=== PATIENT | male | born 1935 | race Caucasian/White ===

== ENCOUNTER 2017-01-22 04:07 | Emergency (ER) | payer OTHER ==
[2017-01-22] MEDS ORDERED: cloNIDine HCL 0.1 MG TAB PO STA (04:54)
[2017-01-22 05:15] LABS: Basophils # (A) 0.1 k/uL (0-0.2); Basophils % (A) 1 %; CH 28.5; CHCM 34.8; Eosinophils # (A) 0.4 k/uL (0-0.7); Eosinophils % (A) 5 %; HCT 43.2 % (39.0-53.0); HDW 2.75; Luc # (Auto) 0.21; Luc % (Auto) 3; Lymphocytes # (A) 2.8 k/uL (1.0-4.8); Lymphocytes % (A) 33 %; MCH 28.7 pg (25.0-35.0); MCHC 34.8 g/dL (31.0-37.0); MCV 82.4 fL (80.0-100.0); Mean Platelet Volume 6.4; Monocytes # (A) 0.5 k/uL (0-1.0); Monocytes % (A) 6 %; Neutrophils # (A) 4.4 k/uL (1.3-7.7); Neutrophils % (A) 52 %; RBC 5.24 m/uL (4.30-5.90); RDW 13.7 % (11.5-15.5); WBC 8.5 k/uL (3.8-10.6); WBC (Perox) 8.76
[2017-01-22 05:26] LABS: INR 1.1 (<1.1); Partial Thromboplastin Time 27.3 sec (22.0-30.0); Prothrombin Time 11.3 sec (9.0-12.0)
[2017-01-22 06:14] VITALS: PULSE 78
--- NOTE | 2017-01-22 06:21 | ED ---
ENT HPI - General Chief complaint: ENT Stated complaint: Nosebleed Time Seen by Provider: 01/22/17 04:54 Source: patient, family Mode of arrival: ambulatory Limitations: no limitations - Related Data Home Medications Medication Instructions Recorded Confirmed Atenolol [Tenormin] 25 mg PO DAILY 01/22/17 01/22/17 Diltiazem HCl [Diltiazem 12Hr ER] 120 mg PO Q12HR 01/22/17 01/22/17 Hydrochlorothiazide [Hydrodiuril] 25 mg PO DAILY 01/22/17 01/22/17 Allergies Allergy/AdvReac Type Severity Reaction Status Date / Time No Known Allergies Allergy Verified 01/22/17 04:23 Review of Systems ROS Statement: Those systems with pertinent positive or pertinent negative responses have been documented in the HPI. ROS Other: All systems not noted in ROS Statement are negative. Past Medical History Past Medical History: Hypertension Additional Past Medical History / Comment(s): nosebleeds, History of Any Multi-Drug Resistant Organisms: None Reported Past Surgical History: No Surgical Hx Reported Past Psychological History: No Psychological Hx Reported Smoking Status: Never smoker Past Alcohol Use History: None Reported Past Drug Use History: None Reported General Exam Limitations: no limitations Course Vital Signs 01/22/17 01/22/17 04:19 06:13 Temperature 97 F L Pulse Rate 91 78 Respiratory 20 20 Rate Blood Pressure 174/83 122/59 O2 Sat by Pulse 96 97 Oximetry Medical Decision Making - Lab Data Result diagrams: 01/22/17 05:03 Lab Results 01/22/17 01/22/17 Range/Units 05:03 05:03 WBC 8.5 (3.8-10.6) k/uL RBC 5.24 (4.30-5.90) m/uL Hgb 15.0 (13.0-17.5) gm/dL Hct 43.2 (39.0-53.0) % MCV 82.4 (80.0-100.0) fL MCH 28.7 (25.0-35.0) pg MCHC 34.8 (31.0-37.0) g/dL RDW 13.7 (11.5-15.5) % Plt Count 317 (150-450) k/uL Neutrophils % 52 % Lymphocytes % 33 % Monocytes % 6 % Eosinophils % 5 % Basophils % 1 % Neutrophils # 4.4 (1.3-7.7) k/uL Lymphocytes # 2.8 (1.0-4.8) k/uL Monocytes # 0.5 (0-1.0) k/uL Eosinophils # 0.4 (0-0.7) k/uL Basophils # 0.1 (0-0.2) k/uL PT 11.3 (9.0-12.0) sec INR 1.1 (<1.1) APTT 27.3 (22.0-30.0) sec Disposition Clinical Impression: Epistaxis, Hypertension Disposition: HOME SELF-CARE Condition: Good Instructions: Nosebleed (ED) Referrals: Nonstaff,Physician [Primary Care Provider] - 1-2 days Joselito Love MD [STAFF PHYSICIAN] - 1-2 days
[2017-01-22 06:34] VITALS: BP 123/68; RESP 18; TEMP 98
== END 2017-01-22 06:35 | disposition home or self-care (01) ==
LOC: EC 04:07
DX: R04.0 Epistaxis (principal); I10 Essential (primary) hypertension; Z79.899 Other long term (current) drug therapy
CPT/HCPCS: 36415; 85025; 85610; 85730; 99283

== ENCOUNTER 2017-03-04 08:15 | Emergency (ER) | payer OTHER ==
--- NOTE | 2017-03-04 08:36 | ED ---
General Adult HPI - General Chief complaint: ENT Stated complaint: NOSEBLEED Time Seen by Provider: 03/04/17 08:23 Source: patient, family, RN notes reviewed Mode of arrival: ambulatory Limitations: no limitations - History of Present Illness Initial comments: Patient is a pleasant 81-year-old male presenting to the emergency department complaining of epistaxis. Onset was over now are ago. Patient does have frequent nosebleeds. Last nosebleed was 8 days ago which is actually pretty good for him. Patient generally has them more frequently. No shortness of breath. No fatigue or weakness. No trauma. Patient believes his nosebleed has improved at this point. Right side is the affected side. - Related Data Home Medications Medication Instructions Recorded Confirmed Atenolol [Tenormin] 25 mg PO DAILY 01/22/17 03/04/17 Diltiazem HCl [Diltiazem 12Hr ER] 120 mg PO Q12HR 01/22/17 03/04/17 Hydrochlorothiazide [Hydrodiuril] 25 mg PO DAILY 01/22/17 03/04/17 Oxymetazoline 0.05% Nasl [place] 2 spray EA NOSTRIL BID 03/04/17 03/04/17 [Afrin 0.05% Nasal [place]] Allergies Allergy/AdvReac Type Severity Reaction Status Date / Time No Known Allergies Allergy Verified 03/04/17 08:21 Review of Systems ROS Statement: Those systems with pertinent positive or pertinent negative responses have been documented in the HPI. ROS Other: All systems not noted in ROS Statement are negative. Constitutional: Denies: fever Eyes: Denies: eye pain ENT: Reports: epistaxis. Denies: ear pain Respiratory: Denies: cough Cardiovascular: Denies: chest pain Endocrine: Denies: fatigue Gastrointestinal: Denies: abdominal pain Genitourinary: Denies: dysuria Musculoskeletal: Denies: back pain Skin: Denies: rash Neurological: Denies: weakness Past Medical History Past Medical History: Hypertension Additional Past Medical History / Comment(s): nosebleeds, History of Any Multi-Drug Resistant Organisms: None Reported Past Surgical History: No Surgical Hx Reported Past Psychological History: No Psychological Hx Reported Smoking Status: Never smoker Past Alcohol Use History: None Reported Past Drug Use History: None Reported General Exam Limitations: no limitations General appearance: alert, in no apparent distress Head exam: Present: atraumatic Eye exam: Present: normal appearance, PERRL ENT exam: Present: normal oropharynx, other (Minimal dry blood in the nares. Area of bleeding is not identified) Neck exam: Present: normal inspection Respiratory exam: Present: normal lung sounds bilaterally Cardiovascular Exam: Present: regular rate, normal rhythm GI/Abdominal exam: Present: soft. Absent: tenderness Extremities exam: Present: normal inspection Neurological exam: Present: alert Psychiatric exam: Present: normal affect, normal mood Skin exam: Present: normal color Course Vital Signs 03/04/17 03/04/17 08:18 08:38 Temperature 96.7 F L Pulse Rate 67 Respiratory 18 Rate Blood Pressure 179/81 115/54 O2 Sat by Pulse 99 Oximetry - Reevaluation(s) Reevaluation #1: 03/04/17 08:34 No active bleeding at this time. Patient does not want to have his nose packed and is agreeable for observation. 03/04/17 09:17 Patient still with no bleeding and requests discharge. Disposition Clinical Impression: Epistaxis Disposition: HOME SELF-CARE Condition: Stable Instructions: Nosebleed (ED) Additional Instructions: Please follow-up with primary care physician and ENT in the beginning of the week. Return for increased bleeding, worsening symptoms or other concerns. Referrals: Nonstaff,Physician [Primary Care Provider] - 1-2 days Jsoelito Love MD [STAFF PHYSICIAN] - 1-2 days Jevon Byers III, MD [STAFF PHYSICIAN] - 1-2 days Time of Disposition: 09:18
[2017-03-04 09:26] VITALS: BP 129/64; PULSE 78; RESP 16; TEMP 98
== END 2017-03-04 09:24 | disposition home or self-care (01) ==
LOC: EC 08:15
DX: R04.0 Epistaxis (principal); I10 Essential (primary) hypertension; Z79.899 Other long term (current) drug therapy
CPT/HCPCS: 99283

== ENCOUNTER 2020-05-27 12:11 | Emergency (ER) | payer OTHER ==
--- NOTE | 2020-05-27 12:41 | ED ---
Fall HPI - General Chief Complaint: Fall Stated Complaint: fall, head injury Time Seen by Provider: 05/27/20 12:22 Source: patient, RN notes reviewed, old records reviewed Mode of arrival: wheelchair - History of Present Illness Initial Comments: This is an 84-year-old male DF status post fall supple fall misstep going forward fell forward landing on forehead. No loss of consciousness not on blood thinners. Issue stem from patient missing a step he has had his eyes dilated was not wearing glasses and it was supervisory outside. He does have significant hematoma above his left eye and abrasion to his nose from sunglasses. No bleeding from the nose. No vision changes or other complaints. 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 [employer] Fall Witnessed: yes, by family Place Fall Occurred: home Loss of Consciousness: none Prolonged Down Time?: no Symptoms Prior to Fall: none Location: head, face Location - Extremities: Left: Knee Severity: moderate Severity scale (1-10): 4 Quality: burning Context: tripped/slipped Associated Symptoms: denies - Related Data Home Medications Medication Instructions Recorded Confirmed Diltiazem HCl [Diltiazem 12Hr ER] 120 mg PO Q12HR 01/22/17 03/04/17 atenoloL [Tenormin] 25 mg PO DAILY 01/22/17 03/04/17 hydroCHLOROthiazide [Hydrodiuril] 25 mg PO DAILY 01/22/17 03/04/17 Oxymetazoline 0.05% Nasl [place] 2 spray EA NOSTRIL BID 03/04/17 03/04/17 [Afrin 0.05% Nasal [place]] Allergies Allergy/AdvReac Type Severity Reaction Status Date / Time No Known Allergies Allergy Verified 05/27/20 12:23 Review of Systems ROS Statement: Those systems with pertinent positive or pertinent negative responses have been documented in the HPI. ROS Other: All systems not noted in ROS Statement are negative. Past Medical History Past Medical History: Hypertension Additional Past Medical History / Comment(s): nosebleeds, History of Any Multi-Drug Resistant Organisms: None Reported Past Surgical History: Back Surgery, Joint Replacement Additional Past Surgical History / Comment(s): rt knee, neck fusion Past Psychological History: No Psychological Hx Reported Smoking Status: Never smoker Past Alcohol Use History: None Reported Past Drug Use History: None Reported General Exam Limitations: no limitations General appearance: alert, in no apparent distress Head exam: Present: normocephalic, normal inspection. Absent: atraumatic (Hem atoma 3 x 5 cm above left eye) Eye exam: Present: normal appearance, PERRL, EOMI. Absent: scleral icterus, conjunctival injection, periorbital swelling ENT exam: Present: normal exam, mucous membranes moist Neck exam: Present: normal inspection. Absent: tenderness, meningismus, lymphadenopathy Respiratory exam: Present: normal lung sounds bilaterally. Absent: respiratory distress, wheezes, rales, rhonchi, stridor Cardiovascular Exam: Present: regular rate, normal rhythm, normal heart sounds. Absent: systolic murmur, diastolic murmur, rubs, gallop, clicks GI/Abdominal exam: Present: soft, normal bowel sounds. Absent: distended, tenderness, guarding, rebound, rigid Extremities exam: Present: normal inspection, full ROM, normal capillary refill. Absent: tenderness, pedal edema, joint swelling, calf tenderness Back exam: Present: normal inspection Neurological exam: Present: alert, oriented X3, CN II-XII intact Psychiatric exam: Present: normal affect, normal mood Skin exam: Present: warm, dry, intact, normal color. Absent: rash Course Vital Signs 05/27/20 12:19 Temperature 97.6 F Pulse Rate 64 Respiratory 20 Rate Blood Pressure 160/73 O2 Sat by Pulse 99 Oximetry - Reevaluation(s) Reevaluation #1: 05/27/20 12:45 Medical records reviewed Reevaluation #2: 05/27/20 12:45 Patient requiring any pain or medication, Reevaluation #3: 05/27/20 12:45 Informed results, patient's okay for discharge Medical Decision Making - Medical Decision Making 81 female DF for evaluation status post trip and fall. Patient has significant hematoma above left eye no triadic injury or fractures, CT is otherwise negative patient can be discharged home - Radiology Data Radiology results: report reviewed (CT brain C-spine and facial bones positive for nasal fracture no onthe rinjury noted), image reviewed Disposition Clinical Impression: Fall, Traumatic hematoma of forehead, Head injury, Nasal fracture Disposition: HOME SELF-CARE Condition: Good Instructions (If sedation given, give patient instructions): Fall Prevention for Older Adults (ED), Hematoma (ED), Nasal Fracture (ED) Is patient prescribed a controlled substance at d/c from ED?: No Referrals: [facility]inic [Primary Care Provider] - 1-2 days
--- NOTE | 2020-05-27 13:13 | CT ---
EXAMINATION TYPE: CT brain cspine wo con, CT facial bones wo con DATE OF EXAM: 05/27/2020 COMPARISON: NONE HISTORY: Fall with left frontal injury. . (accession [id number]), Fall with left frontal injury. (acces corinna [id number]) headache and neck pain after injury. CT DLP: 1119.5 mGycm. Automated Exposure Control for Dose Reduction was Utilized. TECHNIQUE: CT scan of the head and cervical spine are performed without contrast. FINDINGS: There is no acute intracranial hemorrhage or midline shift identified. Diffuse ventricula r and sulcal prominence. Some low attenuation in the periventricular white matter bilaterally. The ca lvarium is intact. There is moderate sized acute left frontal supraorbital scalp hematoma. The mandible is intact. The temporomandibular joints are maintained bilaterally. There is acute minim ally displaced fracture through the right nasal bridge with associated soft tissue swelling. Orbital floors and garcia are intact bilaterally. There are scleral calcifications in both globes. Intraconal fat is preserved bilaterally. The zygomatic arches are intact. The pterygoid plates are intact. The p aranasal sinuses are grossly clear. Cervical spine is visualized in its entirety from C1 through upper thoracic levels and demonstrates t he levoconvex scoliosis centered upper thoracic spine without evidence of acute fracture or dislocati on. Prevertebral soft tissue appears within normal limits. The C1-C2 articulation is within normal limits on the coronal images. There is multilevel severe disc space narrowing with some ossific fusio n of the C3-C4, C5-C6, and C6-C7 vertebra. There is grade 1 anterolisthesis C7 on T1 with moderate-to -severe disc space narrowing and vacuum disc phenomenon at the cervical thoracic junction. Osseous st ructures are diffusely sclerotic with small subcentimeter lytic areas. Correlate clinically for prior surgery given above findings. Posterior spurs efface the anterior thecal sac at C3-C4 and C4-C5 leve ls. Axial images show multilevel uncovertebral facet degenerative changes bilaterally contributing to mul tilevel bilateral neural foraminal narrowing. Thyroid gland is normal in size. Lung apices show mild to moderate emphysematous change with respiratory motion artifact degradation. IMPRESSION: 1. There is no acute fracture or dislocation evident in the cervical spine. Scoliosis with multilevel spondylolisthesis and degenerative change along with some ossific fusion noted as detailed above. 2. No acute intracranial hemorrhage or midline shift is seen. [id number]-[id number] diffuse cerebral atrop hy and chronic small vessel ischemic changes are present. 3. Moderate-sized left frontal acute supraorbital scalp hematoma. Acute minimally displaced fracture through the nasal bridge.
[2020-05-27 13:59] VITALS: BP 132/75; PULSE 67; RESP 17; TEMP 97.5
== END 2020-05-27 14:00 | disposition home or self-care (01) ==
LOC: EC 12:11
DX: S02.2XXA Fracture of nasal bones, initial encounter for closed fracture (principal); S00.83XA Contusion of other part of head, initial encounter; I10 Essential (primary) hypertension; Z79.899 Other long term (current) drug therapy; Z98.1 Arthrodesis status; W01.0XXA Fall on same level from slipping, tripping and stumbling without subsequent striking against object, initial encounter
CPT/HCPCS: 70450; 70486; 72125; 99284

== ENCOUNTER 2021-02-10 10:40 | Day surgery (SDC) | payer OTHER ==
[2021-02-05 15:32] VITALS: BMI 23.6
[~2021-02-10 10:40] MED LIST: LACTATED RINGERS 1,000 ML IV SCH; LIDOCAINE 1% (10MG/ML) FOR IV START INTRADERMA PRN; MOXIFLOXACIN HCL 0.5% DROPS 3 ML BTL OP PRN; TETRACAINE 0.5% OPHTH (PF) DROPS 4 ML BTL OP PRN; TIMOLOL 0.5% OPHTH DROPS 5 ML BTL OP PRN
[2021-02-10 11:18] VITALS: TEMP 97.8
[2021-02-10] MEDS: CYCLOPENTOLATE 1% OPHTH SOLN 2 ML BTL OP PRN ×3 (11:22→11:34)
[2021-02-10] MEDS: PHENYLEPHRINE 2.5% OPHTH DRP 2ML OP PRN ×3 (11:25→11:37)
[2021-02-10] MEDS ORDERED: MIDAZOLAM 2 MG/2 ML VIAL ONE (11:58)
[2021-02-10] MEDS ORDERED: fentaNYL (PF) 50 MCG/ML 2 ML AMP ONE (11:58)
[2021-02-10] MEDS ORDERED: HYALURONATE SODIUM INTRAOCULAR 1 EACH SYRINGE (12MG/ML) INTRAOCULA ONE (12:14)
[2021-02-10] MEDS ORDERED: BALANCED SALT IRRIG SOLN COMB2 15 ML IRRIG.SOLN IRRIGATION ONE (12:14)
[2021-02-10] MEDS ORDERED: EPINEPHrine (PF) 0.3 ML in BALANCED SALT IRRIG SOLN COMB2 500 ML IRRIGATION ONE (12:15)
[2021-02-10] MEDS ORDERED: LIDOCAINE 1% (PF) 10MG/ML VIAL MISCELLANE ONE (12:15)
--- NOTE | 2021-02-10 12:27 | P.OP ---
Date of Procedure: 02/10/21 Preoperative Diagnosis: NS & CS Postoperative Diagnosis: same Procedure(s) Performed: PIOL, OD Implants: [id number] 22.0 Anesthesia: MAC Surgeon: Ronaldo Littlejohn Pathology: none sent Condition: stable Disposition: same day Indications for Procedure: blurry vision Operative Findings: no complications
[2021-02-10 12:48] VITALS: RESP 16
[2021-02-10 13:11] VITALS: BP 110/76; PULSE 55
--- NOTE | 2021-02-10 20:56 | OP ---
OPERATIVE REPORT DATE OF SURGERY: 02/10/2021 PROCEDURE: Phacoemulsification of cataract and intraocular lens implant of the right eye. PREOPERATIVE DIAGNOSIS: Nuclear sclerosis and cortical sclerosis. POSTOPERATIVE DIAGNOSIS: Nuclear sclerosis and cortical sclerosis. ESTIMATED BLOOD LOSS: Zero. SPECIMEN TAKEN: None. NARRATIVE: After obtaining the appropriate consent, the patient was brought to the operating room, where the patient was placed under cardiac monitoring and prepped and draped in the usual sterile manner. At the 11 o'clock position a 15-degree super sharp blade was used to create a paracentesis followed by instillation of 1% Xylocaine MPF 50:50 mix with BSS into the anterior chamber. This was followed by Amvisc to stabilize the anterior chamber. At the 9 o'clock position a self-sealing corneal flap incision was created using 2.8 mm katherine keratome. A cystotome was used to initiate a continuous tear capsulorrhexis which was completed with the Utrata forceps. A Binkhorst cannula was used to hydrodissect the lens nucleus followed by hydrodelineation. Phacoemulsification of the lens was performed utilizing phacochop in 17.3 seconds at 14% power. The remaining cortical material was removed using the irrigation aspiration mode followed by additional 1% Xylocaine MPF into the anterior chamber followed by viscoelastic to stabilize the capsular bag. A [employer]ausch [employer] Lomb MX60E 22.0 diopters posterior chamber lens was placed into the capsular bag without difficulty. The remaining viscoelastic material was removed from the anterior chamber with irrigation/aspiration. Balanced salt solution was used to normalize the intraocular pressure. The incision was checked for watertight integrity. The patient then received two drops of 0.5% timolol followed by two drops Vigamox, was lightly patched and shielded in the usual manner. There were no complications from the procedure. The patient tolerated the procedure well and was returned to Recovery in good condition. MMODL / IJN: [id number] /
== END 2021-02-10 13:25 | disposition home or self-care (01) ==
LOC: OR 10:40
PROVIDERS: ATTEND Ophthalmology
DX: H25.11 Age-related nuclear cataract, right eye (principal); H52.03 Hypermetropia, bilateral; H52.223 Regular astigmatism, bilateral; H52.4 Presbyopia; Z96.1 Presence of intraocular lens; I10 Essential (primary) hypertension; Z79.1 Long term (current) use of non-steroidal anti-inflammatories (NSAID); Z79.899 Other long term (current) drug therapy; Z98.42 Cataract extraction status, left eye; Z98.1 Arthrodesis status; Z96.651 Presence of right artificial knee joint; Z82.61 Family history of arthritis; Z80.3 Family history of malignant neoplasm of breast
CPT/HCPCS: 66984; C1780; J2250; J0171; J3010; J2001

== ENCOUNTER 2021-03-03 09:26 | Inpatient (IN) | payer OTHER, MEDICARE ==
[2021-03-03] MEDS ORDERED: ASPIRIN 81 MG PO STA (09:48)
--- NOTE | 2021-03-03 09:50 | ED ---
General Adult HPI - General Chief complaint: Chest Pain Stated complaint: Chest Pain,SOB Time Seen by Provider: 03/03/21 09:38 Source: patient Mode of arrival: wheelchair Limitations: no limitations - History of Present Illness Initial comments: Dictation was produced using [employer] dictation software. please excuse any grammatical, word or spelling errors. Chief Complaint: 85-year-old male with past medical history of hypertension and high cholesterol presents emergency department for exertional chest pain. History of Present Illness: 85-year-old male he has no known history of heart disease. He states he is here in emergency department for concerns of acute coronary syndrome. Over the last several weeks he's been complaining of increasing frequency and intensity of exertional chest pain. He states he notices it anytime he walks around. At rest reports that his symptoms go away. She describes it as a pressure-like sensation in his epigastric area with associated nausea. He denies any chest pain currently. The ROS documented in this emergency department record has been reviewed and confirmed by me. Those systems with pertinent positive or negative responses have been documented in the HPI. All other systems are other negative and/or noncontributory. PHYSICAL EXAM: General Impression: Alert and oriented x3, not in acute distress HEENT: Normocephalic atraumatic, extra-ocular movements intact, pupils equal and reactive to light bilaterally, mucous membranes moist. Cardiovascular: Heart regular rate and rhythm Chest: Able to complete full sentences, no retractions, no tachypnea Abdomen: abdomen soft, non-tender, non-distended, no organomegaly Musculoskeletal: Pulses present and equal in all extremities, no peripheral edema Motor: no focal deficits noted Neurological: CN II-XII grossly intact, no focal motor or sensory deficits noted Skin: Intact with no visualized rashes Psych: Normal affect and mood ED course: 85-year-old male presents with clinical presentation consistent with unstable angina. He is pain-free at this time. Signs upon arrival shows heart rate of 56, rest of vital signs within acceptable limits. EKG does not show any signs of ischemia or infarction. His EKG interpretation is nonspecific. No old EKG for comparison.Laboratory evaluation obtained. CBC, coag panel, blood panel is unremarkable. Troponin is negative. Patient is pain-free. Case discussed with Dr. Ellison was went except patient's care. Cardiology consult. Patient given aspirin. EKG interpretation: Ventricular rate 56, sinus bradycardia, UT interval 186, QRS 142, QTc 453, right bundle branch block. No UT prolongation, no QTC prolongation, no ST or T-wave changes noted. Overall this EKG is nonspecific. - Related Data Home Medications Medication Instructions Recorded Confirmed atenoloL [Tenormin] 25 mg PO QAM 01/22/17 03/03/21 hydroCHLOROthiazide [Hydrodiuril] 25 mg PO DAILY 05/27/20 03/03/21 Cephalexin [Keflex] 2,000 mg PO ONCE PRN 03/03/21 03/03/21 Clobetasol 0.05% Topical Soln 1 applic TOPICAL BID PRN 03/03/21 03/03/21 Diltiazem HCl [Diltiazem HCl 24Hr 120 mg PO HS 03/03/21 03/03/21 ER] Ketoconazole 2% Shampoo [Nizoral] 1 applic TOPICAL Q3D 03/03/21 03/03/21 prednisoLONE ACETATE [Pred Forte 1 drop RIGHT EYE BID 03/03/21 03/03/21 1%] Allergies Allergy/AdvReac Type Severity Reaction Status Date / Time No Known Allergies Allergy Verified 03/03/21 10:11 Review of Systems ROS Statement: Those systems with pertinent positive or pertinent negative responses have been documented in the HPI. ROS Other: All systems not noted in ROS Statement are negative. Past Medical History Past Medical History: Hypertension Additional Past Medical History / Comment(s): received both covid vaccines, cataract rt eye, hx nosebleeds,bronchitis History of Any Multi-Drug Resistant Organisms: None Reported Past Surgical History: Back Surgery, Joint Replacement Additional Past Surgical History / Comment(s): rt knee replacement, neck fusion,lt cataract Past Anesthesia/Blood Transfusion Reactions: No Reported Reaction Past Psychological History: No Psychological Hx Reported Smoking Status: Never smoker Past Alcohol Use History: None Reported Past Drug Use History: None Reported - Past Family History Mother Family Medical History: No Reported History Son(s) Family Medical History: No Reported History General Exam Limitations: no limitations Course Vital Signs 03/03/21 09:27 Temperature 98.0 F Pulse Rate 56 L Respiratory 16 Rate Blood Pressure 126/73 O2 Sat by Pulse 100 Oximetry Medical Decision Making - Lab Data Result diagrams: 03/03/21 09:51 03/03/21 09:51 Lab Results 03/03/21 03/03/21 03/03/21 Range/Units 09:51 09:51 09:51 WBC 8.9 (3.8-10.6) k/uL RBC 5.49 (4.30-5.90) m/uL Hgb 15.9 (13.0-17.5) gm/dL Hct 45.4 (39.0-53.0) % MCV 82.6 (80.0-100.0) fL MCH 28.9 (25.0-35.0) pg MCHC 35.0 (31.0-37.0) g/dL RDW 13.3 (11.5-15.5) % Plt Count 197 (150-450) k/uL MPV 9.4 Neutrophils % 61 % Lymphocytes % 25 % Monocytes % 8 % Eosinophils % 3 % Basophils % 1 % Neutrophils # 5.4 (1.3-7.7) k/uL Lymphocytes # 2.2 (1.0-4.8) k/uL Monocytes # 0.7 (0-1.0) k/uL Eosinophils # 0.2 (0-0.7) k/uL Basophils # 0.1 (0-0.2) k/uL PT 11.0 (9.0-12.0) sec INR 1.0 (<1.2) APTT 28.2 (22.0-30.0) sec Sodium 137 (137-145) mmol/L Potassium 4.3 (3.5-5.1) mmol/L Chloride 105 (98-107) mmol/L Carbon Dioxide 22 (22-30) mmol/L Anion Gap 10 mmol/L BUN 24 H (9-20) mg/dL Creatinine 0.98 (0.66-1.25) mg/dL Est GFR (CKD-EPI)AfAm 82 (>60 ml/min/1.73 sqM) Est GFR (CKD-EPI)NonAf 71 (>60 ml/min/1.73 sqM) Glucose 103 H (74-99) mg/dL Calcium 10.1 (8.4-10.2) mg/dL Troponin I (0.000-0.034) ng/mL 03/03/21 Range/Units 09:51 WBC (3.8-10.6) k/uL RBC (4.30-5.90) m/uL Hgb (13.0-17.5) gm/dL Hct (39.0-53.0) % MCV (80.0-100.0) fL MCH (25.0-35.0) pg MCHC (31.0-37.0) g/dL RDW (11.5-15.5) % Plt Count (150-450) k/uL MPV Neutrophils % % Lymphocytes % % Monocytes % % Eosinophils % % Basophils % % Neutrophils # (1.3-7.7) k/uL Lymphocytes # (1.0-4.8) k/uL Monocytes # (0-1.0) k/uL Eosinophils # (0-0.7) k/uL Basophils # (0-0.2) k/uL PT (9.0-12.0) sec INR (<1.2) APTT (22.0-30.0) sec Sodium (137-145) mmol/L Potassium (3.5-5.1) mmol/L Chloride (98-107) mmol/L Carbon Dioxide (22-30) mmol/L Anion Gap mmol/L BUN (9-20) mg/dL Creatinine (0.66-1.25) mg/dL Est GFR (CKD-EPI)AfAm (>60 ml/min/1.73 sqM) Est GFR (CKD-EPI)NonAf (>60 ml/min/1.73 sqM) Glucose (74-99) mg/dL Calcium (8.4-10.2) mg/dL Troponin I <0.012 (0.000-0.034) ng/mL Disposition Clinical Impression: Unstable angina Disposition: ADMITTED IP TO THIS HOSP Condition: Fair Referrals: [facility],Clinic [Primary Care Provider] - 1-2 days Decision Time: 11:05
[2021-03-03 10:00] LABS: Basophils # (A) 0.1 k/uL (0-0.2); Basophils % (A) 1 %; Eosinophils # (A) 0.2 k/uL (0-0.7); Eosinophils % (A) 3 %; HCT 45.4 % (39.0-53.0); HGB 15.9 gm/dL (13.0-17.5); Lymphocytes # (A) 2.2 k/uL (1.0-4.8); Lymphocytes % (A) 25 %; MCH 28.9 pg (25.0-35.0); MCV 82.6 fL (80.0-100.0); Mean Platelet Volume 9.4; Monocytes # (A) 0.7 k/uL (0-1.0); Monocytes % (A) 8 %; Neutrophils # (A) 5.4 k/uL (1.3-7.7); Neutrophils % (A) 61 %; Platelet Count 197 k/uL (150-450); RBC 5.49 m/uL (4.30-5.90); RDW 13.3 % (11.5-15.5); WBC 8.9 k/uL (3.8-10.6)
[2021-03-03 10:10] LABS: Partial Thromboplastin Time 28.2 sec (22.0-30.0)
--- NOTE | 2021-03-03 10:12 | XR ---
EXAMINATION TYPE: XR chest 1V portable DATE OF EXAM: 03/03/2021 COMPARISON: None HISTORY: Chest pain TECHNIQUE: Single frontal view of the chest is obtained. FINDINGS: Heart size is within normal limits. Atherosclerotic aorta. No focal consolidation, pneumot horax. Minimal blunting of the right costophrenic angle suggestive of a tiny pleural effusion. IMPRESSION: 1. minimal blunting of the right costophrenic angle suggestive of tiny right pleural effusion. No foc al consolidation or pneumothorax.
[2021-03-03 10:13] LABS: Calcium 10.1 mg/dL (8.4-10.2); Potassium 4.3 mmol/L (3.5-5.1)
[2021-03-03] MEDS ORDERED: NITROGLYCERIN SL TABS 0.4 MG TAB SUBLINGUAL PRN (11:01)
[2021-03-03] MEDS ORDERED: CLOBETASOL PROP 0.05% CR 15GM TOPICAL PRN (14:12)
--- NOTE | 2021-03-03 14:20 | P.HPIM ---
History of Present Illness Patient is pleasant 85-year-old male came in with compensative for epigastric burning sensation along with nausea which started after the slight exertion when he is trying to put the garbage cans out. symptoms completely resolved after taking this for few minutes. Patient denied any radiation of the pain denied any lightheadedness denied diaphoresis nonpleuritic chest pain not associated with food patient had an EKG which showed right bundle branch block and some ST depressions in the inferior wall him predominantly in lead 3. Patient's troponin is negative. Patient does have history of hypertension. Patient has mild sinus bradycardia although patient is on atenolol and diltiazem Review of Systems REVIEW OF SYSTEMS: CONSTITUTIONAL: No fever, no malaise, no fatigue. HEENT: No recent visual problems or hearing problems. Denied any sore throat. CARDIOVASCULAR: No orthopnea, PND, no palpitations, no syncope. PULMONARY: No shortness of breath, no cough, no hemoptysis. GASTROINTESTINAL: No diarrhea, no vomiting. NEUROLOGICAL: No headaches, no weakness, no numbness. HEMATOLOGICAL: Denies any bleeding or petechiae. GENITOURINARY: Denies any burning micturition, frequency, or urgency. MUSCULOSKELETAL/RHEUMATOLOGICAL: Denies any joint pain, swelling, or any muscle pain. ENDOCRINE: Denies any polyuria or polydipsia. The rest of the 14-point review of systems is negative. Past Medical History Past Medical History: Hypertension Additional Past Medical History / Comment(s): received both covid vaccines, cataract rt eye, hx nosebleeds,bronchitis History of Any Multi-Drug Resistant Organisms: None Reported Past Surgical History: Back Surgery, Joint Replacement Additional Past Surgical History / Comment(s): rt knee replacement, neck fusion,lt cataract Past Anesthesia/Blood Transfusion Reactions: No Reported Reaction Past Psychological History: No Psychological Hx Reported Smoking Status: Never smoker Past Alcohol Use History: None Reported Past Drug Use History: None Reported - Past Family History Mother Family Medical History: No Reported History Son(s) Family Medical History: No Reported History Medications and Allergies Home Medications Medication Instructions Recorded Confirmed Type atenoloL [Tenormin] 25 mg PO QAM 01/22/17 03/03/21 History hydroCHLOROthiazide [Hydrodiuril] 25 mg PO DAILY 05/27/20 03/03/21 History Cephalexin [Keflex] 2,000 mg PO ONCE PRN 03/03/21 03/03/21 History Clobetasol 0.05% Topical Soln 1 applic TOPICAL BID PRN 03/03/21 03/03/21 History Diltiazem HCl [Diltiazem HCl 24Hr 120 mg PO HS 03/03/21 03/03/21 History ER] Ketoconazole 2% Shampoo [Nizoral] 1 applic TOPICAL Q3D 03/03/21 03/03/21 History prednisoLONE ACETATE [Pred Forte 1 drop RIGHT EYE BID 03/03/21 03/03/21 History 1%] Allergies Allergy/AdvReac Type Severity Reaction Status Date / Time No Known Allergies Allergy Verified 03/03/21 10:11 Physical Exam Vitals: Vital Signs Temp Pulse Resp BP Pulse Ox 03/03/21 11:18 55 L 16 132/72 96 03/03/21 09:27 98.0 F 56 L 16 126/73 100 Intake and Output 03/02/21 03/03/21 03/03/21 22:59 06:59 14:59 Other: Weight 76.204 kg PHYSICAL EXAMINATION: GENERAL: The patient is alert and oriented x3, not in any acute distress. Well developed, well nourished. HEENT: Pupils are round and equally reacting to light. EOMI. No scleral icterus. No conjunctival pallor. Normocephalic, atraumatic. No pharyngeal erythema. No thyromegaly. CARDIOVASCULAR: S1 and S2 present. No murmurs, rubs, or gallops. PULMONARY: Chest is clear to auscultation, no wheezing or crackles. ABDOMEN: Soft, nontender, nondistended, normoactive bowel sounds. No palpable organomegaly. MUSCULOSKELETAL: No joint swelling or deformity. EXTREMITIES: No cyanosis, clubbing, or pedal edema. NEUROLOGICAL: Gross neurological examination did not reveal any focal deficits. SKIN: No rashes. Results CBC & Chem 7: 03/03/21 09:51 03/03/21 09:51 Labs: Abnormal Lab Results - Last 24 Hours (Table) 03/03/21 Range/Units 09:51 BUN 24 H (9-20) mg/dL Glucose 103 H (74-99) mg/dL Assessment and Plan Plan: -Chest pain: We will rule out a concurrent syndromes is a possibility of unstable angina. Patient probably will benefit from inpatient stress test c ardiology was consulted -Hypertension: Patient's atenolol and diltiazem will be held, hydrochlorothi azide will be continued
[2021-03-03] MEDS: prednisoLONE ACETATE 1% OPHTH DROPS 5 ML BTL RIGHT EYE SCH (20:06)
[2021-03-04] MEDS: prednisoLONE ACETATE 1% OPHTH DROPS 5 ML BTL RIGHT EYE SCH ×2 (07:40→21:01)
[2021-03-04] MEDS ORDERED: HEPARIN SODIUM 1,000 UN/ML (10ML VL) IV ONE (08:38)
[2021-03-04] MEDS ORDERED: HEPARIN SODIUM 1,000 UN/ML (10ML VL) IV PRN (08:38)
[2021-03-04] MEDS: METOPROLOL TARTRATE 25 MG TAB PO SCH ×2 (08:55→23:56)
[2021-03-04] MEDS ORDERED: ATORVASTATIN 40 MG TAB PO SCH (09:00)
[2021-03-04] MEDS ORDERED: ASPIRIN 325 MG TAB PO SCH (09:00)
[2021-03-04] MEDS ORDERED: hydroCHLOROthiazide 25 MG TAB PO SCH (09:00)
[2021-03-04] MEDS ORDERED: ASPIRIN 81 MG PO SCH (09:00)
[2021-03-04] MEDS ORDERED: ALPRAZolam 0.5 MG TAB PO PRN (09:01)
[2021-03-04] MEDS ORDERED: ALPRAZolam 0.25 MG TAB PO PRN (09:01)
[2021-03-04] MEDS ORDERED: SODIUM CHLORIDE 0.9% 1,000 ML in EMPTY BAG 1 BAG IV ONE (09:01)
[2021-03-04 09:04] LABS: Basophils # (A) 0.1 k/uL (0-0.2); Basophils % (A) 1 %; Eosinophils # (A) 0.3 k/uL (0-0.7); Eosinophils % (A) 4 %; HCT 47.1 % (39.0-53.0); HGB 16.3 gm/dL (13.0-17.5); Lymphocytes # (A) 1.7 k/uL (1.0-4.8); Lymphocytes % (A) 23 %; MCH 28.8 pg (25.0-35.0); MCHC 34.7 g/dL (31.0-37.0); MCV 82.9 fL (80.0-100.0); Mean Platelet Volume 9.3; Monocytes # (A) 0.4 k/uL (0-1.0); Monocytes % (A) 6 %; Neutrophils # (A) 4.6 k/uL (1.3-7.7); Neutrophils % (A) 64 %; Platelet Count 208 k/uL (150-450); RBC 5.68 m/uL (4.30-5.90); RDW 13.6 % (11.5-15.5); WBC 7.2 k/uL (3.8-10.6)
[2021-03-04] MEDS: HEPARIN SOD,PORK IN 0.45% NACL 25,000 UNIT in 0.45% NACL 1 250ML.BAG IV SCH (09:15)
[2021-03-04 09:27] LABS: INR 1.1 (<1.2); Partial Thromboplastin Time 27.7 sec (22.0-30.0); Prothrombin Time 11.1 sec (9.0-12.0)
[2021-03-04] MEDS ORDERED: IV FLUID CONTINUATION 500 ML IV ONE (09:35)
[2021-03-04] MEDS ORDERED: MIDAZOLAM 2 MG/2 ML VIAL IV ONE (09:40)
[2021-03-04] MEDS ORDERED: fentaNYL (PF) 50 MCG/ML 2 ML AMP IV ONE (09:40)
[2021-03-04] MEDS ORDERED: LIDOCAINE 1% INJ 10MG/ML (20 ML MDV) SQ ONE (09:43)
[2021-03-04] MEDS ORDERED: NITROGLYCERIN 1000MCG/10ML SYRINGE INTRACORON ONE (10:58)
[2021-03-04] MEDS ORDERED: IOPAMIDOL-370 125ML BTL INJ ONE (11:03)
[2021-03-04] MEDS ORDERED: TICAGRELOR 90 MG TAB PO ONE (11:04)
--- NOTE | 2021-03-04 11:34 | P.CRDCN ---
History of Present Illness History of present illness: HISTORY OF PRESENTING ILLNESS This is a pleasant 85-year-old male past medical history significant for Hypertension. He does not follow with a cytopathology technologist. We have been asked to see in consultation for chest pain. Patient states he has been having exertional chest pain, started a few days ago. 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 He also was walking to take out his garbage and continued to have chest pain. He describes it as burning pain. Radiating across his anterior chest. Chest pain is located in central and left sided. Alleviating factors include resting and sitting down. He felt as if he had to catch his breath. Aggravating factors include exertional activity. He has associated nausea and diaphoresis. He said "he felt sick". His chest pain became more intense and more frequent and decided to come to the emergency department. Patient denies any palpitations. He is a non-smoker. Denies alcohol use. He denies history of diabetes, hyperlipidemia, coronary artery disease, [place], or stroke. Denies family history of cardiac disease. Patient seen and examined at bedside. Patient was given aspirin 325mg. Continued to have chest pain. DIAGNOSTICS EKG reveals sinus bradycarida, HR 56, left axis deviation, right bundle branch block, T wave inversion lead III, ST depression V3-V6. No prior EKG to compare. Telemetry tracings indicate sinus bradycardia HR in the 50s Chest xray No acute cardiopulmonary process. possible tiny right pleural effusion Laboratory reviewed, troponin negative x 3, sodium 137, potassium 4.3, serum creatinine 0.98, BUN 24, COVID-19 negative, CBC unremarkable Current home cardiac medications include atenolol 25mg daily, Diltiazem 120mg nightly, hydrochlorothiazide 25mg daily REVIEW OF SYSTEMS At the time of my exam: CONSTITUTIONAL: +diaphoresis Denies fever or chills. CARDIOVASCULAR: +chest pain + shortness of breath, Denies orthopnea, PND or palpitations. RESPIRATORY: Denies cough. GASTROINTESTINAL: +nausea Denies abdominal pain, diarrhea, constipation,vomiting. MUSCULOSKELETAL: Denies myalgias. NEUROLOGIC: Denies numbness, tingling, headacbe or weakness. ENDOCRINE: Denies fatigue, weight change, polydipsia or polyurina. GENITOURINARY: Denies burning, hematuria or urgency with micturation. HEMATOLOGIC: Denies history of anemia or bleeding. PHYSICAL EXAMINATION Blood pressure 125/75 heart rate 63 afebrile and maintaining oxygen saturation 98% on room air CONSTITUTIONAL: No apparent distress. Having chest pain HEENT: Head is normocephalic. Pupils are equal, round. Sclerae anicteric. Mucous membranes of the mouth are moist. No JVD. No carotid bruit. CHEST EXAMINATION: Lungs are clear to auscultation. No chest wall tenderness is noted on palpation or with deep breathing. HEART EXAMINATION: Regular rate and rhythm. S1, S2 heard. No murmurs, gallops or rub. ABDOMEN: Soft, nontender. Positive bowel sounds. EXTREMITIES: 2+ peripheral pulses, no lower extremity edema and no calf tenderness. NEUROLOGIC EXAMINATION: Patient is awake, alert and oriented x3. ASSESSMENT Unstable Angina History of Hypertension PLAN We recommend cardiac catheterization. Patient is agreeable to the procedure. I have discussed the risks, benefits and alternative therapies for the above- mentioned procedure and for both sedation/analgesia as well as necessary blood product administration, if indicated, as they pertain to this patient. The patient has indicated understanding and acceptance of the risks and procedures discussed. Questions have been answered appropriately and he is agreeable to move forward with the above-stated procedure. Obtain 2D echocardiogram and doppler study to assess cardiac structure and function. Start aspirin 81mg daily, statin, metoprolol 25mg BID Continue hydrochlorothiazide daily Further recommendations to follow pending clinical course Nurse Practitioner note has been reviewed, I agree with a documented findings and plan of care. Patient was seen and examined. Past Medical History Past Medical History: Hypertension Additional Past Medical History / Comment(s): received both covid vaccines, cataract rt eye, hx nosebleeds,bronchitis History of Any Multi-Drug Resistant Organisms: None Reported Past Surgical History: Back Surgery, Joint Replacement Additional Past Surgical History / Comment(s): rt knee replacement, neck fusion,lt cataract Past Anesthesia/Blood Transfusion Reactions: No Reported Reaction Past Psychological History: No Psychological Hx Reported Smoking Status: Never smoker Past Alcohol Use History: None Reported Past Drug Use History: None Reported - Past Family History Mother Family Medical History: No Reported History Additional Family Medical History / Comment(s): heart conditions Son(s) Family Medical History: No Reported History Father Family Medical History: Myocardial Infarction ([place]) Medications and Allergies Home Medications Medication Instructions Recorded Confirmed Type atenoloL [Tenormin] 25 mg PO QAM 01/22/17 03/03/21 History hydroCHLOROthiazide [Hydrodiuril] 25 mg PO DAILY 05/27/20 03/03/21 History Cephalexin [Keflex] 2,000 mg PO ONCE PRN 03/03/21 03/03/21 History Clobetasol 0.05% Topical Soln 1 applic TOPICAL BID PRN 03/03/21 03/03/21 History Diltiazem HCl [Diltiazem HCl 24Hr 120 mg PO HS 03/03/21 03/03/21 History ER] Ketoconazole 2% Shampoo [Nizoral] 1 applic TOPICAL Q3D 03/03/21 03/03/21 History prednisoLONE ACETATE [Pred Forte 1 drop RIGHT EYE BID 03/03/21 03/03/21 History 1%] Allergies Allergy/AdvReac Type Severity Reaction Status Date / Time No Known Allergies Allergy Verified 03/03/21 10:11 Physical Exam Vitals: Vital Signs Temp Pulse Pulse Resp BP BP Pulse Ox 03/03/21 15:00 98.0 F 63 18 159/69 99 03/03/21 11:18 55 L 16 132/72 96 03/03/21 09:27 98.0 F 56 L 16 126/73 100 Intake and Output 03/03/21 03/03/21 03/03/21 06:59 14:59 22:59 Other: # Voids 2 Weight 76.204 kg Results 03/04/21 08:46 03/03/21 09:51 Cardiac Enzymes 03/03/21 03/03/21 Range/Units 09:51 12:33 Troponin I <0.012 <0.012 (0.000-0.034) ng/mL Coagulation 03/03/21 Range/Units 09:51 PT 11.0 (9.0-12.0) sec APTT 28.2 (22.0-30.0) sec CBC 03/03/21 Range/Units 09:51 WBC 8.9 (3.8-10.6) k/uL RBC 5.49 (4.30-5.90) m/uL Hgb 15.9 (13.0-17.5) gm/dL Hct 45.4 (39.0-53.0) % Plt Count 197 (150-450) k/uL Comprehensive Metabolic Panel 03/03/21 Range/Units 09:51 Sodium 137 (137-145) mmol/L Potassium 4.3 (3.5-5.1) mmol/L Chloride 105 (98-107) mmol/L Carbon Dioxide 22 (22-30) mmol/L BUN 24 H (9-20) mg/dL Creatinine 0.98 (0.66-1.25) mg/dL Glucose 103 H (74-99) mg/dL Calcium 10.1 (8.4-10.2) mg/dL Current Medications Generic Name Dose Route Start Last Admin Trade Name Freq PRN Reason Stop Dose Admin Aspirin 325 mg 03/04/21 09:00 Aspirin 325 Mg Tab PO DAILY ROBERTO Clobetasol Propionate 1 applic 03/03/21 14:12 Clobetasol Prop 0.05% Cr 15gm TOPICAL BID PRN scaling on scalp & ear Hydrochlorothiazide 25 mg 03/04/21 09:00 Hydrochlorothiazide 25 Mg Tab PO DAILY ROBERTO Nitroglycerin 0.4 mg 03/03/21 11:01 Nitroglycerin Sl Tabs 0.4 Mg Tab SUBLINGUAL Q5M PRN Chest Pain Prednisolone Acetate 1 drops 03/03/21 21:00 Prednisolone Acetate 1% Ophth Drops 5 Ml Btl RIGHT EYE BID ROBERTO Intake and Output 03/03/21 03/03/21 03/03/21 06:59 14:59 22:59 Other: # Voids 2 Weight 76.204 kg Patient Weight 03/04/21 06:59 Weight 76.204 kg 03/03/21 09:51 03/03/21 09:51
[2021-03-04] MEDS: SODIUM CHLORIDE 0.9% 1,000 ML IV SCH (11:40)
[2021-03-04 11:48] LABS: Chol/HDL Ratio 4.49
--- NOTE | 2021-03-04 12:24 | PTCA ---
PERCUTANEOUSTRANS CORORONARY ANGIOGRAPHY DATE OF SERVICE: 03/04/2021 PROCEDURE: PTCA and stenting of proximal and ostial RCA with 2 drug-eluting stents. PERFORMED BY: Dr. Berna Shukla. Moderate conscious sedation time was 31 minutes. Patient was administered Versed. Oxygen saturation, hemodynamics and EKG were monitored closely. CLINICAL INFORMATION: Mr. Paul Coronado is an 85-year-old gentleman with history of hypertension and hyperlipidemia who was admitted to the hospital with symptoms of unstable angina. He was evaluated by Dr. Cuevas and underwent cardiac cath by Dr. Griffith, which revealed a 90% proximal RCA disease with ostial disease of 70%. There was a mid circumflex stenosis of 70% to 80% and the mid LAD with a chronic total occlusion with bridging collaterals and this LAD was collateralized by RCA. He was advised intervention of the dominant RCA. Procedure was performed in the same setting. PROCEDURE NOTE: The existing 6-Pashto introducer in the right femoral artery was used to perform procedure. A standard right Beverly guide catheter was used to cannulate the right coronary artery. A run-through wire was used to cross the lesion. The patient received 5000 units of heparin. His ACT was 254. He also received 180 mg of Brilinta. A 2.5 caliber 12 mm long NC Trek balloon was used to pre-dilate the lesion. The main lesion in the proximal RCA was addressed with a 3.25 caliber 15 mm Xience stent. Proximal to it and extending into the ostium was a 3.5 caliber 15 mm long Xience stent. These stents were deployed in a sequential fashion overlapping nicely up to the ostium. The patient did not have chest pain but had significant ST elevation in the inferior leads. Excellent angiographic result was achieved. ACT was 254. The sheath was taken out and Angio-Seal device used to secure hemostasis. The results were discussed with the patient and his . I expect he will be discharged tomorrow. He has a significant lesion in the circumflex which will be addressed later. I did not do the circumflex mainly because I wanted to limit the amount of contrast usage because of potential renal failure for this elderly gentleman. He will have a mid circumflex stenting performed as an outpatient in the next 7-10 days. The mid LAD is a chronic total occlusion and we can perform a stress test and see the extent of ischemia in the anterior wall distribution a month after circumflex PCI. This plan was discussed with the patient and and I also talked to Dr. Cuevas. I expect the patient to be discharged tomorrow if he remains stable. He has his care at the [facility]. He will be on dual antiplatelet therapy, beta-froylan, statin, and losartan and I will see him in the office in a week and perform circumflex PCI. JULIA / DAREN: [id number] /
[2021-03-04 13:41] VITALS: BMI 24.7
--- NOTE | 2021-03-04 13:41 | P.PN ---
Subjective Progress Note Date: 03/04/21 Patient is pleasant 85-year-old male came in with compensative for epigastric burning sensation along with nausea which started after the slight exertion when he is trying to put the garbage cans out. symptoms completely resolved after taking this for few minutes. Patient denied any radiation of the pain denied any lightheadedness denied diaphoresis nonpleuritic chest pain not associated with food patient had an EKG which showed right bundle branch block and some ST depressions in the inferior wall him predominantly in lead 3. Patient's troponin is negative. Patient does have history of hypertension. Patient has mild sinus bradycardia although patient is on atenolol and diltiazem 03/04/2021 Patient was seen this morning in undergoing cardiac catheterization showing a 90% proximal RCA disease with ostial disease of 70% along with the mid circumflex stenosis of 70-80% in the mid LAD with a chronic total occlusion and ultimately received stenting of the proximal and ostial RCA and will require maximum medical management and close outpatient follow-up for stenting of the mid circumflex and stress testing outpatient and will be following closely with Dr. Shukla. Review of systems: Constitutional: Reports generalized fatigue status post procedure, no reports of fever, or chills Cardiovascular: Reported intermittent chest pain this morning Respiratory: No reports of shortness of breath or cough GI: No reports of nausea, vomiting, or diarrhea : No reports of dysuria or retention Neurovascular: No reports of weakness or numbness All medications have been reviewed Objective - Vital Signs Vital signs: Vital Signs Temp 97.7 F 03/04/21 07:00 Pulse 58 L 03/04/21 07:00 Resp 18 03/04/21 07:00 BP 125/75 03/04/21 07:00 Pulse Ox 98 03/04/21 07:00 Intake & Output 03/03/21 03/04/21 03/04/21 18:59 06:59 18:59 Intake Total 0 Balance 0 Weight 76.204 kg Intake: Oral 0 Other: Voiding Method Toilet # Voids 2 1 - Exam GENERAL: The patient is alert and oriented x3, not in any acute distress. Well developed, well nourished. HEENT: Pupils are round and equally reacting to light. EOMI. No scleral icterus. No conjunctival pallor. Normocephalic, atraumatic. No pharyngeal erythema. No thyromegaly. CARDIOVASCULAR: S1 and S2 present. No murmurs, rubs, or gallops. PULMONARY: Chest is clear to auscultation, no wheezing or crackles. ABDOMEN: Soft, nontender, nondistended, normoactive bowel sounds. No palpable organomegaly. MUSCULOSKELETAL: No joint swelling or deformity. EXTREMITIES: No cyanosis, clubbing, or pedal edema. NEUROLOGICAL: Gross neurological examination did not reveal any focal deficits. SKIN: No rashes. - Labs CBC & Chem 7: 03/04/21 08:46 03/03/21 09:51 Labs: Abnormal Lab Results - Last 24 Hours (Table) 03/03/21 Range/Units 09:51 BUN 24 H (9-20) mg/dL Glucose 103 H (74-99) mg/dL Assessment and Plan Assessment: -Chest pain: We will rule out an acute coronary syndromes is a possibility of unstable angina. -Status post cardiac catheterization with successful stenting to the proximal and ostial RCA -Hypertension: Patient's atenolol and diltiazem will be held, hydrochlorothiazide will be continued Plan: Continue with current medications and maximum medical therapy per cardiology recommendations status post successful stenting and will observe the patient closely overnight with possibility of discharge tomorrow if patient remains stable. Patient will continue on dual antiplatelet therapy along with beta froylan, statin, and losartan. Will repeat labs and monitor kidney functions closely. Possible discharge in 24 hours.
--- NOTE | 2021-03-04 13:48 | CC ---
CARDIAC CATHETERIZATION REPORT INDICATION: Unstable angina. PROCEDURE NOTE: After obtaining informed consent, left heart catheterization and coronary angiogram were performed via the right femoral artery using standard Beverly catheters. The patient tolerated the procedure well without any obvious immediate complications. Patient received moderate conscious sedation. Total sedation time was 15 minutes. FINDINGS: 1. HEMODYNAMICS: Left ventricular end-diastolic pressure is 10 mm. There is no significant gradient across the aortic valve. 2. LEFT VENTRICULOGRAM: Left ventriculogram is not performed. 3. ANGIOGRAPHIC DATA: Left Main Coronary Artery: Left main coronary artery appears calcified but is free of significant stenosis. Divides into left anterior descending coronary artery and circumflex coronary artery. Circumflex coronary artery shows a focal 90% stenosis. LAD appears chronically occluded in its midportion with delayed filling of the mid and distal LAD. There are [id number] collaterals to the distal LAD. The right coronary artery is a large dominant vessel with a focal area of 90% stenosis in the proximal part. CONCLUSION: Three-vessel coronary artery disease as described above with a critical stenosis involving right coronary artery, circumflex coronary artery and chronic subtotal occlusion of the LAD. PLAN: I talked to patient about his treatment options including multivessel angioplasty versus bypass surgery. He wishes to do multivessel angioplasty at this time. Dr. Berna Shukla the on-call code official will evaluate the angiographic data and will proceed with angioplasty of the right coronary artery now and we will consider revascularization of the circumflex coronary artery at a later time. MMODL / IJN: [id number] /
[2021-03-04] MEDS: LOSARTAN 25 MG TAB PO SCH (21:01)
[2021-03-05] MEDS: METOPROLOL TARTRATE 25 MG TAB PO SCH ×2 (00:13→08:22)
[2021-03-05] MEDS: SODIUM CHLORIDE 0.9% 1,000 ML IV SCH (03:25)
[2021-03-05 05:56] LABS: African American GFR (CKD) 86 (>60 ml/min/1.73 sqM); Anion Gap 9 mmol/L; Blood Urea Nitrogen 23 mg/dL (9-20); Calcium 9.5 mg/dL (8.4-10.2); Carbon Dioxide 23 mmol/L (22-30); Chloride 103 mmol/L (98-107); Glucose 83 mg/dL (74-99); Non-African American GFR(CKD) 75 (>60 ml/min/1.73 sqM); Potassium 4.4 mmol/L (3.5-5.1); Sodium 135 mmol/L (137-145)
[2021-03-05] MEDS ORDERED: HEPARIN SODIUM,PORCINE 2,500 UNIT in SODIUM CHLORIDE 0.9% 250 ML IRRIGATION PRN (07:00)
[2021-03-05] MEDS ORDERED: HEPARIN SODIUM,PORCINE 10,000 UNIT in SODIUM CHLORIDE 0.9% 1,000 ML IRRIGATION PRN (07:00)
[2021-03-05 07:51] VITALS: BP 120/77; PULSE 71; RESP 17; TEMP 97.6
[2021-03-05] MEDS: prednisoLONE ACETATE 1% OPHTH DROPS 5 ML BTL RIGHT EYE SCH (08:22)
[2021-03-05] MEDS: LOSARTAN 25 MG TAB PO SCH (08:22)
[2021-03-05] MEDS ORDERED: TICAGRELOR 90 MG TAB PO SCH (09:00)
[2021-03-05] MEDS ORDERED: ASPIRIN 81 MG PO SCH (09:00)
[2021-03-05 09:58] LABS: Basophils # (A) 0.06 X 10*3/uL (0.00-0.10); Basophils % (A) 0.7 %; Eosinophils # (A) 0.29 X 10*3/uL (0.04-0.35); Eosinophils % (A) 3.2 %; HCT 45.4 % (39.6-50.0); HGB 14.9 g/dL (13.0-17.0); Lymphocytes # (A) 1.85 X 10*3/uL (0.90-5.00); Lymphocytes % (A) 20.3 %; MCHC 32.8 g/dL (32.0-37.0); MCV 85.3 fL (80.0-97.0); Mean Platelet Volume 10.4 fL (9.5-12.2); Monocytes # (A) 0.98 X 10*3/uL (0.20-1.00); Monocytes % (A) 10.7 %; Neutrophils # (A) 5.93 X 10*3/uL (1.80-7.70); Neutrophils % (A) 64.9 %; Platelet Count 270 X 10*3/uL (140-440); RBC 5.32 X 10*6/uL (4.40-5.60); RDW 14.1 % (11.5-14.5); WBC 9.13 X 10*3/uL (4.50-10.00)
[2021-03-05 10:26] LABS: INR 1.05 (0.90-1.11); Prothrombin Time 11.4 sec (9.9-11.9)
[2021-03-05] MEDS: HEPARIN SOD,PORK IN 0.45% NACL 25,000 UNIT in 0.45% NACL 1 250ML.BAG IV SCH (10:27)
--- NOTE | 2021-03-05 11:01 | ECHOF ---
Referral Reason:CHEST PAIN MEASUREMENTS -------- HEIGHT: 175.3 cm WEIGHT: 76.2 kg BP: IVSd: 1.3 cm (0.6 - 1.1) LVIDd: 4.4 cm (3.9 - 5.3) LVPWd: 1.1 cm (0.6 - 1.1) EDV(Teich): 88 ml IVSs: 2.0 cm LVIDs: 3.2 cm LVPWs: 0.7 cm %IVS Thck: 47 % ESV(Teich): 41 ml EF(Teich): 54 % %FS: 27 % SV(Teich): 47 ml Ao Diam: 3.6 cm (2.0 - 3.7) LA Diam: 2.7 cm (2.7 - 3.8) AV Cusp: 2.4 cm (1.5 - 2.6) EPSS: 0.8 cm MV E Mj: 0.50 m/s MV DecT: 301 ms MV Dec [place]: 1.7 m/s MV A Mj: 1.04 m/s MV E/A Ratio: 0.48 MV PHT: 87 ms MR Vmax: 1.82 m/s MR maxP.26 mmHg AV Vmax: 1.14 m/s AV maxP.23 mmHg AR Vmax: 2.06 m/s AR maxP.92 mmHg AR PHT: 1971 ms AR Dec Time: 6798 ms AR Dec [place]: 0.3 m/s TR Vmax: 1.65 m/s TR maxP.84 mmHg RAP: 5.00 mmHg RVSP: 15.84 mmHg MV EF SLOPE: 23.51 mm/s (70 - 150) MV EXCURSION: 13.19 mm (> 18.000) FINDINGS -------- This was a technically difficult study with suboptimal views. The left ventricular size is normal. There is mild concentric left ventricular hypertrophy. Overa ll left ventricular systolic function is mildly impaired with, an EF between 45 - 50 %. Basal infer oseptal LV wall motion is hypokinetic. Mid inferoseptal LV wall motion is hypokinetic. The right ventricle is normal in size. The left atrial size is normal. The right atrial size is normal. Lumason used The aortic valve is trileaflet and appears structurally normal. Trace amount of aortic regurgitatio n. The mitral valve is normal. The mitral valve leaflets are mildly thickened. Mild mitral regurgita tion is present. The tricuspid valve appears structurally normal. Mild tricuspid regurgitation present. Right vent ricular systolic pressure is normal at < 35 mmHg. There is no pulmonic regurgitation present. The aortic root size is normal. IVC Not well visulized. There is no pericardial effusion. CONCLUSIONS -------- 1. The left ventricular size is normal. 2. There is mild concentric left ventricular hypertrophy. 3. Overall left ventricular systolic function is mildly impaired with, an EF between 45 - 50 %. 4. Basal inferoseptal LV wall motion is hypokinetic. 5. Mid inferoseptal LV wall motion is hypokinetic. 6. Trace amount of aortic regurgitation. 7. The mitral valve leaflets are mildly thickened. 8. Mild mitral regurgitation is present. 9. Mild tricuspid regurgitation present. 10. There is no pericardial effusion. 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
--- NOTE | 2021-03-05 12:11 | P.DS ---
Providers Date of admission: 03/05/21 08:54 Expected date of discharge: 03/05/21 Attending physician: Gray Elliosn Consults: 03/03/21 11:01 Consult Physician Urgent Consulting Provider: Sarthak Wynn Consult Reason/Comments: unstable angina Do you want consulting provider notified?: Yes Primary care physician: [facility] Hospital Course: Final diagnosis -Chest pain, possibility of unstable angina -Status post cardiac catheterization with successful stenting to the proximal and ostial RCA -Hypertension Discharge disposition Patient is being discharged in a stable condition with guarded prognosis to home. Patient will follow-up with Dr. Duenas at the [facility] upon discharge. Patient will also be following up with cardiology Dr. Cuevas in the next 2 weeks. Total time taken is greater than 35 minutes. Hospital course This is an 85-year-old male who recently came in with components of epigastric burning sensation along with nausea and feeling more exerted while taking the garbage cans out and was being closely monitored. 2-D echo shows overall LV systolic function is mildly impaired with an EF of 45-50 with mild mitral and tricuspid regurgitation present. Patient was seen and evaluated by cardiology recommending cardiac catheterization. Patient underwent cardiac catheterization yesterday and had successful stenting of the RCA proximal and ostial. Patient will continue on Brilinta twice daily along with atorvastatin, losartan, metoprolol, and baby aspirin. atenolol and diltiazem have been discontinued by cardiology. Patient will be following up outpatient for further stenting and reevaluation in the next 1-2 weeks. Patient denies any overnight issues and is asking when he can go home. Currently no reports of chest pain, shortness of breath, or palpitations. Patient is afebrile. No reports of nausea or vomiting and patient is tolerating diet. Patient will be discharged to home today. On exam vital signs are stable. Cardio S1, S2 are muffled. Respiratory shows diminished breath sounds at the bases with no wheezing or rhonchi noted. Abdomen is soft and nontender. Nervous system shows no focal deficits. Please refer to medication reconciliation sheet for a list of medications. Patient Condition at Discharge: Fair Plan - Discharge Summary Discharge Rx Participant: Yes New Discharge Prescriptions: New Aspirin 81 mg PO DAILY 14 Days #14 chew Losartan [Cozaar] 25 mg PO DAILY 14 Days #14 tab Atorvastatin [Lipitor] 80 mg PO HS 14 Days #14 tab Ticagrelor [Brilinta] 90 mg PO BID 14 Days #28 tab Metoprolol Tartrate [Lopressor] 25 mg PO BID 14 Days #28 tab Continue Clobetasol 0.05% Topical Soln 1 applic TOPICAL BID PRN PRN Reason: scaling on scalp & ear Ketoconazole 2% Shampoo [Nizoral] 1 applic TOPICAL Q3D prednisoLONE ACETATE [Pred Forte 1%] 1 drop RIGHT EYE BID Discontinued atenoloL [Tenormin] 25 mg PO QAM hydroCHLOROthiazide [Hydrodiuril] 25 mg PO DAILY Cephalexin [Keflex] 2,000 mg PO ONCE PRN PRN Reason: DENTAL APPOINTMENTS Diltiazem HCl [Diltiazem HCl 24Hr ER] 120 mg PO HS Discharge Medication List Clobetasol 0.05% Topical Soln 1 applic TOPICAL BID PRN 03/03/21 [History] Ketoconazole 2% Shampoo [Nizoral] 1 applic TOPICAL Q3D 03/03/21 [History] prednisoLONE ACETATE [Pred Forte 1%] 1 drop RIGHT EYE BID 03/03/21 [History] Aspirin 81 mg PO DAILY 14 Days #14 chew 03/05/21 [Rx] Atorvastatin [Lipitor] 80 mg PO HS 14 Days #14 tab 03/05/21 [Rx] Losartan [Cozaar] 25 mg PO DAILY 14 Days #14 tab 03/05/21 [Rx] Metoprolol Tartrate [Lopressor] 25 mg PO BID 14 Days #28 tab 03/05/21 [Rx] Ticagrelor [Brilinta] 90 mg PO BID 14 Days #28 tab 03/05/21 [Rx] Follow up Appointment(s)/Referral(s): Brant Cuevas MD [STAFF PHYSICIAN] - 2 Weeks (pt scheduled for stent on 03/15/21, schedule appt [address] Cuevas. 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
--- NOTE | 2021-03-05 12:13 | P.PN ---
Subjective Principal diagnosis: Patient is doing well. He feels a lot better He has no discomfort when he walks around in the room and goes to the bathroom His 2-D echo shows mildly reduced LV systolic function of 45-50% with inferior septal and basal inferior hypokinesis Mild LVH is noted Cardiac catheterization revealed LV EDP of 10 mmHg Calcified left main without significant stenosis Focal 90% stenosis in the left circumflex Chronically occluded LAD in the midportion with right to left collaterals to the distal LAD Dominant RCA with a focal 90% stenosis proximal PTCA stenting of the proximal and ostial RCA with 2 drug-eluting stents performed with Dr. Shukla Pulse rate in the 70s afebrile 97.6F Respirations normal Blood pressure 120/77 mmHg Normal heart sounds no murmurs or gallop or rub Heart sounds S1 and S2 are normal Lungs are clear Groin is healed well no hematoma Impression Triple-vessel coronary artery disease with a chronically occluded LAD with right to left collaterals Significant disease in the RCA and left circumflex Ischemic adenopathy with inferior and inferoseptal hypokinesis, mild LV dysfunction Improvement in symptoms following stenting Plan Continue dual antiplatelet therapy with aspirin and Brilinta Continue losartan Continue metoprolol Patient to go home later today We will perform a staged procedure on the left circumflex since he has a focal 90% stenosis in that vessel to This is planned for march I will see him subsequently in the week to follow Objective - Vital Signs Vital signs: Vital Signs Temp 97.6 F 03/05/21 07:00 Pulse 71 03/05/21 07:00 Resp 17 03/05/21 07:00 BP 120/77 03/05/21 07:00 Pulse Ox 99 03/05/21 07:00 Intake & Output 03/04/21 03/05/21 03/05/21 18:59 06:59 18:59 Intake Total 250 Balance 250 Weight 76.204 kg Intake: IV 250 Other: Voiding Method Toilet Toilet # Voids 1 2 - Labs CBC & Chem 7: 03/05/21 04:48 03/05/21 04:48 Labs: Abnormal Lab Results - Last 24 Hours (Table) 03/05/21 Range/Units 04:48 Sodium 135 L (137-145) mmol/L BUN 23 H (9-20) mg/dL
--- NOTE | 2021-03-05 17:17 | PN ---
PROGRESS NOTE I evaluated Mr. Paul Coronado today. He underwent stenting of a very complex proximal and ostial RCA yesterday with an excellent angiographic result. He has a subtotal/chronic occlusion of mid LAD which is filling by collaterals from the right profusely. He also has a nondominant circumflex which has a significant 80% lesion in the proximal portion just before it gives off an obtuse marginal branch. There is significant amount of myocardium supplied by it. I did not perform intervention of circumflex yesterday because of contrast issues in this elderly gentleman. I am recommending that he can be discharged today with the understanding we will perform a staged intervention of circumflex on March 15. I will check his renal function before. The rationale, risks, benefits and options were again explained to the patient. He understands all details and wishes to proceed. He had a comfortable night. Vitals were stable. Physical exam is unchanged. Right groin is clean and dry with a good pulse. I will perform the procedure on March 15 at 7:30 a.m. and based on his clinical course, we will consider a stress test down the road to assess the amount of myocardium supplied by the LAD, which has a chronic total occlusion in the mid portion. MMODL / IJN: [id number] /
[2021-03-05] MEDS ORDERED: ATORVASTATIN 80 MG TAB PO SCH (21:00)
== END 2021-03-05 12:25 | disposition home or self-care (01) | DRG 247 ==
LOC: EC 09:26 → 6NMEDSUR 11:01 → OBSVTOIN 03-05 08:54
PROVIDERS: ADMIT Internal Medicine; ATTEND Internal Medicine
PROC: 027035Z Dilation of Coronary Artery, One Artery with Two Drug-eluting Intraluminal Devices, Percutaneous Approach (ICD-10-PCS; principal; 2021-03-04 18:25)
PROC: 4A023N7 Measurement of Cardiac Sampling and Pressure, Left Heart, Percutaneous Approach (ICD-10-PCS; 2021-03-04 18:25)
PROC: B2111ZZ Fluoroscopy of Multiple Coronary Arteries using Low Osmolar Contrast (ICD-10-PCS; 2021-03-04 18:25)
DX: I25.110 Atherosclerotic heart disease of native coronary artery with unstable angina pectoris (principal); I10 Essential (primary) hypertension; I08.1 Rheumatic disorders of both mitral and tricuspid valves; R00.1 Bradycardia, unspecified; E78.00 Pure hypercholesterolemia, unspecified; H26.9 Unspecified cataract; E78.5 Hyperlipidemia, unspecified; I25.82 Chronic total occlusion of coronary artery; I45.10 Unspecified right bundle-branch block; Z20.822 Contact with and (suspected) exposure to COVID-19; Z79.02 Long term (current) use of antithrombotics/antiplatelets; Z79.899 Other long term (current) drug therapy; Z82.49 Family history of ischemic heart disease and other diseases of the circulatory system; Z96.651 Presence of right artificial knee joint; Z98.1 Arthrodesis status; Z98.42 Cataract extraction status, left eye
CPT/HCPCS: 36415; 71045; 80048; 80061; 84484; 85025; 85610; 85730; 87635; 93005; 93306; 93458; 99285

== ENCOUNTER 2021-03-15 06:25 | Day surgery (SDC) | payer OTHER ==
[2021-03-12 09:59] VITALS: BMI 24.7
[2021-03-15] MEDS ORDERED: ASPIRIN 325 MG TAB PO STA (06:35)
[2021-03-15] MEDS ORDERED: SODIUM CHLORIDE 0.9% 1,000 ML in EMPTY BAG 1 BAG IV ONE (06:35)
[2021-03-15] MEDS ORDERED: HEPARIN SODIUM,PORCINE 2,500 UNIT in SODIUM CHLORIDE 0.9% 250 ML IRRIGATION PRN (06:35)
[2021-03-15] MEDS ORDERED: ALPRAZolam 0.25 MG TAB PO PRN (06:35)
[2021-03-15] MEDS ORDERED: NITROGLYCERIN SL TABS 0.4 MG TAB SUBLINGUAL PRN (06:35)
[2021-03-15] MEDS ORDERED: ALPRAZolam 0.5 MG TAB PO PRN (06:35)
[2021-03-15] MEDS ORDERED: HEPARIN SODIUM,PORCINE 10,000 UNIT in SODIUM CHLORIDE 0.9% 1,000 ML IRRIGATION PRN (06:35)
[2021-03-15] MEDS ORDERED: TICAGRELOR 90 MG TAB PO STA (06:42)
[2021-03-15 06:58] LABS: Basophils # (A) 0.1 k/uL (0-0.2); Basophils % (A) 1 %; Eosinophils # (A) 0.5 k/uL (0-0.7); Eosinophils % (A) 5 %; HCT 44.7 % (39.0-53.0); HGB 15.2 gm/dL (13.0-17.5); Lymphocytes # (A) 2.3 k/uL (1.0-4.8); Lymphocytes % (A) 22 %; MCH 28.2 pg (25.0-35.0); MCHC 34.1 g/dL (31.0-37.0); MCV 82.9 fL (80.0-100.0); Mean Platelet Volume 6.7; Monocytes # (A) 0.8 k/uL (0-1.0); Monocytes % (A) 8 %; Neutrophils # (A) 6.3 k/uL (1.3-7.7); Neutrophils % (A) 61 %; Platelet Count 356 k/uL (150-450); RBC 5.39 m/uL (4.30-5.90); RDW 13.5 % (11.5-15.5); WBC 10.2 k/uL (3.8-10.6)
[2021-03-15 07:04] VITALS: RESP 18; TEMP 98
[2021-03-15] MEDS ORDERED: fentaNYL (PF) 50 MCG/ML 2 ML AMP ONE (07:17)
[2021-03-15] MEDS ORDERED: LIDOCAINE 1% INJ 10MG/ML (20 ML MDV) ONE (07:17)
[2021-03-15 07:26] LABS: Calcium 9.6 mg/dL (8.4-10.2); Potassium 3.7 mmol/L (3.5-5.1)
[2021-03-15] MEDS ORDERED: MIDAZOLAM 2 MG/2 ML VIAL IV ONE (07:45)
[2021-03-15] MEDS ORDERED: LIDOCAINE 1% INJ 10MG/ML (20 ML MDV) SQ ONE (07:46)
[2021-03-15] MEDS ORDERED: HEPARIN SODIUM 1,000 UN/ML (10ML VL) ONE (07:54)
[2021-03-15] MEDS ORDERED: HEPARIN SODIUM 1,000 UN/ML (10ML VL) IV ONE (07:57)
[2021-03-15] MEDS ORDERED: NITROGLYCERIN 1000MCG/10ML SYRINGE INTRACORON ONE (08:11)
[2021-03-15] MEDS ORDERED: TICAGRELOR 90 MG TAB ONE (08:14)
[2021-03-15] MEDS ORDERED: IOPAMIDOL-370 100ML BTL INJ ONE (08:21)
[2021-03-15] MEDS ORDERED: TICAGRELOR 90 MG TAB PO ONE (08:21)
[2021-03-15] MEDS ORDERED: SODIUM CHLORIDE 0.9% 1,000 ML IV SCH (08:45)
--- NOTE | 2021-03-15 10:14 | PTCA ---
PERCUTANEOUSTRANS CORORONARY ANGIOGRAPHY DATE OF SERVICE: 03/15/2021 PROCEDURE PERFORMED: PTCA and stenting of mid circumflex coronary artery with a drug-eluting stent. PERFORMED BY: Dr. Berna Shukla. ANESTHESIA: Moderate conscious sedation time was 30 minutes. Patient was administered Versed. Oxygen saturation, hemodynamics and EKG were monitored closely. CLINICAL INFORMATION: Mr. Paul Coronado is an 85-year-old gentleman with a known history of coronary artery disease, hypertension and hypercholesterolemia. He had significant unstable angina symptoms and he was seen and evaluated by Dr. Cuevsa on March 03. On March 04, I performed stenting of a very tight dominant RCA that was providing collaterals to a subtotally occluded LAD as well. He had excellent angiographic result. He also had a circumflex lesion that was tight up to 95%. The LAD was well collateralized after RCA intervention and he was advised that we may pursue medical therapy for LAD, but we will do a stress test to verify the extent of ischemia down the road. He was brought in electively for PCI of the circumflex after checking patency of RCA. Risks, benefits, options were discussed with the patient. The patient previously had a radial approach and was quite difficult and with extreme tortuosity and therefore I recommended a femoral approach. PROCEDURE NOTE: Under local anesthesia and strict aseptic precautions, a 6-Niuean introducer was placed in the right femoral artery. Using a standard right Beverly catheter, I performed selective coronary angiography of the [place] RCA and noted that was widely patent with excellent flow and was providing rich collaterals to the mid and distal al LAD, which was subtotally occluded. I then turned my attention to the circumflex vessel. A Lomographyda left 3.5 guide catheter was used to cannulate the left coronary artery. Patient received 5000 units of heparin and ACT was about 286. He was already on Brilinta and aspirin. I used a run-through wire to cross the lesion. Predilatation was performed with a 2.25 caliber 12 mm NC Trek balloon at 12 atmospheres. I then deployed a 2.75 caliber 12 mm long Xience stent at 12 atmospheres. Patient did not have significant symptoms. Excellent angiographic result was achieved. The sheath was taken out and Angio-Seal device used to secure hemostasis and he was sent to the room in stable condition. He received additional Brilinta 90 mg. He had taken 1 early this morning. He also received heparin and ACT was 286. Excellent angiographic result without complication was achieved. I expect patient to be discharged later this evening and he will be seen by Dr. Cuevas in 1 week. JULIA / DAREN: [id number] /
[2021-03-15] MEDS ORDERED: SODIUM CHLORIDE 0.9% 500 ML 500 ML IV ONE (12:30)
[2021-03-15 16:28] VITALS: BP 129/62; PULSE 64
== END 2021-03-15 16:29 | disposition home or self-care (01) ==
LOC: CATHCVL 06:25
PROVIDERS: ATTEND Internal Medicine Interventional Cardiology
DX: I25.110 Atherosclerotic heart disease of native coronary artery with unstable angina pectoris (principal); I10 Essential (primary) hypertension; I77.1 Stricture of artery; E78.00 Pure hypercholesterolemia, unspecified; H26.9 Unspecified cataract; Z86.69 Personal history of other diseases of the nervous system and sense organs; Z87.09 Personal history of other diseases of the respiratory system; Z20.822 Contact with and (suspected) exposure to COVID-19; Z98.1 Arthrodesis status; Z96.651 Presence of right artificial knee joint; Z98.42 Cataract extraction status, left eye; Z98.890 Other specified postprocedural states; Z82.49 Family history of ischemic heart disease and other diseases of the circulatory system; Z79.899 Other long term (current) drug therapy
CPT/HCPCS: 80048; 85025; 87635; C9600; C1760; C1887; C1725; C1769 ×3; C1894; C1874; J2250; J2001; J1644; Q9967

== ENCOUNTER 2021-05-23 08:17 | Emergency (ER) | payer OTHER, MEDICARE ==
[2021-05-23 08:26] VITALS: TEMP 97.6
[2021-05-23] MEDS ORDERED: OXYMETAZOLINE 0.05% NASL SPRAY 1 SPRAY BOTTLE NASAL STA (08:28)
[2021-05-23] MEDS ORDERED: TRANEXAMIC ACID 1,000 MG/10 ML VIAL IRRIGATION ONE (09:05)
[2021-05-23 09:16] VITALS: PULSE 86; RESP 16
--- NOTE | 2021-05-23 09:59 | ED ---
ENT HPI - General Chief complaint: ENT Stated complaint: epistaxis Time Seen by Provider: 05/23/21 08:28 Source: patient, EMS, RN notes reviewed Mode of arrival: EMS Limitations: no limitations - History of Present Illness Initial comments: 85-year-old male presents emergency Department chief complaint of epistaxis. Patient states that he started having 3 nosebleeds this morning. Patient states he always has bleeding the morning after pulses nose. He has seen multiple providers for this reason. Patient states that worsened since his been started on Brillinta. Patient denies any headache dizziness. Patient states bleeding is controlled pressure. - Related Data Home Medications Medication Instructions Recorded Confirmed Clobetasol 0.05% Topical Soln 1 applic TOPICAL BID PRN 03/03/21 03/15/21 Ketoconazole 2% Shampoo [Nizoral] 1 applic TOPICAL Q3D 03/03/21 03/15/21 hydroCHLOROthiazide 25 mg PO DAILY 03/15/21 03/15/21 Previous Rx's Medication Instructions Recorded Aspirin 81 mg PO DAILY 14 Days #14 chew 03/05/21 Metoprolol Tartrate [Lopressor] 25 mg PO BID 14 Days #28 tab 03/05/21 Ticagrelor [Brilinta] 90 mg PO BID 14 Days #28 tab 03/05/21 Pravastatin Sodium [Pravachol] 40 mg PO DAILY #90 mg 03/15/21 Allergies Allergy/AdvReac Type Severity Reaction Status Date / Time atorvastatin Allergy Rash/Hives Verified 05/23/21 08:26 losartan Allergy Rash/Hives Verified 05/23/21 08:26 Review of Systems ROS Statement: Those systems with pertinent positive or pertinent negative responses have been documented in the HPI. ROS Other: All systems not noted in ROS Statement are negative. Past Medical History Past Medical History: Chest Pain / Angina, Hyperlipidemia, Hypertension Additional Past Medical History / Comment(s): cataract rt eye, hx nosebleeds,bronchitis History of Any Multi-Drug Resistant Organisms: None Reported Past Surgical History: Back Surgery, Heart Catheterization With Stent, Joint Replacement Additional Past Surgical History / Comment(s): rt knee replacement, neck fusion,lt cataract Past Anesthesia/Blood Transfusion Reactions: No Reported Reaction Past Psychological History: No Psychological Hx Reported Smoking Status: Never smoker Past Alcohol Use History: None Reported Past Drug Use History: None Reported - Past Family History Mother Family Medical History: No Reported History Additional Family Medical History / Comment(s): heart conditions Son(s) Family Medical History: No Reported History Father Family Medical History: Myocardial Infarction (CT) General Exam Limitations: no limitations General appearance: alert, in no apparent distress Head exam: Present: atraumatic, normocephalic, normal inspection Eye exam: Present: normal appearance, PERRL, EOMI. Absent: scleral icterus, conjunctival injection, periorbital swelling ENT exam: Present: normal oropharynx, mucous membranes moist, TM's normal bilaterally. Absent: normal exam (Mild bleeding noted from the right nostril) Neck exam: Present: normal inspection, full ROM. Absent: tenderness, meningismus, lymphadenopathy Respiratory exam: Present: normal lung sounds bilaterally. Absent: respiratory distress, wheezes, rales, rhonchi, stridor Cardiovascular Exam: Present: regular rate, normal rhythm, normal heart sounds. Absent: systolic murmur, diastolic murmur, rubs, gallop, clicks Neurological exam: Present: alert, oriented X3, CN II-XII intact Course Vital Signs 05/23/21 05/23/21 05/23/21 08:23 09:16 10:10 Temperature 97.6 F Pulse Rate 82 86 86 Respiratory 18 16 16 Rate Blood Pressure 145/93 102/68 136/89 O2 Sat by Pulse 99 99 99 Oximetry Medical Decision Making - Medical Decision Making Patient had Afrin sprayed in both nostrils, clamped patient continued to have bleeding tic say was advised and bleeding stopped after clamp for 15 minutes patient observed for 30 minutes after no rebleeding we discuss of not blowing his nose, not rubbing or any irritation of the nose. Disposition Clinical Impression: Epistaxis Disposition: HOME SELF-CARE Condition: Stable Instructions (If sedation given, give patient instructions): Nosebleed (ED) Additional Instructions: Please return to the Emergency Department if symptoms worsen or any other concerns. Is patient prescribed a controlled substance at d/c from ED?: No Referrals: [facility],Clinic [Primary Care Provider] - 1-2 days Time of Disposition: 09:59
[2021-05-23 10:11] VITALS: BP 136/89
== END 2021-05-23 10:10 | disposition home or self-care (01) ==
LOC: EC 08:17
DX: R04.0 Epistaxis (principal); I10 Essential (primary) hypertension; E78.5 Hyperlipidemia, unspecified; Z79.82 Long term (current) use of aspirin; Z79.899 Other long term (current) drug therapy
CPT/HCPCS: 30901; 99284

== ENCOUNTER 2021-08-22 11:07 | Emergency (ER) | payer MEDICARE, OTHER ==
--- NOTE | 2021-08-22 12:24 | ED ---
General Adult HPI - General Chief complaint: ENT Stated complaint: Nose Bleed Time Seen by Provider: 08/22/21 11:58 Source: patient, RN notes reviewed Mode of arrival: wheelchair Limitations: no limitations - History of Present Illness Initial comments: 86-year-old male presents to the emergency Department with complaints of the right naris. Patient states the bleeding started this morning and was able to get it under control at home with nasal spray and a clamp, however reports prior to arrival the bleeding resumed and he was unable to get it stopped. Patient denies any trauma. States he does take a blood thinning medication, Brillinta, twice daily. Reports a history of nosebleeds, even prior to taking blood thinning medicines and was supposed to follow-up with ENT, but did not. Patient denies fever, chills, headache, dizziness, lightheadedness, or difficulty breathing. - Related Data Home Medications Medication Instructions Recorded Confirmed Clobetasol 0.05% Topical Soln 1 applic TOPICAL BID PRN 03/03/21 03/15/21 Ketoconazole 2% Shampoo [Nizoral] 1 applic TOPICAL Q3D 03/03/21 03/15/21 hydroCHLOROthiazide 25 mg PO DAILY 03/15/21 03/15/21 Previous Rx's Medication Instructions Recorded Aspirin 81 mg PO DAILY 14 Days #14 chew 03/05/21 Metoprolol Tartrate [Lopressor] 25 mg PO BID 14 Days #28 tab 03/05/21 Ticagrelor [Brilinta] 90 mg PO BID 14 Days #28 tab 03/05/21 Pravastatin Sodium [Pravachol] 40 mg PO DAILY #90 mg 03/15/21 Amoxicillin 500 mg PO BID 5 Days #10 capsule 08/22/21 Allergies Allergy/AdvReac Type Severity Reaction Status Date / Time atorvastatin Allergy Rash/Hives Verified 08/22/21 11:30 losartan Allergy Rash/Hives Verified 08/22/21 11:30 Review of Systems ROS Statement: Those systems with pertinent positive or pertinent negative responses have been documented in the HPI. ROS Other: All systems not noted in ROS Statement are negative. Past Medical History Past Medical History: Chest Pain / Angina, Hyperlipidemia, Hypertension Additional Past Medical History / Comment(s): cataract rt eye, hx nosebleeds,bronchitis History of Any Multi-Drug Resistant Organisms: None Reported Past Surgical History: Back Surgery, Heart Catheterization With Stent, Joint Replacement Additional Past Surgical History / Comment(s): rt knee replacement, neck fusion,lt cataract Past Anesthesia/Blood Transfusion Reactions: No Reported Reaction Past Psychological History: No Psychological Hx Reported Smoking Status: Never smoker Past Alcohol Use History: None Reported Past Drug Use History: None Reported - Past Family History Mother Family Medical History: No Reported History Additional Family Medical History / Comment(s): heart conditions Son(s) Family Medical History: No Reported History Father Family Medical History: Myocardial Infarction (DC) General Exam Limitations: no limitations (Well-developed, well-nourished male in no acute distress. Initial temperature 97.1, pulse 78, respirations 18, blood pressure 133/73, pulse ox 97% on room air.) General appearance: alert, in no apparent distress Head exam: Present: atraumatic, normocephalic, normal inspection ENT exam: Present: normal oropharynx, other (Bright red blood oozing from the right nare upon exam. Left nare patent with no bleeding or drainage.) Respiratory exam: Present: normal lung sounds bilaterally. Absent: respiratory distress, wheezes, rales, rhonchi, stridor Cardiovascular Exam: Present: regular rate, normal rhythm, normal heart sounds. Absent: systolic murmur, diastolic murmur, rubs, gallop, clicks Neurological exam: Present: alert, oriented X3, CN II-XII intact Psychiatric exam: Present: normal affect, normal mood Skin exam: Present: warm, dry, intact, normal color. Absent: rash Course Vital Signs 08/22/21 11:27 Temperature 97.1 F L Pulse Rate 78 Respiratory 18 Rate Blood Pressure 133/73 O2 Sat by Pulse 97 Oximetry - Reevaluation(s) Reevaluation #1: Rhino Rocket placed in right naris. Balloons inflated and secured to the right cheek. Patient tolerated well. Follow-up care thoroughly reviewed. 08/22/21 12:45 Procedures - Procedures Initial comment: Rapid Rhino placed in the right naris. Balloons inflated and secured to the right cheek with tape. Instructed on appropriate follow-up care. Encouraged to return to the emergency department with any new rebleeding. Patient and son verbalized understanding. Patient tolerated procedure well. Medical Decision Making - Medical Decision Making 86-year-old male presents to the emergency department for evaluation and treatment of recurrent epistaxis from the right naris. Upon exam, small trickle of bright red bleeding is noted that of the right naris. Left naris is patent, with no bleeding or discharge. Patient utilize Nikolai-Synephrine spray and nasal clamp prior to arrival to achieve near hemostasis. Did have an episode of rebleeding; options discussed and patient prefers a more stable nasal packing option. Rhino Rocket was placed in the right naris. Patient tolerated the procedure without difficulty. Left naris remains patent; oropharynx is clear. No further bleeding noted at this time. Started on oral antibiotic therapy. Patient will be discharged home to follow up with ENT for nasal packing removal. Patient was provided with a syringe to remove hair from balloons in case of e mergency. Patient and son verbalized understanding and agreed with this plan. This patient's case with my attending Dr. Zheng. Disposition Clinical Impression: Epistaxis not due to trauma Disposition: HOME SELF-CARE Condition: Stable Instructions (If sedation given, give patient instructions): Nosebleed (ED) Additional Instructions: Call the [facility] first thing tomorrow morning to set up an appointment with ENT to have nasal packing removed. Take antibiotic as prescribed. Return to the emergency department with any new, worsening, or concerning symptoms. Prescriptions: Amoxicillin 500 mg PO BID 5 Days #10 capsule Is patient prescribed a controlled substance at d/c from ED?: No Referrals: [facility],Clinic [Primary Care Provider] - 1-2 days Carlton Xie DO [Doctor of Osteopathic Medicine] - 1-2 days Time of Disposition: 14:35
[2021-08-22] MEDS ORDERED: AMOXICILLIN 500 MG CAP PO STA (13:40)
[2021-08-22 14:47] VITALS: BP 117/63; PULSE 82; RESP 19; TEMP 98.4
== END 2021-08-22 14:46 | disposition home or self-care (01) ==
LOC: EC 11:07
DX: R04.0 Epistaxis (principal); Z79.82 Long term (current) use of aspirin; I10 Essential (primary) hypertension; E78.5 Hyperlipidemia, unspecified; Z96.651 Presence of right artificial knee joint
CPT/HCPCS: 30903; 99283

== ENCOUNTER 2021-08-23 10:17 | Emergency (ER) | payer OTHER ==
[2021-08-23 13:25] VITALS: RESP 18
--- NOTE | 2021-08-23 15:22 | ED ---
General Adult HPI - General Chief complaint: ENT Stated complaint: Nasal Pack removal Time Seen by Provider: 08/23/21 15:18 Source: patient Mode of arrival: ambulatory Limitations: no limitations - History of Present Illness Initial comments: Patient presents to the emergency department requesting to have nasal packing removed from the right side of his nose. Patient was evaluated yesterday, Rhino Rocket was placed then. Patient denies any episodes or evidence of rebleeding. Unable to get in to see an ENT doctor for further evaluation. States he is taking his antibiotic as directed. Patient denies any difficulty breathing, nasal discharge, or bleeding. - Related Data Home Medications Medication Instructions Recorded Confirmed Clobetasol 0.05% Topical Soln 1 applic TOPICAL BID PRN 03/03/21 03/15/21 Ketoconazole 2% Shampoo [Nizoral] 1 applic TOPICAL Q3D 03/03/21 03/15/21 hydroCHLOROthiazide 25 mg PO DAILY 03/15/21 03/15/21 Previous Rx's Medication Instructions Recorded Aspirin 81 mg PO DAILY 14 Days #14 chew 03/05/21 Metoprolol Tartrate [Lopressor] 25 mg PO BID 14 Days #28 tab 03/05/21 Ticagrelor [Brilinta] 90 mg PO BID 14 Days #28 tab 03/05/21 Pravastatin Sodium [Pravachol] 40 mg PO DAILY #90 mg 03/15/21 Amoxicillin 500 mg PO BID 5 Days #10 capsule 08/22/21 Allergies Allergy/AdvReac Type Severity Reaction Status Date / Time atorvastatin Allergy Rash/Hives Verified 08/23/21 13:25 losartan Allergy Rash/Hives Verified 08/23/21 13:25 Review of Systems ROS Statement: Those systems with pertinent positive or pertinent negative responses have been documented in the HPI. ROS Other: All systems not noted in ROS Statement are negative. Past Medical History Past Medical History: Chest Pain / Angina, Hyperlipidemia, Hypertension Additional Past Medical History / Comment(s): cataract rt eye, hx nosebleeds,bronchitis History of Any Multi-Drug Resistant Organisms: None Reported Past Surgical History: Back Surgery, Heart Catheterization With Stent, Joint Replacement Additional Past Surgical History / Comment(s): rt knee replacement, neck fusion,lt cataract Past Anesthesia/Blood Transfusion Reactions: No Reported Reaction Past Psychological History: No Psychological Hx Reported Smoking Status: Never smoker Past Alcohol Use History: None Reported Past Drug Use History: None Reported - Past Family History Mother Family Medical History: No Reported History Additional Family Medical History / Comment(s): heart conditions Son(s) Family Medical History: No Reported History Father Family Medical History: Myocardial Infarction ([place]) General Exam Limitations: no limitations (Developed, well-nourished male in no acute distress. Initial temperature 96.9, rechecked 97.7, pulse 68, respirations 18, blood pressure 152/71, pulse ox 100% on room air.) General appearance: alert, in no apparent distress Head exam: Present: atraumatic, normocephalic Eye exam: Present: normal appearance, EOMI ENT exam: Present: normal oropharynx, mucous membranes moist, other (Rhino Rocket present in the right naris, balloons remain inflated; no active bleeding, discharge, or drainage. Left naris patent.) Respiratory exam: Present: normal lung sounds bilaterally. Absent: respiratory distress, wheezes, rales, rhonchi, stridor Cardiovascular Exam: Present: regular rate, normal rhythm, normal heart sounds. Absent: systolic murmur, diastolic murmur, rubs, gallop, clicks Neurological exam: Present: alert, oriented X3, CN II-XII intact Psychiatric exam: Present: normal affect, normal mood Skin exam: Present: warm, dry, intact, normal color. Absent: rash Course Vital Signs 08/23/21 08/23/21 13:20 15:35 Temperature 96.9 F L 97.5 F L Pulse Rate 68 93 Respiratory 18 18 Rate Blood Pressure 152/71 147/86 O2 Sat by Pulse 100 100 Oximetry - Reevaluation(s) Reevaluation #1: 08/23/21 15:00 Both balloons completely deflated. Rhino Rocket removed without incident. Patient tolerated without difficulty. No additional rebleeding. Bilateral nares patent. Procedures - Procedures Initial comment: Rhino Rocket removed from right naris after both balloons deflated. Patient tolerated procedure well. Patient observed; no rebleeding. Bilateral nares patent. Medical Decision Making - Medical Decision Making 86-year-old male presents to the emergency department requesting to have the Rhino Rocket removed from his right naris. Patient had a Rhino Rocket placed yesterday for recurrent epistaxis secondary to oral anticoagulation. This [facility] and is required to use specific providers for follow- up. States he was unable to get in to see an ENT. Patient is taking antibiotics as prescribed. Rhino Rocket was removed without incident. No rebleeding. Bilateral patent nares. Patient encouraged to follow-up with ENT for further evaluation and treatment. Return parameters were discussed in detail. Patient verbalizes understanding and agrees with this plan. This patient's care was discussed with my attending Dr. Colón. Disposition Clinical Impression: Encounter for removal of nasal packing Disposition: HOME SELF-CARE Condition: Stable Instructions (If sedation given, give patient instructions): Nosebleed (ED) Additional Instructions: Do not blow your nose for the next 2-3 days. Gently wipe secretions away. Do follow-up with ENT for a recheck as previously directed. Return to the emergency department with any new, worsening, or concerning symptoms. Is patient prescribed a controlled substance at d/c from ED?: No Referrals: [facility],Clinic [Primary Care Provider] - 1-2 days Time of Disposition: 15:29
[2021-08-23 16:13] VITALS: BP 147/86; PULSE 93; TEMP 97.5
== END 2021-08-23 15:35 | disposition home or self-care (01) ==
LOC: EC 10:17
DX: Z48.00 Encounter for change or removal of nonsurgical wound dressing (principal); I10 Essential (primary) hypertension; E78.5 Hyperlipidemia, unspecified; Z79.82 Long term (current) use of aspirin; Z88.1 Allergy status to other antibiotic agents; Z96.651 Presence of right artificial knee joint
CPT/HCPCS: 99282

== ENCOUNTER 2021-08-30 05:00 | Emergency (ER) | payer OTHER ==
[2021-08-30 05:14] VITALS: TEMP 97.8
[2021-08-30] MEDS ORDERED: OXYMETAZOLINE 0.05% NASL SPRAY 1 SPRAY BOTTLE NASAL STA (05:27)
[2021-08-30 05:32] VITALS: BP 161/77; PULSE 66; RESP 20
--- NOTE | 2021-08-30 06:23 | ED ---
General Adult HPI - General Chief complaint: ENT Stated complaint: Nose Bleed Time Seen by Provider: 08/30/21 06:02 Source: patient, family Mode of arrival: ambulatory Limitations: no limitations - History of Present Illness Initial comments: 86 y/o male presents for nosebleed. pt has had a nosebleed starting this morning around 3 am. He recently had packing removed 1 week ago for similar occurence, but has not been able to get in to ENT as he is [facility]. pt denies lightheadedness. Denies CP, SOB, abdominal pain, NVD - Related Data Home Medications Medication Instructions Recorded Confirmed Clobetasol 0.05% Topical Soln 1 applic TOPICAL BID PRN 03/03/21 03/15/21 Ketoconazole 2% Shampoo [Nizoral] 1 applic TOPICAL Q3D 03/03/21 03/15/21 hydroCHLOROthiazide 25 mg PO DAILY 03/15/21 03/15/21 Previous Rx's Medication Instructions Recorded Aspirin 81 mg PO DAILY 14 Days #14 chew 03/05/21 Metoprolol Tartrate [Lopressor] 25 mg PO BID 14 Days #28 tab 03/05/21 Ticagrelor [Brilinta] 90 mg PO BID 14 Days #28 tab 03/05/21 Pravastatin Sodium [Pravachol] 40 mg PO DAILY #90 mg 03/15/21 Amoxicillin 500 mg PO BID 5 Days #10 capsule 08/22/21 Allergies Allergy/AdvReac Type Severity Reaction Status Date / Time atorvastatin Allergy Rash/Hives Verified 08/30/21 05:14 losartan Allergy Rash/Hives Verified 08/30/21 05:14 Review of Systems ROS Statement: Those systems with pertinent positive or pertinent negative responses have been documented in the HPI. ROS Other: All systems not noted in ROS Statement are negative. Past Medical History Past Medical History: Chest Pain / Angina, Hyperlipidemia, Hypertension Additional Past Medical History / Comment(s): cataract rt eye, hx nosebleeds,bronchitis History of Any Multi-Drug Resistant Organisms: None Reported Past Surgical History: Back Surgery, Heart Catheterization With Stent, Joint Replacement Additional Past Surgical History / Comment(s): rt knee replacement, neck fusion,lt cataract Past Anesthesia/Blood Transfusion Reactions: No Reported Reaction Past Psychological History: No Psychological Hx Reported Smoking Status: Never smoker Past Alcohol Use History: None Reported Past Drug Use History: None Reported - Past Family History Mother Family Medical History: No Reported History Additional Family Medical History / Comment(s): heart conditions Son(s) Family Medical History: No Reported History Father Family Medical History: Myocardial Infarction ([place]) General Exam Limitations: no limitations General appearance: alert, in no apparent distress Head exam: Present: atraumatic Eye exam: Present: normal appearance, PERRL, EOMI. Absent: scleral icterus, conjunctival injection ENT exam: Present: normal exam, mucous membranes moist Neck exam: Present: normal inspection, full ROM. Absent: tenderness Respiratory exam: Present: normal lung sounds bilaterally. Absent: respiratory distress, wheezes Cardiovascular Exam: Present: regular rate, normal rhythm, normal heart sounds GI/Abdominal exam: Present: soft, normal bowel sounds. Absent: distended, tenderness Neurological exam: Present: alert Course Vital Signs 08/30/21 08/30/21 05:10 05:32 Temperature 97.8 F Pulse Rate 71 66 Respiratory 22 20 Rate Blood Pressure 158/80 161/77 O2 Sat by Pulse 99 97 Oximetry Medical Decision Making - Medical Decision Making pt was given afrin and nasal clamp. bleeding had resolved. pt to be discharged home. he will be calling ENT today to see when he can be seen. He will return for any worsening symptoms. Disposition Clinical Impression: Epistaxis Disposition: HOME SELF-CARE Condition: Good Instructions (If sedation given, give patient instructions): Nosebleed (ED) Additional Instructions: Please follow up with your doctor in 1-2 days. Return to the emergency room for any worsening symptoms. Is patient prescribed a controlled substance at d/c from ED?: No Referrals: [facility],Clinic [Primary Care Provider] - 1-2 days Time of Disposition: 06:22
== END 2021-08-30 06:31 | disposition home or self-care (01) ==
LOC: EC 05:00
DX: R04.0 Epistaxis (principal); I10 Essential (primary) hypertension; Z88.8 Allergy status to other drugs, medicaments and biological substances; Z79.899 Other long term (current) drug therapy
CPT/HCPCS: 99283

== ENCOUNTER 2021-09-14 06:36 | Emergency (ER) | payer OTHER ==
[2021-09-14] MEDS ORDERED: LIDOCAINE/EPINEPHR/TETRACAINE 5 ML BOTTLE TOPICAL STA (06:40)
[2021-09-14] MEDS ORDERED: OXYMETAZOLINE 0.05% NASL SPRAY 1 SPRAY BOTTLE NASAL STA (06:40)
[2021-09-14 06:45] VITALS: TEMP 97.5
--- NOTE | 2021-09-14 07:31 | ED ---
General Adult HPI - General Chief complaint: ENT Stated complaint: Nose Bleed Time Seen by Provider: 09/14/21 06:50 Source: patient, RN notes reviewed Mode of arrival: ambulatory - History of Present Illness Initial comments: 86-year-old male with a past medical history of hyperlipidemia, hypertension, epistaxis, on Brilinta Zentz to the emergency room for nosebleed. Patient has been having nosebleeds on and off for the past few weeks. States has been ongoing for about an hour and a half prior to arrival. Patient states he did follow up with an ENT physician who could not find any areas of bleeding. Patient did try Afrin and clamping.Patient has no other complaints at this time including shortness of breath, chest pain, abdominal pain, nausea or vomiting, headache, or visual changes. - Related Data Home Medications Medication Instructions Recorded Confirmed Clobetasol 0.05% Topical Soln 1 applic TOPICAL BID PRN 03/03/21 03/15/21 Ketoconazole 2% Shampoo [Nizoral] 1 applic TOPICAL Q3D 03/03/21 03/15/21 hydroCHLOROthiazide 25 mg PO DAILY 03/15/21 03/15/21 Previous Rx's Medication Instructions Recorded Aspirin 81 mg PO DAILY 14 Days #14 chew 03/05/21 Metoprolol Tartrate [Lopressor] 25 mg PO BID 14 Days #28 tab 03/05/21 Ticagrelor [Brilinta] 90 mg PO BID 14 Days #28 tab 03/05/21 Pravastatin Sodium [Pravachol] 40 mg PO DAILY #90 mg 03/15/21 Amoxicillin 500 mg PO BID 5 Days #10 capsule 08/22/21 Allergies Allergy/AdvReac Type Severity Reaction Status Date / Time atorvastatin Allergy Rash/Hives Verified 09/14/21 06:44 losartan Allergy Rash/Hives Verified 09/14/21 06:44 Review of Systems ROS Statement: Those systems with pertinent positive or pertinent negative responses have been documented in the HPI. ROS Other: All systems not noted in ROS Statement are negative. Past Medical History Past Medical History: Chest Pain / Angina, Hyperlipidemia, Hypertension Additional Past Medical History / Comment(s): cataract rt eye, hx nosebleeds,bronchitis History of Any Multi-Drug Resistant Organisms: None Reported Past Surgical History: Back Surgery, Heart Catheterization With Stent, Joint Replacement Additional Past Surgical History / Comment(s): rt knee replacement, neck fusion,lt cataract Past Anesthesia/Blood Transfusion Reactions: No Reported Reaction Past Psychological History: No Psychological Hx Reported Smoking Status: Never smoker Past Alcohol Use History: None Reported Past Drug Use History: None Reported - Past Family History Mother Family Medical History: No Reported History Additional Family Medical History / Comment(s): heart conditions Son(s) Family Medical History: No Reported History Father Family Medical History: Myocardial Infarction ([place]) General Exam General appearance: alert, in no apparent distress Head exam: Present: atraumatic Eye exam: Present: normal appearance, PERRL, EOMI. Absent: scleral icterus, conjunctival injection ENT exam: Present: normal exam, mucous membranes moist, other (Minimal bleeding noted) Neck exam: Present: normal inspection, full ROM. Absent: tenderness Respiratory exam: Present: normal lung sounds bilaterally. Absent: respiratory distress, wheezes Cardiovascular Exam: Present: regular rate, normal rhythm, normal heart sounds Course Vital Signs 09/14/21 06:38 Temperature 97.5 F L Pulse Rate 72 Respiratory 16 Rate Blood Pressure 172/64 O2 Sat by Pulse 100 Oximetry Medical Decision Making - Medical Decision Making Vitals are stable. Afrin and nasal clamp applied for 20 minutes. This did not seem to help with the bleeding much. Therefore [place] A was applied topically and clamped. This did stop the bleeding. Patient was able to ambulate around the ER. I do not see an area for cautery on inspection. Patient did follow up with ENT through the [place] and they apparently were not able to see anything with the scope. They will follow up with him again. He will return here for any worsening symptoms. Disposition Clinical Impression: Epistaxis Disposition: HOME SELF-CARE Condition: Good Instructions (If sedation given, give patient instructions): Nosebleed (ED) Additional Instructions: If bleeding reoccurs use afrin and apply clamp for 20 minutes. Otherwise return to the emergency room for any worsening symptoms. Follow-up with your doctor. Is patient prescribed a controlled substance at d/c from ED?: No Referrals: [facility],Clinic [Primary Care Provider] - 1-2 days Time of Disposition: 08:57
[2021-09-14] MEDS ORDERED: TRANEXAMIC ACID 1,000 MG/10 ML VIAL IRRIGATION ONE (07:38)
[2021-09-14] MEDS ORDERED: TRANEXAMIC ACID 1,000 MG in SODIUM CHLORIDE 0.9% 100 ML IVPB ONE (08:00)
[2021-09-14 09:18] VITALS: BP 110/69; PULSE 69; RESP 18
== END 2021-09-14 09:18 | disposition home or self-care (01) ==
LOC: EC 06:36
DX: R04.0 Epistaxis (principal); I10 Essential (primary) hypertension; Z79.899 Other long term (current) drug therapy; Z88.8 Allergy status to other drugs, medicaments and biological substances
CPT/HCPCS: 30901; 99283

== ENCOUNTER 2021-09-22 03:11 | Inpatient (IN) | payer OTHER, MEDICARE ==
[2021-09-22] MEDS ORDERED: ASPIRIN 81 MG PO STA (03:31)
--- NOTE | 2021-09-22 03:34 | ED ---
General Adult HPI - General Stated complaint: Chest Pain Time Seen by Provider: 09/22/21 03:18 Source: patient, EMS, RN notes reviewed Mode of arrival: EMS Limitations: no limitations - History of Present Illness Initial comments: Patient is a pleasant 86-year-old male presenting to the emergency department chest discomfort. Symptoms have been waxing and waning over the past several days. Symptoms were worse prior to arrival and resolved with aspirin and nitroglycerin by EMS. Patient has indigestion in his chest. There is some associated dyspnea and mild nausea. Patient may have sweated at one point. No history of similar symptoms previously however patient did have stents back in January. No leg pain or leg swelling. - Related Data Home Medications Medication Instructions Recorded Confirmed Clobetasol 0.05% Topical Soln 1 applic TOPICAL BID PRN 03/03/21 03/15/21 Ketoconazole 2% Shampoo [Nizoral] 1 applic TOPICAL Q3D 03/03/21 03/15/21 hydroCHLOROthiazide 25 mg PO DAILY 03/15/21 03/15/21 Previous Rx's Medication Instructions Recorded Aspirin 81 mg PO DAILY 14 Days #14 chew 03/05/21 Metoprolol Tartrate [Lopressor] 25 mg PO BID 14 Days #28 tab 03/05/21 Ticagrelor [Brilinta] 90 mg PO BID 14 Days #28 tab 03/05/21 Pravastatin Sodium [Pravachol] 40 mg PO DAILY #90 mg 03/15/21 Amoxicillin 500 mg PO BID 5 Days #10 capsule 08/22/21 Allergies Allergy/AdvReac Type Severity Reaction Status Date / Time atorvastatin Allergy Rash/Hives Verified 09/14/21 06:44 losartan Allergy Rash/Hives Verified 09/14/21 06:44 Review of Systems ROS Statement: Those systems with pertinent positive or pertinent negative responses have been documented in the HPI. ROS Other: All systems not noted in ROS Statement are negative. Constitutional: Denies: fever Eyes: Denies: eye pain ENT: Denies: ear pain Respiratory: Denies: cough Cardiovascular: Reports: as per HPI, chest pain Endocrine: Reports: fatigue Gastrointestinal: Reports: nausea. Denies: abdominal pain Genitourinary: Denies: dysuria Musculoskeletal: Denies: back pain Skin: Denies: lesions Neurological: Denies: weakness Past Medical History Past Medical History: Chest Pain / Angina, Hyperlipidemia, Hypertension Additional Past Medical History / Comment(s): cataract rt eye, hx noseblee ds,bronchitis History of Any Multi-Drug Resistant Organisms: None Reported Past Surgical History: Back Surgery, Heart Catheterization With Stent, Joint Replacement Additional Past Surgical History / Comment(s): rt knee replacement, neck fusion,lt cataract Past Anesthesia/Blood Transfusion Reactions: No Reported Reaction Past Psychological History: No Psychological Hx Reported Smoking Status: Never smoker Past Alcohol Use History: None Reported Past Drug Use History: None Reported - Past Family History Mother Family Medical History: No Reported History Additional Family Medical History / Comment(s): heart conditions Son(s) Family Medical History: No Reported History Father Family Medical History: Myocardial Infarction ([place]) General Exam Limitations: no limitations General appearance: alert, in no apparent distress Head exam: Present: normocephalic Eye exam: Present: normal appearance Neck exam: Present: normal inspection Respiratory exam: Present: normal lung sounds bilaterally. Absent: chest wall tenderness Cardiovascular Exam: Present: regular rate, normal rhythm Expanded Peripheral pulses: 2+: Radial (R), Radial (L), Dorsalis Pedis (R), Dorsalis Pedis (L) GI/Abdominal exam: Present: soft. Absent: tenderness Extremities exam: Present: normal inspection. Absent: pedal edema, calf tenderness Neurological exam: Present: alert Psychiatric exam: Present: normal affect, normal mood Skin exam: Present: normal color Course Vital Signs 09/22/21 09/22/21 09/22/21 03:36 04:46 04:57 Temperature 97.3 F L Pulse Rate 102 H 101 H 99 Respiratory 20 18 22 Rate Blood Pressure 87/60 75/62 87/55 O2 Sat by Pulse 97 97 97 Oximetry EKG Findings - EKG Comments: EKG Findings:: Sinus tachycardia with a rate of 108. Frequent PVCs. NC 198. QRS 138. QT 370. QTc 495. Left axis. Right bundle branch block. No acute ST change. Medical Decision Making - Medical Decision Making Patient reevaluated and updated. Systolic blood pressure 103. Patient is having some chest discomfort, approximately 4/10. Case was discussed with practitioner Clara, covering with Dr. Pope, who will [facility]. [facility]ology has been paged. Heparin will be started. Case was also discussed with cardiology Dr. Cuevas who agrees with heparin. - Lab Data Result diagrams: 09/22/21 03:55 09/22/21 03:41 Lab Results 09/22/21 09/22/21 09/22/21 Range/Units 03:41 03:41 03:41 WBC (3.8-10.6) k/uL RBC (4.30-5.90) m/uL Hgb (13.0-17.5) gm/dL Hct (39.0-53.0) % MCV (80.0-100.0) fL MCH (25.0-35.0) pg MCHC (31.0-37.0) g/dL RDW (11.5-15.5) % Plt Count (150-450) k/uL MPV Neutrophils % % Lymphocytes % % Monocytes % % Eosinophils % % Basophils % % Neutrophils # (1.3-7.7) k/uL Lymphocytes # (1.0-4.8) k/uL Monocytes # (0-1.0) k/uL Eosinophils # (0-0.7) k/uL Basophils # (0-0.2) k/uL PT 10.6 (9.0-12.0) sec INR 1.0 (<1.2) APTT 25.8 (22.0-30.0) sec D-Dimer 0.60 H (<0.60) mg/L FEU Sodium 135 L (137-145) mmol/L Potassium 5.1 (3.5-5.1) mmol/L Chloride 103 (98-107) mmol/L Carbon Dioxide 22 (22-30) mmol/L Anion Gap 10 mmol/L BUN 34 H (9-20) mg/dL Creatinine 1.17 (0.66-1.25) mg/dL Est GFR (CKD-EPI)AfAm 65 (>60 ml/min/1.73 sqM) Est GFR (CKD-EPI)NonAf 57 (>60 ml/min/1.73 sqM) Glucose 141 H (74-99) mg/dL Calcium 9.3 (8.4-10.2) mg/dL Magnesium 2.1 (1.6-2.3) mg/dL Total Bilirubin 0.3 (0.2-1.3) mg/dL AST 80 H (17-59) U/L ALT 25 (4-49) U/L Alkaline Phosphatase 72 (38-126) U/L Troponin I 3.360 H* (0.000-0.034) ng/mL NT-Pro-B Natriuret Pep pg/mL Total Protein 7.1 (6.3-8.2) g/dL Albumin 3.9 (3.5-5.0) g/dL 09/22/21 09/22/21 Range/Units 03:41 03:55 WBC 13.6 H (3.8-10.6) k/uL RBC 4.35 (4.30-5.90) m/uL Hgb 12.6 L (13.0-17.5) gm/dL Hct 38.1 L (39.0-53.0) % MCV 87.6 (80.0-100.0) fL MCH 29.0 (25.0-35.0) pg MCHC 33.2 (31.0-37.0) g/dL RDW 13.7 (11.5-15.5) % Plt Count 318 (150-450) k/uL MPV 7.6 Neutrophils % 76 % Lymphocytes % 15 % Monocytes % 6 % Eosinophils % 1 % Basophils % 1 % Neutrophils # 10.2 H (1.3-7.7) k/uL Lymphocytes # 2.1 (1.0-4.8) k/uL Monocytes # 0.8 (0-1.0) k/uL Eosinophils # 0.2 (0-0.7) k/uL Basophils # 0.1 (0-0.2) k/uL PT (9.0-12.0) sec INR (<1.2) APTT (22.0-30.0) sec D-Dimer (<0.60) mg/L FEU Sodium (137-145) mmol/L Potassium (3.5-5.1) mmol/L Chloride (98-107) mmol/L Carbon Dioxide (22-30) mmol/L Anion Gap mmol/L BUN (9-20) mg/dL Creatinine (0.66-1.25) mg/dL Est GFR (CKD-EPI)AfAm (>60 ml/min/1.73 sqM) Est GFR (CKD-EPI)NonAf (>60 ml/min/1.73 sqM) Glucose (74-99) mg/dL Calcium (8.4-10.2) mg/dL Magnesium (1.6-2.3) mg/dL Total Bilirubin (0.2-1.3) mg/dL AST (17-59) U/L ALT (4-49) U/L Alkaline Phosphatase (38-126) U/L Troponin I (0.000-0.034) ng/mL NT-Pro-B Natriuret Pep 8300 pg/mL Total Protein (6.3-8.2) g/dL Albumin (3.5-5.0) g/dL Critical Care Time Critical Care Time: Yes Total Critical Care Time: 35 Disposition Clinical Impression: NSTEMI (non-ST elevated myocardial infarction), CHF (congestive heart failure) Disposition: ADMITTED IP TO THIS HOSP Condition: Serious Is patient prescribed a controlled substance at d/c from ED?: No Referrals: [facility],Clinic [Primary Care Provider] - 1-2 days Decision Time: 05:15
--- NOTE | 2021-09-22 04:07 | XR ---
EXAMINATION TYPE: XR chest 2V DATE OF EXAM: 09/22/2021 COMPARISON: 03/03/2021 HISTORY: Chest pain TECHNIQUE: 2 views FINDINGS: There is some mild pulmonary interstitial edema. Heart size is normal. There is very slight blunting right costophrenic angle. Thoracic aorta is atheromatous. IMPRESSION: There is evidence for some new mild congestive heart failure compared to old exam.
[2021-09-22 04:16] LABS: Basophils # (A) 0.1 k/uL (0-0.2); Basophils % (A) 1 %; Eosinophils # (A) 0.2 k/uL (0-0.7); Eosinophils % (A) 1 %; HCT 38.1 % (39.0-53.0); HGB 12.6 gm/dL (13.0-17.5); Lymphocytes # (A) 2.1 k/uL (1.0-4.8); Lymphocytes % (A) 15 %; MCHC 33.2 g/dL (31.0-37.0); MCV 87.6 fL (80.0-100.0); Mean Platelet Volume 7.6; Monocytes # (A) 0.8 k/uL (0-1.0); Monocytes % (A) 6 %; Neutrophils # (A) 10.2 k/uL (1.3-7.7); Neutrophils % (A) 76 %; Platelet Count 318 k/uL (150-450); RBC 4.35 m/uL (4.30-5.90); RDW 13.7 % (11.5-15.5); WBC 13.6 k/uL (3.8-10.6)
[2021-09-22 04:31] LABS: Albumin 3.9 g/dL (3.5-5.0); Calcium 9.3 mg/dL (8.4-10.2); Magnesium 2.1 mg/dL (1.6-2.3); Potassium 5.1 mmol/L (3.5-5.1); Total Bilirubin 0.3 mg/dL (0.2-1.3); Total Protein 7.1 g/dL (6.3-8.2)
[2021-09-22 04:38] LABS: Partial Thromboplastin Time 25.8 sec (22.0-30.0); Prothrombin Time 10.6 sec (9.0-12.0)
[2021-09-22] MEDS ORDERED: NITROGLYCERIN SL TABS 0.4 MG TAB SUBLINGUAL PRN ×2 (05:18→07:44)
[2021-09-22] MEDS ORDERED: HEPARIN SODIUM 1,000 UN/ML (10ML VL) IV ONE (05:18)
[2021-09-22] MEDS ORDERED: HEPARIN SOD,PORK IN 0.45% NACL 25,000 UNIT in 0.45% NACL 1 250ML.BAG IV SCH (05:30)
[2021-09-22] MEDS ORDERED: ALPRAZolam 0.5 MG TAB PO PRN (07:44)
[2021-09-22] MEDS ORDERED: ATORVASTATIN 80 MG TAB PO STA (07:44)
[2021-09-22] MEDS ORDERED: ASPIRIN 325 MG TAB PO STA (07:44)
[2021-09-22] MEDS ORDERED: METOPROLOL TARTRATE 25 MG TAB PO SCH (09:00)
[2021-09-22] MEDS ORDERED: TICAGRELOR 90 MG TAB PO SCH (09:00)
[2021-09-22] MEDS: ALPRAZolam 0.25 MG TAB PO PRN (09:20)
[2021-09-22] MEDS ORDERED: FUROSEMIDE 10 MG/ML 4 ML VIAL ONE ×3 (09:46→10:41)
[2021-09-22] MEDS ORDERED: HEPARIN SODIUM 1,000 UN/ML (10ML VL) ONE (09:46)
[2021-09-22] MEDS ORDERED: IV FLUID CONTINUATION 1,000 ML IV ONE (09:48)
[2021-09-22] MEDS ORDERED: MORPHINE SULFATE 4 MG/ML SYRINGE ONE (09:48)
[2021-09-22] MEDS ORDERED: LIDOCAINE 1% INJ 10MG/ML (20 ML MDV) ONE (09:50)
[2021-09-22] MEDS ORDERED: FUROSEMIDE 10 MG/ML 4 ML VIAL IV ONE ×3 (09:50→10:44)
[2021-09-22] MEDS ORDERED: MORPHINE SULF 5MG/10ML VL IV ONE (09:50)
[2021-09-22] MEDS ORDERED: LIDOCAINE 1% INJ 10MG/ML (20 ML MDV) SQ ONE (09:57)
[2021-09-22] MEDS ORDERED: DIGOXIN 250 MCG/ML 2 ML AMP IVP ONE ×2 (09:58→10:22)
--- NOTE | 2021-09-22 10:02 | P.EN ---
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
[2021-09-22] MEDS: HEPARIN SODIUM 1,000 UN/ML (10ML VL) IV ONE ×3 (10:06→10:24)
[2021-09-22] MEDS ORDERED: METOPROLOL TARTRATE 5 MG/5 ML VIAL IVP ONE (10:11)
[2021-09-22] MEDS: METOPROLOL TARTRATE 5 MG/5 ML VIAL IVP ONE ×2 (10:13→10:20)
[2021-09-22] MEDS ORDERED: IOPAMIDOL-370 100ML BTL INJ ONE (10:40)
[2021-09-22] MEDS ORDERED: CLOPIDOGREL 75 MG TAB ONE (10:48)
[2021-09-22] MEDS ORDERED: ATROPINE SULFATE 0.1 MG/ML 10ML SYRINGE IV PRN (10:53)
[2021-09-22] MEDS ORDERED: ZOLPIDEM 5 MG TAB PO PRN (10:53)
[2021-09-22] MEDS ORDERED: RX INFO: IV CONTRAST WAS GIVEN 1 EACH MISC MISCELLANE PRN (10:53)
[2021-09-22] MEDS ORDERED: MAG HYDROX/AL HYDROX/SIMETH 30 ML CUP PO PRN (10:53)
--- NOTE | 2021-09-22 10:55 | ECHOF ---
Referral Reason:Rule out heart disease MEASUREMENTS -------- HEIGHT: 175.3 cm WEIGHT: 77.1 kg BP: 109/69 RVIDd: 4.6 cm (< 3.3) IVSd: 1.9 cm (0.6 - 1.1) LVIDd: 3.9 cm (3.9 - 5.3) LVPWd: 1.3 cm (0.6 - 1.1) IVSs: 2.0 cm LVIDs: 2.8 cm LVPWs: 1.7 cm LAESV Index (A-L): 64.42 ml/m Ao Diam: 3.0 cm (2.0 - 3.7) AV Cusp: 1.5 cm (1.5 - 2.6) LA Diam: 3.2 cm (2.7 - 3.8) MV EXCURSION: 15.568 mm (> 18.000) MV EF SLOPE: 49 mm/s (70 - 150) EPSS: 0.9 cm AV maxP.70 mmHg AV meanP.32 mmHg AR PHT: 353 ms RAP: 15.00 mmHg RVSP: 53.65 mmHg FINDINGS -------- This was a technically difficult study with suboptimal parasternal views. The left ventricular size is normal. There is severe concentric left ventricular hypertrophy. Ove rall left ventricular systolic function is severely impaired with, an EF between 20 - 25 %. Mitral Doppler inflow pattern suggests diastolic filling abnormality {E/E'}. Basal anterior LV wall motion is hypokinetic. Basal inferior LV wall motion is hypokinetic. Mid anterior LV wall motion is h ypokinetic. Mid lateral LV wall motion is hypokinetic. Mid inferior LV wall motion is hypokinet ic. Mid inferoseptal LV wall motion is hypokinetic. Mid anteroseptal LV wall motion is hypokine tic. Apical anterior LV wall motion is hypokinetic. Apical lateral LV wall motion is hypokineti c. Apical inferior LV wall motion is hypokinetic. Apical septum LV wall motion is hypokinetic. The right ventricle is moderate to severely enlarged. LA is severely dilated >40 ml/m2 The right atrial size is normal. 3.0mg of Lumason was utilized for enhancement of images Interatrial and interventricular septum intact. The aortic valve is trileaflet and appears structurally normal. There is mild aortic valve sclerosi s. There is mild aortic regurgitation. There is no evidence of aortic stenosis. Mild mitral annular calcification present. Moderate mitral regurgitation is present. Moderate tricuspid regurgitation present. There is moderate to severe pulmonary hypertension. The right ventricular systolic pressure, as measured by Doppler, is 53.65mmHg. The pulmonic valve was not well visualized. The aortic root size is normal. The inferior vena cava is dilated with poor inspiratory collapse which is consistent with estimated r ight atrial pressure of 20 mmHg. There is no pericardial effusion. CONCLUSIONS -------- 1. The left ventricular size is normal. 2. There is severe concentric left ventricular hypertrophy. 3. Overall left ventricular systolic function is severely impaired with, an EF between 20 - 25 %. 4. Mitral Doppler inflow pattern suggest diastolic filling abnormality {E/E'}. 5. Basal anterior LV wall motion is hypokinetic. 6. Basal inferior LV wall motion is hypokinetic. 7. Mid anterior LV wall motion is hypokinetic. 8. Mid lateral LV wall motion is hypokinetic. 9. Mid inferior LV wall motion is hypokinetic. 10. Mid inferoseptal LV wall motion is hypokinetic. 11. Mid anteroseptal LV wall motion is hypokinetic. 12. Apical anterior LV wall motion is hypokinetic. 13. Apical lateral LV wall motion is hypokinetic. 14. Apical inferior LV wall motion is hypokinetic. 15. Apical septum LV wall motion is hypokinetic. 16. The right ventricle is moderate to severely enlarged. 17. LA is severely dilated >40 ml/m2 18. There is mild aortic valve sclerosis. 19. There is mild aortic regurgitation. 20. Mild mitral annular calcification present. 21. Moderate mitral regurgitation is present. 22. Moderate tricuspid regurgitation present. 23. There is moderate to severe pulmonary hypertension. 24. The right ventricular systolic pressure, as measured by Doppler, is 53.65mmHg. 25. The inferior vena cava is dilated with poor inspiratory collapse which is consistent with estimat ed right atrial pressure of 20 mmHg. COMPARISON SHOPPER: Sharmaine Bartlett RDCS
[2021-09-22] MEDS ORDERED: CLOPIDOGREL 75 MG TAB PO ONE (10:57)
[2021-09-22] MEDS ORDERED: IOPAMIDOL-300 50ML BTL INJ ONE (10:58)
[2021-09-22] MEDS ORDERED: NITROGLYCERIN-D5W PMX 50 MG in DEXTROSE/WATER 1 250ML.BAG IV ONE (10:58)
[2021-09-22] MEDS ORDERED: SODIUM CHLORIDE 0.9% 1,000 ML IV SCH (11:00)
[2021-09-22] MEDS ORDERED: ONDANSETRON 4 MG/2 ML VIAL ONE (11:08)
--- NOTE | 2021-09-22 11:20 | CONS ---
CONSULTATION Mr. Coronado is an 86-year-old male with a history of hyperlipidemia, history of hypertension and history of coronary artery disease who presented to the hospital with symptoms of dyspnea and chest discomfort going on for the last 2 days. The patient had a history of coronary artery disease. He underwent cardiac catheterization by Dr. Berna Shukla in February and was found to have severe stenosis in the proximal RCA as well as significant disease in the mid left circumflex and chronically occluded mid LAD with collaterals from the right coronary artery. He underwent stenting of the RCA in February of this year where he received a 3.25 x 15 mm and a 3.5 x 15 mm stent. He was treated medically and brought back to the hospital in March, underwent repeat cardiac catheterization and at that time underwent stenting of the left circumflex. Apparently about a week or so ago he was having epistaxis and his Brilinta was changed to another antiplatelet drug; he cannot recall; and for the last 2 days he has been complaining of chest discomfort with minimal activity and dyspnea. He came into the emergency room because of his symptoms. In the emergency room he was noted to have evidence of CHF as well as elevation of the troponin. At the time of my evaluation he continues to have mild discomfort. He denies any dizziness or palpitations. He denies any syncope. He has no peripheral edema, no clear PND or orthopnea. His coronary risk factors are remarkable for hypertension and hyperlipidemia. He is nondiabetic. His medications include Lopressor 25 mg twice a day, pravastatin 40 mg daily, aspirin once a day, hydrochlorothiazide 25 mg daily. In addition to that he is on an antiplatelet drug; he cannot recall the name. REVIEW OF SYSTEMS: RESPIRATORY SYSTEM: He had dyspnea on exertion. No recent wheezing or cough. GI SYSTEM: No recent GI bleeding. No peptic ulcer disease. SYSTEM: No dysuria or hematuria. NERVOUS SYSTEM: No stroke or seizure. Patient had an echocardiogram performed in May, and at that time he had an ejection fraction of 50% with mild aortic and mild to moderate mitral regurgitation. PHYSICAL EXAMINATION: He is an 86-year-old male, alert, oriented, in mild discomfort. Blood pressure 106/60 with a heart rate in the 90s and low 100s. Head normocephalic. Eyes: Sclerae anicteric. Neck: No bruit. Lungs with crackles and rales at the bases. HEART: Regular rate and rhythm. S1, S2. No S3, with a systolic murmur heard at the base, ejection type. No diastolic murmur. No rub. Abdomen soft, nontender. Positive bowel sounds. No organomegaly. EXTREMITIES: No edema. Intact distal pulses. LAB DATA: Lab data revealed BUN and creatinine of 34 and 1.17, potassium 5.1, hemoglobin of 12.6. Troponin 3.3 and 5.7. NT proBNP of 8300. His PCR is negative. EKG revealed a sinus mechanism with sinus tachycardia, frequent PVCs, right bundle branch block, left axis deviation with nonspecific ST-T wave changes. IMPRESSION: 1. Cup-HL-rekxpja-elevation myocardial infarction. Rule out stent occlusion in a patient with history of stenting of the RCA and the left circumflex and chronic occluded LAD. 2. Evidence of congestive heart failure. In the past he had mildly impaired systolic function. 3. Hypertension. 4. Hyperlipidemia. RECOMMENDATIONS: I discussed his case with Dr. Berna Shukla, who performed his procedure. Will proceed with coronary angiography to assess his status and guide his treatment. I discussed those findings with the patient, and he is in full understanding and agreement. Depending on his progress, further recommendations will be made. Thank you for this consult. Will follow with you. MMODL / IJN: [id number] /
[2021-09-22] MEDS ORDERED: NITROGLYCERIN-D5W PMX 50 MG in DEXTROSE/WATER 1 250ML.BAG IV SCH (12:45)
--- NOTE | 2021-09-22 12:59 | CC ---
CARDIAC CATHETERIZATION REPORT DATE OF SERVICE: 09/22/2021. PROCEDURES: 1. Left heart catheterization and coronary angiography. 2. Percutaneous transluminal coronary angioplasty and stenting of a restenotic lesion in the proximal RCA with a drug-eluting stent. PERFORMED BY: Dr. Berna Shukla. Moderate conscious sedation time was 55 minutes. Patient was administered Versed. He also received a morphine sulfate. His oxygen saturation, hemodynamics and EKG were monitored closely. CLINICAL INFORMATION: Mr. Paul Coronado is an 86-year-old elderly gentleman with a history of hypertension, hyperlipidemia and CAD. He underwent cardiac cath in February of 2021, was found to have a total occlusion of mid LAD, which was a chronic occlusion receiving collaterals from the RCA, which had a significant lesion in the proximal RCA as well in the ostium of the RCA. RCA was stented in February and he was brought back in March for stenting of proximal nondominant circumflex. LAD was richly collateralized with preserved wall motion of the anterior wall and the collaterals were all coming from the RCA. Patient was advised medical therapy and was doing well until about 3 to 4 days ago when he began having increasing shortness of breath and came into the hospital, had a non-ST- elevation IA with a troponin up to 5.0. He was seen by Dr. Alberto and advised cardiac cath after due discussion. I discussed with the patient the rationale, risks, benefits, options, and proceeded to perform the procedure. PROCEDURE NOTE: Under local anesthesia and strict aseptic precautions, a 6-[place] introducer was placed in the right femoral artery. Previously patient had a right radial attempt apparently and it was unsuccessful and there was tortuosity. I therefore chose to go to the femoral approach. A 6-[place] introducer was placed. There was some disease in the iliac system. Using a standard right Beverly catheter, I performed coronary angiography of the right coronary artery and noted that there was a 99% stenosis within the distal stent of the RCA. The proximal RCA was stented and also ostium of the RCA was stented. Both of these areas had a 3.25 stent distally and a 3.5 stent proximally, but the distal stent had a 99% stenosis with somewhat of a sluggish flow. The RCA was collateralizing the LAD as well. I proceeded to perform intervention of the RCA and then performed the cardiac catheterization and also checked LV pressures and performed coronary angiography of the left system. The sheath was taken out and manual compression used to secure hemostasis and he was sent to the room in a stable condition with a Femstop. Details and results were discussed with the patient and also I spoke to his son by phone. CARDIAC CATHETERIZATION FINDINGS: The left ventricular end-diastolic pressure was 28 mmHg without any gradient across the aortic valve. RIGHT CORONARY ARTERY: Technically a dominant vessel that was stented in February of 2021, now has what seems to be a 99% lesion within the distal stent, and beyond that the caliber is better. It bifurcates into large PDA and PLV, both of which supply a sizable amount of myocardium. The RCA therefore is the culprit lesion with a 99% stenosis within the second distal stent, which was a 3.25 caliber stent. LEFT MAIN CORONARY ARTERY: This is a short patent vessel that has about a 20% narrowing distally and it trifurcates into LAD, circumflex and ramus intermedius. The distal left main therefore has about a 20% to 25% lesion. There is some calcium noted. LEFT ANTERIOR DESCENDING CORONARY ARTERY: This vessel is totally occluded without much antegrade flow. There is a rich network of collaterals coming from the distal RCA supplying the LAD. But LAD is occluded in the mid portion after small septal and diagonal branch, and proximal LAD prior to the occlusion has about a 50% lesion. RAMUS INTERMEDIUS: Good-caliber vessel has a 30% to 40% proximal lesion. No other significant lesions. Supplies a sizable amount of myocardium. LEFT POSTERIOR CIRCUMFLEX CORONARY ARTERY: Nondominant vessel. Stented segment is widely patent. It supplies a limited amount of myocardium in the AV groove and distal PLV branch. Circumflex stent is widely patent. FINAL IMPRESSION: This patient has a 99% restenosis within the proximal RCA stent, which actually provides collaterals to the LAD as well. LAD is chronically occluded in the mid portion. Circumflex is widely patent. LV end-diastolic pressures are significantly elevated and there is no gradient across aortic valve. RECOMMENDATIONS: I recommended and performed PCI of the RCA expeditiously. PERCUTANEOUS CORONARY INTERVENTION PROCEDURE DETAILS: I used a standard right Beverly catheter and a Whisper wire to cross the lesion. A 3.0 caliber NC Trek balloon was used to pre-dilate the lesion. I then used a 3.5 caliber NC Trek balloon of 20 mm length and pre-dilated the entire length of the vessel. I noted an area of restenosis which had some recoil. I then used a 4.0 caliber 20 mm long NC Trek, and with this I dilated the entire length of the previously stented segment. I then deployed a 4.0 caliber 12 mm drug-eluting Xience stent at the site of restenosis and post-dilated this with a 4.5 caliber NC Trek balloon. Excellent angiographic result was achieved. Patient had almost complete resolution of his symptoms of shortness of breath. The injection of RCA revealed rich collaterals to the mid and distal LAD as well. Excellent result was achieved. The sheath was taken out and manual compression used to secure hemostasis and Femstop was applied and he was sent to the room in stable condition. Results were discussed with the patient and with his son by phone. Patient received a total of 6000 units of heparin and ACT was kept between 250 and 300. He was sent to the room in stable condition. MMODL / IJN: [id number] /
[2021-09-22] MEDS: FUROSEMIDE 10 MG/ML 4 ML VIAL IV SCH ×2 (18:19→21:45)
[2021-09-22] MEDS: FAMOTIDINE 20 MG/2 ML VIAL IV SCH ×2 (18:20→21:45)
[2021-09-22] MEDS: SODIUM CHLORIDE 0.9% 1,000 ML in EMPTY BAG 1 BAG IV SCH ×2 (18:20→21:54)
[2021-09-22 18:22] LABS: Calcium 8.8 mg/dL (8.4-10.2); Potassium 4.8 mmol/L (3.5-5.1)
--- NOTE | 2021-09-22 20:14 | P.HPIM ---
History of Present Illness This is a pleasant 86 years old male with past medical history of Hyperlipidemia, Hypertension, coronary artery disease status post Heart Catheterization With Stent. He is a patient of the [facility]. Presents because of dyspnea for the last 2 days. Secondary to cardiac disease with elevated troponin Patient was seen after the procedure and the extended stay unit, lying comfortable in bed but sleeping from recent procedure. Patient could not provide information On admission patient was tachycardic and 106 and tachypneic 20-22, blood pressure 109/69 and he is on 92% on room air. Patient is afebrile. Lab showed mild leukocytosis of 13.6 D-dimer 0.6 which is corrected 4H atrial be within the reference range. INR is 1.0. Sodium 135, creatinine 1.1 which is within the reference range, glucose 141. Sodium 135, liver enzymes not significantly elevated, O BNP is 8300. Troponin elevated at 3.3 Coronavirus not detected EKG showing sinus tachycardia with PVCs and draped bundle branch and left anterior fascicular block, bifascicular block and a QTC 482 Chest x-ray: New CHF On admission patient was started on heparin drip and aspirin 325 mg daily. With cardiology team been consulted Echocardiogram showing severely impaired LV function with EF 2025% and wall hypokinesia Patient was taken immediately to cardiac cath Which showed severe stenosis of the proximal RCA with 99% and a chronically occluded LAD in the middle portion status post PCI to the RCA Review of Systems Review of systems CONSTITUTIONAL: No fever, no malaise, no fatigue. HEENT: No recent visual problems or hearing problems. Denied any sore throat. CARDIOVASCULAR: no palpitations, no syncope. PULMONARY: No chest wall tenderness, no hemoptysis. GASTROINTESTINAL: No diarrhea, no nausea, no vomiting, no abdominal pain. Normoactive bowel sounds. NEUROLOGICAL: No headaches, no weakness, no numbness. HEMATOLOGICAL: Denies any bleeding or petechiae. GENITOURINARY: Denies any burning micturition, frequency, or urgency. MUSCULOSKELETAL/RHEUMATOLOGICAL: Denies any joint pain, swelling, or any muscle pain. ENDOCRINE: Denies any polyuria or polydipsia. Past Medical History Past Medical History: Chest Pain / Angina, Hyperlipidemia, Hypertension Additional Past Medical History / Comment(s): cataract rt eye, hx nosebleeds,bronchitis History of Any Multi-Drug Resistant Organisms: None Reported Past Surgical History: Back Surgery, Heart Catheterization With Stent, Joint Replacement Additional Past Surgical History / Comment(s): rt knee replacement, neck fusion,lt cataract Past Anesthesia/Blood Transfusion Reactions: No Reported Reaction Past Psychological History: No Psychological Hx Reported Smoking Status: Never smoker Past Alcohol Use History: None Reported Past Drug Use History: None Reported - Past Family History Mother Family Medical History: No Reported History Additional Family Medical History / Comment(s): heart conditions Son(s) Family Medical History: No Reported History Father Family Medical History: Myocardial Infarction (MS) Medications and Allergies Home Medications Medication Instructions Recorded Confirmed Type Aspirin EC [Ecotrin Low Dose] 81 mg PO DAILY 09/22/21 09/22/21 History Cholecalciferol [Vitamin D3 (25 50 mcg PO DAILY 09/22/21 09/22/21 History Mcg = 1000 Iu)] Clopidogrel [Plavix] 75 mg PO DAILY 09/22/21 09/22/21 History Losartan [Cozaar] 25 mg PO HS 09/22/21 09/22/21 History Metoprolol Succinate [Toprol XL] 25 mg PO DAILY 09/22/21 09/22/21 History Allergies Allergy/AdvReac Type Severity Reaction Status Date / Time atorvastatin Allergy Rash/Hives Verified 09/22/21 07:51 losartan AdvReac Takes at Verified 09/22/21 07:51 home, unsure Physical Exam Vitals: Vital Signs Temp Pulse Pulse Resp BP BP Pulse Ox 09/22/21 13:01 95 16 95/60 95 09/22/21 12:35 97 16 108/61 95 09/22/21 12:15 74 16 101/59 96 09/22/21 12:00 96 16 95/54 94 L 09/22/21 11:45 96 16 103/58 94 L 09/22/21 11:30 98 16 118/63 90 L 09/22/21 11:15 89 16 120/70 84 L 09/22/21 07:28 103 H 16 106/67 91 L 09/22/21 06:11 106 H 26 H 109/69 92 L 09/22/21 05:41 107 H 20 82/71 95 09/22/21 04:57 99 22 87/55 97 09/22/21 04:46 101 H 18 75/62 97 09/22/21 03:36 97.3 F L 102 H 20 87/60 97 Intake and Output 09/21/21 09/22/21 09/22/21 22:59 06:59 14:59 Intake Total 200 Output Total 700 Balance -500 Intake: IV 200 Output: Urine 700 Uretheral (Ewing) 700 Other: Weight 77.111 kg GENERAL: The patient is alert and oriented x3, not in any acute distress. Well developed, well nourished. HEENT: Pupils are round and equally reacting to light. EOMI. No scleral icterus. No conjunctival pallor. Normocephalic, atraumatic. No pharyngeal erythema. No thyromegaly. CARDIOVASCULAR: S1 and S2 present. No murmurs, rubs, or gallops. PULMONARY: Chest is clear to auscultation, no wheezing or crackles. ABDOMEN: Soft, nontender, nondistended, normoactive bowel sounds. No palpable organomegaly. MUSCULOSKELETAL: No joint swelling or deformity. EXTREMITIES: No cyanosis, clubbing, or pedal edema. NEUROLOGICAL: Gross neurological examination did not reveal any focal deficits. SKIN: No rashes. no petechiae. Results CBC & Chem 7: 09/22/21 03:55 09/22/21 18:00 Labs: Abnormal Lab Results - Last 24 Hours (Table) 09/22/21 09/22/21 09/22/21 Range/Units 03:41 03:41 03:41 WBC (3.8-10.6) k/uL Hgb (13.0-17.5) gm/dL Hct (39.0-53.0) % Neutrophils # (1.3-7.7) k/uL D-Dimer 0.60 H (<0.60) mg/L FEU Sodium 135 L (137-145) mmol/L BUN 34 H (9-20) mg/dL Glucose 141 H (74-99) mg/dL AST 80 H (17-59) U/L Troponin I 3.360 H* (0.000-0.034) ng/mL 09/22/21 09/22/21 Range/Units 03:55 06:23 WBC 13.6 H (3.8-10.6) k/uL Hgb 12.6 L (13.0-17.5) gm/dL Hct 38.1 L (39.0-53.0) % Neutrophils # 10.2 H (1.3-7.7) k/uL D-Dimer (<0.60) mg/L FEU Sodium (137-145) mmol/L BUN (9-20) mg/dL Glucose (74-99) mg/dL AST (17-59) U/L Troponin I 5.780 H* (0.000-0.034) ng/mL Assessment and Plan Assessment: Non-ST elevation myocardial infarction, status post PCI to the proximal RCA Acute congestive heart failure, and very impressed EF 20-25% Possible history of hypertension Hyperlipidemia History of cardiac cath status post stenting non-STEMI Plan: This is a pleasant 86 years old male who presents with CHF and non-STEMI, status post PCI to RCA Continue with aspirin and Plavix. Continue with metoprolol and losartan Cardiology consult Start IV Lasix, while monitoring creatinine and electrolytes Labs and medication were reviewed.. Continue same treatment. Continue with symptomatic treatment. Resume home medication. Monitor lytes and vitals. DVT and GI prophylaxis. Further recommendations depends on the clinical course of the patient DVT prophylax: sc heparin GI Prophylaxis: Pepcid PT/OT: Pending Prognosis is guarded
[2021-09-22] MEDS ORDERED: ATORVASTATIN 80 MG TAB PO SCH (21:00)
[2021-09-22] MEDS: PRAVASTATIN SODIUM 80 MG TAB PO SCH (21:45)
[2021-09-22] MEDS: LOSARTAN 25 MG TAB PO SCH (21:45)
[2021-09-23] MEDS ORDERED: HEPARIN SODIUM,PORCINE 2,500 UNIT in SODIUM CHLORIDE 0.9% 250 ML IRRIGATION PRN (07:00)
[2021-09-23] MEDS ORDERED: HEPARIN SODIUM,PORCINE 10,000 UNIT in SODIUM CHLORIDE 0.9% 1,000 ML IRRIGATION PRN (07:00)
[2021-09-23] MEDS ORDERED: METOPROLOL SUCCINATE (ER) 25 MG TAB.ER.24H PO SCH (09:00)
[2021-09-23] MEDS ORDERED: FUROSEMIDE 20 MG TAB PO SCH (09:00)
[2021-09-23] MEDS ORDERED: ASPIRIN 325 MG TAB PO SCH (09:00)
[2021-09-23] MEDS ORDERED: ASPIRIN 81 MG PO SCH (09:00)
[2021-09-23] MEDS ORDERED: FUROSEMIDE 40 MG TAB PO SCH (09:00)
[2021-09-23 09:02] LABS: Basophils # (A) 0.1 k/uL (0-0.2); Basophils % (A) 0 %; Eosinophils % (A) 0 %; HCT 39.9 % (39.0-53.0); HGB 12.6 gm/dL (13.0-17.5); Lymphocytes # (A) 1.8 k/uL (1.0-4.8); Lymphocytes % (A) 11 %; MCH 28.4 pg (25.0-35.0); MCHC 31.6 g/dL (31.0-37.0); MCV 89.7 fL (80.0-100.0); Mean Platelet Volume 7.5; Monocytes # (A) 0.7 k/uL (0-1.0); Monocytes % (A) 4 %; Neutrophils # (A) 13.1 k/uL (1.3-7.7); Neutrophils % (A) 83 %; Platelet Count 336 k/uL (150-450); RBC 4.45 m/uL (4.30-5.90); RDW 14.4 % (11.5-15.5); WBC 15.8 k/uL (3.8-10.6)
[2021-09-23 09:18] LABS: African American GFR (CKD) 58 (>60 ml/min/1.73 sqM); Anion Gap 10 mmol/L; Blood Urea Nitrogen 35 mg/dL (9-20); Calcium 8.9 mg/dL (8.4-10.2); Carbon Dioxide 23 mmol/L (22-30); Chloride 105 mmol/L (98-107); Glucose 162 mg/dL (74-99); Magnesium 1.9 mg/dL (1.6-2.3); Non-African American GFR(CKD) 50 (>60 ml/min/1.73 sqM); Potassium 4.3 mmol/L (3.5-5.1); Sodium 138 mmol/L (137-145)
[2021-09-23] MEDS: HEPARIN SODIUM,PORCINE/PF 5,000 UNIT/0.5 ML SYRINGE SQ SCH ×2 (10:25→20:57)
[2021-09-23] MEDS: ASPIRIN 81 MG PO SCH (10:26)
[2021-09-23] MEDS: CLOPIDOGREL 75 MG TAB PO SCH (10:26)
[2021-09-23] MEDS: CHOLECALCIFEROL 25 MCG (1000 IU) TABLET PO SCH (10:26)
[2021-09-23] MEDS: FAMOTIDINE 20 MG/2 ML VIAL IV SCH (10:28)
--- NOTE | 2021-09-23 11:00 | ECHOF ---
Referral Reason:LVEF MEASUREMENTS -------- HEIGHT: 175.3 cm WEIGHT: 78.5 kg BP: 109/67 IVSd: 1.6 cm (0.6 - 1.1) LVIDd: 3.2 cm (3.9 - 5.3) LVPWd: 1.7 cm (0.6 - 1.1) IVSs: 2.1 cm LVIDs: 2.8 cm LVPWs: 2.0 cm FINDINGS -------- Sinus rhythm. This was a technically difficult study with suboptimal views. Patient is post cardiac catheterization and cannot be in left lateral position. The left ventricular size is normal. There is moderate concentric left ventricular hypertrophy. O verall left ventricular systolic function is moderate-severely impaired with, an EF between 30 - 35 % . Mid anterior LV wall motion is hypokinetic. Mid anteroseptal LV wall motion is hypokinetic. Apical anterior LV wall motion is hypokinetic. Apical lateral LV wall motion is hypokinetic. A pical inferior LV wall motion is hypokinetic. Apical septum LV wall motion is hypokinetic. 3.0mg of Lumason was utilized for enhancement of images There is no pericardial effusion. CONCLUSIONS -------- 1. The left ventricular size is normal. 2. There is moderate concentric left ventricular hypertrophy. 3. Overall left ventricular systolic function is moderate-severely impaired with, an EF between 30 - 35 %. 4. Mid anterior LV wall motion is hypokinetic. 5. Mid anteroseptal LV wall motion is hypokinetic. 6. Apical anterior LV wall motion is hypokinetic. 7. Apical lateral LV wall motion is hypokinetic. 8. Apical inferior LV wall motion is hypokinetic. 9. Apical septum LV wall motion is hypokinetic. 10. There is no pericardial effusion. [employer]: Sharmaine Bartlett, CHANG
--- NOTE | 2021-09-23 11:30 | P.PN ---
Subjective This is a pleasant 86 years old male with past medical history of Hyperlipidemia, Hypertension, coronary artery disease status post Heart Catheterization With Stent. He is a patient of the [facility]. Presents because of dyspnea for the last 2 days. Secondary to cardiac disease with elevated troponin Patient was seen after the procedure and the extended stay unit, lying comfortable in bed but sleeping from recent procedure. Patient could not provide information On admission patient was tachycardic and 106 and tachypneic 20-22, blood pressur e 109/69 and he is on 92% on room air. Patient is afebrile. Lab showed mild leukocytosis of 13.6 D-dimer 0.6 which is corrected 4H atrial be within the reference range. INR is 1.0. Sodium 135, creatinine 1.1 which is within the reference range, glucose 141. Sodium 135, liver enzymes not significantly elevated, O BNP is 8300. Troponin elevated at 3.3 Coronavirus not detected EKG showing sinus tachycardia with PVCs and draped bundle branch and left anterior fascicular block, bifascicular block and a QTC 482 Chest x-ray: New CHF On admission patient was started on heparin drip and aspirin 325 mg daily. With cardiology team been consulted Echocardiogram showing severely impaired LV function with EF 202% and wall hypokinesia Patient was taken immediately to cardiac cath Which showed severe stenosis of the proximal RCA with 99% and a chronically occluded LAD in the middle portion status post PCI to the RCA 09/23/2021 Patient alert and awake and oriented, he has some mild chest discomfort this morning and his troponin is around the same level at 54 which is slightly less than yesterday. He is status post stent placement to RCA and he is currently on aspirin and Plavix as well as metoprolol and other cardiac medication. He has evidence of CHF on the chest x-ray on admission with ejection fraction 30-35%. Echo done this morning. Euvolemic. Therefore switch IV Lasix to oral dose 40 mg daily. He has some mild leukocytosis of 15 K most likely reactive secondary to non STEMI. Objective - Vital Signs Vital signs: Vital Signs Temp 98.6 F 09/23/21 08:07 Pulse 114 H 09/23/21 08:07 Resp 18 09/23/21 08:07 BP 106/60 09/23/21 08:07 Pulse Ox 98 09/23/21 08:07 Intake & Output 09/22/21 09/23/21 09/23/21 18:59 06:59 18:59 Intake Total 600 20 118 Output Total 1450 400 425 Balance -850 -380 -307 Weight 77.111 kg 78.5 kg Intake: IV 600 20 Invasive Line 1 20 Oral 118 Output: Urine 1450 400 425 Uretheral (Ewing) 950 Other: Voiding Method Indwelling Catheter Indwelling Catheter # Bowel Movements 1 - Exam GENERAL: The patient is alert and oriented x3, not in any acute distress. Well developed, well nourished. HEENT: Pupils are round and equally reacting to light. EOMI. No scleral icterus. No conjunctival pallor. Normocephalic, atraumatic. No pharyngeal erythema. No thyromegaly. CARDIOVASCULAR: S1 and S2 present. No murmurs, rubs, or gallops. PULMONARY: Chest is clear to auscultation, no wheezing or crackles. ABDOMEN: Soft, nontender, nondistended, normoactive bowel sounds. No palpable organomegaly. MUSCULOSKELETAL: No joint swelling or deformity. EXTREMITIES: No cyanosis, clubbing, or pedal edema. NEUROLOGICAL: Gross neurological examination did not reveal any focal deficits. SKIN: No rashes. no petechiae. - Labs CBC & Chem 7: 09/23/21 08:19 09/23/21 08:19 Labs: Abnormal Lab Results - Last 24 Hours (Table) 09/22/21 09/22/21 09/22/21 Range/Units 18:00 18:00 20:38 WBC (3.8-10.6) k/uL Hgb (13.0-17.5) gm/dL Neutrophils # (1.3-7.7) k/uL Carbon Dioxide 19 L (22-30) mmol/L BUN 33 H (9-20) mg/dL Creatinine (0.66-1.25) mg/dL Glucose 139 H (74-99) mg/dL Troponin I 54.300 H* 67.400 H* (0.000-0.034) ng/mL 09/23/21 09/23/21 09/23/21 Range/Units 08:19 08:19 08:19 WBC 15.8 H (3.8-10.6) k/uL Hgb 12.6 L (13.0-17.5) gm/dL Neutrophils # 13.1 H (1.3-7.7) k/uL Carbon Dioxide (22-30) mmol/L BUN 35 H (9-20) mg/dL Creatinine 1.29 H (0.66-1.25) mg/dL Glucose 162 H (74-99) mg/dL Troponin I 54.800 H* (0.000-0.034) ng/mL Assessment and Plan Assessment: Non-ST elevation myocardial infarction, status post PCI to the proximal RCA Acute congestive heart failure, and very impressed EF 20-25% number improved today 30-35% Possible history of hypertension Hyperlipidemia History of cardiac cath status post stenting non-STEMI Plan: This is a pleasant 86 years old male who presents with CHF and non-STEMI, status post PCI to RCA Continue with aspirin and Plavix. Continue with metoprolol and losartan Cardiology consult Continue with oral Lasix. Labs and medication were reviewed.. Continue same treatment. Continue with symptomatic treatment. Resume home medication. Monitor lytes and vitals. DVT and GI prophylaxis. Further recommendations depends on the clinical course of the patient DVT prophylax: sc heparin GI Prophylaxis: Pepcid PT/OT: Pending Prognosis is guarded
[2021-09-23 13:51] VITALS: BMI 25.5
--- NOTE | 2021-09-23 13:51 | P.PN ---
Subjective This is a 86 year old male with a past medical history of hyperlipidemia, hypertension, coronary artery disease s/p PCI proximal and ostial RCA 02/2021 and PCI to mid circumflex in 03/2021. He follows with Dr. Cuevas. Patient presented to the hospital with NSTEMI. He underwent cardiac catheterization with Dr. Shukla, which revealed 99% restenosis within the proximal RCA stent, which actually provides collaterals to the LAD. LAD is chronically occluded in the mid portion. Circumflex is widely patent. Patient underwent PCI to RCA. Initial echocardiogram revealed EF 20-25% with LV hypokinesis, moderate mitral regurgitation, moderate tricuspid rotation, moderate severe pulmonary hypertension with RVSP of 54 mmHg. Patient's troponin peaked at 67.4. Patient seen and examined at bedside. He had some lightheadedness and shortness of breath with activity this morning. His chest pain has improved and denies chest pain this morning. Repeat echocardiogram revealed an improvement in EF 30- 35%, LV hypokinesis. He is sinus tachycardic on telemetry with PVCs. He is maintained on aspirin 81mg daily, Plavix 75 mg daily, PO Lasix 40mg daily, losartan 25 mg nightly, metoprolol succinate 25 mg twice a day, pravastatin 80mg nightly Labs revealed WBC 15.8, hemoglobin 12.6, platelets 36, sodium 138, potassium 4.3, BUN 35, serum creatinine 1.2, troponin 54 GENERAL: In no acute distress. NECK: Supple without JVD or thyromegaly. LUNGS: Breath sounds clear to auscultation bilaterally. Respiration equal and unlabored. No wheezes, rales or rhonchi. HEART: Regular rate and rhythm, systolic ejection murmur noted. No rubs or gallops. S1 and S2 heard. EXTREMITIES: Normal range of motion, no edema. No clubbing or cyanosis. Peripheral pulses intact. 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 Patient was seen and examined. Objective - Vital Signs Vital signs: Vital Signs Temp 97.5 F L 12/16/21 12:00 Pulse 118 H 09/23/21 12:00 Resp 18 09/23/21 12:00 BP 111/64 09/23/21 12:00 Pulse Ox 98 09/23/21 12:00 Intake & Output 09/22/21 09/23/21 09/23/21 18:59 06:59 18:59 Intake Total 600 20 118 Output Total 1450 400 425 Balance -850 -380 -307 Weight 77.111 kg 78.5 kg Intake: IV 600 20 Invasive Line 1 20 Oral 118 Output: Urine 1450 400 425 Uretheral (Ewing) 950 Other: Voiding Method Indwelling Catheter Indwelling Catheter # Bowel Movements 1 - Labs CBC & Chem 7: 09/23/21 08:19 09/23/21 08:19 Labs: Abnormal Lab Results - Last 24 Hours (Table) 09/22/21 09/22/21 09/22/21 Range/Units 18:00 18:00 20:38 WBC (3.8-10.6) k/uL Hgb (13.0-17.5) gm/dL Neutrophils # (1.3-7.7) k/uL Carbon Dioxide 19 L (22-30) mmol/L BUN 33 H (9-20) mg/dL Creatinine (0.66-1.25) mg/dL Glucose 139 H (74-99) mg/dL Troponin I 54.300 H* 67.400 H* (0.000-0.034) ng/mL 09/23/21 09/23/21 09/23/21 Range/Units 08:19 08:19 08:19 WBC 15.8 H (3.8-10.6) k/uL Hgb 12.6 L (13.0-17.5) gm/dL Neutrophils # 13.1 H (1.3-7.7) k/uL Carbon Dioxide (22-30) mmol/L BUN 35 H (9-20) mg/dL Creatinine 1.29 H (0.66-1.25) mg/dL Glucose 162 H (74-99) mg/dL Troponin I 54.800 H* (0.000-0.034) ng/mL
[2021-09-23 15:56] LABS: Chol/HDL Ratio 3.44 Ratio; LDL Cholesterol,Calculated 89.8 mg/dL (0.0-131.0); VLDL Calculation 18.02 mg/dL (5.00-40.00)
[2021-09-23 16:07] LABS: Appearance,Urine Clear (Clear); Bilirubin,Urine Negative (Negative); Blood,Urine Moderate (Negative); Color,Urine Yellow; Glucose,Urine (UA) Negative (Negative); Hyaline Casts,Urine 1 /lpf (0-2); Ketones,Urine Negative (Negative); Leukocyte Esterase,Urine Moderate (Negative); Mucus,Urine Rare /hpf; Nitrite,Urine Negative (Negative); Protein,Urine 1+ (Negative); RBC,Urine 84 /hpf (0-5); Specific Gravity,Urine 1.034 (1.001-1.035); Urobilinogen,Urine <2.0 mg/dL (<2.0); WBC,Urine 31 /hpf (0-5)
[2021-09-23] MEDS: SODIUM CHLORIDE 0.9% 1,000 ML in EMPTY BAG 1 BAG IV SCH ×2 (17:21→21:00)
[2021-09-23] MEDS: METOPROLOL SUCCINATE (ER) 25 MG TAB.ER.24H PO SCH (20:57)
[2021-09-23] MEDS: LOSARTAN 25 MG TAB PO SCH (20:57)
[2021-09-23] MEDS: FAMOTIDINE 20 MG TAB PO SCH (20:57)
[2021-09-23] MEDS: PRAVASTATIN SODIUM 80 MG TAB PO SCH (20:57)
[2021-09-24 06:46] LABS: Basophils # (A) 0.1 k/uL (0-0.2); Basophils % (A) 1 %; Eosinophils # (A) 0.2 k/uL (0-0.7); Eosinophils % (A) 2 %; HCT 37.1 % (39.0-53.0); HGB 11.9 gm/dL (13.0-17.5); Lymphocytes # (A) 1.5 k/uL (1.0-4.8); Lymphocytes % (A) 12 %; MCH 28.5 pg (25.0-35.0); MCV 88.9 fL (80.0-100.0); Mean Platelet Volume 7.5; Monocytes # (A) 1.1 k/uL (0-1.0); Monocytes % (A) 9 %; Neutrophils # (A) 9.4 k/uL (1.3-7.7); Neutrophils % (A) 75 %; Platelet Count 285 k/uL (150-450); RBC 4.18 m/uL (4.30-5.90); RDW 13.8 % (11.5-15.5); WBC 12.4 k/uL (3.8-10.6)
[2021-09-24 06:51] LABS: Calcium 8.5 mg/dL (8.4-10.2); Magnesium 2.1 mg/dL (1.6-2.3); Potassium 4.3 mmol/L (3.5-5.1)
[2021-09-24] MEDS ORDERED: FUROSEMIDE 40 MG TAB PO SCH (09:00)
--- NOTE | 2021-09-24 09:52 | PN ---
PROGRESS NOTE Mr. Coronado is an 86-year-old male who presented with cnx-OV-agzlezg-elevation myocardial infarction complicated by CHF, underwent cardiac catheterization, angioplasty and stenting of his in-stent restenosis to the RCA. He continues to be quite dyspneic with minimal exertion. He has some fullness in the chest. He has no rest dyspnea or chest discomfort. He denies any dizziness or palpitations. He is in sinus mechanism. He has no evidence of PND or orthopnea. His repeat echocardiogram revealed an ejection fraction of 30% to 35%. He continues to be on aspirin once a day, Plavix 75 mg daily, Lasix 40 mg daily, losartan 25 mg daily, metoprolol succinate 25 mg twice a day. PHYSICAL EXAMINATION: Blood pressure running in the low 100s with a heart rate in the 90s to low 100, lungs with crackles at the bases bilaterally. Heart: Regular rate and rhythm S1, S2. No S3, with systolic murmur. Abdomen: Soft nontender. Extremities: No edema. LAB DATA: Lab data revealed BUN and creatinine 41, and 1.12, potassium 4.3, sodium 134, hemoglobin of 11.9. His peak troponin is 67. IMPRESSION: 1. Status post non-STEMI and angioplasty and stenting of the in-stent restenosis of the RCA. 2. Chronically occluded LAD with collaterals from the right system. 3. Severe ischemic cardiomyopathy. 4. Symptoms of congestive heart failure. 5. Hyperlipidemia. RECOMMENDATIONS: I will increase the dose of his diuretics as well as add Aldactone to his regimen. I am hopeful that we will see some improvement in the LAD territory with recovery of his systolic function. In the meantime, we will continue close observation. Depending on his progress, further recommendations will be made. MMODL / IJN: [id number] /
[2021-09-24] MEDS: ASPIRIN 81 MG PO SCH (10:03)
[2021-09-24] MEDS: FAMOTIDINE 20 MG TAB PO SCH ×2 (10:03→21:21)
[2021-09-24] MEDS: METOPROLOL SUCCINATE (ER) 25 MG TAB.ER.24H PO SCH ×2 (10:04→21:22)
[2021-09-24] MEDS: CHOLECALCIFEROL 25 MCG (1000 IU) TABLET PO SCH (10:04)
[2021-09-24] MEDS: HEPARIN SODIUM,PORCINE/PF 5,000 UNIT/0.5 ML SYRINGE SQ SCH ×2 (10:04→21:22)
[2021-09-24] MEDS: CLOPIDOGREL 75 MG TAB PO SCH (10:04)
[2021-09-24] MEDS: SODIUM CHLORIDE 0.9% 1,000 ML in EMPTY BAG 1 BAG IV SCH (11:37)
[2021-09-24] MEDS: FUROSEMIDE 40 MG TAB PO SCH (17:10)
[2021-09-24] MEDS: PRAVASTATIN SODIUM 80 MG TAB PO SCH (21:21)
[2021-09-24] MEDS: LOSARTAN 25 MG TAB PO SCH (21:21)
--- NOTE | 2021-09-25 05:25 | P.PN ---
Subjective This is a pleasant 86 years old male with past medical history of Hyperlipidemia, Hypertension, coronary artery disease status post Heart Catheterization With Stent. He is a patient of the [facility]. Presents because of dyspnea for the last 2 days. Secondary to cardiac disease with elevated troponin Patient was seen after the procedure and the extended stay unit, lying comfortable in bed but sleeping from recent procedure. Patient could not provide information On admission patient was tachycardic and 106 and tachypneic 20-22, blood pressur e 109/69 and he is on 92% on room air. Patient is afebrile. Lab showed mild leukocytosis of 13.6 D-dimer 0.6 which is corrected 4H atrial be within the reference range. INR is 1.0. Sodium 135, creatinine 1.1 which is within the reference range, glucose 141. Sodium 135, liver enzymes not significantly elevated, O BNP is 8300. Troponin elevated at 3.3 Coronavirus not detected EKG showing sinus tachycardia with PVCs and draped bundle branch and left anterior fascicular block, bifascicular block and a QTC 482 Chest x-ray: New CHF On admission patient was started on heparin drip and aspirin 325 mg daily. With cardiology team been consulted Echocardiogram showing severely impaired LV function with EF 2024% and wall hypokinesia Patient was taken immediately to cardiac cath Which showed severe stenosis of the proximal RCA with 99% and a chronically occluded LAD in the middle portion status post PCI to the RCA 09/23/2021 Patient alert and awake and oriented, he has some mild chest discomfort this morning and his troponin is around the same level at 54 which is slightly less than yesterday. He is status post stent placement to RCA and he is currently on aspirin and Plavix as well as metoprolol and other cardiac medication. He has evidence of CHF on the chest x-ray on admission with ejection fraction 30-35%. Echo done this morning. Euvolemic. Therefore switch IV Lasix to oral dose 40 mg daily. He has some mild leukocytosis of 15 K most likely reactive secondary to non STEMI. 09/24/2021 Patient today feels severe weakness, he has difficulty getting out of bed. His weakness is generalized and no difficulty in moving his arms or legs while in bed. No weakness or numbness or headache or dizziness. Also his been coming from central chest pain. Vitals are stable, he is afebrile, blood pressure is low normal after starting on several blood pressure medication, he is on Lasix 40 daily increased to twice daily today also on metoprolol 25 mg and Aldactone 25 mg added today. He has mild leukocytosis at 12,000. His urine analysis is suspicious for urinary tract infection, patient was started on ceftriaxone and urine culture is pending. Objective - Vital Signs Vital signs: Vital Signs Temp 97.8 F 09/24/21 08:43 Pulse 95 09/24/21 11:37 Resp 16 09/24/21 11:37 BP 101/60 09/24/21 11:37 Pulse Ox 98 09/24/21 11:37 Intake & Output 09/23/21 09/24/21 09/24/21 18:59 06:59 18:59 Intake Total 716 10 780 Output Total 825 200 Balance -109 10 580 Weight 78.5 kg 75 kg Intake: IV 10 0.9 10 Oral 716 780 Output: Urine 825 200 Uretheral (Ewing) 200 Other: Voiding Method Urinal Toilet Toilet Urinal Urinal # Voids 1 1 # Bowel Movements 1 - Exam GENERAL: The patient is alert and oriented x3, not in any acute distress. Well developed, well nourished. HEENT: Pupils are round and equally reacting to light. EOMI. No scleral icterus. No conjunctival pallor. Normocephalic, atraumatic. No pharyngeal erythema. No thyromegaly. CARDIOVASCULAR: S1 and S2 present. No murmurs, rubs, or gallops. PULMONARY: Chest is clear to auscultation, no wheezing or crackles. ABDOMEN: Soft, nontender, nondistended, normoactive bowel sounds. No palpable organomegaly. MUSCULOSKELETAL: No joint swelling or deformity. EXTREMITIES: No cyanosis, clubbing, or pedal edema. NEUROLOGICAL: Gross neurological examination did not reveal any focal deficits. SKIN: No rashes. no petechiae. - Labs CBC & Chem 7: 09/24/21 06:14 09/24/21 06:14 Labs: Abnormal Lab Results - Last 24 Hours (Table) 09/23/21 09/24/21 09/24/21 Range/Units 15:44 06:14 06:14 WBC 12.4 H (3.8-10.6) k/uL RBC 4.18 L (4.30-5.90) m/uL Hgb 11.9 L (13.0-17.5) gm/dL Hct 37.1 L (39.0-53.0) % Neutrophils # 9.4 H (1.3-7.7) k/uL Monocytes # 1.1 H (0-1.0) k/uL Sodium 134 L (137-145) mmol/L BUN 41 H (9-20) mg/dL Glucose 111 H (74-99) mg/dL Urine Protein 1+ H (Negative) Urine Blood Moderate H (Negative) Ur Leukocyte Esterase Moderate H (Negative) Urine RBC 84 H (0-5) /hpf Urine WBC 31 H (0-5) /hpf Urine Mucus Rare H (None) /hpf Assessment and Plan Assessment: Acute urinary tract infection Non-ST elevation myocardial infarction, status post PCI to the proximal RCA Acute congestive heart failure, and very impressed EF 20-25% number improved today 30-35% Possible history of hypertension Hyperlipidemia History of cardiac cath status post stenting non-STEMI Plan: This is a pleasant 86 years old male who presents with CHF and non-STEMI, status post PCI to RCA Continue with aspirin and Plavix. Continue with metoprolol and losartan Cardiology consult Continue with oral Lasix. At ceftriaxone follow-up urine culture results Labs and medication were reviewed.. Continue same treatment. Continue with symptomatic treatment. Resume home medication. Monitor lytes and vitals. DVT and GI prophylaxis. Further recommendations depends on the clinical course of the patient DVT prophylax: sc heparin GI Prophylaxis: Pepcid PT/OT: Pending Prognosis is guarded
[2021-09-25 07:37] LABS: Calcium 8.4 mg/dL (8.4-10.2); Potassium 4.2 mmol/L (3.5-5.1)
[2021-09-25] MEDS: SODIUM CHLORIDE 0.9% 1,000 ML in EMPTY BAG 1 BAG IV SCH ×2 (09:31→16:31)
[2021-09-25] MEDS: FUROSEMIDE 40 MG TAB PO SCH (09:35)
[2021-09-25] MEDS: METOPROLOL SUCCINATE (ER) 25 MG TAB.ER.24H PO SCH ×2 (09:35→20:54)
[2021-09-25] MEDS: CHOLECALCIFEROL 25 MCG (1000 IU) TABLET PO SCH (09:35)
[2021-09-25] MEDS: CLOPIDOGREL 75 MG TAB PO SCH (09:36)
[2021-09-25] MEDS: FAMOTIDINE 20 MG TAB PO SCH ×2 (09:36→20:54)
[2021-09-25] MEDS: ASPIRIN 81 MG PO SCH (09:37)
[2021-09-25] MEDS: HEPARIN SODIUM,PORCINE/PF 5,000 UNIT/0.5 ML SYRINGE SQ SCH ×2 (09:37→20:54)
[2021-09-25] MEDS: SPIRONOLACTONE 25 MG TAB PO SCH (09:37)
--- NOTE | 2021-09-25 10:29 | P.CONS ---
History of Present Illness - Reason for Consult Consult date: 09/24/21 UTI Requesting physician: Cristhian E Sheet - Chief Complaint chest pain x few days - History of Present Illness History of present illness : Patient is 86-year-old male presenting to the ER 3 days ago on September 22, 2021 for evaluation of chest discomfort that has been going on for several days before presentation to the hospital and was worse just before presentation the hospital patient was complaining of aches most indigestion of the chest did have associated dyspnea at the nausea but no vomiting on presentation to the hospital patient was afebrile and no fever has been recorded subsequently patient did have white count of 13 by symptoms of to 15.8 yesterday patient did have an elevated troponin for the patient has been evaluated by cardiology and this patient did have a cardiac cath completed the day of admission to the hospital with stenting of the restenotic lesion in the proximal RCA patient was also noticed to have a positive UA with moderate ascites and 21 WBC cultures are currently pending patient was started on Rocephin infectious he was consulted for further management patient is very vague about his symptomatology without specifically for his urinary symptoms he did have some decreased urine output some mild burning but no suprapubic or flank pain did have some nausea but no vomiting and no diarrhea Review of system: CONSTITUTIONAL: Positive for weakness denies fever. EYES: No complaint. ENT: No complaint. RESPIRATORY: No complaint. CARDIOVASCULAR: As per history of present illness. GENITOURINARY: As per history of present illness. GASTROINTESTINAL: As per history of present illness. MUSCULOSKELETAL: No complaint. INTEGUMENTARY: No complaint. PSYCHOLOGIC: No complaint. ENDOCRINE: No complaint. NEUROLOGIC: No complaint. Past medical history : Reviewed, documented below Past surgical history : Reviewed, documented below Social history: Reviewed, documented below Medications: Reviewed, as documented below EXAMINATION: Vital sigans= Reviewed and documented below GENERAL DESCRIPTION: Elderly male lying in bed, no distress. No tachypnea or accessory muscle of respiration use. HEENT: Shows Pallor , no scleral icterus. Oral mucous membrane is dry. NECK: Trachea central, no thyromegaly. LUNGS: Unlabored breathing. Decreased breath over the base. No wheeze or crackle. HEART: S1, S2, regular rate and rhythm. ABDOMEN: Soft, no tenderness , guarding or rigidity EXTREMITIES: No edema of feet. SKIN: No rash, no masses palpable. NEUROLOGICAL: The patient is awake, alert, oriented x2, mood and affect normal. LABS AND RADIOLOGY: Reviewed results see below Assessment : Patient presented to hospital with weakness chest discomfort from nausea in this patient who did have a acute SC status post PTCA stenting to the RCA the patient also have elevated white count and a positive UA with very weak urinary symptom underlying urine tract infection from enteric gram-negative started on excluded Plan: 1-Rocephin 2 g daily to continue 2-gentle IV fluid We will follow on clinical condition and cultures to further adjust medication if needed Thank you for this consultation we will follow the patient along with you Past Medical History Past Medical History: Chest Pain / Angina, Hyperlipidemia, Hypertension Additional Past Medical History / Comment(s): cataract rt eye, hx nosebleeds,bronchitis History of Any Multi-Drug Resistant Organisms: None Reported Past Surgical History: Back Surgery, Heart Catheterization With Stent, Joint Replacement Additional Past Surgical History / Comment(s): rt knee replacement, neck fusion,lt cataract Past Anesthesia/Blood Transfusion Reactions: No Reported Reaction Date of Last Stent Placement:: 09/22/21 Past Psychological History: No Psychological Hx Reported Smoking Status: Never smoker Past Alcohol Use History: None Reported Past Drug Use History: None Reported - Past Family History Mother Family Medical History: No Reported History Additional Family Medical History / Comment(s): heart conditions Son(s) Family Medical History: No Reported History Father Family Medical History: Myocardial Infarction ([facility]) Medications and Allergies Home Medications Medication Instructions Recorded Confirmed Type Aspirin EC [Ecotrin Low Dose] 81 mg PO DAILY 09/22/21 09/22/21 History Cholecalciferol [Vitamin D3 (25 50 mcg PO DAILY 09/22/21 09/22/21 History Mcg = 1000 Iu)] Clopidogrel [Plavix] 75 mg PO DAILY 09/22/21 09/22/21 History Losartan [Cozaar] 25 mg PO HS 09/22/21 09/22/21 History Metoprolol Succinate [Toprol XL] 25 mg PO DAILY 09/22/21 09/22/21 History Allergies Allergy/AdvReac Type Severity Reaction Status Date / Time atorvastatin Allergy Rash/Hives Verified 09/22/21 07:51 losartan AdvReac Takes at Verified 09/22/21 07:51 home, unsure Physical Exam Vitals: Vital Signs Temp Pulse Resp BP Pulse Ox 09/24/21 14:00 95 16 09/24/21 11:37 95 16 101/60 98 09/24/21 08:43 97.8 F 105 H 18 107/65 09/24/21 08:00 105 H 18 09/24/21 04:00 98.1 F 102 H 18 105/62 09/24/21 01:31 91 18 09/23/21 23:02 98.1 F 91 18 106/63 97 09/23/21 20:00 98.3 F 112 H 18 132/75 96 Intake and Output 09/24/21 09/24/21 09/24/21 06:59 14:59 22:59 Intake Total 10 990 Output Total 200 125 Balance 10 790 -125 Intake: IV 10 0.9 10 Oral 990 Output: Urine 200 125 Other: Voiding Method Toilet Toilet Urinal Urinal Weight 75 kg Results CBC & Chem 7: 09/24/21 06:14 09/25/21 06:23 Labs: Abnormal Lab Results - Last 24 Hours (Table) 09/24/21 09/24/21 Range/Units 06:14 06:14 WBC 12.4 H (3.8-10.6) k/uL RBC 4.18 L (4.30-5.90) m/uL Hgb 11.9 L (13.0-17.5) gm/dL Hct 37.1 L (39.0-53.0) % Neutrophils # 9.4 H (1.3-7.7) k/uL Monocytes # 1.1 H (0-1.0) k/uL Sodium 134 L (137-145) mmol/L BUN 41 H (9-20) mg/dL Glucose 111 H (74-99) mg/dL
--- NOTE | 2021-09-25 12:02 | PN ---
PROGRESS NOTE Mr. Coronado is an 86-year-old male who presented with gwd-PE-alpawlm-elevation myocardial infarction and congestive heart failure. He underwent angioplasty and stenting of the subtotally occluded RCA that is giving collaterals to the LAD. He had evidence of cardiomyopathy. He is feeling much better today. His breathing is better. He denies any chest pain. No dizziness. No palpitations. He denies any nausea. He is ambulating more in the room and feeling better. He continues to be on aspirin once a day, Plavix 75 mg daily, Lasix 40 mg twice a day, losartan 25 mg daily, metoprolol succinate 25 mg twice a day, spironolactone 25 mg daily. PHYSICAL EXAMINATION: Blood pressure 114/56 with a heart rate in the 80s. LUNGS: Clear. HEART: Regular rate and rhythm. S1, S2. No S3. No rub. With a systolic murmur. ABDOMEN: Soft, nontender. EXTREMITIES: No edema. LAB DATA: Lab data revealed BUN and creatinine of 35 and 1.1, potassium 4.2. His sodium is 133, hemoglobin of 11.9. IMPRESSION: 1. Status post [id number] myocardial infarction with stenting of the LAD. 2. Severe ischemic cardiomyopathy. 3. Symptoms of congestive heart failure, improving. 4. History of hypertension. 5. Hyperlipidemia. RECOMMENDATIONS: I will continue increasing his level of activity. I will decrease his Lasix to 40 mg once a day because of his sodium dropping. Will follow his sodium closely. If he remains stable, I would expect he may be able to be discharged home in the next 24 to 48 hours with close followup of his left ventricular systolic function to see if there is improvement in the LAD territory that appears to have suffered the most because it is chronically occluded with collaterals. MMODL / IJN: [id number] /
--- NOTE | 2021-09-25 16:39 | P.PN ---
Subjective This is a pleasant 86 years old male with past medical history of Hyperlipidemia, Hypertension, coronary artery disease status post Heart Catheterization With Stent. He is a patient of the [place] [facility]. Presents because of dyspnea for the last 2 days. Secondary to cardiac disease with elevated troponin Patient was seen after the procedure and the extended stay unit, lying comfortable in bed but sleeping from recent procedure. Patient could not provide information On admission patient was tachycardic and 106 and tachypneic 20-22, blood pressur e 109/69 and he is on 92% on room air. Patient is afebrile. Lab showed mild leukocytosis of 13.6 D-dimer 0.6 which is corrected 4H atrial be within the reference range. INR is 1.0. Sodium 135, creatinine 1.1 which is within the reference range, glucose 141. Sodium 135, liver enzymes not significantly elevated, O BNP is 8300. Troponin elevated at 3.3 Coronavirus not detected EKG showing sinus tachycardia with PVCs and draped bundle branch and left anterior fascicular block, bifascicular block and a QTC 482 Chest x-ray: New CHF On admission patient was started on heparin drip and aspirin 325 mg daily. With cardiology team been consulted Echocardiogram showing severely impaired LV function with EF 2024% and wall hypokinesia Patient was taken immediately to cardiac cath Which showed severe stenosis of the proximal RCA with 99% and a chronically occluded LAD in the middle portion status post PCI to the RCA 09/23/2021 Patient alert and awake and oriented, he has some mild chest discomfort this morning and his troponin is around the same level at 54 which is slightly less than yesterday. He is status post stent placement to RCA and he is currently on aspirin and Plavix as well as metoprolol and other cardiac medication. He has evidence of CHF on the chest x-ray on admission with ejection fraction 30-35%. Echo done this morning. Euvolemic. Therefore switch IV Lasix to oral dose 40 mg daily. He has some mild leukocytosis of 15 K most likely reactive secondary to non STEMI. 09/24/2021 Patient today feels severe weakness, he has difficulty getting out of bed. His weakness is generalized and no difficulty in moving his arms or legs while in bed. No weakness or numbness or headache or dizziness. Also his been coming from central chest pain. Vitals are stable, he is afebrile, blood pressure is low normal after starting on several blood pressure medication, he is on Lasix 40 daily increased to twice daily today also on metoprolol 25 mg and Aldactone 25 mg added today. He has mild leukocytosis at 12,000. His urine analysis is suspicious for urinary tract infection, patient was started on ceftriaxone and urine culture is pending. 09/25/2021 Weakness is improving his to have some little chest pain this morning but this resolved again. Most likely secondary to his UTI, urine culture is pending while he is on Rocephin. Bladder scan showing 31-50 mL. He had some mild chest pain this morning but is resolved. Sodium is slightly low 133 today. His Lasix is switched to 40 mg by mouth daily. Patient continue with same treatment of her ceftriaxone, aspirin and Plavix. Also he is on metoprolol and Aldactone Objective - Vital Signs Vital signs: Vital Signs Temp 96 F L 09/25/21 08:00 Pulse 68 09/25/21 12:00 Resp 16 09/25/21 12:00 BP 115/61 09/25/21 12:00 Pulse Ox 75 L 09/25/21 12:00 Intake & Output 09/24/21 09/25/21 09/25/21 18:59 06:59 18:59 Intake Total 1110 360 Output Total 325 125 Balance 785 -125 360 Weight 76.5 kg Intake: Oral 1110 360 Output: Urine 325 125 Other: Voiding Method Toilet Toilet Toilet Urinal Urinal Urinal # Voids 1 # Bowel Movements 1 - Exam GENERAL: The patient is alert and oriented x3, not in any acute distress. Well developed, well nourished. HEENT: Pupils are round and equally reacting to light. EOMI. No scleral icterus. No conjunctival pallor. Normocephalic, atraumatic. No pharyngeal erythema. No thyromegaly. CARDIOVASCULAR: S1 and S2 present. No murmurs, rubs, or gallops. PULMONARY: Chest is clear to auscultation, no wheezing or crackles. ABDOMEN: Soft, nontender, nondistended, normoactive bowel sounds. No palpable organomegaly. MUSCULOSKELETAL: No joint swelling or deformity. EXTREMITIES: No cyanosis, clubbing, or pedal edema. NEUROLOGICAL: Gross neurological examination did not reveal any focal deficits. SKIN: No rashes. no petechiae. - Labs CBC & Chem 7: 09/24/21 06:14 09/25/21 06:23 Labs: Abnormal Lab Results - Last 24 Hours (Table) 09/25/21 Range/Units 06:23 Sodium 133 L (137-145) mmol/L BUN 35 H (9-20) mg/dL Glucose 114 H (74-99) mg/dL Microbiology - Last 24 Hours (Table) 09/23/21 15:44 Urine Culture - Preliminary Urine,Voided Assessment and Plan Assessment: Acute urinary tract infection Non-ST elevation myocardial infarction, status post PCI to the proximal RCA Acute congestive heart failure, and very impressed EF 20-25% number improved today 30-35% Possible history of hypertension Hyperlipidemia History of cardiac cath status post stenting non-STEMI Plan: This is a pleasant 86 years old male who presents with CHF and non-STEMI, status post PCI to RCA Continue with aspirin and Plavix. Continue with metoprolol and losartan Cardiology consult Continue with oral Lasix. At ceftriaxone follow-up urine culture results Labs and medication were reviewed.. Continue same treatment. Continue with symptomatic treatment. Resume home medication. Monitor lytes and vitals. DVT and GI prophylaxis. Further recommendations depends on the clinical course of the patient DVT prophylax: sc heparin GI Prophylaxis: Pepcid PT/OT: Pending Prognosis is guarded
[2021-09-25] MEDS: LOSARTAN 25 MG TAB PO SCH (20:54)
[2021-09-25] MEDS: PRAVASTATIN SODIUM 80 MG TAB PO SCH (20:54)
[2021-09-25] MEDS: ALPRAZolam 0.25 MG TAB PO PRN (20:54)
--- NOTE | 2021-09-25 23:23 | PN ---
PROGRESS NOTE DATE OF SERVICE: 09/25/2021 REASON FOR FOLLOWUP: UTI infection. INTERVAL HISTORY: The patient is afebrile. The patient is currently breathing comfortably. The patient denies having any chest pain, shortness of breath. Occasional cough. No abdominal pain. No diarrhea. PHYSICAL EXAMINATION: Blood pressure 121/72 with a pulse of 87, temperature is 97.5. He is 97% on room air. General description is an elderly male lying in bed in no distress. Respiratory system: Unlabored breathing, clear to auscultation anteriorly. Heart S1, S2. Regular rate and rhythm. Abdomen soft, no tenderness. LAB: Creatinine is 1.11. Urine culture so far negative. DIAGNOSTIC IMPRESSION AND PLAN: Patient admitted to the hospital with chest pain has been diagnosed with myocardial infarction status post PTCA and stenting to the RCA in this patient who also has a positive UA with concern for a urinary tract infection. The patient is very vague about his urinary symptoms. We will wait for the culture to finalize. Continue with Sandor. MMODL / IJN: [id number] /
[2021-09-26 08:16] LABS: Basophils # (A) 0.1 k/uL (0-0.2); Basophils % (A) 1 %; Eosinophils # (A) 0.8 k/uL (0-0.7); Eosinophils % (A) 8 %; HCT 38.3 % (39.0-53.0); HGB 12.2 gm/dL (13.0-17.5); Lymphocytes # (A) 2.2 k/uL (1.0-4.8); Lymphocytes % (A) 20 %; MCH 28.4 pg (25.0-35.0); MCHC 31.9 g/dL (31.0-37.0); Mean Platelet Volume 8.2; Monocytes # (A) 0.7 k/uL (0-1.0); Monocytes % (A) 7 %; Neutrophils % (A) 64 %; Platelet Count 325 k/uL (150-450); RBC 4.31 m/uL (4.30-5.90); WBC 11.1 k/uL (3.8-10.6)
[2021-09-26 08:31] LABS: Calcium 8.9 mg/dL (8.4-10.2); Potassium 4.4 mmol/L (3.5-5.1)
[2021-09-26] MEDS ORDERED: FUROSEMIDE 40 MG TAB PO SCH (09:00)
[2021-09-26 09:15] VITALS: BP 103/65; PULSE 91; RESP 18; TEMP 98
[2021-09-26] MEDS: HEPARIN SODIUM,PORCINE/PF 5,000 UNIT/0.5 ML SYRINGE SQ SCH (09:15)
[2021-09-26] MEDS: METOPROLOL SUCCINATE (ER) 25 MG TAB.ER.24H PO SCH (09:16)
[2021-09-26] MEDS: SPIRONOLACTONE 25 MG TAB PO SCH (09:16)
[2021-09-26] MEDS: FAMOTIDINE 20 MG TAB PO SCH (09:16)
[2021-09-26] MEDS: CLOPIDOGREL 75 MG TAB PO SCH (09:16)
[2021-09-26] MEDS: CHOLECALCIFEROL 25 MCG (1000 IU) TABLET PO SCH (09:16)
[2021-09-26] MEDS: ASPIRIN 81 MG PO SCH (09:22)
--- NOTE | 2021-09-26 12:09 | PN ---
PROGRESS NOTE Mr. Coronado is an 86-year-old male who presented with an acute non ST-segment elevation myocardial infarction, underwent cardiac catheterization and was found to have a critical stenosis in the right coronary artery in the stented segment. She has chronically occluded LAD with collaterals from the left system, underwent stenting of the RCA. Initially, he had evidence of congestive heart failure, with dyspnea on exertion. His echocardiogram revealed severe ischemic cardiomyopathy. He is feeling much better. He is ambulating. He is denying any chest pain. No dizziness. No palpitations. He denies any nausea. He continues to be on aspirin once a day, Plavix 75 mg daily, furosemide 40 mg daily, losartan 25 mg daily, metoprolol succinate 25 mg twice a day, pravastatin 80 mg daily, spironolactone 25 mg daily. PHYSICAL EXAMINATION: Blood pressure 132/60 with a heart rate in the 90s. Lungs: Clear. Heart: Regular rate and rhythm S1, S2. No S3. No rub with a systolic murmur. Abdomen: Soft, nontender. Extremities: No edema. LAB DATA: BUN and creatinine of 34, 1.03, potassium 4.4, hemoglobin of 12.2. IMPRESSION: 1. Status post pso-HK-[id number]-elevation myocardial infarction with stenting of the RCA. 2. Chronically occluded LAD. 3. Ischemic cardiomyopathy. 4. History of hypertension. 5. History of hyperlipidemia. RECOMMENDATIONS: From the cardiac standpoint, he should be able to be discharged home soon. Follow up as an outpatient with Dr. Cuevas. Down the road, repeat echocardiogram will be helpful to further assess the status of his anterior wall. Depending on his progress, further recommendations will be made. MMODL / IJN: [id number] /
--- NOTE | 2021-09-26 17:24 | PN ---
PROGRESS NOTE DATE OF SERVICE: 09/26/2021 REASON FOR FOLLOWUP: 1. Positive urine culture. 2. UTI. INTERVAL HISTORY: The patient was seen on rounds early this afternoon. The patient has been afebrile. The patient was breathing comfortably on room air. Denies any chest pain, shortness of breath or cough. No abdominal pain and no urinary symptoms. PHYSICAL EXAMINATION: Blood pressure /65, pulse of 91, temperature 98. He is 96% on room air. General description is an elderly male lying in bed in no distress. Respiratory system: Unlabored breathing. Clear to auscultation anteriorly. Heart S1, S2. Regular rate and rhythm. Abdomen soft, no tenderness. LABS: Hemoglobin is 12.8, white count 11.1, creatinine 1.03. Urine came back negative. DIAGNOSTIC IMPRESSION AND PLAN: Patient with a positive UA in this patient admitted to hospital with chest pain. Did have an PA status post PTCA and stenting of the RCA. Plan is for no antibiotic on discharge, as the cultures are negative and the patient was not symptomatic. Continue supportive care. MMODL / IJN: [id number] /
--- NOTE | 2021-09-26 23:19 | P.DS ---
Providers Date of admission: 09/22/21 05:18 Attending physician: Naeem Pope Consults: 09/22/21 05:18 Consult Physician Urgent Consulting Provider: Brant Cuevas Consult Reason/Comments: nstemi, chf Do you want consulting provider notified?: Already Contacted 09/22/21 10:53 Consult Physician Routine Consulting Provider: [facility] Consult Reason/Comments: Post Interventional patient Do you want consulting provider notified?: Already Contacted 09/24/21 14:49 Consult Physician Urgent Consulting Provider: Dalia Booker Consult Reason/Comments: uti Do you want consulting provider notified?: Yes Primary care physician: [facility] Hospital Course: Diagnoses: Non-ST elevation myocardial infarction, status post PCI to the proximal RCA Acute congestive heart failure, and very impressed EF 20-25% number improved today 30-35% Asymptomatic bacteriuria rather than Acute urinary tract infection Possible history of hypertension Hyperlipidemia History of cardiac cath status post stenting non-STEMI Hospital course: This is a pleasant 86 years old male with past medical history of Hyperlipidemia, Hypertension, coronary artery disease status post Heart Catheterization With Stent. He is a patient of the [place] clinic. Presents because of dyspnea for 2 days. Secondary to cardiac disease with elevated troponin. Patient found to have many STEMI and underwent cardiac cath urgently by family caseworker with stent placed into the right coronary artery. After the procedure patient chest pain significantly improved but he was feeling generally weak. Echocardiogram showed ejection fraction decreased to 30-35% and he was treated with diuresis, patient became euvolemic upon discharge. Also he was started on aspirin and Plavix, metoprolol and statin. Urinary tract infection is suspected however direct culture came back negative, antibiotics were discontinued and patient was medically stable for discharge today. Physical therapy recommended home and patient does not want to go to rehab anyway. Patient today was feeling ready to go home. He denies any chest pain or dyspnea. No change in urine or bowel habits. No fever. Patient was cleared for discharge by family caseworker. Importance of dual antiplatelet therapy are explained for him and he verbalized understanding and acceptance. Problems and management plan were discussed with the patient and he verbalized understanding and acceptance Patient was found stable and can be discharged home however he needs follow-up as an outpatient. Patient was instructed to follow up with PCP in the [place] clinic within one week and patient agrees Also patient was instructed to follow up with his family caseworker Dr. Clement in one week and he agrees to call and make appointments as today is weakened Physical exam Gen: patient is a AAOx3, no distress CVS: S1-S2, RRR, no murmur Lungs: B/L CTA, no wheezing Abdomen: soft, no distention, no tenderness, positive bowel sounds Extremity: no leg edema or induration Time spent more than 35 minutes Patient Condition at Discharge: Serious Plan - Discharge Summary Discharge Rx Participant: Yes New Discharge Prescriptions: New Spironolactone [Aldactone] 25 mg PO DAILY #30 tab Nitroglycerin Sl Tabs [Nitrostat] 0.4 mg SUBLINGUAL Q5M PRN #15 tab PRN Reason: Chest Pain Furosemide [Lasix] 40 mg PO DAILY #30 tab Pravastatin Sodium [Pravachol] 80 mg PO HS #30 tab Metoprolol Succinate (ER) [Toprol XL] 25 mg PO BID #60 Continue Losartan [Cozaar] 25 mg PO HS Clopidogrel [Plavix] 75 mg PO DAILY #30 tab Aspirin EC [Ecotrin Low Dose] 81 mg PO DAILY #30 tab Cholecalciferol [Vitamin D3 (25 Mcg = 1000 Iu)] 50 mcg PO DAILY Discontinued Metoprolol Succinate [Toprol XL] 25 mg PO DAILY Discharge Medication List Cholecalciferol [Vitamin D3 (25 Mcg = 1000 Iu)] 50 mcg PO DAILY 09/22/21 [History] Losartan [Cozaar] 25 mg PO HS 09/22/21 [History] Aspirin EC [Ecotrin Low Dose] 81 mg PO DAILY #30 tab 09/26/21 [Rx] Clopidogrel [Plavix] 75 mg PO DAILY #30 tab 09/26/21 [Rx] Furosemide [Lasix] 40 mg PO DAILY #30 tab 09/26/21 [Rx] Metoprolol Succinate (ER) [Toprol XL] 25 mg PO BID #60 09/26/21 [Rx] Nitroglycerin Sl Tabs [Nitrostat] 0.4 mg SUBLINGUAL Q5M PRN #15 tab 09/26/21 [Rx] Pravastatin Sodium [Pravachol] 80 mg PO HS #30 tab 09/26/21 [Rx] Spironolactone [Aldactone] 25 mg PO DAILY #30 tab 09/26/21 [Rx] Follow up Appointment(s)/Referral(s): Brant Cuevas MD [STAFF PHYSICIAN] - 1 Week (Call Monday to schedule follow up. ) [facility] [Primary Care Provider] - 1-2 days (Call Monday to schedule follow up) Patient Instructions/Handouts: Heart Attack (IP), Heart Healthy Diet (GEN) Activity/Diet/Wound Care/Special Instructions: heart healthy diet activity is restricted till you see your doctor Discharge Disposition: HOME SELF-CARE
== END 2021-09-26 14:26 | disposition home or self-care (01) | DRG 246 ==
LOC: EC 03:11 → 3SCARD 05:18
PROVIDERS: ADMIT Hospitalist; ATTEND Hospitalist
PROC: B2111ZZ Fluoroscopy of Multiple Coronary Arteries using Low Osmolar Contrast (ICD-10-PCS; 2021-09-22)
PROC: 027034Z Dilation of Coronary Artery, One Artery with Drug-eluting Intraluminal Device, Percutaneous Approach (ICD-10-PCS; principal; 2021-09-22 08:00)
PROC: 4A023N7 Measurement of Cardiac Sampling and Pressure, Left Heart, Percutaneous Approach (ICD-10-PCS; 2021-09-22 08:00)
DX: I21.4 Non-ST elevation (NSTEMI) myocardial infarction (principal); I50.21 Acute systolic (congestive) heart failure; I45.2 Bifascicular block; T82.855A Stenosis of coronary artery stent, initial encounter; E78.5 Hyperlipidemia, unspecified; I25.10 Atherosclerotic heart disease of native coronary artery without angina pectoris; I25.5 Ischemic cardiomyopathy; I27.20 Pulmonary hypertension, unspecified; I11.0 Hypertensive heart disease with heart failure; I34.0 Nonrheumatic mitral (valve) insufficiency; I25.2 Old myocardial infarction; Y83.1 Surgical operation with implant of artificial internal device as the cause of abnormal reaction of the patient, or of later complication, without mention of misadventure at the time of the procedure; Z20.822 Contact with and (suspected) exposure to COVID-19; Z79.02 Long term (current) use of antithrombotics/antiplatelets; Z79.82 Long term (current) use of aspirin; Z79.899 Other long term (current) drug therapy; Z82.49 Family history of ischemic heart disease and other diseases of the circulatory system; Z96.651 Presence of right artificial knee joint; Z98.1 Arthrodesis status; Z88.8 Allergy status to other drugs, medicaments and biological substances
CPT/HCPCS: 36415; 71046; 80048; 80053; 80061; 81001; 83735; 83880; 84484; 85025; 85379; 85610; 85730; 87086; 87635; 93005; 93306; 93308; 93458; 99291

== ENCOUNTER → 2021-11-24 | Outpatient (CLI) | payer OTHER, MEDICARE ==
--- NOTE | 2021-11-24 14:15 | US ---
EXAMINATION TYPE: US carotid duplex BILAT DATE OF EXAM: 11/24/2021 COMPARISON: NONE CLINICAL HISTORY: I65.29 OCCLUSION AND STENOSIS OF UNSPECIFIED CAROT. recent PR's, h/o endarterectomy unilateral, does not know which side EXAM MEASUREMENTS: RIGHT: Peak Systolic Velocity (PSV) cm/sec ----- Right CCA: 95.2 ----- Right ICA: 106.2 ----- Right ECA: 147.5 ICA/CCA ratio: 1.1 RIGHT: End Diastole cm/sec ----- Right CCA: 11.7 ----- Right ICA: 22.6 ----- Right ECA: 10.2 LEFT: Peak Systolic Velocity (PSV) cm/sec ----- Left CCA: 75.3 ----- Left ICA: 139.9 ----- Left ECA: 105.6 ICA/CCA ratio: 1.9 LEFT: End Diastole cm/sec ----- Left CCA: 12.5 ----- Left ICA: 30.0 ----- Left ECA: 13.7 VERTEBRALS (direction of flow): Right Vertebral: Antegrade Left Vertebral: Retrograde Rhythm: Normal Heterogeneous plaque seen with no significant stenosis. Retrograde left vertebral IMPRESSION: There is no evidence for hemodynamically significant stenosis. Criteria for Assigning % of Stenosis / Diameter reduction (Estimation based on the indirect measurements of the internal carotid artery velocities (ICA PSV). 1. Normal (no stenosis)=ICA PSV < 125 cm/s: ratio < 2.0: ICA EDV<40 cm/s. 2. Less than 50% stenosis=ICA PSV < 125 cm/s: ratio < 2.0: ICA EDV<40 cm/s. 3. 50 to 69% stenosis=ICA PSV of 125 to 230 cm/s: ration 2.0 ? 4.0: ICA EDV 40-100 cm/s. 4. Greater than 70% stenosis to near occlusion= ICA PSV > 230 cm/s: ratio > 4.0: ICA EDV > 100 cm/s. 5. Near occlusion= ICA PSV velocities may be low or undetectable: variable ratio and ICA EDV. 6. Total occlusion=unable to detect flow.
== END | disposition home or self-care (01) ==
LOC: RADUSWWP 12:02
DX: I65.23 Occlusion and stenosis of bilateral carotid arteries (principal)
CPT/HCPCS: 93880

== ENCOUNTER → 2022-01-26 | Outpatient (CLI) | payer OTHER, MEDICARE ==
[2022-01-26 19:09] LABS: Chol/HDL Ratio 2.65 Ratio; LDL Cholesterol,Calculated 41.7 mg/dL (0.0-131.0)
== END | disposition home or self-care (01) ==
LOC: LABWHC1 11:47
PROVIDERS: ATTEND Nurse Practitioner Adult Health
DX: E78.5 Hyperlipidemia, unspecified (principal)
CPT/HCPCS: 36415; 80061; 83721

== ENCOUNTER 2023-05-21 10:04 | Emergency (ER) | payer MEDICARE, OTHER ==
[2023-05-21 10:12] VITALS: TEMP 98.3
--- NOTE | 2023-05-21 10:28 | ED ---
Headache HPI - General Chief Complaint: Headache Stated Complaint: headache Time Seen by Provider: 05/21/23 10:13 Source: patient, RN notes reviewed Mode of arrival: ambulatory Limitations: no limitations - History of Present Illness Initial Comments: This an 87-year-old male presents emergency Department chief complaint headache. Patient states started yesterday states his right occipital region. Patient states does get better when he lays down and lays on his left side. Patient states is worse with movement denies any trauma denies fevers chills denies any upper or lower extremity weakness paresthesias. Denies any facial numbness. Patient denies any for fever cough cold like symptoms he states he has minimal discomfort at rest it is worse with movement. MD Complaint: headache - Related Data Home Medications Medication Instructions Recorded Confirmed Cholecalciferol [Vitamin D3 (25 50 mcg PO DAILY 09/22/21 09/22/21 Mcg = 1000 Iu)] Losartan [Cozaar] 25 mg PO HS 09/22/21 09/22/21 Previous Rx's Medication Instructions Recorded Aspirin EC [Ecotrin Low Dose] 81 mg PO DAILY #30 tab 09/26/21 Clopidogrel [Plavix] 75 mg PO DAILY #30 tab 09/26/21 Furosemide [Lasix] 40 mg PO DAILY #30 tab 09/26/21 Metoprolol Succinate (ER) [Toprol 25 mg PO BID #60 09/26/21 XL] Nitroglycerin Sl Tabs [Nitrostat] 0.4 mg SUBLINGUAL Q5M PRN #15 tab 09/26/21 Pravastatin Sodium [Pravachol] 80 mg PO HS #30 tab 09/26/21 Spironolactone [Aldactone] 25 mg PO DAILY #30 tab 09/26/21 Allergies Allergy/AdvReac Type Severity Reaction Status Date / Time atorvastatin Allergy Rash/Hives Verified 05/21/23 10:12 losartan AdvReac Takes at Verified 05/21/23 10:12 home, unsure Review of Systems ROS Statement: Those systems with pertinent positive or pertinent negative responses have been documented in the HPI. ROS Other: All systems not noted in ROS Statement are negative. Past Medical History Past Medical History: Chest Pain / Angina, Hyperlipidemia, Hypertension Additional Past Medical History / Comment(s): cataract rt eye, hx nosebleeds,bronchitis History of Any Multi-Drug Resistant Organisms: None Reported Past Surgical History: Back Surgery, Heart Catheterization With Stent, Joint Replacement Additional Past Surgical History / Comment(s): rt knee replacement, neck fusion,lt cataract Past Anesthesia/Blood Transfusion Reactions: No Reported Reaction Date of Last Stent Placement:: 09/22/21 Past Psychological History: No Psychological Hx Reported Smoking Status: Never smoker Past Alcohol Use History: None Reported Past Drug Use History: None Reported - Past Family History Mother Family Medical History: No Reported History Additional Family Medical History / Comment(s): heart conditions Son(s) Family Medical History: No Reported History Father Family Medical History: Myocardial Infarction ([place]) General Exam Limitations: no limitations General appearance: alert, in no apparent distress Head exam: Present: atraumatic, normocephalic, normal inspection Eye exam: Present: normal appearance, PERRL, EOMI. Absent: scleral icterus, conjunctival injection, periorbital swelling ENT exam: Present: normal exam, normal oropharynx, mucous membranes moist Neck exam: Present: normal inspection, full ROM. Absent: tenderness, meningismus, lymphadenopathy Respiratory exam: Present: normal lung sounds bilaterally. Absent: respiratory distress, wheezes, rales, rhonchi, stridor Cardiovascular Exam: Present: regular rate, normal rhythm, normal heart sounds. Absent: systolic murmur, diastolic murmur, rubs, gallop, clicks Extremities exam: Present: normal inspection, full ROM, normal capillary refill. Absent: tenderness, pedal edema, joint swelling, calf tenderness Neurological exam: Present: alert, oriented X3, reflexes normal. Absent: motor sensory deficit Skin exam: Present: warm, dry, intact, normal color. Absent: rash Course Vital Signs 05/21/23 05/21/23 05/21/23 10:10 10:22 10:51 Temperature 98.3 F Pulse Rate 58 L 65 81 Respiratory 20 16 16 Rate Blood Pressure 123/52 98/53 98/60 O2 Sat by Pulse 100 98 98 Oximetry 05/21/23 05/21/23 11:34 12:48 Temperature Pulse Rate 69 57 L Respiratory 20 16 Rate Blood Pressure 96/61 109/67 O2 Sat by Pulse 100 96 Oximetry Medical Decision Making - Medical Decision Making Was pt. sent in by a medical professional or institution (, PA, EPIC RADIANT ANALYST, urgent care, hospital, or half-way...) When possible be specific @ -No Did you speak to anyone other than the patient for history (EMS, parent, family, police, friend...)? What history was obtained from this source @ -No Did you review nursing and triage notes (agree or disagree)? Why? @ -I reviewed and agree with nursing and triage notes Were old charts reviewed (outside hosp., previous admission, EMS record, old EKG, old radiological studies, urgent care reports/EKG's, half-way records)? Report findings @ -No old charts were reviewed Differential Diagnosis (chest pain, altered mental status, abdominal pain women, abdominal pain men, vaginal bleeding, weakness, fever, dyspnea, syncope, headache, dizziness, GI bleed, back pain, seizure, CVA, palpatations, mental health, musculoskeletal)? @ -Headache, neck pain, intracranial hemorrhage, brain mass, EKG interpreted by me (3pts min.). @ -None X-rays interpreted by me (1pt min.). @ -None done CT interpreted by me (1pt min.). @ -CT brain is unremarkable for acute intracranial process. U/S interpreted by me (1pt. min.). @ -None done What testing was considered but not performed or refused? (CT, X-rays, U/S, labs)? Why? @ -None What meds were considered but not given or refused? Why? @ -None Did you discuss the management of the patient with other professionals (professionals i.e. , PA, EPIC RADIANT ANALYST, lab, RT, psych nurse, social sciences research scientist, demo coordinator, teacher, grants officer, outpatient case manager)? Give summary @ -No Was smoking cessation discussed for >3mins.? @ -No Was critical care preformed (if so, how long)? @ -No Were there social determinants of health that impacted care today? How? (Homelessness, low income, unemployed, alcoholism, drug addiction, transportation, low edu. Level, literacy, decrease access to med. care, snf, rehab)? @ -No Was there de-escalation of care discussed even if they declined (Discuss DNR or withdrawal of care, Hospice)? DNR status @ -No What co-morbidities impacted this encounter? (DM, HTN, Smoking, COPD, CAD, Cancer, CVA, ARF, Chemo, Hep., AIDS, mental health diagnosis, sleep apnea, morbid obesity)? @ -None Was patient admitted / discharged? Hospital course, mention meds given and route, prescriptions, significant lab abnormalities, going to OR and other pertinent info. @ -Labs, CT unremarkable patient feels all symptoms have resolved after Toradol. I do believe this is related to trapezius muscle. He is neurologically intact and has no other complaints. Patient is discharged in stable condition after patient requests to be discharged. Undiagnosed new problem with uncertain prognosis? @ -No Drug Therapy requiring intensive monitoring for toxicity (Heparin, Nitro, Insulin, Cardizem)? @ -No Were any procedures done? @ -No Diagnosis/symptom? @ -Cephalgia Acute, or Chronic, or Acute on Chronic? @ -Acute Uncomplicated (without systemic symptoms) or Complicated (systemic symptoms)? @ -Uncomplicated Side effects of treatment? @ -No Exacerbation, Progression, or Severe Exacerbation? @ -No Poses a threat to life or bodily function? How? (Chest pain, [place], [place], pneumonia, PE, COPD, DKA, ARF, appy, cholecystitis, CVA, Diverticulitis, Homicidal, Suicidal, threat to staff... and all critical care pts) @ -No - Lab Data Result diagrams: 05/21/23 10:22 05/21/23 10:22 Lab Results 05/21/23 05/21/23 Range/Units 10:22 10:22 WBC 8.8 (3.8-10.6) k/uL RBC 4.89 (4.30-5.90) m/uL Hgb 14.4 (13.0-17.5) gm/dL Hct 42.0 (39.0-53.0) % MCV 85.8 (80.0-100.0) fL MCH 29.4 (25.0-35.0) pg MCHC 34.3 (31.0-37.0) g/dL RDW 13.4 (11.5-15.5) % Plt Count 249 (150-450) k/uL MPV 7.7 Neutrophils % 70 % Lymphocytes % 19 % Monocytes % 7 % Eosinophils % 2 % Basophils % 1 % Neutrophils # 6.1 (1.3-7.7) k/uL Lymphocytes # 1.7 (1.0-4.8) k/uL Monocytes # 0.6 (0-1.0) k/uL Eosinophils # 0.2 (0-0.7) k/uL Basophils # 0.1 (0-0.2) k/uL Sodium 135 L (137-145) mmol/L Potassium 4.5 (3.5-5.1) mmol/L Chloride 101 (98-107) mmol/L Carbon Dioxide 24 (22-30) mmol/L Anion Gap 10 mmol/L BUN 33 H (9-20) mg/dL Creatinine 1.22 (0.66-1.25) mg/dL Est GFR (CKD-EPI)AfAm 62 (>60 ml/min/1.73 sqM) Est GFR (CKD-EPI)NonAf 54 (>60 ml/min/1.73 sqM) Glucose 122 H (74-99) mg/dL Calcium 9.4 (8.4-10.2) mg/dL Total Bilirubin 1.2 (0.2-1.3) mg/dL AST 26 (17-59) U/L ALT 16 (4-49) U/L Alkaline Phosphatase 46 (38-126) U/L Total Protein 7.8 (6.3-8.2) g/dL Albumin 4.3 (3.5-5.0) g/dL Disposition Clinical Impression: Trapezius muscle spasm, Cephalgia Disposition: HOME SELF-CARE Condition: Stable Instructions (If sedation given, give patient instructions): Acute Headache (ED) Additional Instructions: Please return to the Emergency Department if symptoms worsen or any other concerns. Is patient prescribed a controlled substance at d/c from ED?: No Referrals: [facility],Clinic [Primary Care Provider] - 1-2 days Time of Disposition: 12:22
[2023-05-21 10:43] LABS: Basophils # (A) 0.1 k/uL (0-0.2); Basophils % (A) 1 %; Eosinophils # (A) 0.2 k/uL (0-0.7); Eosinophils % (A) 2 %; HGB 14.4 gm/dL (13.0-17.5); Lymphocytes # (A) 1.7 k/uL (1.0-4.8); Lymphocytes % (A) 19 %; MCH 29.4 pg (25.0-35.0); MCHC 34.3 g/dL (31.0-37.0); MCV 85.8 fL (80.0-100.0); Mean Platelet Volume 7.7; Monocytes # (A) 0.6 k/uL (0-1.0); Monocytes % (A) 7 %; Neutrophils # (A) 6.1 k/uL (1.3-7.7); Neutrophils % (A) 70 %; Platelet Count 249 k/uL (150-450); RBC 4.89 m/uL (4.30-5.90); RDW 13.4 % (11.5-15.5); WBC 8.8 k/uL (3.8-10.6)
[2023-05-21 10:51] LABS: ALT 16 U/L (4-49); AST 26 U/L (17-59); African American GFR (CKD) 62 (>60 ml/min/1.73 sqM); Albumin 4.3 g/dL (3.5-5.0); Alkaline Phosphatase 46 U/L (38-126); Anion Gap 10 mmol/L; Blood Urea Nitrogen 33 mg/dL (9-20); Calcium 9.4 mg/dL (8.4-10.2); Carbon Dioxide 24 mmol/L (22-30); Chloride 101 mmol/L (98-107); Glucose 122 mg/dL (74-99); Non-African American GFR(CKD) 54 (>60 ml/min/1.73 sqM); Potassium 4.5 mmol/L (3.5-5.1); Sodium 135 mmol/L (137-145); Total Bilirubin 1.2 mg/dL (0.2-1.3); Total Protein 7.8 g/dL (6.3-8.2)
--- NOTE | 2023-05-21 10:54 | CT ---
EXAMINATION TYPE: CT brain wo con DATE OF EXAM: 05/21/2023 COMPARISON: 05/27/2020 HISTORY: Headache CT DLP: 1173.[address] of the brain was performed. The ventricles, basal cisterns and sulci overlying the cerebral convexities demonstrate mild enlargem ent. There is no evidence for intracranial hemorrhage or sulcal effacement. There is decreased attenuation about the periventricular white matter and deep white matter of both c erebral hemispheres, compatible with chronic small vessel ischemia. Differential diagnosis does inclu de demyelination. No mass effects are seen.No midline shift. Osseous calvarium is intact. If symptoms persist consider MRI. IMPRESSION: 1. Age related atrophic and chronic small vessel ischemic change without acute intracranial process s een at this time.
[2023-05-21] MEDS ORDERED: KETOROLAC 15 MG/ML 1 ML VIAL IVP STA (10:55)
[2023-05-21 12:50] VITALS: BP 109/67; PULSE 57; RESP 16
== END 2023-05-21 12:40 | disposition home or self-care (01) ==
LOC: EC 10:04 → SUPCPDRO 10:04 → EC 12:40
DX: M62.838 Other muscle spasm (principal); R51.9 Headache, unspecified; I10 Essential (primary) hypertension; Z79.899 Other long term (current) drug therapy; Z88.8 Allergy status to other drugs, medicaments and biological substances
CPT/HCPCS: 36415; 80053; 85025; 70450; 99284; 96374; J1885

== ENCOUNTER 2023-07-14 13:59 | Emergency (ER) | payer OTHER ==
[2023-07-14 14:19] VITALS: RESP 20; TEMP 97.5
--- NOTE | 2023-07-14 14:35 | XR ---
EXAMINATION TYPE: XR chest 2V DATE OF EXAM: 07/14/2023 COMPARISON: 07/03/2023 HISTORY: Shortness of breath TECHNIQUE: Frontal and lateral views of the chest are obtained. FINDINGS: Scattered senescent parenchymal changes noted. Hyperinflation compatible with COPD. No evidence for infiltrate. No evidence for atelectasis. Heart size is stable. Mediastinal structures are stable and grossly unremarkable. No evidence for hilar prominence. Degenerative changes dorsal spine. IMPRESSION: 1. No evidence for acute pulmonary disease.
[2023-07-14 15:08] LABS: INR 1.1 (<1.2); Partial Thromboplastin Time 28.1 sec (22.0-30.0); Prothrombin Time 11.3 sec (9.0-12.0)
[2023-07-14 15:13] LABS: ALT 18 U/L (4-49); AST 23 U/L (17-59); African American GFR (CKD) 52 (>60 ml/min/1.73 sqM); Alkaline Phosphatase 53 U/L (38-126); Anion Gap 15 mmol/L; Blood Urea Nitrogen 59 mg/dL (9-20); Calcium 9.4 mg/dL (8.4-10.2); Carbon Dioxide 23 mmol/L (22-30); Chloride 99 mmol/L (98-107); Glucose 127 mg/dL (74-99); Non-African American GFR(CKD) 45 (>60 ml/min/1.73 sqM); Potassium 4.2 mmol/L (3.5-5.1); Sodium 137 mmol/L (137-145); Total Bilirubin 1.1 mg/dL (0.2-1.3); Total Protein 7.7 g/dL (6.3-8.2)
[2023-07-14 15:28] LABS: Basophils # (A) 0.1 k/uL (0-0.2); Basophils % (A) 1 %; Eosinophils # (A) 0.1 k/uL (0-0.7); Eosinophils % (A) 1 %; HGB 14.6 gm/dL (13.0-17.5); Lymphocytes # (A) 1.6 k/uL (1.0-4.8); Lymphocytes % (A) 13 %; MCH 28.8 pg (25.0-35.0); MCHC 33.3 g/dL (31.0-37.0); MCV 86.5 fL (80.0-100.0); Mean Platelet Volume 8.1; Monocytes # (A) 0.7 k/uL (0-1.0); Monocytes % (A) 5 %; Neutrophils # (A) 10.2 k/uL (1.3-7.7); Neutrophils % (A) 79 %; Platelet Count 285 k/uL (150-450); RBC 5.09 m/uL (4.30-5.90); RDW 13.1 % (11.5-15.5); WBC 12.9 k/uL (3.8-10.6)
[2023-07-14] MEDS ORDERED: IPRATROPIUM-ALBUTEROL 3 ML NEB INHALATION STA (16:55)
[2023-07-14] MEDS ORDERED: BENZONATATE 100 MG CAP PO STA (16:55)
[2023-07-14] MEDS ORDERED: FUROSEMIDE 10 MG/ML 4 ML VIAL IV STA (16:55)
--- NOTE | 2023-07-14 17:12 | ED ---
SOB HPI - General Chief Complaint: Shortness of Breath Stated Complaint: Chest Pain, history of Congestive heart failure Time Seen by Provider: 07/14/23 16:48 Source: patient, RN notes reviewed Mode of arrival: wheelchair Limitations: no limitations - History of Present Illness Initial Comments: This is an 87-year-old male who presents to the emergency department for coughing and shortness of breath. Patient was discharged about a week ago for CHF exacerbation. He was discharged with Lasix, which he has been taking as prescribed. His largest concern at this point is coughing. He is able to lay flat and has not been struggling to breathe. States that he is just continuing to have a large amount of nonproductive coughing that has been difficult to control. He is not taking any [id number] cough medication. Denies any chest pain, swelling in his extremities, or weight gain. Denies any fevers, chills, sore throat, palpitations, abdominal pain, nausea, vomiting, diarrhea, back pain, or headaches. MD Complaint: shortness of breath, cough - Related Data Home Medications Medication Instructions Recorded Confirmed Cholecalciferol [Vitamin D3 (25 50 mcg PO DAILY 09/22/21 07/03/23 Mcg = 1000 Iu)] Ezetimibe [Zetia] 10 mg PO DAILY 07/03/23 07/03/23 Nitroglycerin Sl Tabs [Nitrostat] 0.4 mg SL Q5M PRN 07/03/23 07/03/23 Previous Rx's Medication Instructions Recorded Clopidogrel [Plavix] 75 mg PO DAILY #30 tab 09/26/21 Metoprolol Succinate (ER) [Toprol 25 mg PO BID #60 09/26/21 XL] Spironolactone [Aldactone] 25 mg PO DAILY #30 tab 09/26/21 Furosemide [Lasix] 40 mg PO DAILY #60 tab 07/06/23 Losartan [Cozaar] 25 mg PO DAILY #60 tab 07/06/23 Promethazine/Dextromethorphan 5 ml PO Q4-6H PRN #473 ml 07/14/23 [Promethazine-Dm Syrup] Allergies Allergy/AdvReac Type Severity Reaction Status Date / Time atorvastatin Allergy Rash/Hives Verified 07/14/23 14:19 losartan AdvReac Unknown Verified 07/14/23 14:19 Review of Systems ROS Statement: Those systems with pertinent positive or pertinent negative responses have been documented in the HPI. ROS Other: All systems not noted in ROS Statement are negative. Past Medical History Past Medical History: Chest Pain / Angina, Heart Failure, Hyperlipidemia, Hypertension Additional Past Medical History / Comment(s): cataract rt eye, hx nosebleeds,bronchitis History of Any Multi-Drug Resistant Organisms: None Reported Past Surgical History: Back Surgery, Heart Catheterization With Stent, Joint Replacement Additional Past Surgical History / Comment(s): rt knee replacement, neck fusion,lt cataract Past Anesthesia/Blood Transfusion Reactions: No Reported Reaction Date of Last Stent Placement:: 09/22/21 Past Psychological History: No Psychological Hx Reported Smoking Status: Never smoker Past Alcohol Use History: None Reported Past Drug Use History: None Reported - Past Family History Mother Family Medical History: No Reported History Additional Family Medical History / Comment(s): heart conditions Son(s) Family Medical History: No Reported History Father Family Medical History: Myocardial Infarction ([place]) General Exam Limitations: no limitations General appearance: alert, in no apparent distress Head exam: Present: atraumatic, normocephalic, normal inspection Respiratory exam: Present: decreased breath sounds, prolonged expiratory. Absent: wheezes, rales, rhonchi Cardiovascular Exam: Present: regular rate, normal rhythm, normal heart sounds. Absent: systolic murmur, diastolic murmur, rubs, gallop, clicks Extremities exam: Absent: pedal edema Neurological exam: Present: alert, oriented X3, CN II-XII intact Psychiatric exam: Present: normal affect, normal mood Skin exam: Present: warm, dry, intact, normal color. Absent: rash Course Vital Signs 07/14/23 07/14/23 07/14/23 14:14 17:19 17:29 Temperature 97.5 F L Pulse Rate 51 L 75 80 Respiratory 20 20 Rate Blood Pressure 85/49 130/72 O2 Sat by Pulse 92 L 100 Oximetry 07/14/23 17:42 Temperature Pulse Rate 78 Respiratory Rate Blood Pressure O2 Sat by Pulse Oximetry Medical Decision Making - Medical Decision Making This is an 87-year-old male who presents to the emergency department for coughing secondary to CHF. Was pt. sent in by a medical professional or institution? @ -No Did you speak to anyone other than the patient for history? @ -No Did you review nursing and triage notes? @ -Yes, and I agree, it is accurate with regards to the patient's symptoms. Were old charts reviewed? @ -Yes, echocardiogram from 07/03/23 demonstrating systolic heart failure with an EF of 25-30%. Differential Diagnosis? @ -Differential Cough: Influenza, Covid, RSV, croup, allergic rhinitis, GERD, pneumonia, bronchitis, COPD, viral pharyngitis, streptococcal pharyngitis, this is not meant to be an all-inclusive list. EKG interpreted by me (3pts min.)? @ -EKG interpreted by me demonstrating the following: Sinus rhythm. Ventricular rate 76 beats per minute, HI interval 180 ms, QRS duration 152 ms, QTC 448 ms. X-rays interpreted by me (1pt min.)? @ -Chest x-ray obtained, my interpretation identifies no localized consolidations or infiltrates. CT interpreted by me (1pt min.)? @ -Not obtained U/S interpreted by me (1pt. min.)? @ -Not obtained What testing was considered but not performed? (CT, X-rays, U/S, labs)? Why? @ -None What meds were considered but not given? Why? @ -None Did you discuss the management of the patient with other professionals? @ -No Did you reconcile home meds? @ -No Was smoking cessation discussed for >3mins.? @ -No Was critical care preformed (if so, how long)? @ -No Were there social determinants of health that impacted care today? How? (Homelessness, low income, unemployed, alcoholism, drug addiction, transportati on, low edu. Level, literacy, decrease access to med. care, half-way, rehab)? @ -No Was there de-escalation of care discussed even if they declined? (Discuss DNR or withdrawal of care, Hospice)? @ -No What co-morbidities impacted this encounter? (DM, HTN, Smoking, COPD, CAD, Cancer, CVA, Hep., AIDS, mental health diagnosis, sleep apnea, morbid obesity)? @ -CHF, HLD, HTN Was patient admitted / discharged? @ -Discharged. Lab work obtained revealing mild leukocytosis. BNP is also elevated at 18,300. He does have a very mild elevation in troponin at 0.036, likely secondary to the elevated BNP. He is not experiencing any chest pain or shortness of breath. Chest x-ray revealed no evidence of pulmonary vascular congestion or other acute process. While the patient did have somewhat unstable vitals on arrival, he maintained adequate oxygen saturation and blood pressure while in the examination room. He was not complaining of any shortness of breath and was essentially only bothered by all of the coughing. Given that the BNP is elevated more than it had been a week ago with troponin elevation, I did offer and recommend admission for further management and evaluation. However, patient declined and requested discharge home, as long as he can control his cough. He was given a dose of Lasix and cough medication in the emergency department and discharged home in stable condition. He does have a follow-up appointment with his travel cota on Monday, in 3 days, and will follow up as scheduled. Strict return parameters reviewed as well. Undiagnosed new problem with uncertain prognosis? @ -None Drug Therapy requiring intensive monitoring for toxicity (Heparin, Nitro, Insulin, Cardizem)? @ -None Were any procedures done? @ -None Diagnosis/symptom? @ -CHF exacerbation Acute, or Chronic, or Acute on Chronic? @ -Acute on chronic Uncomplicated (without systemic symptoms) or Complicated (systemic symptoms)? @ -Uncomplicated Side effects of treatment? @ -None Exacerbation, Progression, or Severe Exacerbation] @ -Exacerbation Poses a threat to life or bodily function? @ -Unclear Return precautions reviewed in depth, the patient is instructed to return to the emergency department with any new, worsening, or concerning symptoms. Patient verbalized understanding. This case was discussed in detail with the attending ED physician, Dr. Franz. Pr esentation, findings, and treatment plan discussed in detail as well. - Lab Data Result diagrams: 07/14/23 14:40 07/14/23 14:40 Lab Results 07/14/23 07/14/23 07/14/23 Range/Units 14:40 14:40 14:40 WBC 12.9 H (3.8-10.6) k/uL RBC 5.09 (4.30-5.90) m/uL Hgb 14.6 (13.0-17.5) gm/dL Hct 44.0 (39.0-53.0) % MCV 86.5 (80.0-100.0) fL MCH 28.8 (25.0-35.0) pg MCHC 33.3 (31.0-37.0) g/dL RDW 13.1 (11.5-15.5) % Plt Count 285 (150-450) k/uL MPV 8.1 Neutrophils % 79 % Lymphocytes % 13 % Monocytes % 5 % Eosinophils % 1 % Basophils % 1 % Neutrophils # 10.2 H (1.3-7.7) k/uL Lymphocytes # 1.6 (1.0-4.8) k/uL Monocytes # 0.7 (0-1.0) k/uL Eosinophils # 0.1 (0-0.7) k/uL Basophils # 0.1 (0-0.2) k/uL PT 11.3 (9.0-12.0) sec INR 1.1 (<1.2) APTT 28.1 (22.0-30.0) sec Sodium 137 (137-145) mmol/L Potassium 4.2 (3.5-5.1) mmol/L Chloride 99 (98-107) mmol/L Carbon Dioxide 23 (22-30) mmol/L Anion Gap 15 mmol/L BUN 59 H (9-20) mg/dL Creatinine 1.42 H (0.66-1.25) mg/dL Est GFR (CKD-EPI)AfAm 52 (>60 ml/min/1.73 sqM) Est GFR (CKD-EPI)NonAf 45 (>60 ml/min/1.73 sqM) Glucose 127 H (74-99) mg/dL Calcium 9.4 (8.4-10.2) mg/dL Total Bilirubin 1.1 (0.2-1.3) mg/dL AST 23 (17-59) U/L ALT 18 (4-49) U/L Alkaline Phosphatase 53 (38-126) U/L Troponin I (0.000-0.034) ng/mL NT-Pro-B Natriuret Pep pg/mL Total Protein 7.7 (6.3-8.2) g/dL Albumin 4.0 (3.5-5.0) g/dL 07/14/23 07/14/23 Range/Units 14:40 16:53 WBC (3.8-10.6) k/uL RBC (4.30-5.90) m/uL Hgb (13.0-17.5) gm/dL Hct (39.0-53.0) % MCV (80.0-100.0) fL MCH (25.0-35.0) pg MCHC (31.0-37.0) g/dL RDW (11.5-15.5) % Plt Count (150-450) k/uL MPV Neutrophils % % Lymphocytes % % Monocytes % % Eosinophils % % Basophils % % Neutrophils # (1.3-7.7) k/uL Lymphocytes # (1.0-4.8) k/uL Monocytes # (0-1.0) k/uL Eosinophils # (0-0.7) k/uL Basophils # (0-0.2) k/uL PT (9.0-12.0) sec INR (<1.2) APTT (22.0-30.0) sec Sodium (137-145) mmol/L Potassium (3.5-5.1) mmol/L Chloride (98-107) mmol/L Carbon Dioxide (22-30) mmol/L Anion Gap mmol/L BUN (9-20) mg/dL Creatinine (0.66-1.25) mg/dL Est GFR (CKD-EPI)AfAm (>60 ml/min/1.73 sqM) Est GFR (CKD-EPI)NonAf (>60 ml/min/1.73 sqM) Glucose (74-99) mg/dL Calcium (8.4-10.2) mg/dL Total Bilirubin (0.2-1.3) mg/dL AST (17-59) U/L ALT (4-49) U/L Alkaline Phosphatase (38-126) U/L Troponin I 0.036 H* (0.000-0.034) ng/mL NT-Pro-B Natriuret Pep 44208 pg/mL Total Protein (6.3-8.2) g/dL Albumin (3.5-5.0) g/dL - Radiology Data Radiology results: report reviewed, image reviewed Disposition Clinical Impression: CHF (congestive heart failure), Cough Disposition: HOME SELF-CARE Instructions (If sedation given, give patient instructions): Heart Failure (ER), Acute Cough (ED) Additional Instructions: Return to the emergency department with any new, worsening, or concerning symptoms. You can take the cough medication every 4-6 hours as needed. Follow-up with your travel cota as scheduled. Follow up with your primary care provider in 1-2 days. Prescriptions: Promethazine/Dextromethorphan [Promethazine-Dm Syrup] 5 ml PO Q4-6H PRN #473 ml PRN Reason: Cough Is patient prescribed a controlled substance at d/c from ED?: No Referrals: [facility],Clinic [Primary Care Provider] - 1-2 days
[2023-07-14 17:28] VITALS: BP 130/72
[2023-07-14 17:50] VITALS: PULSE 78
[2023-07-14] MEDS ORDERED: guaiFENesin-Coden 100-10MG/5ML 10 ML CUP PO ONE (18:00)
== END 2023-07-14 18:28 | disposition home or self-care (01) ==
LOC: EC 13:59
DX: I11.0 Hypertensive heart disease with heart failure (principal); I50.9 Heart failure, unspecified; E78.5 Hyperlipidemia, unspecified; Z79.899 Other long term (current) drug therapy; Z88.8 Allergy status to other drugs, medicaments and biological substances; Z95.5 Presence of coronary angioplasty implant and graft
CPT/HCPCS: 36415; 94640; 93005; 83880; 80053; 84484; 85025; 85610; 85730; 71046; 99285; 96374; J1940

== ENCOUNTER 2023-08-04 06:59 | Day surgery (SDC) | payer OTHER ==
[2023-08-03 11:31] VITALS: BMI 21.9
[~2023-08-04 06:59] MED LIST changes: +ALPRAZolam 0.25 MG TAB PO PRN; +ALPRAZolam 0.5 MG TAB PO PRN; +ASPIRIN 325 MG TAB PO STA; +HEPARIN SODIUM,PORCINE (1 ML) 2,500 UNIT in SODIUM CHLORIDE 0.9% 250 ML IRRIGATION PRN; +HEPARIN SODIUM,PORCINE 10,000 UNIT in SODIUM CHLORIDE 0.9% 1,000 ML IRRIGATION PRN; -LACTATED RINGERS 1,000 ML IV SCH; -LIDOCAINE 1% (10MG/ML) FOR IV START INTRADERMA PRN; -MOXIFLOXACIN HCL 0.5% DROPS 3 ML BTL OP PRN; +NITROGLYCERIN SL TABS 0.4 MG TAB SUBLINGUAL PRN; -TETRACAINE 0.5% OPHTH (PF) DROPS 4 ML BTL OP PRN; -TIMOLOL 0.5% OPHTH DROPS 5 ML BTL OP PRN
[2023-08-04] MEDS: SODIUM CHLORIDE 0.9% 1,000 ML in EMPTY BAG 1 BAG IV SCH ×2 (07:19→22:32)
[2023-08-04] MEDS ORDERED: LIDOCAINE 1% INJ 10MG/ML (20 ML MDV) ONE (08:38)
[2023-08-04] MEDS: MIDAZOLAM 2 MG/2 ML VIAL IVP ONE ×2 (08:52→08:56)
[2023-08-04] MEDS ORDERED: LIDOCAINE 1% INJ 10MG/ML (20 ML MDV) SQ ONE (08:55)
[2023-08-04] MEDS ORDERED: HEPARIN SODIUM 1,000 UN/ML (10ML VL) ONE (09:08)
[2023-08-04] MEDS: HEPARIN SODIUM 1,000 UN/ML (10ML VL) IVP ONE ×2 (09:13→10:04)
[2023-08-04] MEDS ORDERED: IOPAMIDOL-370 100ML BTL INJ ONE (10:16)
[2023-08-04] MEDS ORDERED: CLOPIDOGREL 75 MG TAB ONE (10:19)
[2023-08-04] MEDS ORDERED: RX INFO: IV CONTRAST WAS GIVEN 1 EACH MISC MISCELLANE PRN (10:33)
[2023-08-04] MEDS ORDERED: CLOPIDOGREL 75 MG TAB PO ONE (10:40)
[2023-08-04] MEDS ORDERED: SODIUM CHLORIDE 0.9% 1,000 ML IV SCH (10:45)
--- NOTE | 2023-08-04 11:23 | PCN ---
PROCEDURE NOTE Date : 08/04/23 PROCEDURES PERFORMED: 1. Left heart catheterization and coronary angiography. 2. Temporary transvenous pacemaker placement from right femoral venous approach. 3. Shockwave lithotripsy of ostium of the right coronary artery. 4. Percutaneous transluminal coronary angioplasty and stenting of proximal RCA with a drug-eluting stent. 5. Percutaneous transluminal coronary angioplasty of proximal RCA and ostium RCA with a large 4.5 caliber NC Trek balloon. 6. Intravascular ultrasound of RCA. PERFORMED BY: Dr. Loyda Shukla. ANESTHESIA: Moderate conscious sedation time was 86 minutes. The patient was administered Versed. Oxygen saturation, hemodynamics and EKG were monitored closely. CLINICAL INFORMATION: Mr. Paul Coronado is an 88-year-old gentleman with history of ischemic cardiomyopathy with a history of previous multivessel stenting, known LAD occlusion who was recently in the hospital with a [id number] MO and CHF. After stabilizing him, he was advised cardiac cath. He had a previous stenting of circumflex performed in March 2021. Prior to that in February 2021, he had stenting of RCA in the proximal portion. In September of 2021, I performed proximal RCA repeat stenting. At that time, the ostium was patent. The LAD is known to be totally occluded collateralized from RCA. He was advised cardiac cath after due discussion regarding risks, benefits, and options. He sees Dr. Cuevas in the office. PROCEDURE NOTE: Under local anesthesia and strict aseptic precautions, a 6-Armenian introducer was placed in the right femoral artery. Using standard Beverly catheters, I performed coronary angiography and the same right catheter was used to check LV pressures. Following this, I proceeded to perform intervention of the ostial RCA lesion. Following the procedure, an Angio-Seal device was used to secure hemostasis and the venous sheath was left and will be pulled later on. The patient developed a complete heart block when I wired the RCA and therefore, I placed a temporary transvenous pacemaker as a backup. CARDIAC CATHETERIZATION FINDINGS: The left ventricular end-diastolic pressure was 15 mmHg without any gradient across aortic valve. CORONARY ANGIOGRAPHY FINDINGS: The right coronary artery: This vessel has an ostial lesion of about 95% proximal lesion after the stented segment of about 60%. Distally, the vessel bifurcates into large PDA and PLV and the superdominant RCA supplies a lot of myocardium but not much antegrade flow noted because of ostial lesion. Left main coronary artery: This is a fair caliber vessel, has about a 15% to 20% distal lesion, bifurcates into circumflex and LAD. Left main has about a 15% to 20% distal lesion. Left anterior descending coronary artery: This is totally occluded without much antegrade flow after septal and diagonal branch. Left posterior circumflex coronary artery gives off a high obtuse marginal, almost like a ramus, has a 30% to 35% narrowing. The circumflex then continues in the AV groove. There is a previous stented segment which is widely patent. The rest of circumflex has minor irregularities. Left ventriculogram was not performed. FINAL IMPRESSION: This patient has a restenotic lesion in the ostium of the RCA of about 95%. The RCA is a super-dominant vessel. Mid LAD is totally occluded and is a chronic occlusion collateralized by the right coronary artery. Circumflex has noncritical disease and previous stented segment in the mid circumflex is patent. RCA ostium is severely stenosed and this seems to be the culprit lesion. RECOMMENDATIONS: I advised PCI of RCA and proceeded to perform this in the same setting. PCI PROCEDURE DETAILS: Initially, I tried a AR2 catheter. With this, I was able to cross with the wire into the proximal portion of the RCA. Then, the patient developed a complete heart block requiring to be shocked and the catheter was taken out. I then decided to place a transvenous temporary pacemaker. Under strict aseptic precautions and local anesthesia, a 6-Armenian introducer was placed in the right femoral vein and 5- Armenian balloon tipped pacemaker was positioned in the right ventricular apex. The threshold was 0.5 mV. The pacemaker was set at a backup rate of 40 and mA of 5. I then continued my intervention procedure. I used a 0.75 left Amplatz 6-Armenian guide catheter to cannulate the right coronary artery and a Run-through wire was used to cross the lesion. Wire was kept distally. I used a 2.0 caliber NC Trek balloon to dilate the ostium and then used a 3.0 caliber balloon to dilate the proximal lesion just after the stented segment and also the ostium. I then deployed an 8 mm long 3.5 caliber Xience stent at 14 atmospheres in the proximal RCA just after the previous stented segment. I then performed shock wave lithotripsy of the ostium, 3 passes were done. Following this, I used a 4.0 caliber NC Trek balloon and stented the ostium and the entire stented segment with a 4.0 caliber NC Trek balloon. I then performed intravascular ultrasound and noted the ostium was still not fully open. I then decided to go in with a 4.5 caliber NC Trek balloon of 12 mm length and dilated the ostium with an excellent angiographic result. The patient tolerated the procedure well. I gave him a total of 5000 of heparin and ACT was about 269. The patient was given 300 mg of Plavix. He will be on aspirin and Plavix without interruption for 1 year. Excellent angiographic result was achieved. The temporary pacemaker was taken out and venous sheath will be pulled later. Details were discussed with the patient and family members. I expect he will be discharged tomorrow if he remains stable. He will take losartan 12.5 mg at bedtime. There is no allergy to this medication and he will continue with all his other medications as before including the Praluent injections by weekly. The patient will see Dr. Cuevas in 1 week. MMODL / IJN: [id number] / GAGAN
[2023-08-04] MEDS ORDERED: SODIUM CHLORIDE 0.9% 1,000 ML IV ONE (12:30)
[2023-08-04] MEDS: METOPROLOL SUCCINATE (ER) 25 MG TAB.ER.24H PO SCH (20:04)
[2023-08-04] MEDS ORDERED: LOSARTAN 25 MG TAB PO SCH (21:00)
[2023-08-04 22:04] VITALS: RESP 16
[2023-08-05 06:31] LABS: Basophils % (A) 1 %; Eosinophils # (A) 0.3 k/uL (0-0.7); Eosinophils % (A) 4 %; HCT 40.4 % (39.0-53.0); HGB 13.4 gm/dL (13.0-17.5); Lymphocytes # (A) 1.6 k/uL (1.0-4.8); Lymphocytes % (A) 21 %; MCH 28.2 pg (25.0-35.0); MCHC 33.2 g/dL (31.0-37.0); MCV 84.8 fL (80.0-100.0); Mean Platelet Volume 8.3; Monocytes # (A) 0.5 k/uL (0-1.0); Monocytes % (A) 7 %; Neutrophils # (A) 4.7 k/uL (1.3-7.7); Neutrophils % (A) 65 %; Platelet Count 212 k/uL (150-450); RBC 4.76 m/uL (4.30-5.90); RDW 13.6 % (11.5-15.5); WBC 7.3 k/uL (3.8-10.6)
[2023-08-05 06:42] LABS: African American GFR (CKD) 64 (>60 ml/min/1.73 sqM); Anion Gap 11 mmol/L; Blood Urea Nitrogen 32 mg/dL (9-20); Calcium 8.8 mg/dL (8.4-10.2); Carbon Dioxide 20 mmol/L (22-30); Chloride 104 mmol/L (98-107); Glucose 73 mg/dL (74-99); Non-African American GFR(CKD) 56 (>60 ml/min/1.73 sqM); Potassium 4.3 mmol/L (3.5-5.1); Sodium 135 mmol/L (137-145)
[2023-08-05 07:41] VITALS: TEMP 97.6
[2023-08-05 08:43] VITALS: BP 120/59; PULSE 66
[2023-08-05] MEDS ORDERED: CLOPIDOGREL 75 MG TAB PO SCH (09:00)
[2023-08-05] MEDS ORDERED: EZETIMIBE 10 MG TAB PO SCH (09:00)
[2023-08-05] MEDS ORDERED: ASPIRIN 81 MG PO SCH (09:00)
[2023-08-05] MEDS ORDERED: SPIRONOLACTONE 25 MG TAB PO SCH (09:00)
[2023-08-05] MEDS ORDERED: CHOLECALCIFEROL 25 MCG (1000 IU) TABLET PO SCH (09:00)
[2023-08-05] MEDS ORDERED: FUROSEMIDE 40 MG TAB PO SCH (09:00)
--- NOTE | 2023-08-05 09:05 | DS ---
DISCHARGE SUMMARY DIAGNOSES: 1. Ischemic cardiomyopathy. 2. Hypertension. 3. Hyperlipidemia. 4. History of mitral regurgitation and previous multivessel percutaneous coronary intervention. HOSPITAL COURSE: Mr. Paul Coronado was recently in the hospital with a [id number] ME and CHF. He was brought in for elective cardiac cath in view of the fact he has multivessel PCI with previous stenting of ostium of the RCA, proximal RCA as well as circumflex. He is known to have a total occlusion of the mid/proximal LAD. Cardiac cath was performed yesterday, which revealed that the ostial RCA which was a superdominant vessel had a 99% stenosis. This was treated with PTCA, shockwave lithotripsy, and also a deployed stent in the proximal portion of a 3.5 caliber and dilated the entire extent with a 4.0 caliber NC Trek balloon and the ostium with 4.5 NC Trek balloon. The patient also had an intravascular ultrasound. Excellent angiographic result was achieved. This morning, he is asymptomatic. He had a comfortable, uneventful night. His vital signs are stable. Blood pressure 120/70, pulse rate 66 per minute. No JVD today. S1 and S2 heard normally. Short systolic murmur at the apex. Lungs are clear. Abdomen is soft. Lower extremities reveal normal pulses. Right groin is clean and dry with a good pulse. EKG revealed sinus mechanism with IVCD, isolated PVCs. Labs are good. The patient will be discharged today and he will see Dr. Cuevas in 1 week. Discharge instructions regarding activity, diet, and medications were given. He will be on dual-antiplatelet therapy without interruption for 1 year. He will have an appointment in 1 week. Discharge instructions were given. MMODL / IJN: [id number] /
[2023-08-05] MEDS: METOPROLOL SUCCINATE (ER) 25 MG TAB.ER.24H PO SCH (09:50)
[2023-08-05] MEDS ORDERED: LOSARTAN 25 MG TAB PO SCH (21:00)
== END 2023-08-05 11:11 | disposition home or self-care (01) ==
LOC: CATHCVL 06:59 → 6NMEDSUR 10:25 → CATHCVL 08-05 11:11
PROVIDERS: ATTEND Internal Medicine Interventional Cardiology
DX: I34.0 Nonrheumatic mitral (valve) insufficiency (principal); I25.10 Atherosclerotic heart disease of native coronary artery without angina pectoris; E78.5 Hyperlipidemia, unspecified; I25.2 Old myocardial infarction; I25.5 Ischemic cardiomyopathy; I25.82 Chronic total occlusion of coronary artery; I11.0 Hypertensive heart disease with heart failure; I50.9 Heart failure, unspecified; Z95.0 Presence of cardiac pacemaker; Z95.5 Presence of coronary angioplasty implant and graft; Z79.02 Long term (current) use of antithrombotics/antiplatelets; Z79.899 Other long term (current) drug therapy; Z79.82 Long term (current) use of aspirin
CPT/HCPCS: 92978; 93458; 0715T; 80048; 85025; C9600; C1760; C1769 ×5; C1894; C1753; C1874; C1761; C1887; C1725 ×4; J2250; J2001; J1644; Q9967

== ENCOUNTER → 2023-09-11 | Outpatient (CLI) | payer OTHER ==
--- NOTE | 2023-09-11 14:30 | US ---
EXAMINATION TYPE: US kidneys/renal and bladder DATE OF EXAM: 09/11/2023 COMPARISON: NONE CLINICAL INDICATION: Male, 88 years old with history of R94.4 ABNORMAL RESULTS OF KIDNEY FUNCTION ORALIA DIES; EXAM MEASUREMENTS: Right Kidney: 9.2 x 4.8 x 4.2 cm Left Kidney: 9.9 x 5.2 x 4.6 cm Right Kidney: Inferior pole obscured by bowel gas Left Kidney: no evidence of hydronephrosis Bladder: appears wnl, not fully distended Bilateral Jets seen: no There is no evidence for hydronephrosis at this point in time. No nephrolithiasis is seen. No gianfranco s are identified. The urinary bladder is anechoic. Bilateral ureteral jets are seen. IMPRESSION: No evidence for obstructive uropathy.
== END | disposition home or self-care (01) ==
LOC: RADUSWWP 13:46
DX: R94.4 Abnormal results of kidney function studies (principal)
CPT/HCPCS: 76770

== ENCOUNTER 2023-10-12 18:13 | Emergency (ER) | payer OTHER ==
--- NOTE | 2023-10-12 18:22 | ED ---
General Adult HPI <Paulina Montiel - Last Filed: 10/12/23 18:21> - General Source: patient, RN notes reviewed, old records reviewed <Pedro Pagan - Last Filed: 10/12/23 23:38> - General Stated complaint: NVD Time Seen by Provider: 10/12/23 18:21 - History of Present Illness Initial comments: Patient is 88-year-old gentleman presents emergency room with complaints of abd ominal cramping and severe diarrhea for the last few days. Denies any recent travel or antibiotic use. (Paulina Montiel) Patient Is an 88-year-old male who presents to the emergency Department complaining of diarrhea. Presents complaining of abdominal cramping, concern for dehydration. States bowel movements are nonbloody. Patient does have a cardiac history. Symptoms have been ongoing for 3 days. Originally worked up in triage. No recent antibiotics. Presents for further evaluation at this time over concern for the diarrhea. Originally evaluated as a quick note. (Pedro Pagan) - Related Data Home Medications Medication Instructions Recorded Confirmed Cholecalciferol [Vitamin D3 (25 50 mcg PO DAILY 09/22/21 08/04/23 Mcg = 1000 Iu)] Ezetimibe [Zetia] 10 mg PO DAILY 07/03/23 08/04/23 Nitroglycerin Sl Tabs [Nitrostat] 0.4 mg SL Q5M PRN 07/03/23 08/04/23 Alirocumab [Praluent Pen] 150 mg SQ Q14D 08/03/23 08/04/23 Aspirin [Adult Low Dose Aspirin EC] 81 mg PO DAILY 08/03/23 08/04/23 Previous Rx's Medication Instructions Recorded Clopidogrel [Plavix] 75 mg PO DAILY #30 tab 09/26/21 Metoprolol Succinate (ER) [Toprol 25 mg PO BID #60 09/26/21 XL] Spironolactone [Aldactone] 25 mg PO DAILY #30 tab 09/26/21 Furosemide [Lasix] 40 mg PO DAILY #60 tab 07/06/23 Losartan [Cozaar] 12.5 mg PO HS #0 tab 08/05/23 Dicyclomine [Bentyl] 10 mg PO BID PRN 7 Days #14 capsule 10/12/23 Allergies Allergy/AdvReac Type Severity Reaction Status Date / Time atorvastatin Allergy Rash/Hives Verified 10/12/23 19:06 Review of Systems ROS Other: All systems not noted in ROS Statement are negative. <Paulina Montiel - Last Filed: 10/12/23 18:21> ROS Other: All systems not noted in ROS Statement are negative. <Pedro Pagan - Last Filed: 10/12/23 23:38> ROS Statement: Those systems with pertinent positive or pertinent negative responses have been documented in the HPI. Review of Systems: CONST: Denies fever EYES: Denies blurry vision ENT: Denies nasal congestion C/V: Denies Chest pain RESP: Denies shortness of breath GI: Endorses mild generalized abdominal pain : Denies dysuria SKIN: Denies rash. MSK: Denies joint pain. NEURO: Denies headache (Pedro Pagan) Past Medical History Past Medical History: Coronary Artery Disease (CAD), Cancer, Chest Pain / Angina, Heart Failure, Hyperlipidemia, Hypertension, Osteoarthritis (OA) Additional Past Medical History / Comment(s): cataract rt eye, past hx nosebleeds., states sob with activity, skin cancer., See Cardiology H & P. History of Any Multi-Drug Resistant Organisms: None Reported Past Surgical History: Back Surgery, Heart Catheterization With Stent, Joint Replacement Additional Past Surgical History / Comment(s): rt knee replacement, neck fusion,lt cataract, back surgery x3 Past Anesthesia/Blood Transfusion Reactions: No Reported Reaction Date of Last Stent Placement:: 09/22/21 Past Psychological History: No Psychological Hx Reported Smoking Status: Former smoker Past Alcohol Use History: None Reported Additional Past Alcohol Use History / Comment(s): quit smoking 40 yrs ago, hx of 1 - 1 1/2 ppd. Past Drug Use History: None Reported - Past Family History Mother Family Medical History: No Reported History Additional Family Medical History / Comment(s): heart conditions Son(s) Family Medical History: No Reported History Father Family Medical History: Myocardial Infarction ([place]) <Paulina Montiel - Last Filed: 10/12/23 18:21> General Exam <Paulina Montiel - Last Filed: 10/12/23 18:21> <Pedro Pagan - Last Filed: 10/12/23 23:38> - General Exam Comments Initial Comments: Visual Physical Exam Vital signs reviewed General: Well-appearing, nontoxic, no acute distress. Head: Normocephalic, atraumatic Eyes: PERRLA, EOMI ENT: Airway patent Chest: Nonlabored breathing Skin: No visual rash, normal skin tone Neuro: Alert and oriented 3 Musculoskeletal: No gross abnormalities (Paulina Montiel) General: Appears in no acute distress. HEAD: Normal with no signs of head trauma. EYES: PERRLA, EOMI, conjunctiva normal, no discharge. ENT: Hearing grossly intact, normal oropharynx. Mildly dry mucous membranes. RESPIRATORY: Clear breath sounds bilaterally. No wheezes, rales, or rhonchi. C/V: Regular rate and rhythm. S1 and S2 auscultated, peripheral pulses 2+ and intact throughout ABD: Abd is soft, nondistended. No focal tenderness to palpation. No guarding. No rebound tenderness. No peritoneal signs. EXT: Normal range of motion, no obvious deformity SKIN: No rashes or lesions observed on exposed skin. NEURO: Alert and oriented 4. (Pedro Pagan) Course Vital Signs 10/12/23 19:01 Temperature 97.5 F L Pulse Rate 58 L Respiratory 18 Rate Blood Pressure 120/62 O2 Sat by Pulse 100 Oximetry Medical Decision Making <Paulina Montiel - Last Filed: 10/12/23 18:21> - Lab Data Result diagrams: 10/12/23 19:07 10/12/23 19:07 <Pedro Pagan - Last Filed: 10/12/23 23:38> - Medical Decision Making Quick note portion completed by myself, Paulina Montiel PA-C (Pauilna Montiel) Was pt. sent in by a medical professional or institution (ELIANE Martins, ENVIRONMENTAL ISSUES INSTRUCTOR, urgent care, hospital, or long term...) When possible be specific @ -No Did you speak to anyone other than the patient for history (EMS, parent, family, police, friend...)? What history was obtained from this source @ -No Did you review nursing and triage notes (agree or disagree)? Why? @ -I reviewed and agree with nursing and triage notes Were old charts reviewed (outside hosp., previous admission, EMS record, old EKG, old radiological studies, urgent care reports/EKG's, long term records)? Report findings @ -No old charts were reviewed Differential Diagnosis (chest pain, altered mental status, abdominal pain women, abdominal pain men, vaginal bleeding, weakness, fever, dyspnea, syncope, headache, dizziness, GI bleed, back pain, seizure, CVA, palpatations, mental health, musculoskeletal)? @ -Differential Abdominal Pain Men: Appendicitis, cholecystitis, diverticulosis, ischemic bowel, pancreatitis, hepatitis, UTI, gastroenteritis, AAA, incarcerated hernia, bowel obstruction, constipation, inflammatory bowel, hepatitis, peptic ulcer disease, splenic infarction, perforated viscus, testicular torsion, this is not meant to be an all-inclusive list EKG interpreted by me (3pts min.). @ -None done X-rays interpreted by me (1pt min.). @ -None done CT interpreted by me (1pt min.). @ -CT reveals a left lung pulmonary nodule but no obvious acute intra-abdominal process. U/S interpreted by me (1pt. min.). @ -None done What testing was considered but not performed or refused? (CT, X-rays, U/S, labs)? Why? @ -None What meds were considered but not given or refused? Why? @ -Considered analgesic medications which were declined. Did you discuss the management of the patient with other professionals (professionals i.e. , PA, ENVIRONMENTAL ISSUES INSTRUCTOR, lab, RT, psych nurse, social work supervisor, blasting helper, teacher, labor relations officer, pillowcase sewer)? Give summary @ -No Was smoking cessation discussed for >3mins.? @ -No Was critical care preformed (if so, how long)? @ -No Were there social determinants of health that impacted care today? How? (Homelessness, low income, unemployed, alcoholism, drug addiction, transportation, low edu. Level, literacy, decrease access to med. care, long-term, rehab)? @ -No Was there de-escalation of care discussed even if they declined (Discuss DNR or withdrawal of care, Hospice)? DNR status @ -No What co-morbidities impacted this encounter? (DM, HTN, Smoking, COPD, CAD, Cancer, CVA, ARF, Chemo, Hep., AIDS, mental health diagnosis, sleep apnea, morbid obesity)? @ -None Was patient admitted / discharged? Hospital course, mention meds given and route, prescriptions, significant lab abnormalities, going to OR and other pertinent info. @ -Patient presents with 3 days of diarrhea. Originally evaluated as a quick no. Vital signs within acceptable limits. Laboratory studies remarkable for a mild ADELINE. Remainder the labs unremarkable. Patient will be given 2 L fluid bolus, as well as IV Protonix, Zofran, Toradol. Patient was in agreement with this plan. CT imaging is still pending. CT revealed no obvious acute intra- abdominal process but does show a left pulmonary nodule. I did the patient regarding the pulmonary nodule and recommended repeat imaging in 3 months. Patient was in agreement this plan. Vital signs are within acceptable limits. I did offer observation admission however patient would like to attempt to go ho me. I believe this is reasonable. Strict return precautions discussed. I will provide the patient with a prescription for Bentyl. I instructed the patient to follow up with their PCP in the next 1-3 days. I explained that the patient should return to the emergency department if they experience any worsening symptoms. Strict return precautions were discussed with the patient. The patient expressed understanding of these instructions. I answered all questions that the patient had. The patient was discharged home in good condition with their prescriptions and follow up information. Undiagnosed new problem with uncertain prognosis? @ -No Drug Therapy requiring intensive monitoring for toxicity (Heparin, Nitro, Insulin, Cardizem)? @ -No Were any procedures done? @ -No Diagnosis/symptom? @ -Diarrhea, ADELINE, pulmonary nodule Acute, or Chronic, or Acute on Chronic? @ -Acute Uncomplicated (without systemic symptoms) or Complicated (systemic symptoms)? @ -Complicated Side effects of treatment? @ -No Exacerbation, Progression, or Severe Exacerbation? @ -No Poses a threat to life or bodily function? How? (Chest pain, [place], [place], pneumonia, PE, COPD, DKA, ARF, appy, cholecystitis, CVA, Diverticulitis, Homicidal, Suicidal, threat to staff... and all critical care pts) @ -Unlikely (Pedro Pagan) - Lab Data Lab Results 10/12/23 10/12/23 10/12/23 Range/Units 19:07 19:07 19:07 WBC 7.2 (3.8-10.6) k/uL RBC 4.67 (4.30-5.90) m/uL Hgb 13.2 (13.0-17.5) gm/dL Hct 39.9 (39.0-53.0) % MCV 85.4 (80.0-100.0) fL MCH 28.3 (25.0-35.0) pg MCHC 33.1 (31.0-37.0) g/dL RDW 13.8 (11.5-15.5) % Plt Count 249 (150-450) k/uL MPV 7.6 Neutrophils % (Manual) 58 % Band Neuts % (Manual) 3 % Lymphocytes % (Manual) 24 % Monocytes % (Manual) 14 % Eosinophils % (Manual) 1 % Neutrophils # (Manual) 4.30 (1.3-7.7) k/uL Lymphocytes # (Manual) 1.73 (1.0-4.8) k/uL Monocytes # (Manual) 1.01 H (0-1.0) k/uL Eosinophils # (Manual) 0.07 (0-0.7) k/uL Nucleated RBCs 0 (0-0) /100 WBC Manual Slide Review Performed Sodium 136 L (137-145) mmol/L Potassium 4.4 (3.5-5.1) mmol/L Chloride 98 (98-107) mmol/L Carbon Dioxide 23 (22-30) mmol/L Anion Gap 15 mmol/L BUN 55 H (9-20) mg/dL Creatinine 1.71 H (0.66-1.25) mg/dL Est GFR (CKD-EPI)AfAm 41 (>60 ml/min/1.73 sqM) Est GFR (CKD-EPI)NonAf 35 (>60 ml/min/1.73 sqM) Glucose 91 (74-99) mg/dL Calcium 9.4 (8.4-10.2) mg/dL Total Bilirubin 0.6 (0.2-1.3) mg/dL AST 27 (17-59) U/L ALT 16 (4-49) U/L Alkaline Phosphatase 62 (38-126) U/L Total Protein 7.6 (6.3-8.2) g/dL Albumin 4.1 (3.5-5.0) g/dL Lipase 97 (23-300) U/L Urine Color Yellow Urine Appearance Clear (Clear) Urine pH 5.0 (5.0-8.0) Ur Specific [place] 1.020 (1.001-1.035) Urine Protein Negative (Negative) Urine Glucose (UA) Negative (Negative) Urine Ketones Negative (Negative) Urine Blood Negative (Negative) Urine Nitrite Negative (Negative) Urine Bilirubin Negative (Negative) Urine Urobilinogen <2.0 (<2.0) mg/dL Ur Leukocyte Esterase Negative (Negative) Influenza Type A (PCR) (Not Detectd) Influenza Type B (PCR) (Not Detectd) RSV (PCR) (Not Detectd) SARS-CoV-2 (PCR) (Not Detectd) 10/12/23 Range/Units 19:07 WBC (3.8-10.6) k/uL RBC (4.30-5.90) m/uL Hgb (13.0-17.5) gm/dL Hct (39.0-53.0) % MCV (80.0-100.0) fL MCH (25.0-35.0) pg MCHC (31.0-37.0) g/dL RDW (11.5-15.5) % Plt Count (150-450) k/uL MPV Neutrophils % (Manual) % Band Neuts % (Manual) % Lymphocytes % (Manual) % Monocytes % (Manual) % Eosinophils % (Manual) % Neutrophils # (Manual) (1.3-7.7) k/uL Lymphocytes # (Manual) (1.0-4.8) k/uL Monocytes # (Manual) (0-1.0) k/uL Eosinophils # (Manual) (0-0.7) k/uL Nucleated RBCs (0-0) /100 WBC Manual Slide Review Sodium (137-145) mmol/L Potassium (3.5-5.1) mmol/L Chloride (98-107) mmol/L Carbon Dioxide (22-30) mmol/L Anion Gap mmol/L BUN (9-20) mg/dL Creatinine (0.66-1.25) mg/dL Est GFR (CKD-EPI)AfAm (>60 ml/min/1.73 sqM) Est GFR (CKD-EPI)NonAf (>60 ml/min/1.73 sqM) Glucose (74-99) mg/dL Calcium (8.4-10.2) mg/dL Total Bilirubin (0.2-1.3) mg/dL AST (17-59) U/L ALT (4-49) U/L Alkaline Phosphatase (38-126) U/L Total Protein (6.3-8.2) g/dL Albumin (3.5-5.0) g/dL Lipase (23-300) U/L Urine Color Urine Appearance (Clear) Urine pH (5.0-8.0) Ur Specific [place] (1.001-1.035) Urine Protein (Negative) Urine Glucose (UA) (Negative) Urine Ketones (Negative) Urine Blood (Negative) Urine Nitrite (Negative) Urine Bilirubin (Negative) Urine Urobilinogen (<2.0) mg/dL Ur Leukocyte Esterase (Negative) Influenza Type A (PCR) Not Detected (Not Detectd) Influenza Type B (PCR) Not Detected (Not Detectd) RSV (PCR) Not Detected (Not Detectd) SARS-CoV-2 (PCR) Not Detected (Not Detectd) Disposition <Paulina Montiel - Last Filed: 10/12/23 18:21> Is patient prescribed a controlled substance at d/c from ED?: No Time of Disposition: 23:20 <Pedro Pagan - Last Filed: 10/12/23 23:38> Clinical Impression: Diarrhea, ADELINE (acute kidney injury), Pulmonary nodule Disposition: HOME SELF-CARE Condition: Good Instructions (If sedation given, give patient instructions): Acute Diarrhea (ED) Prescriptions: Dicyclomine [Bentyl] 10 mg PO BID PRN 7 Days #14 capsule PRN Reason: Pain Referrals: [facility],Clinic [Primary Care Provider] - 1-2 days
[2023-10-12 19:19] VITALS: TEMP 97.5
[2023-10-12 19:57] LABS: Appearance,Urine Clear (Clear); Bilirubin,Urine Negative (Negative); Blood,Urine Negative (Negative); Color,Urine Yellow; Glucose,Urine (UA) Negative (Negative); Ketones,Urine Negative (Negative); Leukocyte Esterase,Urine Negative (Negative); Nitrite,Urine Negative (Negative); Protein,Urine Negative (Negative); Urobilinogen,Urine <2.0 mg/dL (<2.0)
[2023-10-12 20:03] LABS: HCT 39.9 % (39.0-53.0); HGB 13.2 gm/dL (13.0-17.5); MCH 28.3 pg (25.0-35.0); MCHC 33.1 g/dL (31.0-37.0); MCV 85.4 fL (80.0-100.0); Mean Platelet Volume 7.6; Platelet Count 249 k/uL (150-450); RBC 4.67 m/uL (4.30-5.90); RDW 13.8 % (11.5-15.5); WBC 7.2 k/uL (3.8-10.6)
[2023-10-12 20:11] LABS: ALT 16 U/L (4-49); AST 27 U/L (17-59); African American GFR (CKD) 41 (>60 ml/min/1.73 sqM); Albumin 4.1 g/dL (3.5-5.0); Alkaline Phosphatase 62 U/L (38-126); Anion Gap 15 mmol/L; Blood Urea Nitrogen 55 mg/dL (9-20); Calcium 9.4 mg/dL (8.4-10.2); Carbon Dioxide 23 mmol/L (22-30); Chloride 98 mmol/L (98-107); Glucose 91 mg/dL (74-99); Lipase 97 U/L (23-300); Non-African American GFR(CKD) 35 (>60 ml/min/1.73 sqM); Potassium 4.4 mmol/L (3.5-5.1); Sodium 136 mmol/L (137-145); Total Bilirubin 0.6 mg/dL (0.2-1.3); Total Protein 7.6 g/dL (6.3-8.2)
[2023-10-12 20:50] LABS: Band Neutrophils % 3 %; Eosinophils # (M) 0.07 k/uL (0-0.7); Lymphocytes # (M) 1.73 k/uL (1.0-4.8); Monocytes # (M) 1.01 k/uL (0-1.0); Neutrophils % (M) 58 %; Nucleated Red Blood Cells 0 /100 WBC (0-0); Total Cells Counted 100
[2023-10-12] MEDS ORDERED: SODIUM CHLORIDE 0.9% 1,000 ML IV STA ×2 (21:00→21:27)
[2023-10-12] MEDS ORDERED: PANTOPRAZOLE 40 MG/10 ML VIAL IVP STA (21:27)
[2023-10-12] MEDS ORDERED: ONDANSETRON 4 MG/2 ML VIAL IVP STA (21:27)
[2023-10-12] MEDS ORDERED: KETOROLAC 15 MG/ML 1 ML VIAL IVP STA (21:27)
--- NOTE | 2023-10-12 23:00 | CT ---
EXAMINATION TYPE: CT abdomen pelvis wo con DATE OF EXAM: 10/12/2023 COMPARISON: None INDICATION: gen. abdominal pain- GFR 35 DLP: 397.1 mGycm, Automated exposure control for dose reduction was used. CONTRAST: 0 mL of Isovue 300. Low GFR Study performed without Oral Contrast TECHNIQUE: Axial images were obtained from above the diaphragm to the pubic rami in the axial plane a t 5 mm thick sections. Reconstructed images are reviewed on the computer in the coronal plane. FINDINGS: Limited CT sections are obtained the lung bases. There is a 0.4 cm peripheral nodule posterior later al right lung base. Series 204 image 3. Lung bases otherwise appear clear. Coronary artery calcificat ion is present.. CT ABDOMEN: Liver: Normal Spleen: Normal Pancreas: Normal Adrenal glands: The adrenal glands are normal. Gallbladder: Normal Kidneys: No masses are evident. No hydronephrosis is present. No cysts are present. No renal stone s are evident. Aorta: Vascular calcification is within the aorta. Inferior vena cava: Normal. CT PELVIS: Loops of bowel within the abdomen and pelvis are normal. Study is without oral contrast limiting bowel evaluation. Some fecal debris is within the distal colon and rectum. Appendix: Not identified. No dilated tubular structure or inflammatory change is evident. Urinary bladder: Normal. Genitourinary structures: Prostate is prominent. Osseous structures: Sclerotic lesions not excluded from the medial left iliac wing. Osseous structure s otherwise appear unremarkable. There are some degenerative changes within the lumbar spine. IMPRESSION: 1. Nonspecific abdomen pelvis. No acute process radiographically apparent. Follow-up can be performe d as clinically indicated. 2. 0.4 cm posterior lateral right lung nodule. Follow-up chest CT can be performed when the patient i s stable.
[2023-10-12 23:52] VITALS: BP 99/59; PULSE 72; RESP 16
== END 2023-10-12 23:47 | disposition home or self-care (01) ==
LOC: EC 18:13
DX: N17.9 Acute kidney failure, unspecified (principal); R19.7 Diarrhea, unspecified; R91.1 Solitary pulmonary nodule; I11.0 Hypertensive heart disease with heart failure; I25.10 Atherosclerotic heart disease of native coronary artery without angina pectoris; I50.9 Heart failure, unspecified; M19.90 Unspecified osteoarthritis, unspecified site; Z79.899 Other long term (current) drug therapy; Z79.82 Long term (current) use of aspirin; Z87.891 Personal history of nicotine dependence; Z20.822 Contact with and (suspected) exposure to COVID-19; Z88.8 Allergy status to other drugs, medicaments and biological substances
CPT/HCPCS: 36415; 80053; 83690; 85025; 81003; 87045; 87046; 87636; 74176; 99284; 96374; 96375 ×2; 96361 ×2; J2405; J1885; C9113

== ENCOUNTER 2023-11-04 14:41 | Emergency (ER) | payer OTHER ==
[2023-11-04 15:11] VITALS: TEMP 98
[2023-11-04 15:43] LABS: Basophils # (A) 0.1 k/uL (0-0.2); Basophils % (A) 1 %; Eosinophils # (A) 0.5 k/uL (0-0.7); Eosinophils % (A) 5 %; HGB 12.3 gm/dL (13.0-17.5); Lymphocytes # (A) 2.8 k/uL (1.0-4.8); Lymphocytes % (A) 32 %; MCH 29.6 pg (25.0-35.0); MCHC 34.1 g/dL (31.0-37.0); MCV 86.9 fL (80.0-100.0); Mean Platelet Volume 7.4; Monocytes # (A) 0.6 k/uL (0-1.0); Monocytes % (A) 7 %; Neutrophils # (A) 4.7 k/uL (1.3-7.7); Neutrophils % (A) 53 %; Platelet Count 314 k/uL (150-450); RBC 4.15 m/uL (4.30-5.90); RDW 14.3 % (11.5-15.5); WBC 8.9 k/uL (3.8-10.6)
--- NOTE | 2023-11-04 15:51 | ED ---
GI Bleed HPI - General Source: patient, RN notes reviewed Mode of arrival: ambulatory Limitations: no limitations <Hortensia Nolen - Last Filed: 11/04/23 15:49> <Des Gunn - Last Filed: 11/04/23 17:57> - General Chief complaint: GI Bleed Stated complaint: bloody stools Time Seen by Provider: 11/04/23 15:50 - History of Present Illness Initial comments: This is an 88-year-old male who presents to the emergency department for black stools. Reports multiple episodes of black stools throughout the day. Denies any associated abdominal pain. He is on blood thinners. (Hortensia Nolen) Patient presents to the ED complaining of having 4 black/dark bloody bowel movements since this afternoon. Patient states that he is on Plavix. Patient denies trauma or injury, fever or chills, headache, focal neuro deficit, chest pain or pressure, dyspnea, palpations, dizziness, abdominal pain, rectal pain, nausea/vomiting/diarrhea, dysuria/hematuria/urinary frequency/urinary symptoms, or any other symptoms or complaints. Patient states that he has not had a colonoscopy "for a while". (Des Gunn) - Related Data Home Medications Medication Instructions Recorded Confirmed Cholecalciferol [Vitamin D3 (25 50 mcg PO DAILY 09/22/21 08/04/23 Mcg = 1000 Iu)] Ezetimibe [Zetia] 10 mg PO DAILY 07/03/23 08/04/23 Nitroglycerin Sl Tabs [Nitrostat] 0.4 mg SL Q5M PRN 07/03/23 08/04/23 Alirocumab [Praluent Pen] 150 mg SQ Q14D 08/03/23 08/04/23 Aspirin [Adult Low Dose Aspirin EC] 81 mg PO DAILY 08/03/23 08/04/23 Previous Rx's Medication Instructions Recorded Clopidogrel [Plavix] 75 mg PO DAILY #30 tab 09/26/21 Metoprolol Succinate (ER) [Toprol 25 mg PO BID #60 09/26/21 XL] Spironolactone [Aldactone] 25 mg PO DAILY #30 tab 09/26/21 Furosemide [Lasix] 40 mg PO DAILY #60 tab 07/06/23 Losartan [Cozaar] 12.5 mg PO HS #0 tab 08/05/23 Dicyclomine [Bentyl] 10 mg PO BID PRN 7 Days #14 capsule 10/12/23 Allergies Allergy/AdvReac Type Severity Reaction Status Date / Time atorvastatin Allergy Rash/Hives Verified 10/12/23 19:06 Review of Systems ROS Other: All systems not noted in ROS Statement are negative. <Hortensia Nolen - Last Filed: 11/04/23 15:49> ROS Other: All systems not noted in ROS Statement are negative. <Des Gunn - Last Filed: 11/04/23 17:57> ROS Statement: Those systems with pertinent positive or pertinent negative responses have been documented in the HPI. Past Medical History Past Medical History: Coronary Artery Disease (CAD), Cancer, Chest Pain / A ngina, Heart Failure, Hyperlipidemia, Hypertension, Osteoarthritis (OA) Additional Past Medical History / Comment(s): cataract rt eye, past hx nosebleeds., states sob with activity, skin cancer., See Cardiology H & P. History of Any Multi-Drug Resistant Organisms: None Reported Past Surgical History: Back Surgery, Heart Catheterization With Stent, Joint Replacement Additional Past Surgical History / Comment(s): rt knee replacement, neck fusion,lt cataract, back surgery x3 Past Anesthesia/Blood Transfusion Reactions: No Reported Reaction Date of Last Stent Placement:: 09/22/21 Past Psychological History: No Psychological Hx Reported Smoking Status: Former smoker Past Alcohol Use History: None Reported Past Drug Use History: None Reported - Past Family History Mother Family Medical History: No Reported History Additional Family Medical History / Comment(s): heart conditions Son(s) Family Medical History: No Reported History Father Family Medical History: Myocardial Infarction (AR) <Hortensia Nolen - Last Filed: 11/04/23 15:49> General Exam Limitations: no limitations <Hortensia Nolen - Last Filed: 11/04/23 15:49> Limitations: no limitations General appearance: alert, in no apparent distress Eye exam: Present: normal appearance ENT exam: Present: mucous membranes moist Respiratory exam: Present: normal lung sounds bilaterally. Absent: respiratory distress, wheezes, rales, rhonchi, stridor Cardiovascular Exam: Present: regular rate, normal rhythm, normal heart sounds, other (Normal radial pulses bilaterally) GI/Abdominal exam: Present: soft. Absent: distended, tenderness, guarding Rectal exam: Present: normal rectal tone, other (Red-colored stool was retrieved on digital rectal exam; stool was sent for Hemoccult testing). Absent: tenderness Extremities exam: Absent: pedal edema Neurological exam: Present: alert, oriented X3 Psychiatric exam: Present: normal affect Skin exam: Present: warm, dry, normal color <Des Gunn - Last Filed: 11/04/23 17:57> - General Exam Comments Initial Comments: Visual Physical Exam Vital signs reviewed General: Well-appearing, nontoxic, no acute distress. Head: Normocephalic, atraumatic Eyes: PERRLA, EOMI ENT: Airway patent Chest: Nonlabored breathing Skin: No visual rash, normal skin tone Neuro: Alert and oriented 3 Musculoskeletal: No gross abnormalities (Hortensia Nolen) Course <Des Gunn - Last Filed: 11/04/23 17:57> Vital Signs 11/04/23 15:06 Temperature 98 F Pulse Rate 73 Respiratory 20 Rate Blood Pressure 98/58 O2 Sat by Pulse 98 Oximetry - Reevaluation(s) Reevaluation #1: 11/04/23 17:49 Case, H&P, test results and ED management thus far were discussed with Dr. Metz (GI) and Dr. Suero (ED physician) at [facility]. They both accept transfer to the [facility] emergency departmen t at this time. (Des Gunn) Medical Decision Making - Lab Data Result diagrams: 11/04/23 15:00 <Hortensia Nolen - Last Filed: 11/04/23 15:49> - Lab Data Result diagrams: 11/04/23 15:00 11/04/23 15:00 <Des Gunn - Last Filed: 11/04/23 17:57> - Medical Decision Making I performed the QuickNote portion of this chart. Signed Hortensia Nolen PA-C. (Hortensia Nolen) Was pt. sent in by a medical professional or institution (ELIANE Martins, LIVE TRUCK OPERATOR, urgent care, hospital, or senior care...) When possible be specific @ -No Did you speak to anyone other than the patient for history (EMS, parent, family, police, friend...)? What history was obtained from this source @ -No Did you review nursing and triage notes (agree or disagree)? Why? @ -I reviewed and agree with nursing and triage notes Were old charts reviewed (outside hosp., previous admission, EMS record, old EKG, old radiological studies, urgent care reports/EKG's, senior care records)? Report findings @ -No old charts were reviewed Differential Diagnosis (chest pain, altered mental status, abdominal pain women, abdominal pain men, vaginal bleeding, weakness, fever, dyspnea, syncope, headache, dizziness, GI bleed, back pain, seizure, CVA, palpatations, mental health, musculoskeletal)? @ -Differential GI Bleed: Esophageal varices, aortoenteric fistula, Madisyn-Pineda, gastritis, peptic ulcer disease, diverticulosis, inflammatory bowel disease, hemorrhoids, fissure, colitis, malignancy, Meckels diverticulum, anemia, coagulopathy, malignancy,this is not meant to be an all-inclusive list. EKG interpreted by me (3pts min.). @ None done X-rays interpreted by me (1pt min.). @ -None done CT interpreted by me (1pt min.). @ -None done U/S interpreted by me (1pt. min.). @ -None done What testing was considered but not performed or refused? (CT, X-rays, U/S, labs)? Why? @ -None What meds were considered but not given or refused? Why? @ -None Did you discuss the management of the patient with other professionals (professionals i.e. , PA, LIVE TRUCK OPERATOR, lab, RT, psych nurse, psychologist social, plater production, teacher, property disposal officer, dependency case manager)? Give summary @ -[As above. Was smoking cessation discussed for >3mins.? @ -No Was critical care preformed (if so, how long)? @ -[Yes, 30 minutes. Were there social determinants of health that impacted care today? How? (Homelessness, low income, unemployed, alcoholism, drug addiction, transportation, low edu. Level, literacy, decrease access to med. care, usp, rehab)? @ -No Was there de-escalation of care discussed even if they declined (Discuss DNR or withdrawal of care, Hospice)? DNR status @ -No What co-morbidities impacted this encounter? (DM, HTN, Smoking, COPD, CAD, Cancer, CVA, ARF, Chemo, Hep., AIDS, mental health diagnosis, sleep apnea, morbid obesity)? @ -[CAD Was patient admitted / discharged? Hospital course, mention meds given and route, prescriptions, significant lab abnormalities, going to OR and other pertinent info. @ -[Patient reports having 4 bloody bowel movements today. Patient's hemoglobin is fairly stable when compared to his most recent prior level. Patient denies feeling dyspneic or lightheaded/dizzy. Patient has been treated with IV fluids and IV Protonix in the ED. Given there is no GI coverage in our hospital weekend, arrangements have been made to transfer the patient to [facility]. Patient has been accepted for ambulance transfer by Dr. Metz (GI) and Dr. Suero (ED physician). Patient agrees with hospital transfer at this time. Undiagnosed new problem with uncertain prognosis? @ -[No] Drug Therapyreuiring intensive monitoring for toxicity (Heparin, Nitro, Insulin, Cardizem)? @ -[No] Were any proedres done? @ -[No] Diagnosis/syptm GI bleed Acue, or Cronic, or Acute on Chronic? @ -[Acute ] Uncoplicate (without systemic symptoms) or Complicated (systemic symptoms)? @ -[default] Sideeffectsof treatment? @ -[No] Exacerbaton Progression, or Severe Exacerbation? @ -[No] Poses a tret to life or bodily function? How? (Chest pain, USA, AR, pneumonia, PE, COPD, DKA, ARF, appy, cholecystitis, CVA, Diverticulitis, Homicidal, Suicidal, threat to staff... and all critical care pts) @ Yes, possibly. (Des Gunn) - Lab Data Lab Results 11/04/23 11/04/23 11/04/23 Range/Units 15:00 15:00 15:00 WBC 8.9 (3.8-10.6) k/uL RBC 4.15 L (4.30-5.90) m/uL Hgb 12.3 L (13.0-17.5) gm/dL Hct 36.0 L (39.0-53.0) % MCV 86.9 (80.0-100.0) fL MCH 29.6 (25.0-35.0) pg MCHC 34.1 (31.0-37.0) g/dL RDW 14.3 (11.5-15.5) % Plt Count 314 (150-450) k/uL MPV 7.4 Neutrophils % 53 % Lymphocytes % 32 % Monocytes % 7 % Eosinophils % 5 % Basophils % 1 % Neutrophils # 4.7 (1.3-7.7) k/uL Lymphocytes # 2.8 (1.0-4.8) k/uL Monocytes # 0.6 (0-1.0) k/uL Eosinophils # 0.5 (0-0.7) k/uL Basophils # 0.1 (0-0.2) k/uL PT 11.1 (10.0-12.5) sec INR 1.0 (<1.2) APTT 25.7 (22.0-30.0) sec Sodium 139 (137-145) mmol/L Potassium 5.2 H (3.5-5.1) mmol/L Chloride 105 (98-107) mmol/L Carbon Dioxide 25 (22-30) mmol/L Anion Gap 9 mmol/L BUN 40 H (9-20) mg/dL Creatinine 1.32 H (0.66-1.25) mg/dL Est GFR (CKD-EPI)AfAm 56 (>60 ml/min/1.73 sqM) Est GFR (CKD-EPI)NonAf 48 (>60 ml/min/1.73 sqM) Glucose 109 H (74-99) mg/dL Calcium 9.4 (8.4-10.2) mg/dL Magnesium 2.0 (1.6-2.3) mg/dL Total Bilirubin 0.4 (0.2-1.3) mg/dL AST 24 (17-59) U/L ALT 15 (4-49) U/L Alkaline Phosphatase 56 (38-126) U/L Troponin I (0.000-0.034) ng/mL Total Protein 7.4 (6.3-8.2) g/dL Albumin 4.1 (3.5-5.0) g/dL Lipase 143 (23-300) U/L Stool Occult Blood (Negative) Blood Type Blood Type Confirm Blood Type Recheck Bld Type Recheck Status Antibody Screen Spec Expiration Date 11/04/23 11/04/23 11/04/23 Range/Units 15:00 15:00 15:15 WBC (3.8-10.6) k/uL RBC (4.30-5.90) m/uL Hgb (13.0-17.5) gm/dL Hct (39.0-53.0) % MCV (80.0-100.0) fL MCH (25.0-35.0) pg MCHC (31.0-37.0) g/dL RDW (11.5-15.5) % Plt Count (150-450) k/uL MPV Neutrophils % % Lymphocytes % % Monocytes % % Eosinophils % % Basophils % % Neutrophils # (1.3-7.7) k/uL Lymphocytes # (1.0-4.8) k/uL Monocytes # (0-1.0) k/uL Eosinophils # (0-0.7) k/uL Basophils # (0-0.2) k/uL PT (10.0-12.5) sec INR (<1.2) APTT (22.0-30.0) sec Sodium (137-145) mmol/L Potassium (3.5-5.1) mmol/L Chloride (98-107) mmol/L Carbon Dioxide (22-30) mmol/L Anion Gap mmol/L BUN (9-20) mg/dL Creatinine (0.66-1.25) mg/dL Est GFR (CKD-EPI)AfAm (>60 ml/min/1.73 sqM) Est GFR (CKD-EPI)NonAf (>60 ml/min/1.73 sqM) Glucose (74-99) mg/dL Calcium (8.4-10.2) mg/dL Magnesium (1.6-2.3) mg/dL Total Bilirubin (0.2-1.3) mg/dL AST (17-59) U/L ALT (4-49) U/L Alkaline Phosphatase (38-126) U/L Troponin I <0.012 (0.000-0.034) ng/mL Total Protein (6.3-8.2) g/dL Albumin (3.5-5.0) g/dL Lipase (23-300) U/L Stool Occult Blood (Negative) Blood Type A Positive Blood Type Confirm A Positive Blood Type Recheck No Previous Record Bld Type Recheck Status CABO Indicated Antibody Screen NEGATIVE Spec Expiration Date 11/07/2023 - 229911/04/23 Range/Units 17:33 WBC (3.8-10.6) k/uL RBC (4.30-5.90) m/uL Hgb (13.0-17.5) gm/dL Hct (39.0-53.0) % MCV (80.0-100.0) fL MCH (25.0-35.0) pg MCHC (31.0-37.0) g/dL RDW (11.5-15.5) % Plt Count (150-450) k/uL MPV Neutrophils % % Lymphocytes % % Monocytes % % Eosinophils % % Basophils % % Neutrophils # (1.3-7.7) k/uL Lymphocytes # (1.0-4.8) k/uL Monocytes # (0-1.0) k/uL Eosinophils # (0-0.7) k/uL Basophils # (0-0.2) k/uL PT (10.0-12.5) sec INR (<1.2) APTT (22.0-30.0) sec Sodium (137-145) mmol/L Potassium (3.5-5.1) mmol/L Chloride (98-107) mmol/L Carbon Dioxide (22-30) mmol/L Anion Gap mmol/L BUN (9-20) mg/dL Creatinine (0.66-1.25) mg/dL Est GFR (CKD-EPI)AfAm (>60 ml/min/1.73 sqM) Est GFR (CKD-EPI)NonAf (>60 ml/min/1.73 sqM) Glucose (74-99) mg/dL Calcium (8.4-10.2) mg/dL Magnesium (1.6-2.3) mg/dL Total Bilirubin (0.2-1.3) mg/dL AST (17-59) U/L ALT (4-49) U/L Alkaline Phosphatase (38-126) U/L Troponin I (0.000-0.034) ng/mL Total Protein (6.3-8.2) g/dL Albumin (3.5-5.0) g/dL Lipase (23-300) U/L Stool Occult Blood Positive (Negative) Blood Type Blood Type Confirm Blood Type Recheck Bld Type Recheck Status Antibody Screen Spec Expiration Date Critical Care Time Critical Care Time: Yes Total Critical Care Time: 30 <Des Gunn - Last Filed: 11/04/23 17:57> Disposition <Hortensia Nolen - Last Filed: 11/04/23 15:49> Is patient prescribed a controlled substance at d/c from ED?: No Time of Disposition: 17:50 - Out of Hospital Transfer - Req. Specs Out of Hospital Transfer - Requested Specifics: Other Emergency Center ([facility]) <Des Gunn - Last Filed: 11/04/23 17:57> Clinical Impression: GI bleed Disposition: OTHER INSTITUTION NOT DEFINED Condition: Stable Referrals: [facility],Clinic [Primary Care Provider] - 1-2 days
[2023-11-04 15:54] LABS: ALT 15 U/L (4-49); AST 24 U/L (17-59); African American GFR (CKD) 56 (>60 ml/min/1.73 sqM); Albumin 4.1 g/dL (3.5-5.0); Alkaline Phosphatase 56 U/L (38-126); Anion Gap 9 mmol/L; Blood Urea Nitrogen 40 mg/dL (9-20); Calcium 9.4 mg/dL (8.4-10.2); Carbon Dioxide 25 mmol/L (22-30); Chloride 105 mmol/L (98-107); Glucose 109 mg/dL (74-99); Lipase 143 U/L (23-300); Non-African American GFR(CKD) 48 (>60 ml/min/1.73 sqM); Potassium 5.2 mmol/L (3.5-5.1); Sodium 139 mmol/L (137-145); Total Bilirubin 0.4 mg/dL (0.2-1.3); Total Protein 7.4 g/dL (6.3-8.2)
[2023-11-04 16:07] LABS: Partial Thromboplastin Time 25.7 sec (22.0-30.0); Prothrombin Time 11.1 sec (10.0-12.5)
[2023-11-04] MEDS ORDERED: SODIUM CHLORIDE 0.9% 500 ML 500 ML IV ONE (17:16)
[2023-11-04] MEDS ORDERED: PANTOPRAZOLE 40 MG/10 ML VIAL IVP STA (17:24)
[2023-11-04 18:21] VITALS: BP 111/52; PULSE 63; RESP 18
== END 2023-11-04 18:40 | disposition other institution (70) ==
LOC: EC 14:41
DX: K92.2 Gastrointestinal hemorrhage, unspecified (principal); I11.0 Hypertensive heart disease with heart failure; I50.9 Heart failure, unspecified; I25.10 Atherosclerotic heart disease of native coronary artery without angina pectoris; Z87.891 Personal history of nicotine dependence; Z79.82 Long term (current) use of aspirin; Z88.8 Allergy status to other drugs, medicaments and biological substances
CPT/HCPCS: 36415; 86900; 86901; 80053; 83690; 83735; 84484; 85025; 85610; 85730; 86850; 82272; 99285; 96374; 96361; C9113

== ENCOUNTER 2024-01-30 09:43 | Emergency (ER) | payer OTHER ==
--- NOTE | 2024-01-30 10:50 | ED ---
General Adult HPI - General Source: patient, RN notes reviewed Mode of arrival: ambulatory Limitations: no limitations <Gualberto Jensen - Last Filed: 01/30/24 10:48> <Renny Valenzuela - Last Filed: 01/30/24 14:11> - General Chief complaint: Recheck/Abnormal Lab/Rx Stated complaint: Low Blood pressure Time Seen by Provider: 01/30/24 10:02 - History of Present Illness Initial comments: Quick [id number] male presents emergency department with chief complaint of low heart rate. Patient states that throughout the night his heart rate was in the 40s. Patient states he does feel weak, lightheaded. He denies any chest pain or shortness of breath no fevers. (Gualberto Jensen) This is an 88-year-old male who presents to the emergency department with a past medical history significant for hypertension and high cholesterol. Patient states he was started on losartan 4 days ago. Patient states it makes him feel terrible so he does not take it and he has not taken it last night. Patient comes in today because his blood pressure cuff was standing his pulse was in the 40s and he called his doctor and they told him to come to the emergency department. Patient denies any chest pain palpitation difficulty breathing shortness of breath. Patient denies any lightheadedness or dizziness. Patient has no complaints prior to or after he was registering a low pulse. [facility] rate was actually in the 70s patient states he still has no complaints whatsoever and has no symptoms. (Renny Valenzuela) - Related Data Home Medications Medication Instructions Recorded Confirmed Cholecalciferol [Vitamin D3 (25 50 mcg PO DAILY 09/22/21 08/04/23 Mcg = 1000 Iu)] Ezetimibe [Zetia] 10 mg PO DAILY 07/03/23 08/04/23 Nitroglycerin Sl Tabs [Nitrostat] 0.4 mg SL Q5M PRN 07/03/23 08/04/23 Alirocumab [Praluent Pen] 150 mg SQ Q14D 08/03/23 08/04/23 Aspirin [Adult Low Dose Aspirin EC] 81 mg PO DAILY 08/03/23 08/04/23 Previous Rx's Medication Instructions Recorded Clopidogrel [Plavix] 75 mg PO DAILY #30 tab 09/26/21 Metoprolol Succinate (ER) [Toprol 25 mg PO BID #60 09/26/21 XL] Spironolactone [Aldactone] 25 mg PO DAILY #30 tab 09/26/21 Furosemide [Lasix] 40 mg PO DAILY #60 tab 07/06/23 Losartan [Cozaar] 12.5 mg PO HS #0 tab 08/05/23 Dicyclomine [Bentyl] 10 mg PO BID PRN 7 Days #14 capsule 10/12/23 Allergies Allergy/AdvReac Type Severity Reaction Status Date / Time atorvastatin Allergy Rash/Hives Verified 10/12/23 19:06 Review of Systems ROS Other: All systems not noted in ROS Statement are negative. <Gualberto Jensen - Last Filed: 01/30/24 10:48> ROS Other: All systems not noted in ROS Statement are negative. <Renny Valenzuela - Last Filed: 01/30/24 14:11> ROS Statement: Those systems with pertinent positive or pertinent negative responses have been documented in the HPI. Past Medical History Past Medical History: Coronary Artery Disease (CAD), Cancer, Chest Pain / Angina, Heart Failure, Hyperlipidemia, Hypertension, Osteoarthritis (OA) Additional Past Medical History / Comment(s): cataract rt eye, past hx nosebleeds., states sob with activity, skin cancer., See Cardiology H & P. History of Any Multi-Drug Resistant Organisms: None Reported Past Surgical History: Back Surgery, Heart Catheterization With Stent, Joint Replacement Additional Past Surgical History / Comment(s): rt knee replacement, neck fusion,lt cataract, back surgery x3 Past Anesthesia/Blood Transfusion Reactions: No Reported Reaction Date of Last Stent Placement:: 09/22/21 Past Psychological History: No Psychological Hx Reported Smoking Status: Former smoker Past Alcohol Use History: None Reported Past Drug Use History: None Reported - Past Family History Mother Family Medical History: No Reported History Additional Family Medical History / Comment(s): heart conditions Son(s) Family Medical History: No Reported History Father Family Medical History: Myocardial Infarction (PR) <Gualberto Jensen - Last Filed: 01/30/24 10:48> General Exam Limitations: no limitations <Gualberto Jensen - Last Filed: 01/30/24 10:48> <Renny Valenzuela - Last Filed: 01/30/24 14:11> - General Exam Comments Initial Comments: Visual Physical Exam Vital signs reviewed General: Well-appearing, nontoxic, no acute distress. Head: Normocephalic, atraumatic Eyes: PERRLA, EOMI ENT: Airway patent Chest: Nonlabored breathing Skin: No visual rash, normal skin tone Neuro: Alert and oriented 3 Musculoskeletal: No gross abnormalities (Gualberto Jensen) GENERAL: Patient is well-developed and well-nourished. Patient is nontoxic and well- hydrated and is in no acute distress. ENT: Neck is soft and supple. No significant lymphadenopathy is noted. Oropharynx is clear. Moist mucous membranes. Neck has full range of motion without eliciting any pain. EYES: The sclera were anicteric and conjunctiva were pink and moist. Extraocular movements were intact and pupils were equal round and reactive to light. Eyelids were unremarkable. PULMONARY: Unlabored respirations. Good breath sounds bilaterally. No audible rales rhonchi or wheezing was noted. CARDIOVASCULAR: Patient's heart rate is 75 bpm ABDOMEN: Soft and nontender with normal bowel sounds. SKIN: Skin is clear with no lesions or rashes and otherwise unremarkable. NEUROLOGIC: Patient is alert and oriented x3. Cranial nerves II through XII are grossly intact. Motor and sensory are also intact. Normal speech, volume and content. Symmetrical smile. MUSCULOSKELETAL: Normal extremities with adequate strength and full range of motion. LYMPHATICS: No significant lymphadenopathy is noted PSYCHIATRIC: Normal psychiatric evaluation. (Renny Valenzuela) Course Vital Signs 01/30/24 10:30 Temperature 98 F Pulse Rate 48 L Respiratory 16 Rate Blood Pressure 138/54 O2 Sat by Pulse 98 Oximetry Medical Decision Making <Gualberto Jensen - Last Filed: 01/30/24 10:48> - Lab Data Result diagrams: 01/30/24 11:06 01/30/24 11:06 <Renny Valenzuela - Last Filed: 01/30/24 14:11> - Medical Decision Making I completed the quick note portion of this chart signed Gualberto Jensen PA-C (Gualberto Jensen) EKG is interpreted by myself. EKG shows a sinus rhythm with frequent PVCs. Patient is in a bigeminy pattern heart rate of 71 bpm SC interval is 209 QRS is 150 QT interval is 445 QTc is 468. Patient's EKG shows no ST segment ovation or depression. Was pt. sent in by a medical professional or institution (ELIANE Martins, BUDGET ASSISTANT, urgent care, hospital, or jail...) When possible be specific @ -Patient's primary medical care doctor told her to come to the emergency department Did you speak to anyone other than the patient for history (EMS, parent, family, police, friend...)? What history was obtained from this source @ -No Did you review nursing and triage notes (agree or disagree)? Why? @ -I reviewed and agree with nursing and triage notes Were old charts reviewed (outside hosp., previous admission, EMS record, old EKG, old radiological studies, urgent care reports/EKG's, jail records)? Report findings @ -No old charts were reviewed Differential Diagnosis (chest pain, altered mental status, abdominal pain women, abdominal pain men, vaginal bleeding, weakness, fever, dyspnea, syncope, headache, dizziness, GI bleed, back pain, seizure, CVA, palpatations, mental health, musculoskeletal)? @ -Bradycardia, hypotension, EKG interpreted by me (3pts min.). @ -As above X-rays interpreted by me (1pt min.). @ -None done CT interpreted by me (1pt min.). @ -None done U/S interpreted by me (1pt. min.). @ -None done What testing was considered but not performed or refused? (CT, X-rays, U/S, labs)? Why? @ -None What meds were considered but not given or refused? Why? @ -None Did you discuss the management of the patient with other professionals (professionals i.e. ELIANE Martins, BUDGET ASSISTANT, lab, RT, psych nurse, social research assistant, advertising copywriter, teacher, regulatory compliance officer, briefcase sewer)? Give summary @ -No Was smoking cessation discussed for >3mins.? @ -No Was critical care preformed (if so, how long)? @ -No Were there social determinants of health that impacted care today? How? (Homelessness, low income, unemployed, alcoholism, drug addiction, transportation, low edu. Level, literacy, decrease access to med. care, skilled nursing, rehab)? @ -No Was there de-escalation of care discussed even if they declined (Discuss DNR or withdrawal of care, Hospice)? DNR status @ -No What co-morbidities impacted this encounter? (DM, HTN, Smoking, COPD, CAD, Cancer, CVA, ARF, Chemo, Hep., AIDS, mental health diagnosis, sleep apnea, morbid obesity)? @ -None Was patient admitted / discharged? Hospital course, mention meds given and route, prescriptions, significant lab abnormalities, going to OR and other pertinent info. @ -Patient was asymptomatic prior to arrival and asymptomatic throughout his ED course. Patient was recording heart rate in the 40s and that is why he came in however I believe since he was asymptomatic and his current EKG is in bigeminy that the blood pressure cuff was only picking up the PVCs. Patient again is asymptomatic and states he will follow-up with his primary medical care doctor. Patient is informed he has no longer taking his losartan Undiagnosed new problem with uncertain prognosis? @ -No Drug Therapy requiring intensive monitoring for toxicity (Heparin, Nitro, Insulin, Cardizem)? @ -No Were any procedures done? @ -No Diagnosis/symptom? @ -Multiple PVCs, bigeminy Acute, or Chronic, or Acute on Chronic? @ -Acute Uncomplicated (without systemic symptoms) or Complicated (systemic symptoms)? @ -Complicated Side effects of treatment? @ -No Exacerbation, Progression, or Severe Exacerbation? @ -No Poses a threat to life or bodily function? How? (Chest pain, USA, PR, pneumonia, PE, COPD, DKA, ARF, appy, cholecystitis, CVA, Diverticulitis, Homicidal, Suicidal, threat to staff... and all critical care pts) @ -No (Renny Valenzuela) - Lab Data Lab Results 01/30/24 01/30/24 01/30/24 Range/Units 11:06 11:06 11:06 WBC 8.1 (3.8-10.6) k/uL RBC 4.70 (4.30-5.90) m/uL Hgb 13.6 (13.0-17.5) gm/dL Hct 40.6 (39.0-53.0) % MCV 86.6 (80.0-100.0) fL MCH 29.1 (25.0-35.0) pg MCHC 33.6 (31.0-37.0) g/dL RDW 13.6 (11.5-15.5) % Plt Count 213 (150-450) k/uL MPV 8.3 Neutrophils % 68 % Lymphocytes % 22 % Monocytes % 6 % Eosinophils % 2 % Basophils % 1 % Neutrophils # 5.5 (1.3-7.7) k/uL Lymphocytes # 1.8 (1.0-4.8) k/uL Monocytes # 0.5 (0-1.0) k/uL Eosinophils # 0.2 (0-0.7) k/uL Basophils # 0.1 (0-0.2) k/uL Sodium 138 (137-145) mmol/L Potassium 4.8 (3.5-5.1) mmol/L Chloride 103 (98-107) mmol/L Carbon Dioxide 24 (22-30) mmol/L Anion Gap 11 mmol/L BUN 32 H (9-20) mg/dL Creatinine 1.38 H (0.66-1.25) mg/dL Est GFR (CKD-EPI)AfAm 53 (>60 ml/min/1.73 sqM) Est GFR (CKD-EPI)NonAf 46 (>60 ml/min/1.73 sqM) Glucose 104 H (74-99) mg/dL Calcium 9.6 (8.4-10.2) mg/dL Magnesium 2.1 (1.6-2.3) mg/dL Total Bilirubin 0.7 (0.2-1.3) mg/dL AST 22 (17-59) U/L ALT 13 (4-49) U/L Alkaline Phosphatase 58 (38-126) U/L Troponin I <0.012 (0.000-0.034) ng/mL Total Protein 7.5 (6.3-8.2) g/dL Albumin 4.3 (3.5-5.0) g/dL Disposition <Gualberto Jensen - Last Filed: 01/30/24 10:48> Is patient prescribed a controlled substance at d/c from ED?: No Time of Disposition: 14:11 <Renny Valenzuela - Last Filed: 01/30/24 14:11> Clinical Impression: Bigeminy, PVCs (premature ventricular contractions) Disposition: HOME SELF-CARE Condition: Good Additional Instructions: Patient is to return to the emergency department for any chest pain difficulty breathing palpitations or lightheadedness. Referrals: [facility],Clinic [Primary Care Provider] - 1-2 days
[2024-01-30 11:13] VITALS: BP 138/54; PULSE 48; RESP 16; TEMP 98
[2024-01-30 11:26] LABS: Basophils # (A) 0.1 k/uL (0-0.2); Basophils % (A) 1 %; Eosinophils # (A) 0.2 k/uL (0-0.7); Eosinophils % (A) 2 %; HCT 40.6 % (39.0-53.0); HGB 13.6 gm/dL (13.0-17.5); Lymphocytes # (A) 1.8 k/uL (1.0-4.8); Lymphocytes % (A) 22 %; MCH 29.1 pg (25.0-35.0); MCHC 33.6 g/dL (31.0-37.0); MCV 86.6 fL (80.0-100.0); Mean Platelet Volume 8.3; Monocytes # (A) 0.5 k/uL (0-1.0); Monocytes % (A) 6 %; Neutrophils # (A) 5.5 k/uL (1.3-7.7); Neutrophils % (A) 68 %; Platelet Count 213 k/uL (150-450); RDW 13.6 % (11.5-15.5); WBC 8.1 k/uL (3.8-10.6)
[2024-01-30 11:42] LABS: ALT 13 U/L (4-49); AST 22 U/L (17-59); African American GFR (CKD) 53 (>60 ml/min/1.73 sqM); Albumin 4.3 g/dL (3.5-5.0); Alkaline Phosphatase 58 U/L (38-126); Anion Gap 11 mmol/L; Blood Urea Nitrogen 32 mg/dL (9-20); Calcium 9.6 mg/dL (8.4-10.2); Carbon Dioxide 24 mmol/L (22-30); Chloride 103 mmol/L (98-107); Glucose 104 mg/dL (74-99); Magnesium 2.1 mg/dL (1.6-2.3); Non-African American GFR(CKD) 46 (>60 ml/min/1.73 sqM); Potassium 4.8 mmol/L (3.5-5.1); Sodium 138 mmol/L (137-145); Total Bilirubin 0.7 mg/dL (0.2-1.3); Total Protein 7.5 g/dL (6.3-8.2)
== END 2024-01-30 14:52 | disposition home or self-care (01) ==
LOC: EC 09:43
DX: I49.3 Ventricular premature depolarization (principal); I45.10 Unspecified right bundle-branch block; I44.4 Left anterior fascicular block; Z87.891 Personal history of nicotine dependence; Z88.8 Allergy status to other drugs, medicaments and biological substances
CPT/HCPCS: 36415; 80053; 83735; 84484; 85025; 93005; 99283

== ENCOUNTER 2024-02-13 07:58 | Observation (INO) | payer OTHER ==
[2024-02-13] MEDS: ASPIRIN 81 MG PO STA (08:37)
--- NOTE | 2024-02-13 08:39 | ED ---
General Adult HPI - General Chief complaint: Shortness of Breath Stated complaint: SOB Time Seen by Provider: 02/13/24 08:05 Source: patient, EMS, RN notes reviewed, old records reviewed Mode of arrival: EMS Limitations: no limitations - History of Present Illness Initial comments: Patient is an 88-year-old male with past medical history remarkable for CAD, atrial fibrillation, heart failure, hypertension, hyperlipidemia presents emergency department complaining of worsening shortness of breath. States he has had progressively worsening shortness of breath for multiple days however noticed that today he had shortness of breath while at rest and it did not improve. Normally has it with exertion. Worse shortness of breath when laying down flat. Denies any worsening lower extremity edema. Endorses chronic nonproductive cough. Denies any chest pain, abdominal pain, nausea, vomiting. Denies any fevers or chills or sick contacts. States he is compliant with his medications. Presents for further evaluation at this time. - Related Data Home Medications Medication Instructions Recorded Confirmed Ezetimibe [Zetia] 10 mg PO DAILY 07/03/23 02/13/24 Nitroglycerin Sl Tabs [Nitrostat] 0.4 mg SL Q5M PRN 07/03/23 02/13/24 Alirocumab [Praluent Pen] 150 mg SQ Q14D 08/03/23 02/13/24 Aspirin [Adult Low Dose Aspirin EC] 81 mg PO DAILY 08/03/23 02/13/24 Metoprolol Succinate (ER) [Toprol 50 mg PO DAILY 02/13/24 02/13/24 Xl] Previous Rx's Medication Instructions Recorded Clopidogrel [Plavix] 75 mg PO DAILY #30 tab 09/26/21 Furosemide [Lasix] 40 mg PO DAILY #60 tab 07/06/23 Allergies Allergy/AdvReac Type Severity Reaction Status Date / Time atorvastatin Allergy Rash/Hives Verified 02/13/24 10:26 Review of Systems ROS Statement: Those systems with pertinent positive or pertinent negative responses have been documented in the HPI. Review of Systems: CONST: Denies fever EYES: Denies blurry vision ENT: Denies nasal congestion C/V: Denies Chest pain RESP: Endorses shortness of breath GI: Denies abdominal pain : Denies dysuria SKIN: Denies rash. MSK: Denies joint pain. NEURO: Denies headache ROS Other: All systems not noted in ROS Statement are negative. Past Medical History Past Medical History: Coronary Artery Disease (CAD), Cancer, Chest Pain / Angina, Heart Failure, Hyperlipidemia, Hypertension, Osteoarthritis (OA) Additional Past Medical History / Comment(s): cataract rt eye, past hx nosebleeds., states sob with activity, skin cancer., See Cardiology H & P. History of Any Multi-Drug Resistant Organisms: None Reported Past Surgical History: Back Surgery, Heart Catheterization With Stent, Joint Replacement Additional Past Surgical History / Comment(s): rt knee replacement, neck fusion,lt cataract, back surgery x3 Past Anesthesia/Blood Transfusion Reactions: No Reported Reaction Date of Last Stent Placement:: 09/22/21 Past Psychological History: No Psychological Hx Reported Smoking Status: Former smoker Past Alcohol Use History: None Reported Past Drug Use History: None Reported - Past Family History Mother Family Medical History: No Reported History Additional Family Medical History / Comment(s): heart conditions Son(s) Family Medical History: No Reported History Father Family Medical History: Myocardial Infarction (MD) General Exam - General Exam Comments Initial Comments: General: Appears in no acute distress. HEAD: Normal with no signs of head trauma. EYES: PERRLA, EOMI, conjunctiva normal, no discharge. ENT: Hearing grossly intact, normal oropharynx. RESPIRATORY: Clear breath sounds bilaterally. No wheezes, rales, or rhonchi. No hypoxia. No increased work of breathing. C/V: Regular rate and rhythm. S1 and S2 auscultated, no edema, peripheral pulses 2+ and intact throughout ABD: Abd is soft, nontender, nondistended EXT: Normal range of motion, no obvious deformity SKIN: No rashes or lesions observed on exposed skin. NEURO: Alert and oriented x 4. No focal sensory or strength deficits. Limitations: no limitations Course Vital Signs 02/13/24 02/13/24 02/13/24 08:02 09:00 10:00 Temperature 97.6 F Pulse Rate 77 75 78 Respiratory 18 25 H 19 Rate Blood Pressure 108/64 108/64 96/70 O2 Sat by Pulse 96 98 Oximetry 02/13/24 11:00 Temperature Pulse Rate 85 Respiratory 18 Rate Blood Pressure 110/70 O2 Sat by Pulse 96 Oximetry Medical Decision Making - Medical Decision Making Was pt. sent in by a medical professional or institution (, PA, CAREER PLACEMENT SERVICES COUNSELOR, urgent care, hospital, or halfway...) When possible be specific @ -No Did you speak to anyone other than the patient for history (EMS, parent, family, police, friend...)? What history was obtained from this source @ -No Did you review nursing and triage notes (agree or disagree)? Why? @ -I reviewed and agree with nursing and triage notes Were old charts reviewed (outside hosp., previous admission, EMS record, old EKG, old radiological studies, urgent care reports/EKG's, halfway records)? Report findings @ -Old charts reviewed Differential Diagnosis (chest pain, altered mental status, abdominal pain women, abdominal pain men, vaginal bleeding, weakness, fever, dyspnea, syncope, he adache, dizziness, GI bleed, back pain, seizure, CVA, palpatations, mental health, musculoskeletal)? @ -Differential Dyspnea: Coronary syndrome, arrhythmia, tamponade, asthma, COPD, pulmonary embolism, pneumonia, pneumothorax, pulmonary effusion, anaphylaxis, diabetic ketoacidosis, flailed chest, pulmonary contusion, diaphragmatic rupture, anemia, neuromuscular, this is not meant to be an all-inclusive list. EKG interpreted by me (3pts min.). @ -As above X-rays interpreted by me (1pt min.). @ -X-ray shows evidence of mild pulm vascular congestion. CT interpreted by me (1pt min.). @ -None done U/S interpreted by me (1pt. min.). @ -None done What testing was considered but not performed or refused? (CT, X-rays, U/S, labs)? Why? @ -None What meds were considered but not given or refused? Why? @ -None Did you discuss the management of the patient with other professionals (professionals i.e. , PA, CAREER PLACEMENT SERVICES COUNSELOR, lab, RT, psych nurse, clinical social work therapist, order checker, teacher, energy control officer, pillowcase turner)? Give summary @ -Discussed with admitting team, Dr. Ross who accepted the admission. Was smoking cessation discussed for >3mins.? @ -No Was critical care preformed (if so, how long)? @ -No Were there social determinants of health that impacted care today? How? (Homelessness, low income, unemployed, alcoholism, drug addiction, transportation, low edu. Level, literacy, decrease access to med. care, group home, rehab)? @ -No Was there de-escalation of care discussed even if they declined (Discuss DNR or withdrawal of care, Hospice)? DNR status @ -No What co-morbidities impacted this encounter? (DM, HTN, Smoking, COPD, CAD, Cancer, CVA, ARF, Chemo, Hep., AIDS, mental health diagnosis, sleep apnea, morbid obesity)? @ -None Was patient admitted / discharged? Hospital course, mention meds given and route, prescriptions, significant lab abnormalities, going to OR and other pertinent info. @ -Patient presents complaining of shortness of breath. Has significant cardiac history. Seems to be a progressive issue for the patient. Clinical symptoms of CHF include worsening orthopnea, exertional dyspnea, nonproductive cough. We will obtain cardiopulmonary workup. Patient was in agreement this plan. Vital signs currently within acceptable limits. EKG shows no signs of acute ischemia. Chronic frequent PVCs seen on prior EKGs.Chest x-ray shows pulmonary vascular congestion. Labs are remarkable for elevated BNP of 16,000. Remainder of labs within acceptable limits. At this time I updated the patient. I would like to admit the patient for diuresis and evaluation by cardiology. He was in agreement this plan. Patient started on IV Lasix. Cardiology consulted. I spoke with the admitting team, Dr. Ross who accepted the admission. Undiagnosed new problem with uncertain prognosis? @ -No Drug Therapy requiring intensive monitoring for toxicity (Heparin, Nitro, Insu missy, Cardizem)? @ -No Were any procedures done? @ -No Diagnosis/symptom? @ -Dyspnea, CHF Acute, or Chronic, or Acute on Chronic? @ -Acute on chronic Uncomplicated (without systemic symptoms) or Complicated (systemic symptoms)? @ -Complicated Side effects of treatment? @ -None Exacerbation, Progression, or Severe Exacerbation] @ -No Poses a threat to life or bodily function? @ -Yes - Lab Data Result diagrams: 02/13/24 08:38 02/13/24 08:38 Lab Results 02/13/24 02/13/24 02/13/24 Range/Units 08:38 08:38 08:38 WBC 10.0 (3.8-10.6) k/uL RBC 4.68 (4.30-5.90) m/uL Hgb 13.1 (13.0-17.5) gm/dL Hct 41.0 (39.0-53.0) % MCV 87.7 (80.0-100.0) fL MCH 27.9 (25.0-35.0) pg MCHC 31.8 (31.0-37.0) g/dL RDW 13.8 (11.5-15.5) % Plt Count 210 (150-450) k/uL MPV 8.5 Neutrophils % 73 % Lymphocytes % 15 % Monocytes % 7 % Eosinophils % 3 % Basophils % 1 % Neutrophils # 7.3 (1.3-7.7) k/uL Lymphocytes # 1.5 (1.0-4.8) k/uL Monocytes # 0.7 (0-1.0) k/uL Eosinophils # 0.3 (0-0.7) k/uL Basophils # 0.1 (0-0.2) k/uL PT 11.9 (10.0-12.5) sec INR 1.1 (<1.2) APTT 27.0 (22.0-30.0) sec Sodium 138 (137-145) mmol/L Potassium 4.4 (3.5-5.1) mmol/L Chloride 106 (98-107) mmol/L Carbon Dioxide 25 (22-30) mmol/L Anion Gap 7 mmol/L BUN 32 H (9-20) mg/dL Creatinine 1.22 (0.66-1.25) mg/dL Est GFR (CKD-EPI)AfAm 62 (>60 ml/min/1.73 sqM) Est GFR (CKD-EPI)NonAf 53 (>60 ml/min/1.73 sqM) Glucose 90 (74-99) mg/dL Calcium 9.0 (8.4-10.2) mg/dL Magnesium 2.0 (1.6-2.3) mg/dL Total Bilirubin 1.0 (0.2-1.3) mg/dL AST 25 (17-59) U/L ALT 16 (4-49) U/L Alkaline Phosphatase 53 (38-126) U/L Troponin I (0.000-0.034) ng/mL NT-Pro-B Natriuret Pep 40198 pg/mL Total Protein 6.9 (6.3-8.2) g/dL Albumin 3.8 (3.5-5.0) g/dL Influenza Type A (PCR) (Not Detectd) Influenza Type B (PCR) (Not Detectd) RSV (PCR) (Not Detectd) SARS-CoV-2 (PCR) (Not Detectd) 02/13/24 02/13/24 Range/Units 08:38 08:38 WBC (3.8-10.6) k/uL RBC (4.30-5.90) m/uL Hgb (13.0-17.5) gm/dL Hct (39.0-53.0) % MCV (80.0-100.0) fL MCH (25.0-35.0) pg MCHC (31.0-37.0) g/dL RDW (11.5-15.5) % Plt Count (150-450) k/uL MPV Neutrophils % % Lymphocytes % % Monocytes % % Eosinophils % % Basophils % % Neutrophils # (1.3-7.7) k/uL Lymphocytes # (1.0-4.8) k/uL Monocytes # (0-1.0) k/uL Eosinophils # (0-0.7) k/uL Basophils # (0-0.2) k/uL PT (10.0-12.5) sec INR (<1.2) APTT (22.0-30.0) sec Sodium (137-145) mmol/L Potassium (3.5-5.1) mmol/L Chloride (98-107) mmol/L Carbon Dioxide (22-30) mmol/L Anion Gap mmol/L BUN (9-20) mg/dL Creatinine (0.66-1.25) mg/dL Est GFR (CKD-EPI)AfAm (>60 ml/min/1.73 sqM) Est GFR (CKD-EPI)NonAf (>60 ml/min/1.73 sqM) Glucose (74-99) mg/dL Calcium (8.4-10.2) mg/dL Magnesium (1.6-2.3) mg/dL Total Bilirubin (0.2-1.3) mg/dL AST (17-59) U/L ALT (4-49) U/L Alkaline Phosphatase (38-126) U/L Troponin I 0.016 (0.000-0.034) ng/mL NT-Pro-B Natriuret Pep pg/mL Total Protein (6.3-8.2) g/dL Albumin (3.5-5.0) g/dL Influenza Type A (PCR) Not Detected (Not Detectd) Influenza Type B (PCR) Not Detected (Not Detectd) RSV (PCR) Not Detected (Not Detectd) SARS-CoV-2 (PCR) Not Detected (Not Detectd) - EKG Data -: EKG Interpreted by Me EKG Comments: 12-lead Electrocardiogram Interpretation Note EKG was reviewed and interpreted by myself. 12-lead ECG performed at 0810 is interpreted by me as revealing normal sinus rhythm at a rate of 71 beats per minute. Frequent PVCs present. Right bundle branch block morphology. Indeterminate axis. [place] interval is 207 ms, QRS durations 143 ms, QTc is 469 ms... There were no ST or T wave abnormalities to suggest myocardial ischemia or injury. R wave progression across the precordium was satisfactory. By my interpretation this EKG is non-diagnostic for acute ischemia. Disposition Clinical Impression: Dyspnea, CHF (congestive heart failure) Disposition: ADMITTED IP TO THIS HOSP Condition: Stable Time of Disposition: 10:35
[2024-02-13 08:48] LABS: Basophils # (A) 0.1 k/uL (0-0.2); Basophils % (A) 1 %; Eosinophils # (A) 0.3 k/uL (0-0.7); Eosinophils % (A) 3 %; HGB 13.1 gm/dL (13.0-17.5); Lymphocytes # (A) 1.5 k/uL (1.0-4.8); Lymphocytes % (A) 15 %; MCH 27.9 pg (25.0-35.0); MCHC 31.8 g/dL (31.0-37.0); MCV 87.7 fL (80.0-100.0); Mean Platelet Volume 8.5; Monocytes # (A) 0.7 k/uL (0-1.0); Monocytes % (A) 7 %; Neutrophils # (A) 7.3 k/uL (1.3-7.7); Neutrophils % (A) 73 %; Platelet Count 210 k/uL (150-450); RBC 4.68 m/uL (4.30-5.90); RDW 13.8 % (11.5-15.5)
--- NOTE | 2024-02-13 08:56 | XR ---
EXAMINATION TYPE: XR chest 2V DATE OF EXAM: 02/13/2024 COMPARISON: 07/14/2023 TECHNIQUE: PA and lateral views submitted. HISTORY: Chest pain FINDINGS: The heart is enlarged and there is a metallic device overlying the left hemithorax. Small right pleur al effusion with coarsened interstitium. Underlying COPD. Diffuse osteopenia and arthropathy of the o f the shoulders. No sizable pneumothorax.. Osseous structures demonstrate hypertrophic and degenerati ve changes of the spine. IMPRESSION: 1. COPD with small right pleural effusion. Mild central venous congestion in the differential diagnos is.
[2024-02-13 08:59] LABS: INR 1.1 (<1.2); Prothrombin Time 11.9 sec (10.0-12.5)
[2024-02-13 09:02] LABS: ALT 16 U/L (4-49); AST 25 U/L (17-59); African American GFR (CKD) 62 (>60 ml/min/1.73 sqM); Albumin 3.8 g/dL (3.5-5.0); Alkaline Phosphatase 53 U/L (38-126); Anion Gap 7 mmol/L; Blood Urea Nitrogen 32 mg/dL (9-20); Carbon Dioxide 25 mmol/L (22-30); Chloride 106 mmol/L (98-107); Glucose 90 mg/dL (74-99); Non-African American GFR(CKD) 53 (>60 ml/min/1.73 sqM); Potassium 4.4 mmol/L (3.5-5.1); Sodium 138 mmol/L (137-145); Total Protein 6.9 g/dL (6.3-8.2)
[2024-02-13 09:11] LABS: NT-Pro-B-Type Natriuretic Pept 16300 pg/mL
[2024-02-13] MEDS ORDERED: NALOXONE 0.4 MG/ML 1 ML VIAL IV PRN (10:46)
[2024-02-13] MEDS: FUROSEMIDE 10 MG/ML 4 ML VIAL IV STA (11:01)
[2024-02-13 11:49] LABS: Appearance,Urine Clear (Clear); Bilirubin,Urine Negative (Negative); Blood,Urine Negative (Negative); Color,Urine Colorless; Glucose,Urine (UA) Negative (Negative); Ketones,Urine Negative (Negative); Leukocyte Esterase,Urine Negative (Negative); Nitrite,Urine Negative (Negative); PH, Urine 6.5 (5.0-8.0); Protein,Urine Negative (Negative); Specific Gravity,Urine 1.011 (1.001-1.035); Urobilinogen,Urine <2.0 mg/dL (<2.0)
[2024-02-13] MEDS ORDERED: MELATONIN 3 MG TABLET PO PRN (15:59)
[2024-02-13] MEDS ORDERED: ONDANSETRON 4 MG/2 ML VIAL IVP PRN (15:59)
[2024-02-13] MEDS ORDERED: ACETAMINOPHEN TAB 325 MG TAB PO PRN (15:59)
--- NOTE | 2024-02-13 16:02 | P.HPIM ---
History of Present Illness H&P Date: 02/13/24 Patient is an 88-year-old male with known history of COPD, coronary artery disease status post stenting, hypertension, dyslipidemia, HFrEF with ejection fraction 25 to 30%, multiple other comorbid conditions who presented to the emergency department with complaints of shortness of breath. In the ER he underwent an extensive evaluation. On arrival his vital signs are within normal limits. Initial laboratory analysis consisted of CBC, coags, CMP, troponin all of which were unremarkable. BNP was elevated at 6300. Influenza A/B/RSV/COVID- 19 PCR testing was negative. Chest x-ray demonstrated COPD with small right pleural effusion and central venous congestion. In the emergency department he was given a dose of IV Lasix and aspirin. Arrangements were made for admission. Patient seen and examined at bedside. Patient reports that he started having some shortness of breath last evening associated with lightheadedness and dizziness. When he gets up both of the symptoms are worse. He also reports a sensation of "floating" in his shoulders but that the pain is so severe he did not know what to do with it. He denies any overt chest discomfort. He denies any nausea or vomiting. He states he was just at his exhibit designer Dr. Shukla yesterday. He reports that he was at [facility] 2 weeks ago and underwent some type of procedure for gastrointestinal bleeding and had stents placed he then states he was seen at Dr. Shukla's office 2 days ago and his medications were again adjusted. Patient does seem somewhat overwhelmed and confused. He also complains of a poking in his right groin after his procedures at [facility] which happens every time he moves. Vital signs reviewed General: ill-appearing, no acute distress, appears at stated age Derm: warm, dry Eyes: EOMI, no lid lag, anicteric sclera, pupils equal round reactive to light ENT: Nose and ears atraumatic Cardiovascular: S1S2 reg, no murmur, no edema Lungs: Coarse breath sounds bilateral, no rhonchi, no rales, no wheeze, no accessory muscle use Abdominal: soft, nontender to palpation, no guarding Ext: no gross muscle atrophy, no contractures Neuro: CN II-XII grossly intact, No focal neuro deficits Psych: Alert, oriented, pressured speech, appears anxious Assessment/Plan: Acute exacerbation of HFrEF with known ejection fraction of 25 to 30% Hypertension Dyslipidemia Coronary artery disease - Lasix 40 mg IV twice daily -Metoprolol 50 mg daily, Zetia 10 mg daily, aspirin 81 mg daily, Plavix 75 mg daily -Patient is not chronically on MALIA inhibitor, ARB, or menorrhalgia corticoid. Will await [facility] from [facility] before initiating these medications -Telemetry -Check echocardiogram -Consult cardiology -Strict I's and O's, daily weights Groin pain -Check stat x-ray pelvis to rule out retained foreign body -Tylenol 650 mg as needed Chronic: Recent GI bleed per patient History of nosebleeds COPD without exacerbation Imaging: Chest x-ray is reviewed by myself shows increased pulmonary vascular congestion Data Review: As per HPI The patient is admitted with an anticipated greater than 2 midnight stay for evaluation of acute exacerbation of systolic congestive heart failure. Surrogate decision-maker: Son's CODE STATUS: DO NOT RESUSCITATE DVT prophylaxis: Heparin Anticipated discharge date: Pending Clinical Course Anticipated discharge place: Pending Clinical Course This dictation was prepared using [employer] voice recognition software. Though every attempt is made to correct errors during dictation some may still exist. Past Medical History Past Medical History: Coronary Artery Disease (CAD), Cancer, Chest Pain / Angina, Heart Failure, COPD, Hyperlipidemia, Hypertension, Osteoarthritis (OA) Additional Past Medical History / Comment(s): cataract rt eye, past hx nosebleeds., states sob with activity, skin cancer., See Cardiology H & P. History of Any Multi-Drug Resistant Organisms: None Reported Past Surgical History: Back Surgery, Heart Catheterization With Stent, Joint Replacement Additional Past Surgical History / Comment(s): rt knee replacement, neck fusion,lt cataract, back surgery x3 Past Anesthesia/Blood Transfusion Reactions: No Reported Reaction Date of Last Stent Placement:: 09/22/21 Past Psychological History: No Psychological Hx Reported Smoking Status: Former smoker Past Alcohol Use History: None Reported Past Drug Use History: None Reported - Past Family History Mother Family Medical History: No Reported History Additional Family Medical History / Comment(s): heart conditions Son(s) Family Medical History: No Reported History Father Family Medical History: Myocardial Infarction ([place]) Medications and Allergies Home Medications Medication Instructions Recorded Confirmed Type Clopidogrel [Plavix] 75 mg PO DAILY #30 tab 09/26/21 02/13/24 Rx Ezetimibe [Zetia] 10 mg PO DAILY 07/03/23 02/13/24 History Nitroglycerin Sl Tabs [Nitrostat] 0.4 mg SL Q5M PRN 07/03/23 02/13/24 History Furosemide [Lasix] 40 mg PO DAILY #60 tab 07/06/23 02/13/24 Rx Alirocumab [Praluent Pen] 150 mg SQ Q14D 08/03/23 02/13/24 History Aspirin [Adult Low Dose Aspirin EC] 81 mg PO DAILY 08/03/23 02/13/24 History Metoprolol Succinate (ER) [Toprol 50 mg PO DAILY 02/13/24 02/13/24 History Xl] Allergies Allergy/AdvReac Type Severity Reaction Status Date / Time atorvastatin Allergy Rash/Hives Verified 02/13/24 10:26 Physical Exam Osteopathic Statement: *. No significant issues noted on an osteopathic st ructural exam other than those noted in the History and Physical/Consult. Vitals: Vital Signs Temp Pulse Resp BP Pulse Ox 02/13/24 14:00 81 26 H 104/77 95 02/13/24 11:00 85 18 110/70 96 02/13/24 10:00 78 19 96/70 02/13/24 09:00 75 25 H 108/64 98 02/13/24 08:02 97.6 F 77 18 108/64 96 Intake and Output 02/13/24 02/13/24 02/13/24 06:59 14:59 22:59 Other: Weight 68.946 kg Results CBC & Chem 7: 02/13/24 08:38 02/13/24 08:38 Labs: Abnormal Lab Results - Last 24 Hours (Table) 02/13/24 Range/Units 08:38 BUN 32 H (9-20) mg/dL
--- NOTE | 2024-02-13 16:32 | XR ---
EXAMINATION TYPE: XR pelvis AP view DATE OF EXAM: 02/13/2024 4:11 PM CLINICAL INDICATION:Male, 88 years old with history of pain right groin with movement; [facility] COMPARISON: 11/01/2023 TECHNIQUE: The pelvis was examined in a single projection. FINDINGS: There is no evidence of fracture or dislocation. There is no soft tissue abnormality. Pelv ic phleboliths are present. The spine appears intact. At this course of the arterial vasculature. Finch rgical anchors are seen along the anterior abdominal wall. Embolization coils in the right lower quad rant. Multilevel degeneration changes of the spine. Mild to moderate hip osteoarthrosis with joint sp yaakov narrowing and osteophyte formation. IMPRESSION: 1. No acute osseous pathology. 2. Moderate bilateral hip osteoarthrosis.
[2024-02-13] MEDS: FUROSEMIDE 10 MG/ML 4 ML VIAL IV SCH (21:22)
[2024-02-13] MEDS: HEPARIN SODIUM,PORCINE 5,000 UNIT/ML 1 ML VIAL SQ SCH (21:23)
[2024-02-14] MEDS: EZETIMIBE 10 MG TAB PO SCH (08:33)
[2024-02-14] MEDS: METOPROLOL SUCCINATE (ER) 50 MG TAB.ER.24H PO SCH (08:33)
[2024-02-14] MEDS: ASPIRIN 81 MG PO SCH (08:33)
[2024-02-14] MEDS: CLOPIDOGREL 75 MG TAB PO SCH (08:33)
--- NOTE | 2024-02-14 08:34 | P.CRDCN ---
History of Present Illness History of present illness: HISTORY OF PRESENT ILLNESS: This is a 88-year-old male with a past medical history significant for coronary artery disease with previous stenting, ischemic cardiomyopathy, congestive heart failure, hypertension, hyperlipidemia, right bundle branch block, and frequent PVCs. Patient follows in the office with Dr. Cuevas. We have been asked to see the patient in consultation for congestive heart failure. Patient examined at the bedside. Patient states he presented to the hospital with a chief complaint of shortness of breath. He states he has been feeling short of breath for the p ast week but it started getting worse yesterday morning. He denies having any chest pain or pressure. He also reports having muscle cramps in his legs but denied having any swelling. The patient was found to be in acute CHF upon admission to the hospital was started on IV Lasix. He does report improvement in his shortness of breath this morning but does not feel like he is back to his baseline. Blood pressures are soft with a systolic in the 90s. DIAGNOSTICS: - EKG reveals sinus mechanism with bigeminy. Right bundle branch block. - Chest xray COPD with small right pleural effusion. Mild central venous congestion and differential diagnosis.. - Laboratory data: WBC 10.0. Hemoglobin 13.1. Platelet count 210. Sodium 138. Potassium 4.4. BUN 32. Creatinine 1.22. Magnesium 2.0. proBNP 16,300. Troponin negative x 1. - Current home cardiac medications include Lasix 40 mg daily, aspirin 81 mg daily, Plavix 75 mg daily, Zetia 10 mg daily, metoprolol succinate 50 mg daily. - Most recent echocardiogram obtained in October 2023 in the office revealed ejection fraction 35%, medium sized hypokinetic area of the inferior septal wall. Small hypokinetic area of the inferior wall from base to mid wall. There is mild left ventricular hypertrophy. - Cardiac catheterization history: July 2023 with stenting to the RCA. Patient had restenotic lesion of the ostium of the RCA of about 95%. The RCA is a super dominant vessel. Mid LAD is totally occluded and is a chronic occlusion collateralized by the right coronary artery. Circumflex has noncritical disease and previously stented segment in the mid circumflex is patent. RCA ostium is severely stenosed and seems to be the culprit lesion. REVIEW OF SYSTEMS: At the time of my exam: CONSTITUTIONAL: Denies fever or chills. HEENT: Denies blurred vision, vision changes, or eye pain. Denies hemoptysis CARDIOVASCULAR: Denies chest pain. Denies orthopnea. Denies PND. Denies palpitations RESPIRATORY: Denies shortness of breath. GASTROINTESTINAL: Denies abdominal pain. Denies nausea or vomiting. HEMATOLOGIC: Denies bleeding disorders. GENITOURINARY: Denies any blood in urine. SKIN: Denies pruitis. Denies rash. PHYSICAL EXAM: VITAL SIGNS: Reviewed. GENERAL: Well-developed in no acute distress. HEENT: Head is normocephalic. Pupils are equal, round. Sclerae anicteric. Mucous membranes of the mouth are moist. Neck supple. No JVD or thyromegaly LUNGS: Respirations even and unlabored. Lungs essentially clear to auscultation bilaterally. HEART: Regular rate and rhythm. S1 and S2 heard. ABDOMEN: Soft. Nondistended. Nontender. EXTREMITIES: Normal range of motion. No clubbing or cyanosis. Peripheral pulses intact. No lower extremity edema NEUROLOGIC: Awake and alert. Oriented x 3. ASSESSMENT: Shortness of breath Acute on chronic heart failure with reduced EF, 35% Coronary artery disease with previous stenting, most recently in July 2023 to stenting of the RCA Ischemic cardiomyopathy Hypertension Hyperlipidemia Right bundle branch block Frequent PVCs and bigeminy, known History of statin myopathy PLAN: 2D echo has been ordered. Await results. Continue current cardiac medications Continue IV diuretics Daily weights, accurate intake and output, and monitoring of kidney function Possible discharge home this evening versus tomorrow Further recommendations pending patient course Nurse practitioner note has been reviewed by physician. Signing provider agrees with the documented findings, assessment, and plan of care documented by SCREEN TACKER as a scribe. Past Medical History Past Medical History: Coronary Artery Disease (CAD), Cancer, Chest Pain / Angina, Heart Failure, COPD, Hyperlipidemia, Hypertension, Osteoarthritis (OA) Additional Past Medical History / Comment(s): cataract rt eye, past hx nosebleeds., states sob with activity, skin cancer., See Cardiology H & P. History of Any Multi-Drug Resistant Organisms: None Reported Past Surgical History: Back Surgery, Heart Catheterization With Stent, Joint Replacement Additional Past Surgical History / Comment(s): rt knee replacement, neck fusion,lt cataract, back surgery x3 Past Anesthesia/Blood Transfusion Reactions: No Reported Reaction Date of Last Stent Placement:: 09/22/21 Past Psychological History: No Psychological Hx Reported Smoking Status: Former smoker Past Alcohol Use History: None Reported Additional Past Alcohol Use History / Comment(s): quit smoking 40 yrs ago, hx of 1 - 1 1/2 ppd. Past Drug Use History: None Reported - Past Family History Mother Family Medical History: No Reported History Additional Family Medical History / Comment(s): heart conditions Son(s) Family Medical History: No Reported History Father Family Medical History: Myocardial Infarction ([place]) Medications and Allergies Home Medications Medication Instructions Recorded Confirmed Type Clopidogrel [Plavix] 75 mg PO DAILY #30 tab 09/26/21 02/13/24 Rx Ezetimibe [Zetia] 10 mg PO DAILY 07/03/23 02/13/24 History Nitroglycerin Sl Tabs [Nitrostat] 0.4 mg SL Q5M PRN 07/03/23 02/13/24 History Furosemide [Lasix] 40 mg PO DAILY #60 tab 07/06/23 02/13/24 Rx Alirocumab [Praluent Pen] 150 mg SQ Q14D 08/03/23 02/13/24 History Aspirin [Adult Low Dose Aspirin EC] 81 mg PO DAILY 08/03/23 02/13/24 History Metoprolol Succinate (ER) [Toprol 50 mg PO DAILY 02/13/24 02/13/24 History Xl] Allergies Allergy/AdvReac Type Severity Reaction Status Date / Time atorvastatin Allergy Rash/Hives Verified 02/13/24 10:26 Physical Exam Vitals: Vital Signs Temp Pulse Pulse Pulse Pulse Pulse Resp 02/14/24 07:00 98 F 49 L 97 44 L 16 02/14/24 01:41 98.1 F 82 16 02/13/24 19:22 97.5 F L 81 16 02/13/24 17:05 97.5 F L 77 20 02/13/24 16:29 71 18 02/13/24 14:00 81 26 H 02/13/24 11:00 85 18 02/13/24 10:00 78 19 02/13/24 09:00 75 25 H 02/13/24 08:02 97.6 F 77 18 BP BP BP BP BP Pulse Ox 02/14/24 07:00 91/58 101/70 99/62 97 02/14/24 01:41 96/56 97 02/13/24 19:22 95/59 97 02/13/24 17:05 113/76 94 L 02/13/24 16:29 111/72 97 02/13/24 14:00 104/77 95 02/13/24 11:00 110/70 96 02/13/24 10:00 96/70 02/13/24 09:00 108/64 98 02/13/24 08:02 108/64 96 Intake and Output 02/13/24 02/14/24 02/14/24 22:59 06:59 14:59 Output Total 300 Balance -300 Output: Urine 300 Other: # Voids 2 1 Weight 68.946 kg 63.9 kg Results 02/13/24 08:38 02/13/24 08:38 Cardiac Enzymes 02/13/24 02/13/24 Range/Units 08:38 08:38 AST 25 (17-59) U/L Troponin I 0.016 (0.000-0.034) ng/mL Coagulation 02/13/24 Range/Units 08:38 PT 11.9 (10.0-12.5) sec APTT 27.0 (22.0-30.0) sec CBC 02/13/24 Range/Units 08:38 WBC 10.0 (3.8-10.6) k/uL RBC 4.68 (4.30-5.90) m/uL Hgb 13.1 (13.0-17.5) gm/dL Hct 41.0 (39.0-53.0) % Plt Count 210 (150-450) k/uL Comprehensive Metabolic Panel 02/13/24 Range/Units 08:38 Sodium 138 (137-145) mmol/L Potassium 4.4 (3.5-5.1) mmol/L Chloride 106 (98-107) mmol/L Carbon Dioxide 25 (22-30) mmol/L BUN 32 H (9-20) mg/dL Creatinine 1.22 (0.66-1.25) mg/dL Glucose 90 (74-99) mg/dL Calcium 9.0 (8.4-10.2) mg/dL AST 25 (17-59) U/L ALT 16 (4-49) U/L Alkaline Phosphatase 53 (38-126) U/L Total Protein 6.9 (6.3-8.2) g/dL Albumin 3.8 (3.5-5.0) g/dL Current Medications Generic Name Dose Route Start Last Admin Trade Name Xochilt PRN Reason Stop Dose Admin Acetaminophen 650 mg 02/13/24 15:59 Acetaminophen Tab 325 Mg Tab PO Q6HR PRN Mild Pain or Fever > 100.5 Aspirin 81 mg 02/14/24 09:00 Aspirin 81 Mg PO DAILY [facility] Clopidogrel Bisulfate 75 mg 02/14/24 09:00 Clopidogrel 75 Mg Tab PO DAILY ROBERTO Ezetimibe 10 mg 02/14/24 09:00 Ezetimibe 10 Mg Tab PO DAILY ROBERTO Furosemide 40 mg 02/13/24 21:00 02/13/24 21:22 Furosemide 10 Mg/Ml 4 Ml Vial IV 40 mg Q12HR ROBERTO Administration Heparin Sodium (Porcine) 5,000 unit 02/13/24 21:00 02/13/24 21:23 Heparin Sodium,Porcine 5,000 Unit/Ml 1 Ml Vial SQ 5,000 unit Q12HR ROBERTO Administration Melatonin 3 mg 02/13/24 15:59 Melatonin 3 Mg Tablet PO HS PRN Insomnia Metoprolol Succinate 50 mg 02/14/24 09:00 Metoprolol Succinate (Er) 50 Mg Tab.Er.24h PO DAILY ROBERTO Naloxone HCl 0.2 mg 02/13/24 10:46 Naloxone 0.4 Mg/Ml 1 Ml Vial IV Q2M PRN Opioid Reversal Ondansetron HCl 4 mg 02/13/24 15:59 Ondansetron 4 Mg/2 Ml Vial IVP Q8HR PRN Nausea And Vomiting Intake and Output 02/13/24 02/14/24 02/14/24 22:59 06:59 14:59 Output Total 300 Balance -300 Output: Urine 300 Other: # Voids 2 1 Weight 68.946 kg 63.9 kg 02/13/24 08:38 02/13/24 08:38
[2024-02-14 08:44] LABS: HCT 45.8 % (39.0-53.0); HGB 14.6 gm/dL (13.0-17.5); MCH 27.9 pg (25.0-35.0); MCHC 31.8 g/dL (31.0-37.0); MCV 87.6 fL (80.0-100.0); Mean Platelet Volume 8.1; Platelet Count 246 k/uL (150-450); RBC 5.23 m/uL (4.30-5.90); RDW 13.7 % (11.5-15.5)
[2024-02-14 09:06] LABS: African American GFR (CKD) 49 (>60 ml/min/1.73 sqM); Anion Gap 8 mmol/L; Blood Urea Nitrogen 37 mg/dL (9-20); Calcium 9.4 mg/dL (8.4-10.2); Carbon Dioxide 27 mmol/L (22-30); Chloride 103 mmol/L (98-107); Glucose 83 mg/dL (74-99); Non-African American GFR(CKD) 42 (>60 ml/min/1.73 sqM); Potassium 4.4 mmol/L (3.5-5.1); Sodium 138 mmol/L (137-145)
[2024-02-14 12:56] VITALS: BMI 20.2
--- NOTE | 2024-02-14 15:30 | P.PN ---
Subjective Progress Note Date: 02/14/24 (delayed charting seen at 0930) Patient is an 88-year-old male with known history of COPD, coronary artery disease status post stenting, hypertension, dyslipidemia, HFrEF with ejection fraction 25 to 30%, multiple other comorbid conditions who presented to the emergency department with complaints of shortness of breath. In the ER he underwent an extensive evaluation. On arrival his vital signs are within normal limits. Initial laboratory analysis consisted of CBC, coags, CMP, troponin all of which were unremarkable. BNP was elevated at 6300. Influenza A/B/RSV/COVID- 19 PCR testing was negative. Chest x-ray demonstrated COPD with small right pleural effusion and central venous congestion. In the emergency department he was given a dose of IV Lasix and aspirin. Arrangements were made for admission. Patient was kept on IV Lasix twice daily. Cardiology was consulted. Record review was done from records from [place] in October 2023 where the patient underwent multiple coiling's due to GI bleed. At that point in time he was also found to have an exophytic lesion on his kidney which was recommended to have follow-up. It appears that echocardiogram completed at [place] showed an ejection fraction of 55 to 60%. Patient seen and examined at bedside. He continues to complain of significant shortness of breath when laying flat. He has not been up and out of the bed. He denies any overt chest discomfort but continues to have that "floating feeling" in his arms. Vital signs reviewed General: Nontoxic, no distress, appears at stated age Cardiovascular: S1S2 reg, no murmur Lungs: Coarse breath sounds bilateral, no rhonchi, no rales, no accessory muscle use Abdominal: Soft, nontender to palpation, no guarding Ext: No gross muscle atrophy, no edema b/l lower extremities, no contractures Neuro: CN II-XI grossly intact, no focal neuro deficits Psych: Alert, oriented, appropriate affect Assessment/Plan: Acute exacerbation of CHF, recovered HFrEF with EF 35% in the past Hypertension Dyslipidemia Coronary artery disease - Lasix 40 mg IV twice daily -Metoprolol 50 mg daily, Zetia 10 mg daily, aspirin 81 mg daily, Plavix 75 mg daily -Patient is not chronically on MALIA inhibitor, ARB, or mineralocorticoid. -Telemetry -Await echocardiogram -Cardio recs reviewed: Continue with IV diuretics. Likely home this evening first tomorrow -Strict I's and O's, daily weights Groin pain - X-ray without reteined foreign body, likely scaring -Tylenol 650 mg as needed Chronic: Recent GI bleed per patient History of nosebleeds COPD without exacerbation Imaging: None new Data Review: Labs reviewed from today include CBC and basic metabolic profile which are remarkable for creatinine of 1.48 and BUN of 37. Baseline creatinine 1.4-1.7 DVT prophylaxis: SCDs Anticipated discharge date: in 24-[address]: home This dictation was prepared using [employer] voice recognition software. Though every attempt is made to correct errors during dictation some may still exist. Objective - Vital Signs Vital signs: Vital Signs Temp 97.8 F 02/14/24 14:40 Pulse 72 02/14/24 14:40 Resp 16 02/14/24 14:40 BP 113/56 02/14/24 14:40 Pulse Ox 98 02/14/24 14:40 FiO2 Intake & Output 02/13/24 02/14/24 02/14/24 18:59 06:59 18:59 Intake Total 460 Output Total 300 500 Balance -300 -40 Weight 68.946 kg 63.9 kg 63.9 kg Intake: Oral 460 Output: Urine 300 500 Other: # Voids 1 1 1 - Labs CBC & Chem 7: 02/14/24 07:50 02/14/24 07:50 Labs: Abnormal Lab Results - Last 24 Hours (Table) 02/14/24 Range/Units 07:50 BUN 37 H (9-20) mg/dL Creatinine 1.48 H (0.66-1.25) mg/dL
[2024-02-15 07:01] LABS: HCT 48.1 % (39.0-53.0); HGB 15.1 gm/dL (13.0-17.5); MCH 27.5 pg (25.0-35.0); MCHC 31.4 g/dL (31.0-37.0); MCV 87.7 fL (80.0-100.0); Mean Platelet Volume 8.1; Platelet Count 294 k/uL (150-450); RBC 5.49 m/uL (4.30-5.90); RDW 13.7 % (11.5-15.5); WBC 9.5 k/uL (3.8-10.6)
[2024-02-15 07:31] LABS: African American GFR (CKD) 49 (>60 ml/min/1.73 sqM); Anion Gap 9 mmol/L; Blood Urea Nitrogen 41 mg/dL (9-20); Calcium 9.3 mg/dL (8.4-10.2); Carbon Dioxide 27 mmol/L (22-30); Chloride 100 mmol/L (98-107); Glucose 93 mg/dL (74-99); Magnesium 2.1 mg/dL (1.6-2.3); Non-African American GFR(CKD) 43 (>60 ml/min/1.73 sqM); Potassium 4.3 mmol/L (3.5-5.1); Sodium 136 mmol/L (137-145)
[2024-02-15] MEDS: FUROSEMIDE 40 MG TAB PO SCH (08:02)
--- NOTE | 2024-02-15 09:51 | P.PN ---
Subjective HISTORY OF PRESENT ILLNESS: This is a 88-year-old male with a past medical history significant for coronary artery disease with previous stenting, ischemic cardiomyopathy, congestive heart failure, hypertension, hyperlipidemia, right bundle branch block, and frequent PVCs. Patient follows in the office with Dr. Cuevas. We have been asked to see the patient in consultation for congestive heart failure. Patient examined at the bedside. Patient states he presented to the hospital with a chief complaint of shortness of breath. He states he has been feeling short of breath for the past week but it started getting worse yesterday morning. He denies having any chest pain or pressure. He also reports having muscle cramps in his legs but d enied having any swelling. The patient was found to be in acute CHF upon admission to the hospital was started on IV Lasix. He does report improvement in his shortness of breath this morning but does not feel like he is back to his baseline. Blood pressures are soft with a systolic in the 90s. DIAGNOSTICS: - EKG reveals sinus mechanism with bigeminy. Right bundle branch block. - Chest xray COPD with small right pleural effusion. Mild central venous congestion and differential diagnosis.. - Laboratory data: WBC 10.0. Hemoglobin 13.1. Platelet count 210. Sodium 138. Potassium 4.4. BUN 32. Creatinine 1.22. Magnesium 2.0. proBNP 16,300. Troponin negative x 1. - Current home cardiac medications include Lasix 40 mg daily, aspirin 81 mg daily, Plavix 75 mg daily, Zetia 10 mg daily, metoprolol succinate 50 mg daily. - Most recent echocardiogram obtained in October 2023 in the office revealed ejection fraction 35%, medium sized hypokinetic area of the inferior septal wall. Small hypokinetic area of the inferior wall from base to mid wall. There is mild left ventricular hypertrophy. - Cardiac catheterization history: July 2023 with stenting to the RCA. Patient had restenotic lesion of the ostium of the RCA of about 95%. The RCA is a super dominant vessel. Mid LAD is totally occluded and is a chronic occlusion collateralized by the right coronary artery. Circumflex has noncritical disease and previously stented segment in the mid circumflex is patent. RCA ostium is severely stenosed and seems to be the culprit lesion. 02/15/2024 Patient examined this morning at the bedside. Patient denies chest pain or pressure. He denies shortness of breath. Blood pressures are soft this morning. He denies any dizziness or lightheadedness. 2D echo remains pending. PHYSICAL EXAM: VITAL SIGNS: Reviewed. GENERAL: Well-developed in no acute distress. HEENT: Head is normocephalic. Pupils are equal, round. Sclerae anicteric. Mucous membranes of the mouth are moist. Neck supple. No JVD or thyromegaly LUNGS: Respirations even and unlabored. Lungs essentially clear to auscultation bilaterally. HEART: Regular rate and rhythm. S1 and S2 heard. ABDOMEN: Soft. Nondistended. Nontender. EXTREMITIES: Normal range of motion. No clubbing or cyanosis. Peripheral pulses intact. No lower extremity edema NEUROLOGIC: Awake and alert. Oriented x 3. ASSESSMENT: Shortness of breath Acute on chronic heart failure with reduced EF, 35% Coronary artery disease with previous stenting, most recently in July 2023 to stenting of the RCA Ischemic cardiomyopathy Hypertension Hyperlipidemia Right bundle branch block Frequent PVCs and bigeminy, known History of statin myopathy Borderline orthostatic hypotension PLAN: Discontinue IV Lasix. Hold diuretics for today. Begin oral Lasix to 40 mg daily starting tomorrow Continue current dose of metoprolol Patient may be discharged home this afternoon from a cardiac standpoint Nurse practitioner note has been reviewed by physician. Signing provider agrees with the documented findings, assessment, and plan of care documented by PAPER CUP MACHINE OPERATOR as a scribe. Objective - Vital Signs Vital signs: Vital Signs Temp 97.8 F 02/15/24 07:25 Pulse 37 L 02/15/24 07:25 Resp 17 02/15/24 07:25 BP 98/63 02/15/24 07:25 Pulse Ox 97 02/15/24 09:28 FiO2 Intake & Output 02/14/24 02/15/24 02/15/24 18:59 06:59 18:59 Intake Total 1450 480 118 Output Total 600 1550 200 Balance 850 -1070 -82 Weight 63.9 kg 63.1 kg Intake: Oral 1450 480 118 Output: Urine 600 1550 200 Other: Voiding Method Toilet # Voids 2 - Labs CBC & Chem 7: 02/15/24 06:37 02/15/24 06:37 Labs: Abnormal Lab Results - Last 24 Hours (Table) 02/15/24 Range/Units 06:37 Sodium 136 L (137-145) mmol/L BUN 41 H (9-20) mg/dL Creatinine 1.46 H (0.66-1.25) mg/dL
--- NOTE | 2024-02-15 11:41 | CA ---
Transthoracic Echo Report Name: Paul Coronado Age: 88 Gender: M : 1935 Exam Date: 02/13/2024 14:59 Exam Location: [facility] Ht (in): 70 Wt (lb): 152 Ordering Physician: Pedro Pagan MD Attending/Referring Phys: Deli Bakery Clerk Ivonne Elder RDCS Procedure CPT: Indications: chf Cardiac Hx: Technical Quality: Good Contrast 1: Total Dose (mL): Contrast 2: Total Dose (mL): MEASUREMENTS (Male / Female) Normal Values 2D ECHO LV Diastolic Diameter PLAX 5.0 cm 4.2 - 5.9 / 3.9 - 5.3 cm LV Systolic Diameter PLAX 4.2 cm IVS Diastolic Thickness 1.1 cm 0.6 - 1.0 / 0.6 - 0.9 cm LVPW Diastolic Thickness 1.2 cm 0.6 - 1.0 / 0.6 - 0.9 cm LV Relative Wall Thickness 0.5 RV Internal Dim ED PLAX 3.8 cm LVOT Diameter 2.1 cm LV Diastolic Volume MOD BP 184.4 cm??? 67 - 155 / 56 - 104 cm??? LV Systolic Volume MOD BP 136.5 cm??? 22 - 58 / 19 - 49 cm??? LV Ejection Fraction MOD BP 26.0 % >= 55 % LV Cardiac Index MOD BP 2053.1 cm???/min???m??? LV Diastolic Volume MOD 4C 166.8 cm??? LV Systolic Volume MOD 4C 123.9 cm??? LV Ejection Fraction MOD 4C 25.7 % LV Cardiac Index MOD 4C 1838.0 cm???/min???m??? LV Diastolic Length 4C 8.9 cm LV Systolic Length 4C 8.5 cm LV Diastolic Volume MOD 2C 197.2 cm??? LV Systolic Volume MOD 2C 149.1 cm??? LV Ejection Fraction MOD 2C 24.4 % LV Cardiac Index MOD 2C 2059.8 cm???/min???m??? LV Diastolic Length 2C 9.3 cm LV Systolic Length 2C 8.4 cm LA Volume 108.7 cm??? 18 - 58 / 22 - 52 cm??? LA Volume Index 58.9 cm???/m??? 16 - 28 cm???/m??? DOPPLER AV Peak Velocity 115.9 cm/s AV Peak Gradient 5.4 mmHg AV Mean Velocity 78.7 cm/s AV Mean Gradient 2.8 mmHg AV Velocity Time Integral 23.4 cm LVOT Peak Velocity 73.5 cm/s LVOT Peak Gradient 2.2 mmHg LVOT Velocity Time Integral 14.3 cm LVOT Stroke Volume 50.9 cm??? LVOT Stroke Volume Index 27.4 ml/m??? LVOT Cardiac Index 2180.1 cm???/min???m??? AV Area Cont Eq vti 2.2 cm??? AV Area Cont Eq pk 2.3 cm??? TR Peak Velocity 339.4 cm/s TR Peak Gradient 46.1 mmHg Right Atrial Pressure 5.0 mmHg Pulmonary Artery Systolic Pressu 51.1 mmHg Right Ventricular Systolic Press 51.1 mmHg PV Peak Velocity 76.1 cm/s PV Peak Gradient 2.3 mmHg FINDINGS Left Ventricle Left ventricular ejection fraction is estimated at 25-30 %. Moderately increased left ventricular diastolic volume. Severely increased left ventricular systolic volume. Severely decreased left ventricular ejection fraction. Global hypokinesis. Left ventricular wall thickness normal. Right Ventricle Mild right ventricular dilatation with mildly reduced function. Moderately elevated right ventricular systolic pressure. Right Atrium Moderate right atrial dilatation. Left Atrium Severely increased left atrial volume. Mildly increased left atrial area. Mitral Valve Mitral valve thickened. 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 No mitral stenosis. Mild to moderate mitral regurgitation. Aortic Valve Trileaflet aortic valve. No aortic stenosis. Mild aortic regurgitation. Tricuspid Valve Structurally normal tricuspid valve. No tricuspid stenosis. Mild tricuspid regurgitation. Pulmonic Valve Structurally normal pulmonic valve. No pulmonic stenosis. [id number] pulmonic regurgitation. Pericardium No pericardial effusion. Aorta Normal size aortic root and proximal ascending aorta. CONCLUSIONS Impaired LV function with EF between 25-30% [id number] mitral regurgitation Mild aortic regurgitation Moderate pulmonary hypertension Previewed by: Dr. Sarthak Wynn MD (Electronically Signed) Final Date: 15 Feb 2024 11:40
--- NOTE | 2024-02-15 18:22 | P.PN ---
Subjective Progress Note Date: 02/15/24 (delayed charting seen at 0905) Patient is an 88-year-old male with known history of COPD, coronary artery disease status post stenting, hypertension, dyslipidemia, HFrEF with ejection fraction 25 to 30%, multiple other comorbid conditions who presented to the emergency department with complaints of shortness of breath. In the ER he underwent an extensive evaluation. On arrival his vital signs are within normal limits. Initial laboratory analysis consisted of CBC, coags, CMP, troponin all of which were unremarkable. BNP was elevated at 6300. Influenza A/B/RSV/COVID- 19 PCR testing was negative. Chest x-ray demonstrated COPD with small right pleural effusion and central venous congestion. In the emergency department he was given a dose of IV Lasix and aspirin. Arrangements were made for admission. Patient was kept on IV Lasix twice daily. Cardiology was consulted. Repeat echo showed EF 25-30%. Patient had positive orthostatics. Found to have mild cognitive impairment. Record review was done from records from [place] in October 2023 where the patient underwent multiple coiling's due to GI bleed. At that point in time he was also found to have an exophytic lesion on his kidney which was recommended to have follow-up. It appears that echocardiogram completed at [place] showed an ejection fraction of 55 to 60%. Patient seen and examined at bedside. He again continues to have some vague symptomatology that he struggles to describe. He states he feels winded but denies any chest discomfort. Vital signs reviewed General: Nontoxic, no distress, appears at stated age Cardiovascular: S1S2 reg, no murmur Lungs: Coarse breath sounds bilateral, no rhonchi, no rales, no accessory muscle use Abdominal: Soft, nontender to palpation, no guarding Ext: No gross muscle atrophy, no edema b/l lower extremities, no contractures Neuro: CN II-XI grossly intact, no focal neuro deficits Psych: Alert, oriented, appropriate affect Assessment/Plan: Acute exacerbation of CHF, recovered HFrEF with EF 25-30% Hypertension, now orthostatic hypotension Dyslipidemia Coronary artery disease Bigeminy - has event monitor in place -Hold Lasix. Will avoid IV fluid hydration secondary to patient's history of cardiomyopathy -Cardio recs: Hold diuretics for today due to to orthostatic hypotension and start oral Lasix tomorrow. Patient optimized for discharge from cardiology. -Continue to check orthostatic vital signs -Metoprolol 50 mg daily, Zetia 10 mg daily, aspirin 81 mg daily, Plavix 75 mg daily -Patient is not chronically on MALIA inhibitor, ARB, or mineralocorticoid. -Telemetry -Strict I's and O's, daily weights Groin pain, resolved Cognitive delay -Will need to discuss with family and case management about safe discharge plan -Discussed with speech therapist and patient has a slums score\of 15 out of 30 placing him in the range for likely dementia or other neurocognitive disorder. Short-term recall was 2 out of 5 items, he was not able to draw clock. Chronic: Recent GI bleed per patient History of nosebleeds COPD without exacerbation Imaging: Echocardiogram: Ejection fraction 25 to 30%, global hypokinesis, moderate pulmonary hypertension Data Review: Labs reviewed from today include CBC and basic metabolic profile which are remarkable for sodium of 136, BUN 41, creatinine 1.46. DVT prophylaxis: SCDs Anticipated discharge date: in 24-[address]: home This dictation was prepared using [employer] voice recognition software. Though every attempt is made to correct errors during dictation some may still exist. Objective - Vital Signs Vital signs: Vital Signs Temp 97.5 F L 02/15/24 12:40 Pulse 74 02/15/24 12:40 Resp 17 02/15/24 12:40 BP 100/61 02/15/24 12:40 Pulse Ox 94 L 02/15/24 12:40 FiO2 Intake & Output 02/14/24 02/15/24 02/15/24 18:59 06:59 18:59 Intake Total 1450 480 236 Output Total 600 1550 200 Balance 850 -1070 36 Weight 63.9 kg 63.1 kg Intake: Oral 1450 480 236 Output: Urine 600 1550 200 Other: Voiding Method Toilet Toilet # Voids 2 - Labs CBC & Chem 7: 02/15/24 06:37 02/15/24 06:37 Labs: Abnormal Lab Results - Last 24 Hours (Table) 02/15/24 Range/Units 06:37 Sodium 136 L (137-145) mmol/L BUN 41 H (9-20) mg/dL Creatinine 1.46 H (0.66-1.25) mg/dL
[2024-02-16] MEDS ORDERED: FUROSEMIDE 40 MG TAB PO SCH (09:00)
[2024-02-16] MEDS: MIDODRINE 5 MG TAB PO SCH (09:09)
--- NOTE | 2024-02-16 09:41 | P.PN ---
Subjective HISTORY OF PRESENT ILLNESS: This is a 88-year-old male with a past medical history significant for coronary artery disease with previous stenting, ischemic cardiomyopathy, congestive heart failure, hypertension, hyperlipidemia, right bundle branch block, and frequent PVCs. Patient follows in the office with Dr. Cuevas. We have been asked to see the patient in consultation for congestive heart failure. Patient examined at the bedside. Patient states he presented to the hospital with a chief complaint of shortness of breath. He states he has been feeling short of breath for the past week but it started getting worse yesterday morning. He denies having any chest pain or pressure. He also reports having muscle cramps in his legs but d enied having any swelling. The patient was found to be in acute CHF upon admission to the hospital was started on IV Lasix. He does report improvement in his shortness of breath this morning but does not feel like he is back to his baseline. Blood pressures are soft with a systolic in the 90s. DIAGNOSTICS: - EKG reveals sinus mechanism with bigeminy. Right bundle branch block. - Chest xray COPD with small right pleural effusion. Mild central venous congestion and differential diagnosis.. - Laboratory data: WBC 10.0. Hemoglobin 13.1. Platelet count 210. Sodium 138. Potassium 4.4. BUN 32. Creatinine 1.22. Magnesium 2.0. proBNP 16,300. Troponin negative x 1. - Current home cardiac medications include Lasix 40 mg daily, aspirin 81 mg daily, Plavix 75 mg daily, Zetia 10 mg daily, metoprolol succinate 50 mg daily. - Most recent echocardiogram obtained in October 2023 in the office revealed ejection fraction 35%, medium sized hypokinetic area of the inferior septal wall. Small hypokinetic area of the inferior wall from base to mid wall. There is mild left ventricular hypertrophy. - Cardiac catheterization history: July 2023 with stenting to the RCA. Patient had restenotic lesion of the ostium of the RCA of about 95%. The RCA is a super dominant vessel. Mid LAD is totally occluded and is a chronic occlusion collateralized by the right coronary artery. Circumflex has noncritical disease and previously stented segment in the mid circumflex is patent. RCA ostium is severely stenosed and seems to be the culprit lesion. 02/15/2024 Patient examined this morning at the bedside. Patient denies chest pain or pressure. He denies shortness of breath. Blood pressures are soft this morning. He denies any dizziness or lightheadedness. 2D echo remains pending. 02/16/2024 Patient examined this morning the bedside. Patient denies chest pain or pressure. He denies shortness of breath. Patient was up ambulating to the bathroom this morning. He denies any dizziness or lightheadedness. Patient's blood pressures remain soft. PHYSICAL EXAM: VITAL SIGNS: Reviewed. GENERAL: Well-developed in no acute distress. HEENT: Head is normocephalic. Pupils are equal, round. Sclerae anicteric. Mucous membranes of the mouth are moist. Neck supple. No JVD or thyromegaly LUNGS: Respirations even and unlabored. Lungs essentially clear to auscultation bilaterally. HEART: Regular rate and rhythm. S1 and S2 heard. ABDOMEN: Soft. Nondistended. Nontender. EXTREMITIES: Normal range of motion. No clubbing or cyanosis. Peripheral pulses intact. No lower extremity edema NEUROLOGIC: Awake and alert. Oriented x 3. ASSESSMENT: Shortness of breath Acute on chronic heart failure with reduced EF, 35%, now 25-30 Coronary artery disease with previous stenting, most recently in July 2023 to stenting of the RCA Ischemic cardiomyopathy Hypertension Hyperlipidemia Right bundle branch block Frequent PVCs and bigeminy, known History of statin myopathy Borderline orthostatic hypotension PLAN: Patient to resume oral Lasix today. Will decrease dose to 20 mg daily Continue current dose of metoprolol Add low-dose midodrine Patient may be discharged home today from a cardiac standpoint Nurse practitioner note has been reviewed by physician. Signing provider agrees with the documented findings, assessment, and plan of care documented by SPANNER OPERATOR as a scribe. Objective - Vital Signs Vital signs: Vital Signs Temp 97.5 F L 02/16/24 07:40 Pulse 71 02/16/24 07:40 Resp 17 02/16/24 07:40 BP 85/59 02/16/24 07:40 Pulse Ox 97 02/16/24 07:40 FiO2 Intake & Output 02/15/24 02/16/24 02/16/24 18:59 06:59 18:59 Intake Total 354 Output Total 200 0 Balance 154 0 Weight 63.6 kg Intake: Oral 354 Output: Urine 200 0 Other: Voiding Method Toilet Toilet - Labs CBC & Chem 7: 02/15/24 06:37 02/15/24 06:37
[2024-02-16] MEDS: FUROSEMIDE 20 MG TAB PO SCH (10:54)
[2024-02-16 13:40] VITALS: BP 102/69; PULSE 75
[2024-02-16 13:41] VITALS: RESP 18; TEMP 97.3
--- NOTE | 2024-02-16 15:09 | P.DS ---
Providers Date of admission: 02/13/24 10:47 Expected date of discharge: 02/16/24 Attending physician: Rosi Arana DO Consults: 02/13/24 10:46 Consult Physician Routine Consulting Provider: [facility] Consult Reason/Comments: chf Do you want consulting provider notified?: Yes Primary care physician: [facility] Hospital Course: Discharge Diagnosis: Acute exacerbation of CHF, recovered HFrEF with EF 25-30% Mild cognitive impairment Hypertension, now orthostatic hypotension Dyslipidemia Coronary artery disease Bigeminy Recent GI bleed per patient History of nosebleeds COPD without exacerbation Hospital Course: Patient is an 88-year-old male with known history of COPD, coronary artery disease status post stenting, hypertension, dyslipidemia, HFrEF with ejection fraction 25 to 30%, multiple other comorbid conditions who presented to the emergency department with complaints of shortness of breath. In the ER he unde rwent an extensive evaluation. On arrival his vital signs are within normal limits. Initial laboratory analysis consisted of CBC, coags, CMP, troponin all of which were unremarkable. BNP was elevated at 6300. Influenza A/B/RSV/COVID- 19 PCR testing was negative. Chest x-ray demonstrated COPD with small right pleural effusion and central venous congestion. In the emergency department he was given a dose of IV Lasix and aspirin. Arrangements were made for admission. Patient was kept on IV Lasix twice daily. Cardiology was consulted. Repeat echo showed EF 25-30%. Patient had positive orthostatics. Found to have mild cognitive impairment. He was started on midodrine and was determined stable for discharge home. I had a juan alberto discussion with the patient and then again with his niece, Ileana regarding my concerns with his cognitive impairment. We discussed him not driving and possible assisted living placement. Follow-up: [place] in 2[place]3 days, Dr. Cuevas next week, midodrine added and Lasix decreased to 20 mg daily. Patient seen and examined at bedside. He is still having some lightheadedness with standing. He has no chest pain, no nausea. He is felling well and wants to home home Vital signs reviewed and stable. General: Nontoxic, no distress, appears at stated age Cardiovascular: S1S2 reg, no murmur, positive posterior tibial pulse bilateral, Lungs: CTA bilateral, no rhonchi, no rales, no accessory muscle use Abdominal: Soft, nontender to palpation, no guarding, no appreciable organomegaly Ext: No gross muscle atrophy, no edema b/l lower extremities, no contractures Neuro: CN II-XI grossly intact, no focal neuro deficits Psych: Alert, oriented, appropriate affect A total of 55 minutes of time were spent preparing this complex discharge summary. Patient was discharged on 02/16/24. This dictation was prepared using [employer] voice recognition software. Though every attempt is made to correct errors during dictation some may still exist. Patient Condition at Discharge: Stable Plan - Discharge Summary Discharge Rx Participant: Yes New Discharge Prescriptions: New Furosemide [Lasix] 20 mg PO DAILY #30 tab Midodrine [ProAmatine] 2.5 mg PO AC-TID #90 tab Continue Clopidogrel [Plavix] 75 mg PO DAILY #30 tab Ezetimibe [Zetia] 10 mg PO DAILY Nitroglycerin Sl Tabs [Nitrostat] 0.4 mg SL Q5M PRN PRN Reason: Chest Pain Aspirin [Adult Low Dose Aspirin EC] 81 mg PO DAILY Alirocumab [Praluent Pen] 150 mg SQ Q14D Metoprolol Succinate (ER) [Toprol XL] 50 mg PO DAILY Discontinued Furosemide [Lasix] 40 mg PO DAILY #60 tab Discharge Medication List Clopidogrel [Plavix] 75 mg PO DAILY #30 tab 09/26/21 [Rx] Ezetimibe [Zetia] 10 mg PO DAILY 07/03/23 [History] Nitroglycerin Sl Tabs [Nitrostat] 0.4 mg SL Q5M PRN 07/03/23 [History] Alirocumab [Praluent Pen] 150 mg SQ Q14D 08/03/23 [History] Aspirin [Adult Low Dose Aspirin EC] 81 mg PO DAILY 08/03/23 [History] Metoprolol Succinate (ER) [Toprol XL] 50 mg PO DAILY 02/13/24 [History] Furosemide [Lasix] 20 mg PO DAILY #30 tab 02/16/24 [Rx] Midodrine [ProAmatine] 2.5 mg PO AC-TID #90 tab 02/16/24 [Rx] Follow up Appointment(s)/Referral(s): Brant Cuevas MD [STAFF PHYSICIAN] - 1 Week [facility]Clinic [Primary Care Provider] - 1-2 days Activity/Diet/Wound Care/Special Instructions: Activity: tolerated Diet: Heart Healthy Special Instructions: [facility]. Please have repeat cognitive evaluation preformed. Please consider stopping driving, Until your memory can be reassessed as we want you to stay safe. Thank you for trusting us with your care, we wish you well on your journey to be [facility]. Discharge/Stand Alone Forms: Who Do I Call?, Community Resources, Help In The Home, Personal Student Finance Specialist
== END 2024-02-16 16:38 | disposition home or self-care (01) ==
LOC: EC 07:58 → 6NMEDSUR 10:47
PROVIDERS: ADMIT Internal Medicine; ATTEND Internal Medicine
DX: I13.0 Hypertensive heart and chronic kidney disease with heart failure and stage 1 through stage 4 chronic kidney disease, or unspecified chronic kidney disease (principal); I50.23 Acute on chronic systolic (congestive) heart failure; N18.31 Chronic kidney disease, stage 3a; I95.1 Orthostatic hypotension; R10.30 Lower abdominal pain, unspecified; I25.10 Atherosclerotic heart disease of native coronary artery without angina pectoris; I48.91 Unspecified atrial fibrillation; E78.5 Hyperlipidemia, unspecified; I25.5 Ischemic cardiomyopathy; I45.10 Unspecified right bundle-branch block; J44.9 Chronic obstructive pulmonary disease, unspecified; Z66 Do not resuscitate; Z85.828 Personal history of other malignant neoplasm of skin; Z87.891 Personal history of nicotine dependence; Z95.5 Presence of coronary angioplasty implant and graft; Z79.82 Long term (current) use of aspirin; Z79.02 Long term (current) use of antithrombotics/antiplatelets; Z79.899 Other long term (current) drug therapy
CPT/HCPCS: 96376 ×2; 96372 ×4; 96374; 99285; 36415; 94760 ×2; 93005; 93306; 92523; 83880; 80053; 80048 ×2; 83735 ×3; 84484; 85025; 85027 ×2; 85610; 85730; 81003; 87636; 72170; 71046; G0378 ×4; J1644 ×4; J1940 ×2

== ENCOUNTER 2024-02-20 07:00 | Observation (INO) | payer OTHER ==
[2024-02-20 07:33] LABS: Basophils # (A) 0.1 k/uL (0-0.2); Basophils % (A) 1 %; Eosinophils # (A) 0.4 k/uL (0-0.7); Eosinophils % (A) 3 %; HCT 42.6 % (39.0-53.0); HGB 13.8 gm/dL (13.0-17.5); Lymphocytes # (A) 2.3 k/uL (1.0-4.8); Lymphocytes % (A) 16 %; MCH 28.6 pg (25.0-35.0); MCHC 32.5 g/dL (31.0-37.0); Mean Platelet Volume 8.3; Monocytes # (A) 0.8 k/uL (0-1.0); Monocytes % (A) 6 %; Neutrophils # (A) 10.4 k/uL (1.3-7.7); Neutrophils % (A) 73 %; Platelet Count 287 k/uL (150-450); RBC 4.84 m/uL (4.30-5.90); WBC 14.3 k/uL (3.8-10.6)
[2024-02-20 07:52] LABS: INR 1.2 (<1.2); Prothrombin Time 12.6 sec (10.0-12.5)
[2024-02-20 07:53] LABS: Partial Thromboplastin Time 26.9 sec (22.0-30.0)
--- NOTE | 2024-02-20 08:07 | XR ---
EXAMINATION TYPE: XR chest 2V DATE OF EXAM: 02/20/2024 COMPARISON: 02/13/2024 HISTORY: 88-year-old male shortness of breath, difficulty breathing, weakness TECHNIQUE: AP and lateral views FINDINGS: Heart borderline enlarged. Diffuse interstitial and patchy opacities. Hyperinflation. IMPRESSION: COPD with borderline cardiomegaly and diffuse interstitial and patchy opacities. Consider mild CHF wi th pulmonary vascular congestion, atypical pneumonias, or interstitial pneumonitis. Appearance simila r to slightly worsened from prior.
[2024-02-20 08:17] LABS: ALT 16 U/L (4-49); African American GFR (CKD) 62 (>60 ml/min/1.73 sqM); Anion Gap 8 mmol/L; Blood Urea Nitrogen 42 mg/dL (9-20); Calcium 9.3 mg/dL (8.4-10.2); Carbon Dioxide 23 mmol/L (22-30); Chloride 106 mmol/L (98-107); Glucose 112 mg/dL (74-99); Magnesium 2.4 mg/dL (1.6-2.3); Non-African American GFR(CKD) 53 (>60 ml/min/1.73 sqM); Sodium 137 mmol/L (137-145); Total Bilirubin 0.9 mg/dL (0.2-1.3); Total Protein 7.6 g/dL (6.3-8.2)
--- NOTE | 2024-02-20 08:22 | ED ---
General Adult HPI - General Chief complaint: Shortness of Breath Stated complaint: shortness of breath Time Seen by Provider: 02/20/24 07:10 Source: patient, EMS, RN notes reviewed, old records reviewed - History of Present Illness Initial comments: Patient is an 88-year-old male who presents emergency department complaining of shortness of breath. I recently evaluated the patient and admitted him for CHF exacerbation. He states he appears to be having similar complaints. Denies any chest pain. Patient states he woke up this morning complaining of shortness of breath and is similar to previous episodes. Denies any cough. Denies chest pain. Denies abdominal pain, nausea, vomiting. Presents for further evaluation at this time. Is not on oxygen at home. Patient recently had a reduction in his Lasix dosing on last day. Was discharged home last week. - Related Data Home Medications Medication Instructions Recorded Confirmed Ezetimibe [Zetia] 10 mg PO DAILY 07/03/23 02/20/24 Nitroglycerin Sl Tabs [Nitrostat] 0.4 mg SL Q5M PRN 07/03/23 02/20/24 Alirocumab [Praluent Pen] 150 mg SQ Q14D 08/03/23 02/20/24 Aspirin [Adult Low Dose Aspirin EC] 81 mg PO DAILY 08/03/23 02/20/24 Metoprolol Succinate (ER) [Toprol 50 mg PO DAILY 02/13/24 02/20/24 XL] Previous Rx's Medication Instructions Recorded Clopidogrel [Plavix] 75 mg PO DAILY #30 tab 09/26/21 Furosemide [Lasix] 20 mg PO DAILY #30 tab 02/16/24 Midodrine [ProAmatine] 2.5 mg PO TID #60 tablet 02/16/24 Allergies Allergy/AdvReac Type Severity Reaction Status Date / Time atorvastatin Allergy Rash/Hives Verified 02/20/24 09:55 Review of Systems ROS Statement: Those systems with pertinent positive or pertinent negative responses have been documented in the HPI. Review of Systems: CONST: Denies fever EYES: Denies blurry vision ENT: Denies nasal congestion C/V: Denies Chest pain RESP: Endorses shortness of breath GI: Denies abdominal pain : Denies dysuria SKIN: Denies rash. MSK: Denies joint pain. NEURO: Denies headache ROS Other: All systems not noted in ROS Statement are negative. Past Medical History Past Medical History: Coronary Artery Disease (CAD), Cancer, Chest Pain / Angina, Heart Failure, COPD, Hyperlipidemia, Hypertension, Osteoarthritis (OA) Additional Past Medical History / Comment(s): cataract rt eye, past hx nosebleeds., states sob with activity, skin cancer., See Cardiology H & P. History of Any Multi-Drug Resistant Organisms: None Reported Past Surgical History: Back Surgery, Heart Catheterization With Stent, Joint Replacement Additional Past Surgical History / Comment(s): rt knee replacement, neck fusion,lt cataract, back surgery x3 Past Anesthesia/Blood Transfusion Reactions: No Reported Reaction Date of Last Stent Placement:: 09/22/21 Past Psychological History: No Psychological Hx Reported Smoking Status: Former smoker Past Alcohol Use History: None Reported Past Drug Use History: None Reported - Past Family History Mother Family Medical History: No Reported History Additional Family Medical History / Comment(s): heart conditions Son(s) Family Medical History: No Reported History Father Family Medical History: Myocardial Infarction ([place]) General Exam - General Exam Comments Initial Comments: General: Appears in no acute distress. HEAD: Normal with no signs of head trauma. EYES: PERRLA, EOMI, conjunctiva normal, no discharge. ENT: Hearing grossly intact, normal oropharynx. RESPIRATORY: Somewhat coarse breath sounds bilaterally with very mild wheezing. No significant hypoxia on 4 L nasal cannula. We will wean the patient down. No significant increased work of breathing on my evaluation. C/V: Regular rate and rhythm. S1 and S2 auscultated, no significant edema, peripheral pulses 2+ and intact throughout ABD: Abd is soft, nontender, nondistended EXT: Normal range of motion, no obvious deformity SKIN: No rashes or lesions observed on exposed skin. NEURO: Alert and oriented x 3 at this time. No focal deficits appreciated. Course Vital Signs 02/20/24 02/20/24 02/20/24 07:02 08:16 12:21 Temperature 97.5 F L Pulse Rate 90 69 72 Respiratory 30 H 20 18 Rate Blood Pressure 150/92 106/67 178/69 O2 Sat by Pulse 100 99 100 Oximetry Medical Decision Making - Medical Decision Making Was pt. sent in by a medical professional or institution (, PA, GRANTS AND CONTRACTS ASSISTANT, urgent care, hospital, or jail...) When possible be specific @ -No Did you speak to anyone other than the patient for history (EMS, parent, family, police, friend...)? What history was obtained from this source @ -No Did you review nursing and triage notes (agree or disagree)? Why? @ -I reviewed and agree with nursing and triage notes Were old charts reviewed (outside hosp., previous admission, EMS record, old EKG, old radiological studies, urgent care reports/EKG's, jail records)? Report findings @ -Old charts reviewed from previous admission from February 13, 2024 including EKG which revealed no obvious acute changes when compared with today. Differential Diagnosis (chest pain, altered mental status, abdominal pain women, abdominal pain men, vaginal bleeding, weakness, fever, dyspnea, syncope, headache, dizziness, GI bleed, back pain, seizure, CVA, palpatations, mental health, musculoskeletal)? @ -Differential Dyspnea: Coronary syndrome, arrhythmia, tamponade, asthma, COPD, pulmonary embolism, pneumonia, pneumothorax, pulmonary effusion, anaphylaxis, diabetic ketoacidosis, flailed chest, pulmonary contusion, diaphragmatic rupture, anemia, neuromuscular, this is not meant to be an all-inclusive list. EKG interpreted by me (3pts min.). @ -As above X-rays interpreted by me (1pt min.). @ -Chest x-ray shows bilateral what appears to be pulmonary vascular congestion suggestive of CHF exacerbation CT interpreted by me (1pt min.). @ -None done U/S interpreted by me (1pt. min.). @ -None done What testing was considered but not performed or refused? (CT, X-rays, U/S, labs)? Why? @ -None What meds were considered but not given or refused? Why? @ -None Did you discuss the management of the patient with other professionals (professionals i.e. Dr., PA, GRANTS AND CONTRACTS ASSISTANT, lab, RT, psych nurse, social worker aide, aircraft maintenance technician, teacher, boat officer, comp field case manager)? Give summary @ -Discussed with Dr. Riley of [facility] who accepted the admission Was smoking cessation discussed for >3mins.? @ -No Was critical care preformed (if so, how long)? @ -No Were there social determinants of health that impacted care today? How? (Homelessness, low income, unemployed, alcoholism, drug addiction, transportatio n, low edu. Level, literacy, decrease access to med. care, prison, rehab)? @ -No Was there de-escalation of care discussed even if they declined (Discuss DNR or withdrawal of care, Hospice)? DNR status @ -No What co-morbidities impacted this encounter? (DM, HTN, Smoking, COPD, CAD, Cancer, CVA, ARF, Chemo, Hep., AIDS, mental health diagnosis, sleep apnea, morbid obesity)? @ -CHF Was patient admitted / discharged? Hospital course, mention meds given and route, prescriptions, significant lab abnormalities, going to OR and other pertinent info. @ -Based on the patient's presentation and physical exam, presents the emergency department complaining of shortness of breath. Patient recently had Lasix dosing reduced. Presents for further evaluation at this time. I do suspect this is likely a CHF exacerbation but he will be empirically treated with a breathing treatment. He has a very remote history of smoking. No history of COPD requiring inhalers. Vital signs currently within acceptable limits we will continue to wean down the patient's oxygen. Patient was in agreement this plan. EKG showed no signs of acute ischemia. Chest x-ray shows findings consistent with CHF exacerbation versus atypical pneumonia. Patient has a slight leukocytosis of 14. Patient separately studies also remarkable for elevated BNP of 14,000 as well as troponin is indeterminate 0.018. Labs otherwise unremarkable. I discussed results with the patient. We will admit the patient with IV Lasix. He was in agreement this plan. Undiagnosed new problem with uncertain prognosis? @ -No Drug Therapy requiring intensive monitoring for toxicity (Heparin, Nitro, Insulin, Cardizem)? @ -No Were any procedures done? @ -No Diagnosis/symptom? @ -CHF Acute, or Chronic, or Acute on Chronic? @ -Acute Uncomplicated (without systemic symptoms) or Complicated (systemic symptoms)? @ -Complicated Side effects of treatment? @ -None Exacerbation, Progression, or Severe Exacerbation] @ -No Poses a threat to life or bodily function? @ -Yes - Lab Data Result diagrams: 02/20/24 07:22 02/20/24 07:22 Lab Results 02/20/24 02/20/24 02/20/24 Range/Units 07:15 07:22 07:22 WBC 14.3 H (3.8-10.6) k/uL RBC 4.84 (4.30-5.90) m/uL Hgb 13.8 (13.0-17.5) gm/dL Hct 42.6 (39.0-53.0) % MCV 88.0 (80.0-100.0) fL MCH 28.6 (25.0-35.0) pg MCHC 32.5 (31.0-37.0) g/dL RDW 14.0 (11.5-15.5) % Plt Count 287 (150-450) k/uL MPV 8.3 Neutrophils % 73 % Lymphocytes % 16 % Monocytes % 6 % Eosinophils % 3 % Basophils % 1 % Neutrophils # 10.4 H (1.3-7.7) k/uL Lymphocytes # 2.3 (1.0-4.8) k/uL Monocytes # 0.8 (0-1.0) k/uL Eosinophils # 0.4 (0-0.7) k/uL Basophils # 0.1 (0-0.2) k/uL PT 12.6 H (10.0-12.5) sec INR 1.2 H (<1.2) APTT 26.9 (22.0-30.0) sec Sodium (137-145) mmol/L Potassium (3.5-5.1) mmol/L Chloride (98-107) mmol/L Carbon Dioxide (22-30) mmol/L Anion Gap mmol/L BUN (9-20) mg/dL Creatinine (0.66-1.25) mg/dL Est GFR (CKD-EPI)AfAm (>60 ml/min/1.73 sqM) Est GFR (CKD-EPI)NonAf (>60 ml/min/1.73 sqM) Glucose (74-99) mg/dL Plasma Lactic Acid Anant (0.7-2.0) mmol/L Calcium (8.4-10.2) mg/dL Magnesium (1.6-2.3) mg/dL Total Bilirubin (0.2-1.3) mg/dL AST (17-59) U/L ALT (4-49) U/L Alkaline Phosphatase (38-126) U/L Troponin I (0.000-0.034) ng/mL NT-Pro-B Natriuret Pep pg/mL Total Protein (6.3-8.2) g/dL Albumin (3.5-5.0) g/dL Influenza Type A (PCR) Not Detected (Not Detectd) Influenza Type B (PCR) Not Detected (Not Detectd) RSV (PCR) Not Detected (Not Detectd) SARS-CoV-2 (PCR) Not Detected (Not Detectd) 02/20/24 02/20/24 02/20/24 Range/Units 07:22 07:22 07:22 WBC (3.8-10.6) k/uL RBC (4.30-5.90) m/uL Hgb (13.0-17.5) gm/dL Hct (39.0-53.0) % MCV (80.0-100.0) fL MCH (25.0-35.0) pg MCHC (31.0-37.0) g/dL RDW (11.5-15.5) % Plt Count (150-450) k/uL MPV Neutrophils % % Lymphocytes % % Monocytes % % Eosinophils % % Basophils % % Neutrophils # (1.3-7.7) k/uL Lymphocytes # (1.0-4.8) k/uL Monocytes # (0-1.0) k/uL Eosinophils # (0-0.7) k/uL Basophils # (0-0.2) k/uL PT (10.0-12.5) sec INR (<1.2) APTT (22.0-30.0) sec Sodium 137 (137-145) mmol/L Potassium 4.7 (3.5-5.1) mmol/L Chloride 106 (98-107) mmol/L Carbon Dioxide 23 (22-30) mmol/L Anion Gap 8 mmol/L BUN 42 H (9-20) mg/dL Creatinine 1.22 (0.66-1.25) mg/dL Est GFR (CKD-EPI)AfAm 62 (>60 ml/min/1.73 sqM) Est GFR (CKD-EPI)NonAf 53 (>60 ml/min/1.73 sqM) Glucose 112 H (74-99) mg/dL Plasma Lactic Acid Anant 1.6 (0.7-2.0) mmol/L Calcium 9.3 (8.4-10.2) mg/dL Magnesium 2.4 H (1.6-2.3) mg/dL Total Bilirubin 0.9 (0.2-1.3) mg/dL AST 30 (17-59) U/L ALT 16 (4-49) U/L Alkaline Phosphatase 59 (38-126) U/L Troponin I 0.018 (0.000-0.034) ng/mL NT-Pro-B Natriuret Pep 06824 pg/mL Total Protein 7.6 (6.3-8.2) g/dL Albumin 4.0 (3.5-5.0) g/dL Influenza Type A (PCR) (Not Detectd) Influenza Type B (PCR) (Not Detectd) RSV (PCR) (Not Detectd) SARS-CoV-2 (PCR) (Not Detectd) - EKG Data -: EKG Interpreted by Me EKG Comments: 12-lead Electrocardiogram Interpretation Note EKG was reviewed and interpreted by myself. 12-lead ECG performed at 0714 is interpreted by me as revealing normal sinus rhythm with first-degree AV block at a rate of 87 beats per minute. Left axis deviation. IA interval is 214 ms, QRS durations 155 ms, QTc is 475 ms. Frequent PVCs present.. There were no ST or T wave abnormalities to suggest myocardial ischemia or injury. R wave progression across the precordium was satisfactory. By my interpretation this EKG is non- diagnostic for acute ischemia. When compared with EKG from February 13, 2024, no significant change. Disposition Clinical Impression: CHF (congestive heart failure) Disposition: ADMITTED IP TO THIS HOSP Condition: Stable Time of Disposition: 09:00
[2024-02-20 08:25] LABS: NT-Pro-B-Type Natriuretic Pept 14900 pg/mL
[2024-02-20 08:35] LABS: Potassium 4.7 mmol/L (3.5-5.1)
[2024-02-20 08:36] LABS: AST 30 U/L (17-59); Alkaline Phosphatase 59 U/L (38-126)
[2024-02-20] MEDS ORDERED: NALOXONE 0.4 MG/ML 1 ML VIAL IV PRN (09:16)
[2024-02-20] MEDS: ASPIRIN 81 MG PO STA (10:11)
[2024-02-20] MEDS: FUROSEMIDE 10 MG/ML 4 ML VIAL IV STA (10:11)
[2024-02-20] MEDS: FUROSEMIDE 10 MG/ML 4 ML VIAL IV SCH (10:12)
[2024-02-20 12:31] LABS: Appearance,Urine Clear (Clear); Bilirubin,Urine Negative (Negative); Blood,Urine Negative (Negative); Color,Urine Colorless; Glucose,Urine (UA) Negative (Negative); Ketones,Urine Negative (Negative); Leukocyte Esterase,Urine Negative (Negative); Nitrite,Urine Negative (Negative); PH, Urine 6.5 (5.0-8.0); Protein,Urine Negative (Negative); Specific Gravity,Urine 1.009 (1.001-1.035); Urobilinogen,Urine <2.0 mg/dL (<2.0)
--- NOTE | 2024-02-20 14:26 | P.HPIM ---
History of Present Illness H&P Date: 02/20/24 88-year-old male with known history of COPD, coronary artery disease status post stenting, hypertension, dyslipidemia, HFrEF with ejection fraction 25 to 30% presents to the emergency department. Recently admitted from 02/12-02/15 for CHF exacerbation. He reports waking up at 3 AM feeling extremely short of breath and lightheaded. He denied any chest pain, palpitations or lower extremity edema. When symptoms did not improve this prompted him to come to the ED. In the ED he underwent extensive evaluation. BP 150/92, HR 90, RR 30, T 97.5F, 100% on 4L NC. CBC, Coag panel, CMP performed significant for WBC 14.3, PT 12.6, INR 1.2, BUN 42, glu 112. Mag 2.4. Lactic acid 1.6. Troponin 0.018, 0.026. BNP 79182. UA negative for LE or nitrite. Flu, RSV, COVID negative. CXR showing pulmonary vascular congestion. EKG showed sinus rhythm with frequent PVCs. Patient was started on Lasix IV and admitted for CHF exacerbation with Cardiology on consult. General: non toxic, no distress, appears at stated age Derm: warm, dry Head: atraumatic, normocephalic, symmetric Eyes: EOMI, no lid lag, anicteric sclera Mouth: no lip lesion, mucus membranes moist Cardiovascular: S1S2 irreg, no murmur Lungs: Decreased bilateral, no rhonchi, no rales , no accessory muscle use Abdominal: soft, nontender to palpation, no guarding, no appreciable organomegaly Ext: no gross muscle atrophy, no edema, no contractures Neuro: no focal neuro deficits Psych: Alert, oriented, appropriate affect Acute exacerbation of HFrEF: Echo done last admission shows EF 25 to 30%, mild- mod MR, mild AR, mod pulmonary HTN. Start Lasix 40 mg IV BID. Strict intake and outtake. Monitor electrolytes while on Lasix. Cardiology consultation. Leukocytosis: No signs of active infection. Monitor fever profile. Hypertension: BP 178/69. Metoprolol 50 mg PO QD. Dyslipidemia: Zetia 10 mg PO QD. Coronary artery disease: ASA 81 mg PO QD. Plavix 75 mg PO QD. Metoprolol as above. COPD without acute exacerbation Chronic kidney disease stage 3A CODE STATUS: NO CODE but OK with intubation and other lifesaving measures. DVT Prophylaxis: Lovenox SQ GI Prophylaxis: Designated medical POA if patient is not able to make medical decisions for themselves: Son I have reviewed the following medical sales consultant notes: ED I have reviewed the results of the following tests: As above. I have ordered the following tests: As above. I have discussed the care of this patient with the following independent historian: I have independently interpreted the following test below: CXR I have discussed the management of this patient with the following physician: Past Medical History Past Medical History: Coronary Artery Disease (CAD), Cancer, Chest Pain / Angina, Heart Failure, COPD, Hyperlipidemia, Hypertension, Osteoarthritis (OA) Additional Past Medical History / Comment(s): cataract rt eye, past hx nosebleeds., states sob with activity, skin cancer., See Cardiology H & P. History of Any Multi-Drug Resistant Organisms: None Reported Past Surgical History: Back Surgery, Heart Catheterization With Stent, Joint Replacement Additional Past Surgical History / Comment(s): rt knee replacement, neck fusion,lt cataract, back surgery x3 Past Anesthesia/Blood Transfusion Reactions: No Reported Reaction Date of Last Stent Placement:: 09/22/21 Past Psychological History: No Psychological Hx Reported Smoking Status: Former smoker Past Alcohol Use History: None Reported Past Drug Use History: None Reported - Past Family History Mother Family Medical History: No Reported History Additional Family Medical History / Comment(s): heart conditions Son(s) Family Medical History: No Reported History Father Family Medical History: Myocardial Infarction ([place]) Medications and Allergies Home Medications Medication Instructions Recorded Confirmed Type Clopidogrel [Plavix] 75 mg PO DAILY #30 tab 09/26/21 02/20/24 Rx Ezetimibe [Zetia] 10 mg PO DAILY 07/03/23 02/20/24 History Nitroglycerin Sl Tabs [Nitrostat] 0.4 mg SL Q5M PRN 07/03/23 02/20/24 History Alirocumab [Praluent Pen] 150 mg SQ Q14D 08/03/23 02/20/24 History Aspirin [Adult Low Dose Aspirin EC] 81 mg PO DAILY 08/03/23 02/20/24 History Metoprolol Succinate (ER) [Toprol 50 mg PO DAILY 02/13/24 02/20/24 History XL] Furosemide [Lasix] 20 mg PO DAILY #30 tab 02/16/24 02/20/24 Rx Midodrine [ProAmatine] 2.5 mg PO TID #60 tablet 02/16/24 02/20/24 Rx Allergies Allergy/AdvReac Type Severity Reaction Status Date / Time atorvastatin Allergy Rash/Hives Verified 02/20/24 09:55 Physical Exam Vitals: Vital Signs Temp Pulse Resp BP Pulse Ox 02/20/24 12:21 72 18 178/69 100 02/20/24 08:16 69 20 106/67 99 02/20/24 07:02 97.5 F L 90 30 H 150/92 100 Intake and Output 02/19/24 02/20/24 02/20/24 22:59 06:59 14:59 Output Total 700 Balance -700 Output: Other 700 Other: Weight 65.771 kg Results CBC & Chem 7: 02/20/24 07:22 02/20/24 07:22 Labs: Abnormal Lab Results - Last 24 Hours (Table) 02/20/24 02/20/24 02/20/24 Range/Units 07:22 07:22 07:22 WBC 14.3 H (3.8-10.6) k/uL Neutrophils # 10.4 H (1.3-7.7) k/uL PT 12.6 H (10.0-12.5) sec INR 1.2 H (<1.2) BUN 42 H (9-20) mg/dL Glucose 112 H (74-99) mg/dL Magnesium 2.4 H (1.6-2.3) mg/dL
--- NOTE | 2024-02-20 14:41 | P.CRDCN ---
History of Present Illness Consult date: 02/20/24 Consult reason: congestive heart failure History of present illness: History of present illness: This is an 88-year-old male patient of Dr. Cuevas with past medical history of non-Q wave [place] with multiple stents, ischemic cardiomyopathy, hypertension, dyslipidemia. We have been asked to evaluate the patient for CHF. Patient states that he got up this morning had abdominal discomfort and significant difficulty in breathing along with dizziness. He denies have any chest pain and no lower extremity edema. He states he is normally able to walk up to the mailbox and back without problems. He denies any PND, no cough or fever. No nausea or vomiting. No recent bleeding or blood in his stools or urine. No history of stroke or seizures. Patient is seen today in the emergency center waiting for a bed on the observation unit. Patient has been started on IV Lasix 40 mg every 12 hours. EKG sinus rhythm, first-degree block, right bundle branch block mild left anterior fascicular block Chest x-ray: COPD with borderline cardiomegaly and diffuse interstitial and patchy opacities. Consider mild CHF with pulmonary vascular congestion, atypical pneumonias or pneumonitis. Appearance similar to slightly worsened from prior. WBC 14.3, hemoglobin 13.8. INR 1.2. Sodium 137, potassium 4.7, BUN 42 creatinine 1.22. Troponin negative x 2. proBNP 14,900 which is improved from previous. Home cardiac medications: Aspirin 81 mg daily, Plavix 75 mg daily, Zetia 10 mg daily, Lasix 20 mg daily, Toprol-XL 50 mg daily, Nitrostat as needed, patient also on midodrine 2.5 mg 3 times daily. Echocardiogram performed on 02/13/2024 revealed EF of 25 to 30%, mild to moderate MR, mild AR, moderate pulmonary hypertension. Review Of Systems: At the time of my exam: CONSTITUTIONAL: Denies fever or chills. HEENT: Denies blurred vision, vision changes, or eye pain. Denies hemoptysis CARDIOVASCULAR: Denies chest pain. Denies orthopnea. Denies PND. Denies palpitations RESPIRATORY: Denies shortness of breath. GASTROINTESTINAL: Denies abdominal pain. Denies nausea or vomiting. HEMATOLOGIC: Denies bleeding disorders. GENITOURINARY: Denies any blood in urine. SKIN: Denies pruitis. Denies rash. Physical examination: Gen: This is an 88-year-old male in no acute distress VS: reviewed, blood pressure 106/67, heart rate 69, pulse ox 99% on 4 L nasal cannula. HEENT: Head is atraumatic, normocephalic. Pupils equal, round. Sclerae is anicteric. NECK: Supple. No JVD. LUNGS: Diminished breath sounds. No intercostal retractions. HEART: Irregular rate and rhythm. Systolic murmur. ABDOMEN: Soft No tenderness. EXTREMITIES: No pedal edema. No calf tenderness. NEUROLOGICAL: Patient is awake, alert and oriented x3. Assessment: Acute systolic heart failure Ischemic cardiomyopathy History of coronary artery disease with prior stenting Hypertension Dyslipidemia Plan: Resume patient's home cardiac medications Continue patient on IV Lasix 40 mg every 12 hours Monitor BIRD, daily weights, electrolytes and renal function Add Farxiga 10 mg daily Obtain limited 2-D echocardiogram and Doppler study to assess LV function Further recommendations to follow based upon clinical course Thank you kindly for this consultation. Nurse practitioner note has been reviewed, I agree with documented findings and plan of care. Patient was seen and examined. Past Medical History Past Medical History: Coronary Artery Disease (CAD), Cancer, Chest Pain / Angina, Heart Failure, COPD, Hyperlipidemia, Hypertension, Osteoarthritis (OA) Additional Past Medical History / Comment(s): cataract rt eye, past hx nosebleeds., states sob with activity, skin cancer., See Cardiology [facility] & P. History of Any Multi-Drug Resistant Organisms: None Reported Past Surgical History: Back Surgery, Heart Catheterization With Stent, Joint Replacement Additional Past Surgical History / Comment(s): rt knee replacement, neck fusion,lt cataract, back surgery x3 Past Anesthesia/Blood Transfusion Reactions: No Reported Reaction Date of Last Stent Placement:: 09/22/21 Past Psychological History: No Psychological Hx Reported Smoking Status: Former smoker Past Alcohol Use History: None Reported Past Drug Use History: None Reported - Past Family History Mother Family Medical History: No Reported History Additional Family Medical History / Comment(s): heart conditions Son(s) Family Medical History: No Reported History Father Family Medical History: Myocardial Infarction (HI) Medications and Allergies Home Medications Medication Instructions Recorded Confirmed Type Clopidogrel [Plavix] 75 mg PO DAILY #30 tab 09/26/21 02/20/24 Rx Ezetimibe [Zetia] 10 mg PO DAILY 07/03/23 02/20/24 History Nitroglycerin Sl Tabs [Nitrostat] 0.4 mg SL Q5M PRN 07/03/23 02/20/24 History Alirocumab [Praluent Pen] 150 mg SQ Q14D 08/03/23 02/20/24 History Aspirin [Adult Low Dose Aspirin EC] 81 mg PO DAILY 08/03/23 02/20/24 History Metoprolol Succinate (ER) [Toprol 50 mg PO DAILY 02/13/24 02/20/24 History XL] Furosemide [Lasix] 20 mg PO DAILY #30 tab 02/16/24 02/20/24 Rx Midodrine [ProAmatine] 2.5 mg PO TID #60 tablet 02/16/24 02/20/24 Rx Allergies Allergy/AdvReac Type Severity Reaction Status Date / Time atorvastatin Allergy Rash/Hives Verified 02/20/24 09:55 Physical Exam Vitals: Vital Signs Temp Pulse Resp BP Pulse Ox 02/20/24 12:21 72 18 178/69 100 02/20/24 08:16 69 20 106/67 99 02/20/24 07:02 97.5 F L 90 30 H 150/92 100 Intake and Output 02/19/24 02/20/24 02/20/24 22:59 06:59 14:59 Output Total 700 Balance -700 Output: Other 700 Other: Weight 65.771 kg Results 02/20/24 07:22 02/20/24 07:22 Cardiac Enzymes 02/20/24 02/20/24 02/20/24 Range/Units 07:22 07:22 12:16 AST 30 (17-59) U/L Troponin I 0.018 0.026 (0.000-0.034) ng/mL Coagulation 02/20/24 Range/Units 07: PT 12.6 H (10.0-12.5) sec APTT 26.9 (22.0-30.0) sec CBC 02/20/24 Range/Units 07: WBC 14.3 H (3.8-10.6) k/uL RBC 4.84 (4.30-5.90) m/uL Hgb 13.8 (13.0-17.5) gm/dL Hct 42.6 (39.0-53.0) % Plt Count 287 (150-450) k/uL Comprehensive Metabolic Panel 02/20/24 Range/Units 07:22 Sodium 137 (137-145) mmol/L Potassium 4.7 (3.5-5.1) mmol/L Chloride 106 (98-107) mmol/L Carbon Dioxide 23 (22-30) mmol/L BUN 42 H (9-20) mg/dL Creatinine 1.22 (0.66-1.25) mg/dL Glucose 112 H (74-99) mg/dL Calcium 9.3 (8.4-10.2) mg/dL AST 30 (17-59) U/L ALT 16 (4-49) U/L Alkaline Phosphatase 59 (38-126) U/L Total Protein 7.6 (6.3-8.2) g/dL Albumin 4.0 (3.5-5.0) g/dL Current Medications Generic Name Dose Route Start Last Admin Trade Name Freq PRN Reason Stop Dose Admin Furosemide 40 mg 02/20/24 09:00 02/20/24 10:12 Furosemide 10 Mg/Ml 4 Ml Vial IV Not Given Q12HR ROBERTO Heparin Sodium (Porcine) 5,000 unit 02/20/24 21:00 Heparin Sodium,Porcine 5,000 Unit/Ml 1 Ml Vial SQ Q12HR ROBERTO Naloxone HCl 0.2 mg 02/20/24 09:16 Naloxone 0.4 Mg/Ml 1 Ml Vial IV Q2M PRN Opioid Reversal Intake and Output 02/19/24 02/20/24 02/20/24 22:59 06:59 14:59 Output Total 700 Balance -700 Output: Other 700 Other: Weight 65.771 kg Patient Weight 02/21/24 06:59 Weight 65.771 kg 02/20/24 07:22 02/20/24 07:22
[2024-02-20] MEDS: EZETIMIBE 10 MG TAB PO SCH (15:57)
[2024-02-20] MEDS: ASPIRIN 81 MG PO SCH (15:57)
[2024-02-20] MEDS: CLOPIDOGREL 75 MG TAB PO SCH (15:57)
[2024-02-20] MEDS: METOPROLOL SUCCINATE (ER) 50 MG TAB.ER.24H PO SCH (15:58)
[2024-02-20] MEDS: DAPAGLIFLOZIN PROPANEDIOL 10 MG TABLET PO SCH (16:01)
[2024-02-20] MEDS: HEPARIN SODIUM,PORCINE 5,000 UNIT/ML 1 ML VIAL SQ SCH (23:52)
[2024-02-21] MEDS: FUROSEMIDE 40 MG TAB PO SCH (08:31)
--- NOTE | 2024-02-21 10:15 | P.PN ---
Subjective Progress Note Date: 02/21/24 Consult reason: congestive heart failure History of present illness: This is an 88-year-old male patient of Dr. Cuevas with past medical history of non-Q wave [place] with multiple stents, ischemic cardiomyopathy, hypertension, dyslipidemia. We have been asked to evaluate the patient for CHF. Patient states that he got up this morning had abdominal discomfort and significant difficulty in breathing along with dizziness. He denies have any chest pain and no lower extremity edema. He states he is normally able to walk up to the mailbox and back without problems. He denies any PND, no cough or fever. No nausea or vomiting. No recent bleeding or blood in his stools or urine. No history of stroke or seizures. Patient is seen today in the emergency center waiting for a bed on the observation unit. Patient has been started on IV Lasix 40 mg every 12 hours. EKG sinus rhythm, first-degree block, right bundle branch block mild left anterior fascicular block Chest x-ray: COPD with borderline cardiomegaly and diffuse interstitial and patchy opacities. Consider mild CHF with pulmonary vascular congestion, atypical pneumonias or pneumonitis. Appearance similar to slightly worsened from prior. WBC 14.3, hemoglobin 13.8. INR 1.2. Sodium 137, potassium 4.7, BUN 42 creatinine 1.22. Troponin negative x 2. proBNP 14,900 which is improved from previous. Home cardiac medications: Aspirin 81 mg daily, Plavix 75 mg daily, Zetia 10 mg daily, Lasix 20 mg daily, Toprol-XL 50 mg daily, Nitrostat as needed, patient also on midodrine 2.5 mg 3 times daily. Echocardiogram performed on 02/13/2024 revealed EF of 25 to 30%, mild to moderate MR, mild AR, moderate pulmonary hypertension. 02/20 Patient is seen today in follow up on the observation unit. He has been maintained on IV Lasix 40 mg every 12 hours. He states his breathing is better from yesterday. He states his abdominal pain is gone. He denies chest pain or chest pressure. He has no lower extremity edema. Blood pressure 127/82, heart rate 80, pulse ox 100% on room air. Echocardiogram is currently pending. Physical examination: Gen: This is an 88-year-old male in no acute distress VS: reviewed HEENT: Head is atraumatic, normocephalic. Pupils equal, round. Sclerae is anicteric. NECK: Supple. No JVD. LUNGS: Clear to auscultation. No intercostal retractions. HEART: Irregular rate and rhythm. Systolic murmur. ABDOMEN: Soft No tenderness. EXTREMITIES: No pedal edema. No calf tenderness. NEUROLOGICAL: Patient is awake, alert and oriented x3. Assessment: Acute systolic heart failure Ischemic cardiomyopathy History of coronary artery disease with prior stenting Hypertension Dyslipidemia Plan: Continue patient's home cardiac medications Transition IV Lasix to oral 40 mg daily and can be continued at discharge Monitor BIRD, daily weights, electrolytes and renal function Continue Farxiga 10 mg daily Obtain limited 2-D echocardiogram and Doppler study report Repeat blood work is status received If echocardiogram is unremarkable from recent and laboratory studies unremarkable, patient is cleared for discharge by cardiology and may follow-up with Dr. Cuevas in the office in 1 to 2 weeks. Nurse practitioner note has been reviewed, I agree with documented findings and plan of care. Patient was seen and examined. Objective - Vital Signs Vital signs: Vital Signs Temp 97.6 F 02/20/24 16:56 Pulse 80 02/21/24 04:21 Resp 18 02/21/24 04:21 BP 127/82 02/21/24 04:21 Pulse Ox 100 02/21/24 04:21 FiO2 Intake & Output 02/20/24 02/21/24 02/21/24 18:59 06:59 18:59 Output Total 700 Balance -700 Weight 65.771 kg 65.771 kg Output: Other 700 - Labs CBC & Chem 7: 02/20/24 07:22 02/20/24 07:22 Labs: Abnormal Lab Results - Last 24 Hours (Table) 02/20/24 02/20/24 02/20/24 Range/Units 07:22 07:22 07:22 WBC 14.3 H (3.8-10.6) k/uL Neutrophils # 10.4 H (1.3-7.7) k/uL PT 12.6 H (10.0-12.5) sec INR 1.2 H (<1.2) BUN 42 H (9-20) mg/dL Glucose 112 H (74-99) mg/dL Magnesium 2.4 H (1.6-2.3) mg/dL
[2024-02-21 10:20] LABS: Basophils # (A) 0.09 X 10*3/uL (0.00-0.10); Basophils % (A) 1.2 %; Eosinophils # (A) 0.17 X 10*3/uL (0.04-0.35); Eosinophils % (A) 2.3 %; HCT 42.9 % (39.6-50.0); HGB 13.8 g/dL (13.0-17.0); Lymphocytes # (A) 1.82 X 10*3/uL (0.90-5.00); Lymphocytes % (A) 24.1 %; MCH 27.2 pg (27.0-32.0); MCHC 32.2 g/dL (32.0-37.0); MCV 84.6 FL (80.0-97.0); Mean Platelet Volume 10.3 FL (9.5-12.2); Monocytes % (A) 10.6 %; NRBC Per 100 WBC 0 X 10*3/uL (0.00-0.01); Neutrophils # (A) 4.65 X 10*3/uL (1.80-7.70); Neutrophils % (A) 61.5 %; Platelet Count 283 X 10*3/uL (140-440); RBC 5.07 X 10*6/uL (4.40-5.60); RDW 14.1 % (11.5-14.5); WBC 7.55 X 10*3/uL (4.50-10.00)
[2024-02-21 10:35] LABS: BUN/Creat Ratio 24.41 Ratio (12.00-20.00); Blood Urea Nitrogen 41.5 mg/dL (9.0-27.0); Calcium 9.9 mg/dL (8.7-10.3); Carbon Dioxide 23.9 mmol/L (21.6-31.8); Chloride 100 mmol/L (96-109); Glucose 85 mg/dL (70-110); Potassium 4.6 mmol/L (3.5-5.5); Sodium 140 mmol/L (135-145)
--- NOTE | 2024-02-21 16:03 | P.PN ---
Subjective Progress Note Date: 02/21/24 (delayed charting seen at 0830) Patient is a 88-year-old male patient of Dr. Abreu who was recently hospitalized for acute systolic congestive heart failure from 02/12 through 02/15. During that hospitalization he was found to have significant cognitive impairment and discussion was had with family about moving him to a more supervised setting, they have been pursuing this on the outpatient basis. Upon arrival to the ER this time patient was again diagnosed with acute exacerbation of systolic congestive heart failure with a BNP of 14,900 and a chest x-ray consistent with significant pulmonary edema. He was started on IV diuretics and admitted for further monitoring. Cardiology was consulted. He was started on Farxiga and additional to the IV diuretics and had a rapid increase in his creatinine up to 1.7 from 1.22 with a baseline creatinine of 1.46. Patient seen and examined at bedside. He has no complaints currently. He is breathing well. He denies any chest pain. No nausea or vomiting. Vital signs reviewed General: Nontoxic, no distress, appears at stated age Cardiovascular: S1S2 reg, no murmur Lungs: CTA bilateral, no rhonchi, no rales, no accessory muscle use Abdominal: Soft, nontender to palpation, no guarding Ext: No gross muscle atrophy, no edema b/l lower extremities, no contractures Neuro: CN II-XI grossly intact, no focal neuro deficits Psych: Alert, oriented, appropriate affect Assessment/Plan: Acute exacerbation of HFrEF, ejection fraction 25 to 30% Acute kidney injury on CKD stage III Orthostatic hypotension with history of hypertension Dyslipidemia History of coronary artery disease Bigeminy status post 7-day event monitor Cognitive impairment -Cardiology note reviewed: Transition to oral Lasix which can be continued on discharge -No indication for repeat echocardiogram as patient had one performed on 02/13/2024 which demonstrated ejection fraction of 25 to 30%. Patient also diagnosed with significant cognitive impairment at this time and suspect that his recurrent CHF is likely due to medication or dietary noncompliance. Have discussed with family taking patient to a more supervised setting which is being arranged for at [facility]. -Agree with decreasing Lasix due to patient's ADELINE -Discontinue Farxiga. Patient has advanced age and history of orthostatic hypotension. After receiving this medication he developed acute kidney injury and hypotension. He should not be placed on this on discharge. -Zetia 10 mg daily, aspirin 81 mg daily, Plavix 75 mg daily, metoprolol 50 mg daily -Orthostatics reviewed and were negative at this time. Will repeat tomorrow given they were positive last time after diuresis. Patient may need his midodrine reinitiated. -Strict I's and O's, daily weights Leukocytosis, reactive, resolved For overall prognosis given advanced age, significant cognitive impairment, and systolic cardiomyopathy. Chronic: COPD without exacerbation History of nosebleeds Recent GI bleed requiring multiple stenting at [facility] Imaging: None new Data Review: Labs reviewed from today include CBC and basic metabolic profile which are remarkable for creatinine of 1.7 DVT prophylaxis: Heparin Anticipated discharge date: Pending clinical course Anticipated discharge place: Pending clinical course This dictation was prepared using [employer] voice recognition software. Though every attempt is made to correct errors during dictation some may still exist. Objective - Vital Signs Vital signs: Vital Signs Temp 97.6 F 02/21/24 15:33 Pulse 88 02/21/24 15:33 Resp 16 02/21/24 15:33 BP 94/53 02/21/24 15:33 Pulse Ox 100 02/21/24 15:33 FiO2 Intake & Output 02/20/24 02/21/24 02/21/24 18:59 06:59 18:59 Intake Total 236 Output Total 700 Balance -700 236 Weight 65.771 kg 65.771 kg Intake: Oral 236 Output: Other 700 Other: # Voids 2 - Labs CBC & Chem 7: 02/21/24 07:33 02/21/24 07:33 Labs: Abnormal Lab Results - Last 24 Hours (Table) 02/21/24 Range/Units 07:33 Anion Gap 16.10 H (4.00-12.00) mmol/L BUN 41.5 H (9.0-27.0) mg/dL Creatinine 1.7 H (0.6-1.5) mg/dL Est GFR (CKD-EPI) 39 L (>=60) BUN/Creatinine Ratio 24.41 H (12.00-20.00) Ratio
[2024-02-21 16:13] VITALS: RESP 16
[2024-02-22 06:47] LABS: HCT 43.4 % (39.0-53.0); HGB 14.1 gm/dL (13.0-17.5); MCH 28.3 pg (25.0-35.0); MCHC 32.6 g/dL (31.0-37.0); MCV 86.9 fL (80.0-100.0); Mean Platelet Volume 8.3; Platelet Count 307 k/uL (150-450); RDW 13.8 % (11.5-15.5)
[2024-02-22 06:59] LABS: African American GFR (CKD) 46 (>60 ml/min/1.73 sqM); Anion Gap 7 mmol/L; Blood Urea Nitrogen 43 mg/dL (9-20); Calcium 9.3 mg/dL (8.4-10.2); Carbon Dioxide 28 mmol/L (22-30); Chloride 102 mmol/L (98-107); Glucose 77 mg/dL (74-99); Magnesium 2.1 mg/dL (1.6-2.3); Non-African American GFR(CKD) 40 (>60 ml/min/1.73 sqM); Phosphorus 3.9 mg/dL (2.5-4.5); Potassium 4.1 mmol/L (3.5-5.1); Sodium 137 mmol/L (137-145)
--- NOTE | 2024-02-22 07:16 | CA ---
Transthoracic Echo Report Name: Paul Coronado Age: 88 Gender: M : 1935 Exam Date: 02/21/2024 15:17 Exam Location: [facility] Ht (in): 70 Wt (lb): 145 Ordering Physician: Ada Ortiz Attending/Referring Phys: [id number], Angel Soa Integration Architect Sharmaine Bartlett RDCS Procedure CPT: Indications: LVF Cardiac Hx: Technical Quality: Fair Contrast 1: Total Dose (mL): Contrast 2: Total Dose (mL): MEASUREMENTS (Male / Female) Normal Values 2D ECHO LV Diastolic Diameter PLAX 4.3 cm 4.2 - 5.9 / 3.9 - 5.3 cm LV Systolic Diameter PLAX 3.3 cm IVS Diastolic Thickness 1.2 cm 0.6 - 1.0 / 0.6 - 0.9 cm LVPW Diastolic Thickness 1.4 cm 0.6 - 1.0 / 0.6 - 0.9 cm LV Relative Wall Thickness 0.6 LV Diastolic Volume MOD BP 128.3 cm??? 67 - 155 / 56 - 104 cm??? LV Systolic Volume MOD BP 91.9 cm??? 22 - 58 / 19 - 49 cm??? LV Ejection Fraction MOD BP 28.3 % >= 55 % LV Diastolic Volume MOD 4C 131.6 cm??? LV Systolic Volume MOD 4C 89.8 cm??? LV Ejection Fraction MOD 4C 31.8 % LV Diastolic Length 4C 8.4 cm LV Systolic Length 4C 8.1 cm LV Diastolic Volume MOD 2C 121.3 cm??? LV Systolic Volume MOD 2C 87.4 cm??? LV Ejection Fraction MOD 2C 27.9 % LV Diastolic Length 2C 8.7 cm LV Systolic Length 2C 7.4 cm FINDINGS Left Ventricle Reduced global left ventricular systolic function. Left ventricular ejection fraction is estimated at 25-30 %.Mildly increased left ventricular wall thickness. Right Ventricle Right Atrium Left Atrium Mitral Valve Mitral annular calcification. Exbumhie-ul-tqrymn mitral regurgitation. Aortic Valve Moderate aortic regurgitation. Tricuspid Valve Moderate tricuspid regurgitation. Pulmonic Valve Pericardium No pericardial effusion. Aorta CONCLUSIONS Limited echo. Severely impaired left ventricular systolic function with anteroapical, anteroseptal and anterolateral akinesis Moderate severe mitral with moderate aortic and tricuspid regurgitation Previewed by: Dr. Yasmani Alberto MD (Electronically Signed) Final Date: 22 Feb 2024 07:15
[2024-02-22] MEDS ORDERED: polyethylene glycoL 3350 17 GM POWD.PACK PO PRN (08:03)
[2024-02-22] MEDS ORDERED: DAPAGLIFLOZIN PROPANEDIOL 10 MG TABLET PO SCH (09:00)
[2024-02-22] MEDS: MIDODRINE 5 MG TAB PO SCH (09:22)
--- NOTE | 2024-02-22 09:52 | P.PN ---
Subjective Progress Note Date: 02/22/24 Consult reason: congestive heart failure History of present illness: This is an 88-year-old male patient of Dr. Cuevas with past medical history of non-Q wave [place] with multiple stents, ischemic cardiomyopathy, hypertension, dyslipidemia. We have been asked to evaluate the patient for CHF. Patient states that he got up this morning had abdominal discomfort and significant difficulty in breathing along with dizziness. He denies have any chest pain and no lower extremity edema. He states he is normally able to walk up to the mailbox and back without problems. He denies any PND, no cough or fever. No nausea or vomiting. No recent bleeding or blood in his stools or urine. No history of stroke or seizures. Patient is seen today in the emergency center waiting for a bed on the observation unit. Patient has been started on IV Lasix 40 mg every 12 hours. EKG sinus rhythm, first-degree block, right bundle branch block mild left anterior fascicular block Chest x-ray: COPD with borderline cardiomegaly and diffuse interstitial and patchy opacities. Consider mild CHF with pulmonary vascular congestion, atypical pneumonias or pneumonitis. Appearance similar to slightly worsened from prior. WBC 14.3, hemoglobin 13.8. INR 1.2. Sodium 137, potassium 4.7, BUN 42 creatinine 1.22. Troponin negative x 2. proBNP 14,900 which is improved from previous. Home cardiac medications: Aspirin 81 mg daily, Plavix 75 mg daily, Zetia 10 mg daily, Lasix 20 mg daily, Toprol-XL 50 mg daily, Nitrostat as needed, patient also on midodrine 2.5 mg 3 times daily. Echocardiogram performed on 02/13/2024 revealed EF of 25 to 30%, mild to moderate MR, mild AR, moderate pulmonary hypertension. 02/20 Patient is seen today in follow up on the observation unit. He has been maintained on IV Lasix 40 mg every 12 hours. He states his breathing is better from yesterday. He states his abdominal pain is gone. He denies chest pain or chest pressure. He has no lower extremity edema. Blood pressure 127/82, heart rate 80, pulse ox 100% on room air. Echocardiogram is currently pending. 02/21 Today, IV Lasix was transitioned to oral at 40 mg daily. Patient was also continued on Farxiga which is new during this hospitalization. Echocardiogram limited reveals severely impaired ventricular systolic function with anterior apical, anterior septal and anterior lateral acute kinesis. Moderate severe mitral and moderate aortic and tricuspid regurgitation. EF 25 to 30%. Blood pressure 120/66, heart rate 95, pulse ox 95% on room air. His breathing contin ues to be improved. No abdominal pain. No chest pain. Repeat blood work reveals hemoglobin 14.1. BUN 43 creatinine 1.55. Physical examination: Gen: This is an 88-year-old male in no acute distress VS: reviewed HEENT: Head is atraumatic, normocephalic. Pupils equal, round. Sclerae is anicteric. NECK: Supple. No JVD. LUNGS: Clear to auscultation. No intercostal retractions. HEART: Irregular rate and rhythm. Systolic murmur. ABDOMEN: Soft No tenderness. EXTREMITIES: No pedal edema. No calf tenderness. NEUROLOGICAL: Patient is awake, alert and oriented x3. Assessment: Acute systolic heart failure Ischemic cardiomyopathy History of coronary artery disease with prior stenting Hypertension Dyslipidemia Plan: Continue patient's home cardiac medications Continue Lasix oral 40 mg daily and can be continued at discharge Monitor BIRD, daily weights, electrolytes and renal function Continue Farxiga 10 mg daily Patient is cleared for discharge from cardiology and may follow-up in the office with Dr. Cuevas in 1 to 2 weeks. Nurse practitioner note has been reviewed, I agree with documented findings and plan of care. Patient was seen and examined. Objective - Vital Signs Vital signs: Vital Signs Temp 98.1 F 02/22/24 02:32 Pulse 95 02/22/24 02:32 Resp 16 02/22/24 02:32 BP 120/66 02/22/24 02:32 Pulse Ox 95 02/22/24 02:32 FiO2 Intake & Output 02/21/24 02/22/24 02/22/24 18:59 06:59 18:59 Intake Total 354 Balance 354 Weight 62.7 kg Intake: Oral 354 Other: # Voids 2 - Labs CBC & Chem 7: 02/22/24 05:47 02/22/24 05:47 Labs: Abnormal Lab Results - Last 24 Hours (Table) 02/21/24 02/22/24 Range/Units 07:33 05:47 Anion Gap 16.10 H (4.00-12.00) mmol/L BUN 41.5 H 43 H (9.0-27.0) mg/dL Creatinine 1.7 H 1.55 H (0.6-1.5) mg/dL Est GFR (CKD-EPI) 39 L (>=60) BUN/Creatinine Ratio 24.41 H (12.00-20.00) Ratio
--- NOTE | 2024-02-22 10:11 | P.DS ---
Providers Date of admission: 02/20/24 09:16 Expected date of discharge: 02/22/24 Attending physician: Erasmo Jones MD Consults: 02/20/24 09:16 Consult Physician Routine Consulting Provider: [facility] Consult Reason/Comments: chf Do you want consulting provider notified?: Yes Primary care physician: [facility] Hospital Course: Discharge Diagnosis: Acute exacerbation of HFrEF, ejection fraction 25 to 30% Acute kidney injury on CKD stage III Orthostatic hypotension with history of hypertension Dyslipidemia History of coronary artery disease Bigeminy status post 7-day event monitor Cognitive impairment Leukocytosis, reactive, resolved COPD without exacerbation History of nosebleeds Recent GI bleed requiring multiple stenting at [facility] Course: Patient is a 88-year-old male patient of Dr. Cuevas who was recently hospitalized for acute systolic congestive heart failure from 02/12 through 02/15. During that hospitalization he was found to have significant cognitive impairment and discussion was had with family about moving him to a more supervised setting, they have been pursuing this on the outpatient basis. Upon arrival to the ER this time patient was again diagnosed with acute exacerbation of systolic congestive heart failure with a BNP of 14,900 and a chest x-ray consistent with significant pulmonary edema. He was started on IV diuretics and admitted for further monitoring. Cardiology was consulted. He was started on Farxiga and additional to the IV diuretics and had a rapid increase in his creatinine up to 1.7 from 1.22 with a baseline creatinine of 1.46. He was taken off of his IV Lasix and, Farxiga due to history of orthostatic hypotension. He had been taken off of his midodrine and again had orthostatic hypotension and midodrine was restarted. He was doing well. He had no complaints. Family had arranged for him to move into [facility] and he was determined stable for discharge. Follow-up: Repeat blood work in 3 days to assess creatinine and potassium levels, Dr. Cuevas in 1 week, he will [facility], will send request over to [place] for home health care. No spironolactone secondary to history of chronic kidney disease. Patient also has a history of hyperkalemia in October 2023. No MALIA or ARB due to recent acute kidney injury. This likely should be started on outpatient basis pending that his blood pressures can tolerate. Patient was unable to tolerate Farxiga due to orthostatic hypotension and low blood pressures. Patient seen and examined at bedside. No complaints at this time. Feeling good. Does not have any shortness of breath. Getting go to [place], but may not tell his he is living there due to her advanced dementia and being on the dementia unit. Vital signs reviewed and stable. General: Nontoxic, no distress, appears at stated age Cardiovascular: S1S2 reg, no murmur, positive posterior tibial pulse bilateral, Lungs: CTA bilateral, no rhonchi, no rales, no accessory muscle use Abdominal: Soft, nontender to palpation, no guarding, no appreciable organomegaly Ext: No gross muscle atrophy, no edema b/l lower extremities, no contractures Neuro: CN II-XI grossly intact, no focal neuro deficits Psych: Alert, oriented, appropriate affect A total of 37 minutes of time were spent preparing this complex discharge summary. Patient was discharged on 02/22/2024. This dictation was prepared using [employer] voice recognition software. Though every attempt is made to correct errors during dictation some may still exist. Patient Condition at Discharge: Stable Plan - Discharge Summary New Discharge Prescriptions: New polyethylene glycoL 3350 [Miralax] 17 gm PO DAILY PRN packet PRN Reason: Constipation Furosemide [Lasix] 40 mg PO DAILY tab Continue Clopidogrel [Plavix] 75 mg PO DAILY #30 tab Ezetimibe [Zetia] 10 mg PO DAILY Nitroglycerin Sl Tabs [Nitrostat] 0.4 mg SL Q5M PRN PRN Reason: Chest Pain Aspirin [Adult Low Dose Aspirin EC] 81 mg PO DAILY Alirocumab [Praluent Pen] 150 mg SQ Q14D Metoprolol Succinate (ER) [Toprol XL] 50 mg PO DAILY Midodrine [ProAmatine] 2.5 mg PO TID #60 tablet Discontinued Furosemide [Lasix] 20 mg PO DAILY #30 tab Discharge Medication List Clopidogrel [Plavix] 75 mg PO DAILY #30 tab 09/26/21 [Rx] Ezetimibe [Zetia] 10 mg PO DAILY 07/03/23 [History] Nitroglycerin Sl Tabs [Nitrostat] 0.4 mg SL Q5M PRN 07/03/23 [History] Alirocumab [Praluent Pen] 150 mg SQ Q14D 08/03/23 [History] Aspirin [Adult Low Dose Aspirin EC] 81 mg PO DAILY 08/03/23 [History] Metoprolol Succinate (ER) [Toprol XL] 50 mg PO DAILY 02/13/24 [History] Midodrine [ProAmatine] 2.5 mg PO TID #60 tablet 02/16/24 [Rx] Furosemide [Lasix] 40 mg PO DAILY tab 02/22/24 [Rx] polyethylene glycoL 3350 [Miralax] 17 gm PO DAILY PRN packet 02/22/24 [Rx] Follow up Appointment(s)/Referral(s): Brant Cuevas MD [STAFF PHYSICIAN] - 1 Week [facility]Clinic [Primary Care Provider] - 1-2 days Ambulatory/Diagnostic Orders: Basic Metabolic Panel [LAB.AMB] Time Frame: 3 Days, Location: None Selected Activity/Diet/Wound Care/Special Instructions: Activity: As tolerated. Diet: Heart Healthy, 4 grams sodium Special Instructions: Blood work in 3 days Discharge Disposition: HOME WITH HOME HEALTH SERVICES
[2024-02-22 16:55] VITALS: BP 137/65; PULSE 65; TEMP 97.6
== END 2024-02-22 16:58 | disposition home health service (06) ==
LOC: EC 07:00 → 6NMEDSUR 09:16
PROVIDERS: ADMIT Student in an Organized Health Care Education/Training Program; ATTEND Student in an Organized Health Care Education/Training Program
DX: I13.0 Hypertensive heart and chronic kidney disease with heart failure and stage 1 through stage 4 chronic kidney disease, or unspecified chronic kidney disease (principal); I50.23 Acute on chronic systolic (congestive) heart failure; N17.9 Acute kidney failure, unspecified; N18.31 Chronic kidney disease, stage 3a; I08.3 Combined rheumatic disorders of mitral, aortic and tricuspid valves; I45.2 Bifascicular block; I25.5 Ischemic cardiomyopathy; I27.20 Pulmonary hypertension, unspecified; I44.0 Atrioventricular block, first degree; I95.1 Orthostatic hypotension; F03.90 Unspecified dementia, unspecified severity, without behavioral disturbance, psychotic disturbance, mood disturbance, and anxiety; I25.10 Atherosclerotic heart disease of native coronary artery without angina pectoris; I42.8 Other cardiomyopathies; E78.5 Hyperlipidemia, unspecified; J44.9 Chronic obstructive pulmonary disease, unspecified; D72.829 Elevated white blood cell count, unspecified; I25.2 Old myocardial infarction; Z79.82 Long term (current) use of aspirin; Z79.02 Long term (current) use of antithrombotics/antiplatelets; Z79.899 Other long term (current) drug therapy; Z88.8 Allergy status to other drugs, medicaments and biological substances; Z87.891 Personal history of nicotine dependence; Z11.52 Encounter for screening for COVID-19; Z11.59 Encounter for screening for other viral diseases; Z87.19 Personal history of other diseases of the digestive system
CPT/HCPCS: 96372 ×3; 96376; 96374; 99285; 51798; 36415; 93005; 93308; 83880; 80053; 80048 ×2; 83605; 83735 ×2; 84100; 84484; 85025 ×2; 85027; 85610; 85730; 81003; 87636; 71046; G0378 ×3; J1644 ×3; J1940

== ENCOUNTER 2024-03-16 05:15 | Observation (INO) | payer OTHER ==
[2024-03-16 06:00] LABS: Basophils # (A) 0.1 k/uL (0-0.2); Basophils % (A) 1 %; Eosinophils # (A) 0.2 k/uL (0-0.7); Eosinophils % (A) 2 %; HCT 42.2 % (39.0-53.0); HGB 13.6 gm/dL (13.0-17.5); Lymphocytes # (A) 1.7 k/uL (1.0-4.8); Lymphocytes % (A) 15 %; MCH 27.9 pg (25.0-35.0); MCHC 32.2 g/dL (31.0-37.0); MCV 86.6 fL (80.0-100.0); Mean Platelet Volume 9.4; Monocytes # (A) 0.8 k/uL (0-1.0); Monocytes % (A) 7 %; Neutrophils # (A) 8.8 k/uL (1.3-7.7); Neutrophils % (A) 75 %; Platelet Count 252 k/uL (150-450); RBC 4.87 m/uL (4.30-5.90); RDW 14.4 % (11.5-15.5); WBC 11.7 k/uL (3.8-10.6)
--- NOTE | 2024-03-16 06:02 | XR ---
EXAMINATION TYPE: XR chest 2V DATE OF EXAM: 03/16/2024 COMPARISON: Chest x-ray February 20, 2024 HISTORY: Difficulty in breathing TECHNIQUE: Frontal and lateral views of the chest are obtained. FINDINGS: Cardiomegaly with bilateral multifocal opacities redemonstrated. No pleural effusion or p neumothorax seen bilaterally. Degenerative change bilateral glenohumeral joints again seen. IMPRESSION: Cardiomegaly of bilateral multifocal edema and/or acute infiltrates. Correlate clinicall y. No significant change from most recent study.
--- NOTE | 2024-03-16 06:09 | ED ---
SOB HPI - General Chief Complaint: Shortness of Breath Stated Complaint: SOB Time Seen by Provider: 03/16/24 05:20 Source: EMS Mode of arrival: EMS Limitations: no limitations - History of Present Illness Initial Comments: 88-year-old male with past medical history of COPD, congestive heart failure who presents emergency department reporting shortness of breath. States that he could not sleep last night because he could not lay flat. His breathing was better when he was sitting up. Patient has been hospitalized twice recently for CHF exacerbation. He was discharged home on 40 mg Lasix. According to the patient med list he is on spironolactone. He reports that he was taken off of Lasix and placed on spironolactone on . Patient denies any lower extremity edema. Does admit to a thick white frothy cough. Denies any fevers. No sick contacts. No chest pain. No other alleviating, precipitating or modifying factors - Related Data Home Medications Medication Instructions Recorded Confirmed Ezetimibe [Zetia] 10 mg PO DAILY 07/03/23 02/20/24 Nitroglycerin Sl Tabs [Nitrostat] 0.4 mg SL Q5M PRN 07/03/23 02/20/24 Alirocumab [Praluent Pen] 150 mg SQ Q14D 08/03/23 02/20/24 Aspirin [Adult Low Dose Aspirin EC] 81 mg PO DAILY 08/03/23 02/20/24 Metoprolol Succinate (ER) [Toprol 50 mg PO DAILY 02/13/24 02/20/24 XL] Previous Rx's Medication Instructions Recorded Clopidogrel [Plavix] 75 mg PO DAILY #30 tab 09/26/21 Midodrine [ProAmatine] 2.5 mg PO TID #60 tablet 02/16/24 Furosemide [Lasix] 40 mg PO DAILY tab 02/22/24 polyethylene glycoL 3350 [Miralax] 17 gm PO DAILY PRN packet 02/22/24 Allergies Allergy/AdvReac Type Severity Reaction Status Date / Time atorvastatin Allergy Rash/Hives Verified 02/20/24 09:55 Review of Systems ROS Statement: Those systems with pertinent positive or pertinent negative responses have been documented in the HPI. ROS Other: All systems not noted in ROS Statement are negative. Past Medical History Past Medical History: Coronary Artery Disease (CAD), Cancer, Chest Pain / Angina, Heart Failure, COPD, Hyperlipidemia, Hypertension, Osteoarthritis (OA) Additional Past Medical History / Comment(s): cataract rt eye, past hx nosebleeds., states sob with activity, skin cancer., See Cardiology H & P. History of Any Multi-Drug Resistant Organisms: None Reported Past Surgical History: Back Surgery, Heart Catheterization With Stent, Joint Replacement Additional Past Surgical History / Comment(s): rt knee replacement, neck fusion,lt cataract, back surgery x3 Past Anesthesia/Blood Transfusion Reactions: No Reported Reaction Date of Last Stent Placement:: 09/22/21 Past Psychological History: No Psychological Hx Reported Smoking Status: Former smoker Past Alcohol Use History: None Reported Additional Past Alcohol Use History / Comment(s): quit smoking 40 yrs ago, hx of 1 - 1 1/2 ppd. Past Drug Use History: None Reported - Past Family History Mother Family Medical History: No Reported History Additional Family Medical History / Comment(s): heart conditions Son(s) Family Medical History: No Reported History Father Family Medical History: Myocardial Infarction (PR) General Exam Limitations: no limitations General appearance: alert, in no apparent distress Head exam: Present: atraumatic, normocephalic, normal inspection Eye exam: Present: normal appearance, PERRL, EOMI. Absent: scleral icterus, con junctival injection, periorbital swelling ENT exam: Present: normal exam, mucous membranes moist Neck exam: Present: normal inspection. Absent: tenderness, meningismus, lymphadenopathy Respiratory exam: Absent: respiratory distress, wheezes, rales, rhonchi, stridor Cardiovascular Exam: Present: regular rate, normal rhythm, normal heart sounds. Absent: systolic murmur, diastolic murmur, rubs, gallop, clicks GI/Abdominal exam: Present: soft, normal bowel sounds. Absent: distended, tenderness, guarding, rebound, rigid Extremities exam: Present: normal inspection, full ROM, normal capillary refill. Absent: tenderness, pedal edema, joint swelling, calf tenderness Back exam: Present: normal inspection Neurological exam: Present: alert, oriented X3, CN II-XII intact Psychiatric exam: Present: normal affect, normal mood Skin exam: Present: warm, dry, intact, normal color. Absent: rash Course Vital Signs 03/16/24 03/16/24 05:20 07:11 Temperature 96.8 F L 98.0 F Pulse Rate 60 73 Respiratory 18 16 Rate Blood Pressure 105/78 102/88 O2 Sat by Pulse 96 98 Oximetry Medical Decision Making - Medical Decision Making Was pt. sent in by a medical professional or institution (ELIANE Martins, [employer]ENCE [employer], urgent care, hospital, or shelter...) When possible be specific @ -No Did you speak to anyone other than the patient for history (EMS, parent, family, police, friend...)? What history was obtained from this source @ -Spoke with EMS for history Did you review nursing and triage notes (agree or disagree)? Why? @ -I reviewed and agree with nursing and triage notes Were old charts reviewed (outside hosp., previous admission, EMS record, old EKG, old radiological studies, urgent care reports/EKG's, shelter records)? Report findings @ -Reviewed patient's discharge summary from February 21 and discharged home medication list Differential Diagnosis (chest pain, altered mental status, abdominal pain women, abdominal pain men, vaginal bleeding, weakness, fever, dyspnea, syncope, headache, dizziness, GI bleed, back pain, seizure, CVA, palpatations, mental health, musculoskeletal)? @ -Differential Dyspnea: Coronary syndrome, arrhythmia, tamponade, asthma, COPD, pulmonary embolism, pneumonia, pneumothorax, pulmonary effusion, anaphylaxis, diabetic ketoacidosis, flailed chest, pulmonary contusion, diaphragmatic rupture, anemia, neuromuscular, this is not meant to be an all-inclusive list. EKG interpreted by me (3pts min.). @ -yes and demonstrates sinus rhythm with a rate of 72. MO interval 241. QRS 166. QTc of 536. There are PVCs present. No acute ST segment elevations X-rays interpreted by me (1pt min.). @ -Yes and demonstrates multifocal edema CT interpreted by me (1pt min.). @ -None done U/S interpreted by me (1pt. min.). @ -None done What testing was considered but not performed or refused? (CT, X-rays, U/S, labs)? Why? @ -None What meds were considered but not given or refused? Why? @ -None Did you discuss the management of the patient with other professionals (professionals i.e. ELIANE Martins, [employer]ENCE [employer]ER, lab, RT, psych nurse, aids social worker, stockroom coordinator, teacher, tax revenue officer, caser up)? Give summary @ -Sound physicians were paged Was smoking cessation discussed for >3mins.? @ -No Was critical care preformed (if so, how long)? @ -No Were there social determinants of health that impacted care today? How? (Homelessness, low income, unemployed, alcoholism, drug addiction, transportation, low edu. Level, literacy, decrease access to med. care, chcf, rehab)? @ -No Was there de-escalation of care discussed even if they declined (Discuss DNR or withdrawal of care, Hospice)? DNR status @ -No What co-morbidities impacted this encounter? (DM, HTN, Smoking, COPD, CAD, Cancer, CVA, ARF, Chemo, Hep., AIDS, mental health diagnosis, sleep apnea, morbid obesity)? @ -CHF exacerbation Was patient admitted / discharged? Hospital course, mention meds given and route, prescriptions, significant lab abnormalities, going to OR and other pertinent info. @ -On arrival patient seen and evaluated in room 5. Thorough history and physical exam was performed. IV access was established. Laboratory studies are conducted. Chest x-ray was performed. Patient is placed on 2 L of oxygen due to discomfort from work of breathing. Laboratory studies demonstrate an elevated BNP. Chest x-ray demonstrates multifocal edema. Patient was given 40 mg of Lasix IV. Recommended overnight ops reports patient was agreeable Undiagnosed new problem with uncertain prognosis? @ -No Drug Therapy requiring intensive monitoring for toxicity (Heparin, Nitro, Insulin, Cardizem)? @ -No Were any procedures done? @ -No Diagnosis/symptom? @ -Acute respiratory insufficiency, acute exacerbation of CHF Acute, or Chronic, or Acute on Chronic? @ -acute on chronic Uncomplicated (without systemic symptoms) or Complicated (systemic symptoms)? @ -Complicated Side effects of treatment? @ -No Exacerbation, Progression, or Severe Exacerbation? @ -yes Poses a threat to life or bodily function? How? (Chest pain, USA, PR, pneumonia, PE, COPD, DKA, ARF, appy, cholecystitis, CVA, Diverticulitis, Homicidal, Suicidal, threat to staff... and all critical care pts) @ -No - Lab Data Result diagrams: 03/16/24 05:40 03/16/24 05:40 Lab Results 03/16/24 03/16/24 03/16/24 Range/Units 05:40 05:40 05:40 WBC 11.7 H (3.8-10.6) k/uL RBC 4.87 (4.30-5.90) m/uL Hgb 13.6 (13.0-17.5) gm/dL Hct 42.2 (39.0-53.0) % MCV 86.6 (80.0-100.0) fL MCH 27.9 (25.0-35.0) pg MCHC 32.2 (31.0-37.0) g/dL RDW 14.4 (11.5-15.5) % Plt Count 252 (150-450) k/uL MPV 9.4 Neutrophils % 75 % Lymphocytes % 15 % Monocytes % 7 % Eosinophils % 2 % Basophils % 1 % Neutrophils # 8.8 H (1.3-7.7) k/uL Lymphocytes # 1.7 (1.0-4.8) k/uL Monocytes # 0.8 (0-1.0) k/uL Eosinophils # 0.2 (0-0.7) k/uL Basophils # 0.1 (0-0.2) k/uL PT 11.9 (10.0-12.5) sec INR 1.1 (<1.2) APTT 23.5 (22.0-30.0) sec Sodium 132 L (137-145) mmol/L Potassium 5.2 H (3.5-5.1) mmol/L Chloride 102 (98-107) mmol/L Carbon Dioxide 20 L (22-30) mmol/L Anion Gap 10 mmol/L BUN 35 H (9-20) mg/dL Creatinine 1.48 H (0.66-1.25) mg/dL Est GFR (CKD-EPI)AfAm 49 (>60 ml/min/1.73 sqM) Est GFR (CKD-EPI)NonAf 42 (>60 ml/min/1.73 sqM) Glucose 119 H (74-99) mg/dL Calcium 8.9 (8.4-10.2) mg/dL Total Bilirubin 1.7 H (0.2-1.3) mg/dL AST 35 (17-59) U/L ALT 17 (4-49) U/L Alkaline Phosphatase 58 (38-126) U/L Troponin I (0.000-0.034) ng/mL NT-Pro-B Natriuret Pep 57384 pg/mL Total Protein 7.5 (6.3-8.2) g/dL Albumin 4.5 (3.5-5.0) g/dL 03/16/24 Range/Units 05:40 WBC (3.8-10.6) k/uL RBC (4.30-5.90) m/uL Hgb (13.0-17.5) gm/dL Hct (39.0-53.0) % MCV (80.0-100.0) fL MCH (25.0-35.0) pg MCHC (31.0-37.0) g/dL RDW (11.5-15.5) % Plt Count (150-450) k/uL MPV Neutrophils % % Lymphocytes % % Monocytes % % Eosinophils % % Basophils % % Neutrophils # (1.3-7.7) k/uL Lymphocytes # (1.0-4.8) k/uL Monocytes # (0-1.0) k/uL Eosinophils # (0-0.7) k/uL Basophils # (0-0.2) k/uL PT (10.0-12.5) sec INR (<1.2) APTT (22.0-30.0) sec Sodium (137-145) mmol/L Potassium (3.5-5.1) mmol/L Chloride (98-107) mmol/L Carbon Dioxide (22-30) mmol/L Anion Gap mmol/L BUN (9-20) mg/dL Creatinine (0.66-1.25) mg/dL Est GFR (CKD-EPI)AfAm (>60 ml/min/1.73 sqM) Est GFR (CKD-EPI)NonAf (>60 ml/min/1.73 sqM) Glucose (74-99) mg/dL Calcium (8.4-10.2) mg/dL Total Bilirubin (0.2-1.3) mg/dL AST (17-59) U/L ALT (4-49) U/L Alkaline Phosphatase (38-126) U/L Troponin I 0.019 (0.000-0.034) ng/mL NT-Pro-B Natriuret Pep pg/mL Total Protein (6.3-8.2) g/dL Albumin (3.5-5.0) g/dL Disposition Clinical Impression: CHF (congestive heart failure), Dyspnea Disposition: ADMITTED IP TO THIS [facility] Condition: Stable Is patient prescribed a controlled substance at d/c from ED?: No Referrals: [facility],Clinic [Primary Care Provider] - 1-2 days Time of Disposition: 07:19 Decision to Admit Reason: Admit from EC Decision Date: 03/16/24 Decision Time: 07:19
[2024-03-16 06:14] LABS: INR 1.1 (<1.2); Partial Thromboplastin Time 23.5 sec (22.0-30.0); Prothrombin Time 11.9 sec (10.0-12.5)
[2024-03-16 06:44] LABS: ALT 17 U/L (4-49); African American GFR (CKD) 49 (>60 ml/min/1.73 sqM); Anion Gap 10 mmol/L; Blood Urea Nitrogen 35 mg/dL (9-20); Calcium 8.9 mg/dL (8.4-10.2); Carbon Dioxide 20 mmol/L (22-30); Chloride 102 mmol/L (98-107); Glucose 119 mg/dL (74-99); Non-African American GFR(CKD) 42 (>60 ml/min/1.73 sqM); Sodium 132 mmol/L (137-145); Total Bilirubin 1.7 mg/dL (0.2-1.3)
[2024-03-16 06:48] LABS: AST 35 U/L (17-59); Albumin 4.5 g/dL (3.5-5.0); Alkaline Phosphatase 58 U/L (38-126); Potassium 5.2 mmol/L (3.5-5.1); Total Protein 7.5 g/dL (6.3-8.2)
[2024-03-16 06:52] LABS: NT-Pro-B-Type Natriuretic Pept 18400 pg/mL
[2024-03-16] MEDS: FUROSEMIDE 10 MG/ML 4 ML VIAL IV STA (07:17)
[2024-03-16] MEDS ORDERED: NALOXONE 0.4 MG/ML 1 ML VIAL IV PRN (07:20)
[2024-03-16] MEDS ORDERED: polyethylene glycoL 3350 17 GM POWD.PACK PO PRN (12:24)
--- NOTE | 2024-03-16 12:35 | P.HPIM ---
History of Present Illness H&P Date: 03/16/24 Patient is a 88-year-old male with history of HFrEF 25 to 30%, chronic kidney disease stage III, orthostatic hypotension with history of hypertension, CAD, bigeminy, COPD presenting with shortness of breath. Patient claims that he was feeling slightly better and had recent medication changes due to overdiuresis, and then he started developing shortness of breath. He denies any chest pain, abdominal pain, nausea, vomiting, urinary or bowel complaints. He does claim that his urine output was slowly coming down. He has been having orthopnea, denies any PND. He is extremely hard of hearing. Denies any fevers or chills. In the ED, temperature was 96.8, pulse 60, respiratory rate 18, blood pressure 105/78, saturating at 96% on room air. WBC 11.7, hemoglobin 13.6, sodium 132, potassium 5.2 hemolyzed specimen, creatinine at baseline 1.48, lactate 2.5, total bili 1.7, AST 35, ALT 17, ALP 58, troponin 0.019, proBNP 18,000, slightly above his baseline. Chest x-ray independently interpreted, shows bilateral interstitial opacities concerning for interstitial edema. EKG independently interpreted, shows sinus rhythm with first-degree AV block, and occasional bigeminy pattern, right bundle branch block. Patient given IV Lasix in the ED. Admitted for CHF exacerbation. Cardiology has been consulted. Pertinent positives and negatives as discussed in HPI, a complete review of systems was performed and all other systems are negative. Patient seen and examined at bedside. Vital signs reviewed General: nontoxic, no distress, appears at stated age Derm: warm, dry Head: atraumatic, normocephalic, symmetric Eyes: EOMI, no lid lag, anicteric sclera, pupils equal round reactive to light ENT: Nose and ears atraumatic Neck: No thyromegaly, supple Mouth: no lip lesion, mucus membranes moist Cardiovascular: S1S2 reg, no murmur, trace peripheral edema Lungs: Bilateral rales, no wheeze, no accessory muscle use, supplemental oxygen Abdominal: soft, nontender to palpation, no guarding, no appreciable organomegaly Ext: no gross muscle atrophy, muscle strength muscle strength 5 out of 5 in all 4 extremities, no contractures Neuro: CN II-XII grossly intact Psych: Alert, oriented, appropriate affect Assessment/Plan: Active: Acute on chronic systolic CHF exacerbation, last known EF was 25 to 30% Acute hypoxic respiratory failure -Started on 20 of IV Lasix twice daily, received 40 IV Lasix earlier -Monitor for electrolytes and renal function given diuretics -Intake and output, daily weights -Continue telemetry monitoring -Cardiology has been consulted, pending recommendations -Continue Jardiance 10 mg daily, metoprolol succinate 50 twice daily, Aldactone 12.5 mg daily -Consider MALIA inhibitor/ARB, low-dose Chronic: History of CAD Chronic kidney stage disease stage III Orthostatic hypotension History of COPD, not in exacerbation The patient is admitted with an anticipated less than 2 midnight stay as observation status for evaluation of CHF exacerbation. Surrogate decision-maker: Son CODE STATUS: Full code DVT prophylaxis: Subcu heparin Anticipated discharge date: Pending clinical course Anticipated discharge place: Pending clinical course A total of 55 minutes was spent on the care of this complex patient more than 50% of the time was spent in counseling and care coordination. Past Medical History Past Medical History: Coronary Artery Disease (CAD), Cancer, Chest Pain / Angina, Heart Failure, COPD, Hyperlipidemia, Hypertension, Osteoarthritis (OA) Additional Past Medical History / Comment(s): cataract rt eye, past hx nosebleeds., states sob with activity, skin cancer., See Cardiology H & P. History of Any Multi-Drug Resistant Organisms: None Reported Past Surgical History: Back Surgery, Heart Catheterization With Stent, Joint Replacement Additional Past Surgical History / Comment(s): rt knee replacement, neck fusion,lt cataract, back surgery x3 Past Anesthesia/Blood Transfusion Reactions: No Reported Reaction Date of Last Stent Placement:: 09/22/21 Past Psychological History: No Psychological Hx Reported Smoking Status: Former smoker Past Alcohol Use History: None Reported Additional Past Alcohol Use History / Comment(s): quit smoking 40 yrs ago, hx of 1 - 1 1/2 ppd. Past Drug Use History: None Reported - Past Family History Mother Family Medical History: No Reported History Additional Family Medical History / Comment(s): heart conditions Son(s) Family Medical History: No Reported History Father Family Medical History: Myocardial Infarction ([place]) Medications and Allergies Home Medications Medication Instructions Recorded Confirmed Type Ezetimibe [Zetia] 10 mg PO DAILY@0800 07/03/23 03/16/24 History Nitroglycerin Sl Tabs [Nitrostat] 0.4 mg SL Q5M PRN 07/03/23 03/16/24 History Alirocumab [Praluent Pen] 150 mg SQ Q14D 08/03/23 03/16/24 History Aspirin [Adult Low Dose Aspirin EC] 81 mg PO DAILY@0808/03/23 03/16/24 History Metoprolol Succinate (ER) [Toprol 50 mg PO BID@799,199902/13/24 03/16/24 History XL] polyethylene glycoL 3350 [Miralax] 17 gm PO DAILY PRN packet 02/22/24 03/16/24 Rx Amiodarone [Cordarone] 200 mg PO DAILY@79903/16/24 03/16/24 History Clopidogrel [Plavix] 75 mg PO DAILY@79903/16/24 03/16/24 History Empagliflozin [Jardiance] 10 mg PO DAILY@79903/16/24 03/16/24 History Spironolactone [Aldactone] 12.5 mg PO DAILY@79903/16/24 03/16/24 History Allergies Allergy/AdvReac Type Severity Reaction Status Date / Time atorvastatin Allergy Rash/Hives Verified 03/16/24 10:01 Physical Exam Vitals: Vital Signs Temp Pulse Resp BP Pulse Ox 03/16/24 10:49 65 16 109/57 95 03/16/24 10:02 69 17 76/58 98 03/16/24 07:11 98.0 F 73 16 102/88 98 03/16/24 05:20 96.8 F L 60 18 105/78 96 Intake and Output 03/15/24 03/16/24 03/16/24 22:59 06:59 14:59 Other: Weight 64.41 kg Results CBC & Chem 7: 03/16/24 05:40 03/16/24 05:40 Labs: Abnormal Lab Results - Last 24 Hours (Table) 03/16/24 03/16/24 03/16/24 Range/Units 05:40 05:40 05:40 WBC 11.7 H (3.8-10.6) k/uL Neutrophils # 8.8 H (1.3-7.7) k/uL Sodium 132 L (137-145) mmol/L Potassium 5.2 H (3.5-5.1) mmol/L Carbon Dioxide 20 L (22-30) mmol/L BUN 35 H (9-20) mg/dL Creatinine 1.48 H (0.66-1.25) mg/dL Glucose 119 H (74-99) mg/dL Plasma Lactic Acid Anant 2.5 H* (0.7-2.0) mmol/L Total Bilirubin 1.7 H (0.2-1.3) mg/dL
[2024-03-16 16:20] LABS: Glucose,Whole Blood 102 mg/dL (70-110)
[2024-03-16] MEDS: FUROSEMIDE 10 MG/ML 2 ML VIAL IV SCH (20:19)
[2024-03-16] MEDS: METOPROLOL SUCCINATE (ER) 50 MG TAB.ER.24H PO SCH (20:19)
[2024-03-17 08:32] VITALS: BP 122/62; PULSE 72; RESP 17; TEMP 98.4
[2024-03-17] MEDS: EZETIMIBE 10 MG TAB PO SCH (09:21)
[2024-03-17] MEDS: ASPIRIN 81 MG PO SCH (09:21)
[2024-03-17] MEDS: CLOPIDOGREL 75 MG TAB PO SCH (09:22)
[2024-03-17] MEDS: DAPAGLIFLOZIN PROPANEDIOL 5 MG TABLET PO SCH (09:22)
[2024-03-17] MEDS: AMIODARONE 200 MG TAB PO SCH (09:23)
[2024-03-17] MEDS: SPIRONOLACTONE 25 MG TAB PO SCH (09:29)
[2024-03-17 09:31] LABS: Basophils # (A) 0.08 X 10*3/uL (0.00-0.10); Eosinophils # (A) 0.24 X 10*3/uL (0.04-0.35); Eosinophils % (A) 3.1 %; HCT 40.6 % (39.6-50.0); HGB 13.1 g/dL (13.0-17.0); Lymphocytes # (A) 1.89 X 10*3/uL (0.90-5.00); Lymphocytes % (A) 24.1 %; MCH 27.8 pg (27.0-32.0); MCHC 32.3 g/dL (32.0-37.0); MCV 86.2 FL (80.0-97.0); Mean Platelet Volume 11.1 FL (9.5-12.2); Monocytes # (A) 0.94 X 10*3/uL (0.20-1.00); NRBC Per 100 WBC 0 X 10*3/uL (0.00-0.01); Neutrophils # (A) 4.69 X 10*3/uL (1.80-7.70); Neutrophils % (A) 59.7 %; Platelet Count 239 X 10*3/uL (140-440); RBC 4.71 X 10*6/uL (4.40-5.60); RDW 14.6 % (11.5-14.5); WBC 7.85 X 10*3/uL (4.50-10.00)
[2024-03-17 11:11] LABS: Blood Urea Nitrogen 32.1 mg/dL (9.0-27.0); Calcium 9.3 mg/dL (8.7-10.3); Carbon Dioxide 23.5 mmol/L (21.6-31.8); Chloride 100 mmol/L (96-109); Glucose 93 mg/dL (70-110); Potassium 4.1 mmol/L (3.5-5.5); Sodium 138 mmol/L (135-145)
--- NOTE | 2024-03-17 11:22 | P.PN ---
Subjective Progress Note Date: 03/17/24 Hospital Course: 88-year-old male with history of HFrEF 25 to 30%, chronic kidney disease stage III, orthostatic hypotension with history of hypertension, CAD, bigeminy, COPD presenting with shortness of breath. In the ED, temperature was 96.8, pulse 60, respiratory rate 18, blood pressure 105/78, saturating at 96% on room air. WBC 11.7, hemoglobin 13.6, sodium 132, potassium 5.2 hemolyzed specimen, creatinine at baseline 1.48, lactate 2.5, total bili 1.7, AST 35, ALT 17, ALP 58, troponin 0.019, proBNP 18,000, slightly above his baseline. Chest x-ray independently interpreted, shows bilateral interstitial opacities concerning for interstitial edema. EKG independently interpreted, shows sinus rhythm with first-degree AV block, and occasional bigeminy pattern, right bundle branch block. Patient given IV Lasix in the ED. Admitted for CHF exacerbation. Cardiology has been consulted. Subjective: Patient seen and examined at bedside. No acute events overnight. Respiratory function stable and improving. Pertinent positives and negatives as discussed above, a complete review of systems was performed and all other systems are negative. Vitals Signs Reviewed. General: Nontoxic, no distress, appears at stated age Derm: Warm, dry Head: Atraumatic, normocephalic, symmetric Eyes: EOMI, no lid lag, anicteric sclera Mouth: No lip lesion, mucus membranes moist Cardiovascular: S1S2 reg, no murmur Lungs: CTA bilateral, no rhonchi, no rales, no accessory muscle use Abdominal: Soft, nontender to palpation, no guarding, no appreciable organomegaly Ext: No gross muscle atrophy, no edema, no contractures Neuro: CN II-XI grossly intact, no focal neuro deficits Psych: Alert, oriented, appropriate affect Data Reviewed Today: Pertinent Labs: WBC 7.85, hemoglobin 13.1, creatinine 1.5, bicarb 23.5, glucose range between 93-1 02 Imaging: No new imaging Assessment and Plan: Active: Acute on chronic systolic CHF exacerbation, last known EF was 25 to 30% Acute hypoxic respiratory failure -Continue 20 of IV Lasix twice daily, may consider oral diuretics -Monitor for electrolytes and renal function given diuretics -Intake and output, daily weights -Continue telemetry monitoring -Cardiology has been consulted, pending recommendations -Continue Jardiance 10 mg daily, metoprolol succinate 50 twice daily, Aldactone 12.5 mg daily -Consider MALIA inhibitor/ARB, low-dose Chronic: History of CAD Chronic kidney stage disease stage III Orthostatic hypotension History of COPD, not in exacerbation DVT ppx: Subcu heparin Code status: Full code Anticipated discharge place: Pending clinical course Anticipated discharge time: Pending clinical course Objective - Vital Signs Vital signs: Vital Signs Temp 98.4 F 03/17/24 07:00 Pulse 72 03/17/24 07:00 Resp 17 03/17/24 07:00 BP 122/62 03/17/24 07:00 Pulse Ox 98 03/17/24 09:15 FiO2 Intake & Output 03/16/24 03/17/24 03/17/24 18:59 06:59 18:59 Output Total 1200 Balance -1200 Weight 66.678 kg Output: Urine 1200 Other: Voiding Method Toilet - Labs CBC & Chem 7: 03/17/24 06:09 03/17/24 06:09 Labs: Abnormal Lab Results - Last 24 Hours (Table) 03/17/24 03/17/24 Range/Units 06:09 06:09 RDW 14.6 H (11.5-14.5) % Anion Gap 14.50 H (4.00-12.00) mmol/L BUN 32.1 H (9.0-27.0) mg/dL Est GFR (CKD-EPI) 45 L (>=60) BUN/Creatinine Ratio 21.40 H (12.00-20.00) Ratio
--- NOTE | 2024-03-17 12:06 | P.CRDCN ---
History of Present Illness Consult date: 03/17/24 Chief complaint: Shortness of breath History of present illness: The patient is a pleasant 88-year-old gentleman who sees Dr. Vazquze call a past medical history significant for CAD with prior stenting of the RCA was performed in August 2023 as well as severe cardiomyopathy with EF between 25 to 30% as well as valvular heart disease including aortic and mitral regurgitation and pulmonary hypertension and tricuspid regurgitation as well as history of heart failure and multiple comorbid conditions including chronic kidney disease. The patient presented to the hospital complaining of progressive exertional dyspnea and bilateral lower extremities edema started about a week ago and progressed recently. He was seen recently by his medical provider and he was receiving Lasix which was stopped and changed to Aldactone. He states that he has been compliant with oral diuretics and has been compliant with low-sodium diet in general. Beside that the patient reports no chest pain or chest discomfort and no dizziness or lightheadedness and no feeling of heart racing or fluttering and no presyncope or syncope. He underwent further workup including an EKG showed sinus mechanism with PVCs and also chest x-ray showed finding consistent with pulmonary vascular congestions and heart failure and the NT proBNP came to be elevated at 18,000. He was admitted to the hospital and started on IV diuretics with improvement in the symptoms. He seems to be euvolemic when he was seen and evaluated today with a clear breathing sounds b ilaterally and he is not hypoxic and no edema was noted in the lower extremities. The patient would like to be discharged home. Examination is remarkable for stable vital signs with regular rhythm and systolic murmur at the apical area and clear breathing sounds bilaterally and no edema was noted Assessment Heart failure with evidence of right and left failure Severe cardiomyopathy as described above Valvular heart disease as described above Coronary artery disease with prior revascularization Chronic kidney disease Multiple comorbid conditions Plan DC IV diuretics and start the patient on oral diuretics using Lasix The patient potentially can be discharged home Past Medical History Past Medical History: Coronary Artery Disease (CAD), Cancer, Chest Pain / Angina, Heart Failure, COPD, Hyperlipidemia, Hypertension, Osteoarthritis (OA) Additional Past Medical History / Comment(s): cataract rt eye, past hx nosebleeds., states sob with activity, skin cancer., See Cardiology H & P. History of Any Multi-Drug Resistant Organisms: None Reported Past Surgical History: Back Surgery, Heart Catheterization With Stent, Joint Replacement Additional Past Surgical History / Comment(s): rt knee replacement, neck fusion,lt cataract, back surgery x3 Past Anesthesia/Blood Transfusion Reactions: No Reported Reaction Date of Last Stent Placement:: 09/22/21 Past Psychological History: No Psychological Hx Reported Smoking Status: Former smoker Past Alcohol Use History: None Reported Additional Past Alcohol Use History / Comment(s): quit smoking 40 yrs ago, hx of 1 - 1 1/2 ppd. Past Drug Use History: None Reported - Past Family History Mother Family Medical History: No Reported History Additional Family Medical History / Comment(s): heart conditions Son(s) Family Medical History: Cancer Additional Family Medical History / Comment(s): brain stem cancer Father Family Medical History: Myocardial Infarction ([place]) Medications and Allergies Home Medications Medication Instructions Recorded Confirmed Type Ezetimibe [Zetia] 10 mg PO DAILY@79907/03/23 03/16/24 History Nitroglycerin Sl Tabs [Nitrostat] 0.4 mg SL Q5M PRN 07/03/23 03/16/24 History Alirocumab [Praluent Pen] 150 mg SQ Q14D 08/03/23 03/16/24 History Aspirin [Adult Low Dose Aspirin EC] 81 mg PO DAILY@79908/03/23 03/16/24 History Metoprolol Succinate (ER) [Toprol 50 mg PO BID@799,199902/13/24 03/16/24 History XL] polyethylene glycoL 3350 [Miralax] 17 gm PO DAILY PRN packet 02/22/24 03/16/24 Rx Amiodarone [Cordarone] 200 mg PO DAILY@79903/16/24 03/16/24 History Clopidogrel [Plavix] 75 mg PO DAILY@79903/16/24 03/16/24 History Empagliflozin [Jardiance] 10 mg PO DAILY@79903/16/24 03/16/24 History Spironolactone [Aldactone] 12.5 mg PO DAILY@79903/16/24 03/16/24 History Allergies Allergy/AdvReac Type Severity Reaction Status Date / Time atorvastatin Allergy Rash/Hives Verified 03/16/24 10:01 Physical Exam Vitals: Vital Signs Temp Pulse Pulse Resp BP BP BP 03/17/24 09:15 03/17/24 07:00 98.4 F 72 17 122/62 03/17/24 02:00 77 03/17/24 00:55 97.8 F 77 16 114/59 93/60 03/16/24 20:00 97.8 F 80 18 130/79 03/16/24 16:24 97.5 F L 69 17 92/63 03/16/24 15:46 97.9 F 71 16 93/72 03/16/24 15:10 64 16 94/72 03/16/24 14:30 97.5 F L 70 18 92/69 03/16/24 14:28 03/16/24 12:40 66 16 83/69 Pulse Ox 03/17/24 09:15 98 03/17/24 07:00 99 03/17/24 02:00 03/17/24 00:55 95 03/16/24 20:00 93 L 03/16/24 16:24 03/16/24 15:46 95 03/16/24 15:10 96 03/16/24 14:30 97 03/16/24 14:28 92 L 03/16/24 12:40 94 L Intake and Output 03/16/24 03/17/24 03/17/24 22:59 06:59 14:59 Other: Voiding Method Toilet Weight 66.678 kg Results 03/17/24 06:09 03/17/24 06:09 CBC 03/17/24 Range/Units 06:09 WBC 7.85 (4.50-10.00) X 10*3/uL RBC 4.71 (4.40-5.60) X 10*6/uL Hgb 13.1 (13.0-17.0) g/dL Hct 40.6 (39.6-50.0) % Plt Count 239 (140-440) X 10*3/uL Comprehensive Metabolic Panel 03/17/24 Range/Units 06:09 Sodium 138 (135-145) mmol/L Potassium 4.1 (3.5-5.5) mmol/L Chloride 100 (96-109) mmol/L Carbon Dioxide 23.5 (21.6-31.8) mmol/L BUN 32.1 H (9.0-27.0) mg/dL Creatinine 1.5 (0.6-1.5) mg/dL Glucose 93 (70-110) mg/dL Calcium 9.3 (8.7-10.3) mg/dL Current Medications Generic Name Dose Route Start Last Admin Trade Name Xochilt PRN Reason Stop Dose Admin Amiodarone HCl 200 mg 03/17/24 08:00 03/17/24 09:23 Amiodarone 200 Mg Tab PO 200 mg DAILY@0800 [facility] Administration Aspirin 81 mg 03/17/24 08:00 03/17/24 09:21 Aspirin 81 Mg PO 81 mg DAILY@08 [facility] Administration Clopidogrel Bisulfate 75 mg 03/17/24 08:00 03/17/24 09:22 Clopidogrel 75 Mg Tab PO 75 mg DAILY@08 [facility] Administration Dapagliflozin 5 mg 03/17/24 08:00 03/17/24 09:22 Dapagliflozin Propanediol 5 Mg Tablet PO 5 mg DAILY@08 [facility] Administration Ezetimibe 10 mg 03/17/24 08:00 03/17/24 09:21 Ezetimibe 10 Mg Tab PO 10 mg DAILY@08 [facility] Administration Furosemide 20 mg 03/16/24 21:00 03/17/24 09:22 Furosemide 10 Mg/Ml 2 Ml Vial IV 20 mg Q12HR [facility] Administration Heparin Sodium (Porcine) 5,000 unit 03/17/24 16:00 Heparin Sodium,Porcine 5,000 Unit/Ml 1 Ml Vial SQ Q8HR [facility] Metoprolol Succinate 50 mg 03/16/24 20:00 03/17/24 09:22 Metoprolol Succinate (Er) 50 Mg Tab.Er.24h PO 50 mg BID@08,1999 [facility] Administration Naloxone HCl 0.2 mg 03/16/24 07:20 Naloxone 0.4 Mg/Ml 1 Ml Vial IV Q2M PRN Opioid Reversal Polyethylene Glycol 17 gm 03/16/24 12:24 Polyethylene Glycol 3350 17 Gm Powd.Pack PO DAILY PRN Constipation Spironolactone 12.5 mg 03/17/24 08:00 03/17/24 09:29 Spironolactone 25 Mg Tab PO 12.5 mg DAILY@0800 [facility] Administration Intake and Output 03/16/24 03/17/24 03/17/24 22:59 06:59 14:59 Other: Voiding Method Toilet Weight 66.678 kg 03/17/24 06:09 03/17/24 06:09
[2024-03-17 12:13] LABS: Glucose,Whole Blood 99 mg/dL (70-110)
--- NOTE | 2024-03-17 12:44 | P.DS ---
Providers Date of admission: 03/16/24 07:20 Expected date of discharge: 03/17/24 Attending physician: Erasmo Jones MD Consults: 03/16/24 12:25 Consult Physician Routine Consulting Provider: Sarthak Wynn Consult Reason/Comments: CHF exacerbation Do you want consulting provider notified?: Yes Primary care physician: [facility] Hospital Course: Discharge Diagnosis: Acute on chronic systolic CHF exacerbation, last known EF was 25 to 30% Acute hypoxic respiratory failure History of CAD Chronic kidney stage disease stage III History of COPD, not in exacerbation Hospital Course: 88-year-old male with history of HFrEF 25 to 30%, chronic kidney disease stage III, orthostatic hypotension with history of hypertension, CAD, bigeminy, COPD presenting with shortness of breath. In the ED, temperature was 96.8, pulse 60, respiratory rate 18, blood pressure 105/78, saturating at 96% on room air. WBC 11.7, hemoglobin 13.6, sodium 132, potassium 5.2 hemolyzed specimen, creatinine at baseline 1.48, lactate 2.5, total bili 1.7, AST 35, ALT 17, ALP 58, troponin 0.019, proBNP 18,000, slightly above his baseline. Chest x-ray independently interpreted, shows bilateral interstitial opacities concerning for interstitial edema. EKG independently interpreted, shows sinus rhythm with first-degree AV block, and occasional bigeminy pattern, right bundle branch block. Patient given IV Lasix in the ED. Admitted for CHF exacerbation. Cardiology consulted. Patient respiratory function better with IV Lasix. Discharged on oral Lasix. Patient seen and examined at bedside. Vital signs reviewed and stable. General: Nontoxic, no distress, appears at stated age Derm: Warm, dry Head: Atraumatic, normocephalic, symmetric Eyes: EOMI, no lid lag, anicteric sclera Mouth: No lip lesion, mucus membranes moist Cardiovascular: S1S2 reg, no murmur Lungs: CTA bilateral, no rhonchi, no rales, no accessory muscle use Abdominal: Soft, nontender to palpation, no guarding, no appreciable organomegaly Ext: No gross muscle atrophy, no edema, no contractures Neuro: CN II-XI grossly intact, no focal neuro deficits Psych: Alert, oriented, appropriate affect A total of 33 minutes of time were spent preparing this complex discharge summary. Patient was discharged on 03/17/2024 at 1240. Patient Condition at Discharge: Stable Plan - Discharge Summary Discharge Rx Participant: Yes New Discharge Prescriptions: New Furosemide [Lasix] 20 mg PO BID #90 tab Continue Ezetimibe [Zetia] 10 mg PO DAILY@0800 Nitroglycerin Sl Tabs [Nitrostat] 0.4 mg SL Q5M PRN PRN Reason: Chest Pain Aspirin [Adult Low Dose Aspirin EC] 81 mg PO DAILY@0800 Alirocumab [Praluent Pen] 150 mg SQ Q14D polyethylene glycoL 3350 [Miralax] 17 gm PO DAILY PRN packet PRN Reason: Constipation Amiodarone [Cordarone] 200 mg PO DAILY@0800 Clopidogrel [Plavix] 75 mg PO DAILY@0800 Empagliflozin [Jardiance] 10 mg PO DAILY@0800 Spironolactone [Aldactone] 12.5 mg PO DAILY@0800 Metoprolol Succinate (ER) [Toprol XL] 50 mg PO BID@799,1999 Discharge Medication List Ezetimibe [Zetia] 10 mg PO DAILY@0800 07/03/23 [History] Nitroglycerin Sl Tabs [Nitrostat] 0.4 mg SL Q5M PRN 07/03/23 [History] Alirocumab [Praluent Pen] 150 mg SQ Q14D 08/03/23 [History] Aspirin [Adult Low Dose Aspirin EC] 81 mg PO DAILY@0800 08/03/23 [History] Metoprolol Succinate (ER) [Toprol XL] 50 mg PO BID@08,199902/13/24 [History] polyethylene glycoL 3350 [Miralax] 17 gm PO DAILY PRN packet 02/22/24 [Rx] Amiodarone [Cordarone] 200 mg PO DAILY@0800 03/16/24 [History] Clopidogrel [Plavix] 75 mg PO DAILY@0800 03/16/24 [History] Empagliflozin [Jardiance] 10 mg PO DAILY@0800 03/16/24 [History] Spironolactone [Aldactone] 12.5 mg PO DAILY@0800 03/16/24 [History] Furosemide [Lasix] 20 mg PO BID #90 tab 03/17/24 [Rx] Follow up Appointment(s)/Referral(s): Brant Cuevas MD [STAFF PHYSICIAN] - 1 Week [facility] [Primary Care Provider] - 1-2 days Patient Instructions/Handouts: Heart Failure (DC) Activity/Diet/Wound Care/Special Instructions: Please see your PCP and cardiology. Discharge Disposition: HOME SELF-CARE
[2024-03-17] MEDS ORDERED: HEPARIN SODIUM,PORCINE 5,000 UNIT/ML 1 ML VIAL SQ SCH (16:00)
== END 2024-03-17 14:39 | disposition home or self-care (01) ==
LOC: EC 05:15 → 6NMEDSUR 07:20
PROVIDERS: ADMIT Student in an Organized Health Care Education/Training Program; ATTEND Student in an Organized Health Care Education/Training Program
DX: I13.0 Hypertensive heart and chronic kidney disease with heart failure and stage 1 through stage 4 chronic kidney disease, or unspecified chronic kidney disease (principal); I50.23 Acute on chronic systolic (congestive) heart failure; J96.01 Acute respiratory failure with hypoxia; N18.30 Chronic kidney disease, stage 3 unspecified; E11.22 Type 2 diabetes mellitus with diabetic chronic kidney disease; I42.9 Cardiomyopathy, unspecified; I27.20 Pulmonary hypertension, unspecified; I08.3 Combined rheumatic disorders of mitral, aortic and tricuspid valves; J44.9 Chronic obstructive pulmonary disease, unspecified; I44.0 Atrioventricular block, first degree; I45.10 Unspecified right bundle-branch block; I49.3 Ventricular premature depolarization; I25.10 Atherosclerotic heart disease of native coronary artery without angina pectoris; I95.1 Orthostatic hypotension; H91.90 Unspecified hearing loss, unspecified ear; Z79.84 Long term (current) use of oral hypoglycemic drugs; Z79.82 Long term (current) use of aspirin; Z79.02 Long term (current) use of antithrombotics/antiplatelets; Z79.899 Other long term (current) drug therapy; Z88.8 Allergy status to other drugs, medicaments and biological substances; Z87.891 Personal history of nicotine dependence; Z95.5 Presence of coronary angioplasty implant and graft
CPT/HCPCS: 96376 ×2; 96374; 99285; 36415; 94760; 93005; 83880; 80053; 80048; 83605; 84484 ×2; 85025 ×2; 85610; 85730; 71046; G0378 ×2; J1940 ×3

== ENCOUNTER 2024-03-19 15:21 | Observation (INO) | payer OTHER ==
--- NOTE | 2024-03-19 15:40 | ED ---
Arrhythmia/Palpitations HPI - General Chief Complaint: Arrhythmia/Palpitations Stated Complaint: cardiac issues Time Seen by Provider: 03/19/24 15:26 Source: patient, EMS, RN notes reviewed, old records reviewed Mode of arrival: EMS - History of Present Illness Initial Comments: This is a 88-year-old male to the ER for evaluation of low heart rate and bradycardia yesterday. Patient states he generally does not feel unwell he states with heart issues in the past he has felt unwell but currently since the ER due to persistent low heart rate at [facility] facility. MD Complaint: "heart racing", palpitations -: hour(s) Associated Symptoms: denies other symptoms Treatments Prior to Arrival: other (0) - Related Data Home Medications Medication Instructions Recorded Confirmed Ezetimibe [Zetia] 10 mg PO DAILY@0800 07/03/23 03/19/24 Nitroglycerin Sl Tabs [Nitrostat] 0.4 mg SL Q5M PRN 07/03/23 03/19/24 Alirocumab [Praluent Pen] 150 mg SQ Q14D 08/03/23 03/19/24 Aspirin [Adult Low Dose Aspirin EC] 81 mg PO DAILY@0800 08/03/23 03/19/24 Metoprolol Succinate (ER) [Toprol 50 mg PO BID@799,199902/13/24 03/19/24 XL] Amiodarone [Cordarone] 200 mg PO DAILY@00 03/16/24 03/19/24 Clopidogrel [Plavix] 75 mg PO DAILY@79903/16/24 03/19/24 Empagliflozin [Jardiance] 10 mg PO DAILY@79903/16/24 03/19/24 Spironolactone [Aldactone] 12.5 mg PO DAILY@79903/16/24 03/19/24 Furosemide [Lasix] 20 mg PO BID@799,199903/19/24 03/19/24 Previous Rx's Medication Instructions Recorded polyethylene glycoL 3350 [Miralax] 17 gm PO DAILY PRN packet 02/22/24 Allergies Allergy/AdvReac Type Severity Reaction Status Date / Time atorvastatin Allergy Rash/Hives/"gets Verified 03/19/24 16:14 sick" Review of Systems ROS Statement: Those systems with pertinent positive or pertinent negative responses have been documented in the HPI. ROS Other: All systems not noted in ROS Statement are negative. Past Medical History Past Medical History: Coronary Artery Disease (CAD), Cancer, Chest Pain / Angina, Heart Failure, COPD, GI Bleed, Hyperlipidemia, Hypertension, Osteoarthritis (OA) Additional Past Medical History / Comment(s): cataract rt eye, past hx nosebleeds., states sob with activity, skin cancer., See Cardiology H & P. History of Any Multi-Drug Resistant Organisms: None Reported Past Surgical History: Back Surgery, Heart Catheterization With Stent, Joint Replacement Additional Past Surgical History / Comment(s): rt knee replacement, neck fusion,lt cataract, back surgery x3 Past Anesthesia/Blood Transfusion Reactions: No Reported Reaction Date of Last Stent Placement:: 09/22/21 Past Psychological History: No Psychological Hx Reported Smoking Status: Former smoker Past Alcohol Use History: None Reported Past Drug Use History: None Reported - Past Family History Mother Family Medical History: No Reported History Additional Family Medical History / Comment(s): heart conditions Son(s) Family Medical History: Cancer Additional Family Medical History / Comment(s): brain stem cancer Father Family Medical History: Myocardial Infarction ([place]) General Exam General appearance: anxious Head exam: Present: atraumatic, normocephalic, normal inspection Eye exam: Present: normal appearance, PERRL, EOMI. Absent: scleral icterus, conjunctival injection, periorbital swelling ENT exam: Present: normal exam, mucous membranes moist Neck exam: Present: normal inspection. Absent: tenderness, meningismus, lymphadenopathy Respiratory exam: Present: normal lung sounds bilaterally. Absent: respiratory distress, wheezes, rales, rhonchi, stridor Cardiovascular Exam: Present: normal rhythm, bradycardia, normal heart sounds. Absent: systolic murmur, diastolic murmur, rubs, gallop, clicks GI/Abdominal exam: Present: soft, normal bowel sounds. Absent: distended, tenderness, guarding, rebound, rigid Extremities exam: Present: normal inspection, full ROM, normal capillary refill. Absent: tenderness, pedal edema, joint swelling, calf tenderness Back exam: Present: normal inspection Neurological exam: Present: alert, oriented X3, CN II-XII intact Psychiatric exam: Present: normal affect, normal mood Skin exam: Present: warm, dry, intact, normal color. Absent: rash Course Vital Signs 03/19/24 03/19/24 03/19/24 15:26 15:42 16:59 Temperature 97.5 F L Pulse Rate 34 L 58 L 58 L Respiratory 22 20 16 Rate Blood Pressure 96/55 99/67 110/76 O2 Sat by Pulse 95 100 100 Oximetry - Reevaluation(s) Reevaluation #1: 03/19/24 18:08 Medical records reviewed Reevaluation #2: 03/19/24 18:08 Patient has no symptoms of chest pain or shortness of breath currently Reevaluation #3: 03/19/24 18:08 Patient informed of results questions answered Reevaluation #5: Differential Palpitations Ventricular arrhythmias, atrial arrhythmias, myocardial infarction, anemia, thyrotoxicosis, electrolyte imbalance, hypokalemia, pulmonary embolism, pulmonary disease, drugs, alcohol, anxiety, stress.... This is not meant to be an all-inclusive list. - Consultations Consultation #1: Spoke with sound who agrees to admit this patient EKG Findings - EKG Comments: EKG Findings:: EKG is sinus 61 [place] 230 QRS 162 QTc 541 - EKG Results: EKG: interpreted by BOUBACAR Medical Decision Making - Medical Decision Making 88 male to the ER for evaluation patient presents today for evaluation regards to low heart rate remains bradycardic here in the ER blood pressure is normal stabilized the patient will admit for symptomatic bradycardia cardiology evaluation - Lab Data Result diagrams: 03/19/24 15:43 03/19/24 15:43 Lab Results 03/19/24 03/19/24 03/19/24 Range/Units 15:43 15:43 15:43 WBC 7.6 (3.8-10.6) k/uL RBC 4.71 (4.30-5.90) m/uL Hgb 13.2 (13.0-17.5) gm/dL Hct 40.7 (39.0-53.0) % MCV 86.5 (80.0-100.0) fL MCH 28.0 (25.0-35.0) pg MCHC 32.3 (31.0-37.0) g/dL RDW 14.5 (11.5-15.5) % Plt Count 257 (150-450) k/uL MPV 8.5 Neutrophils % 59 % Lymphocytes % 25 % Monocytes % 8 % Eosinophils % 3 % Basophils % 1 % Neutrophils # 4.5 (1.3-7.7) k/uL Lymphocytes # 1.9 (1.0-4.8) k/uL Monocytes # 0.6 (0-1.0) k/uL Eosinophils # 0.3 (0-0.7) k/uL Basophils # 0.1 (0-0.2) k/uL PT 12.8 H (10.0-12.5) sec INR 1.2 H (<1.2) APTT 28.1 (22.0-30.0) sec Sodium (137-145) mmol/L Potassium (3.5-5.1) mmol/L Chloride (98-107) mmol/L Carbon Dioxide (22-30) mmol/L Anion Gap mmol/L BUN (9-20) mg/dL Creatinine (0.66-1.25) mg/dL Est GFR (CKD-EPI)AfAm (>60 ml/min/1.73 sqM) Est GFR (CKD-EPI)NonAf (>60 ml/min/1.73 sqM) Glucose (74-99) mg/dL Plasma Lactic Acid Anant (0.7-2.0) mmol/L Calcium (8.4-10.2) mg/dL Phosphorus (2.5-4.5) mg/dL Magnesium (1.6-2.3) mg/dL Total Bilirubin (0.2-1.3) mg/dL AST (17-59) U/L ALT (4-49) U/L Alkaline Phosphatase (38-126) U/L Troponin I (0.000-0.034) ng/mL NT-Pro-B Natriuret Pep pg/mL Total Protein (6.3-8.2) g/dL Albumin (3.5-5.0) g/dL Urine Color Light Yellow Urine Appearance Clear (Clear) Urine pH 5.5 (5.0-8.0) Ur Specific [place] 1.016 (1.001-1.035) Urine Protein Negative (Negative) Urine Glucose (UA) Negative (Negative) Urine Ketones Negative (Negative) Urine Blood Negative (Negative) Urine Nitrite Negative (Negative) Urine Bilirubin Negative (Negative) Urine Urobilinogen 3.0 (<2.0) mg/dL Ur Leukocyte Esterase Negative (Negative) 03/19/24 03/19/24 03/19/24 Range/Units 15:43 15:43 15:43 WBC (3.8-10.6) k/uL RBC (4.30-5.90) m/uL Hgb (13.0-17.5) gm/dL Hct (39.0-53.0) % MCV (80.0-100.0) fL MCH (25.0-35.0) pg MCHC (31.0-37.0) g/dL RDW (11.5-15.5) % Plt Count (150-450) k/uL MPV Neutrophils % % Lymphocytes % % Monocytes % % Eosinophils % % Basophils % % Neutrophils # (1.3-7.7) k/uL Lymphocytes # (1.0-4.8) k/uL Monocytes # (0-1.0) k/uL Eosinophils # (0-0.7) k/uL Basophils # (0-0.2) k/uL PT (10.0-12.5) sec INR (<1.2) APTT (22.0-30.0) sec Sodium 135 L (137-145) mmol/L Potassium 3.9 (3.5-5.1) mmol/L Chloride 101 (98-107) mmol/L Carbon Dioxide 28 (22-30) mmol/L Anion Gap 6 mmol/L BUN 43 H (9-20) mg/dL Creatinine 1.53 H (0.66-1.25) mg/dL Est GFR (CKD-EPI)AfAm 47 (>60 ml/min/1.73 sqM) Est GFR (CKD-EPI)NonAf 40 (>60 ml/min/1.73 sqM) Glucose 94 (74-99) mg/dL Plasma Lactic Acid Anant 1.4 (0.7-2.0) mmol/L Calcium 8.6 (8.4-10.2) mg/dL Phosphorus 3.7 (2.5-4.5) mg/dL Magnesium 2.1 (1.6-2.3) mg/dL Total Bilirubin 1.1 (0.2-1.3) mg/dL AST 24 (17-59) U/L ALT 15 (4-49) U/L Alkaline Phosphatase 49 (38-126) U/L Troponin I <0.012 (0.000-0.034) ng/mL NT-Pro-B Natriuret Pep 89968 pg/mL Total Protein 6.6 (6.3-8.2) g/dL Albumin 3.7 (3.5-5.0) g/dL Urine Color Urine Appearance (Clear) Urine pH (5.0-8.0) Ur Specific [place] (1.001-1.035) Urine Protein (Negative) Urine Glucose (UA) (Negative) Urine Ketones (Negative) Urine Blood (Negative) Urine Nitrite (Negative) Urine Bilirubin (Negative) Urine Urobilinogen (<2.0) mg/dL Ur Leukocyte Esterase (Negative) - EKG Data -: EKG Interpreted by Me Disposition Clinical Impression: Dyspnea, Palpitations, Bradycardia Disposition: ADMITTED IP TO THIS HOSP Condition: Fair Is patient prescribed a controlled substance at d/c from ED?: No Referrals: [facility] [Primary Care Provider] - 1-2 days Time of Disposition: 18:00
[2024-03-19] MEDS: SODIUM CHLORIDE 0.9% 1,000 ML IV STA (15:47)
[2024-03-19] MEDS: SODIUM CHLORIDE 0.9% 500 ML 500 ML IV STA (15:47)
[2024-03-19 15:54] LABS: Basophils # (A) 0.1 k/uL (0-0.2); Basophils % (A) 1 %; Eosinophils # (A) 0.3 k/uL (0-0.7); Eosinophils % (A) 3 %; HCT 40.7 % (39.0-53.0); HGB 13.2 gm/dL (13.0-17.5); Lymphocytes # (A) 1.9 k/uL (1.0-4.8); Lymphocytes % (A) 25 %; MCHC 32.3 g/dL (31.0-37.0); MCV 86.5 fL (80.0-100.0); Mean Platelet Volume 8.5; Monocytes # (A) 0.6 k/uL (0-1.0); Monocytes % (A) 8 %; Neutrophils # (A) 4.5 k/uL (1.3-7.7); Neutrophils % (A) 59 %; Platelet Count 257 k/uL (150-450); RBC 4.71 m/uL (4.30-5.90); RDW 14.5 % (11.5-15.5); WBC 7.6 k/uL (3.8-10.6)
[2024-03-19 16:04] LABS: ALT 15 U/L (4-49); AST 24 U/L (17-59); African American GFR (CKD) 47 (>60 ml/min/1.73 sqM); Albumin 3.7 g/dL (3.5-5.0); Alkaline Phosphatase 49 U/L (38-126); Anion Gap 6 mmol/L; Blood Urea Nitrogen 43 mg/dL (9-20); Calcium 8.6 mg/dL (8.4-10.2); Carbon Dioxide 28 mmol/L (22-30); Chloride 101 mmol/L (98-107); Glucose 94 mg/dL (74-99); Magnesium 2.1 mg/dL (1.6-2.3); Non-African American GFR(CKD) 40 (>60 ml/min/1.73 sqM); Phosphorus 3.7 mg/dL (2.5-4.5); Potassium 3.9 mmol/L (3.5-5.1); Sodium 135 mmol/L (137-145); Total Bilirubin 1.1 mg/dL (0.2-1.3); Total Protein 6.6 g/dL (6.3-8.2)
[2024-03-19 16:07] LABS: INR 1.2 (<1.2); Partial Thromboplastin Time 28.1 sec (22.0-30.0); Prothrombin Time 12.8 sec (10.0-12.5)
[2024-03-19 16:12] LABS: NT-Pro-B-Type Natriuretic Pept 14500 pg/mL
[2024-03-19 16:59] LABS: Appearance,Urine Clear (Clear); Bilirubin,Urine Negative (Negative); Blood,Urine Negative (Negative); Color,Urine Light Yellow; Glucose,Urine (UA) Negative (Negative); Ketones,Urine Negative (Negative); Leukocyte Esterase,Urine Negative (Negative); Nitrite,Urine Negative (Negative); PH, Urine 5.5 (5.0-8.0); Protein,Urine Negative (Negative); Specific Gravity,Urine 1.016 (1.001-1.035)
[2024-03-19] MEDS ORDERED: ONDANSETRON 4 MG/2 ML VIAL IVP PRN (18:04)
[2024-03-19] MEDS ORDERED: NALOXONE 0.4 MG/ML 1 ML VIAL IV PRN (18:04)
[2024-03-19] MEDS ORDERED: MORPHINE SULFATE 4 MG/ML SYRINGE IV PRN (18:04)
[2024-03-19] MEDS: SODIUM CHLORIDE 0.9% 1,000 ML IV SCH (19:19)
--- NOTE | 2024-03-19 20:14 | P.HPIM ---
History of Present Illness H&P Date: 03/19/24 Chief Complaint: bradycardia 88-year-old male with systolic CHF with left ventricular ejection fraction 25% Patient was recently hospitalized and discharged 2 days ago when he was treated for acute systolic CHF exacerbation and acute hypoxemia. He was found today at [facility] to be bradycardic and hypotensive for which she was sent in for evaluation by cardiology. Patient himself denies any chest pain trouble breathing denies any falls. However he does report some worsening dizziness when he stands up and attempts to walk he indicates that he walks without any assisting device but denies any falls. He claims that normally he would have to stand up for few minutes before he starts walking to make sure that he is steady but now he has been having some increased dizziness. He denies any GI bleeding denies any nausea vomiting denies any abdominal pain chest pain denies any trouble breathing denies any headache changes in vision or hearing denies any new focal neurodeficits Patient indicates that he had an MRI done yesterday he was not clear what was the reason for the MRI was done in [place] and he does not have a copy of the results review of systems Pertinent positives as noted in HPI. All other systems were reviewed and are negative on exam Constitutional: No acute distress, conversant, pleasant Eyes: Anicteric sclerae, moist conjunctiva, Pupils equal round reactive to light ENMT: NC/AT Oropharynx clear, no erythema, or exudates Neck: Supple, no masses, or JVD No carotid bruits No thyromegaly Lungs: Decreased breath sounds at lung bases bilaterally Clear to percussion Normal respiratory effort, no accessory muscle use Cardiovascular: Heart regular in rate and rhythm, No murmurs, gallops, or rubs No peripheral edema Abdominal: Soft Nontender, no guarding, rebound or rigidity Abdomen moving with respiration Normoactive bowel sounds Extremities: No digital cyanosis No clubbing Pedal pulses intact and symmetrical Radial pulses weak and symmetrical capillary refill immediate No calf tenderness Psychiatric: Alert and oriented to person, place and time Appropriate affect fair judgement Neuro Muscles Strength 5/5 in all 4 extremities Sensation to light touch grossly present throughout Cranial nerves II-XII grossly intact Past Medical History Past Medical History: Coronary Artery Disease (CAD), Cancer, Chest Pain / Angina, Heart Failure, COPD, GI Bleed, Hyperlipidemia, Hypertension, Osteoarthritis (OA) Additional Past Medical History / Comment(s): cataract rt eye, past hx nos ebleeds., states sob with activity, skin cancer., See Cardiology H & P. History of Any Multi-Drug Resistant Organisms: None Reported Past Surgical History: Back Surgery, Heart Catheterization With Stent, Joint Replacement Additional Past Surgical History / Comment(s): rt knee replacement, neck fusion,lt cataract, back surgery x3 Past Anesthesia/Blood Transfusion Reactions: No Reported Reaction Date of Last Stent Placement:: 09/22/21 Past Psychological History: No Psychological Hx Reported Smoking Status: Former smoker Past Alcohol Use History: None Reported Past Drug Use History: None Reported - Past Family History Mother Family Medical History: No Reported History Additional Family Medical History / Comment(s): heart conditions Son(s) Family Medical History: Cancer Additional Family Medical History / Comment(s): brain stem cancer Father Family Medical History: Myocardial Infarction ([place]) Medications and Allergies Home Medications Medication Instructions Recorded Confirmed Type Ezetimibe [Zetia] 10 mg PO DAILY@79907/03/23 03/19/24 History Nitroglycerin Sl Tabs [Nitrostat] 0.4 mg SL Q5M PRN 07/03/23 03/19/24 History Alirocumab [Praluent Pen] 150 mg SQ Q14D 08/03/23 03/19/24 History Aspirin [Adult Low Dose Aspirin EC] 81 mg PO DAILY@79908/03/23 03/19/24 History Metoprolol Succinate (ER) [Toprol 50 mg PO BID@799,199902/13/24 03/19/24 History XL] polyethylene glycoL 3350 [Miralax] 17 gm PO DAILY PRN packet 02/22/24 03/19/24 Rx Amiodarone [Cordarone] 200 mg PO DAILY@79903/16/24 03/19/24 History Clopidogrel [Plavix] 75 mg PO DAILY@79903/16/24 03/19/24 History Empagliflozin [Jardiance] 10 mg PO DAILY@79903/16/24 03/19/24 History Spironolactone [Aldactone] 12.5 mg PO DAILY@79903/16/24 03/19/24 History Furosemide [Lasix] 20 mg PO BID@03/19/24 03/19/24 History Allergies Allergy/AdvReac Type Severity Reaction Status Date / Time atorvastatin Allergy Rash/Hives/"gets Verified 03/19/24 16:14 sick" Physical Exam Vitals: Vital Signs Temp Pulse Resp BP BP BP BP 03/19/24 19:44 68 16 114/60 03/19/24 18:56 118/60 03/19/24 18:55 110/56 03/19/24 18:53 107/59 03/19/24 18:50 118/60 03/19/24 16:59 58 L 16 110/76 03/19/24 15:42 97.5 F L 58 L 20 99/67 03/19/24 15:26 34 L 22 96/55 Pulse Ox 03/19/24 19:44 99 03/19/24 18:56 03/19/24 18:55 03/19/24 18:53 03/19/24 18:50 03/19/24 16:59 100 03/19/24 15:42 100 03/19/24 15:26 95 Intake and Output 03/19/24 03/19/24 03/19/24 06:59 14:59 22:59 Other: Weight 69.853 kg Results CBC & Chem 7: 03/19/24 15:43 03/19/24 15:43 Labs: Abnormal Lab Results - Last 24 Hours (Table) 03/19/24 03/19/24 Range/Units 15:43 15:43 PT 12.8 H (10.0-12.5) sec INR 1.2 H (<1.2) Sodium 135 L (137-145) mmol/L BUN 43 H (9-20) mg/dL Creatinine 1.53 H (0.66-1.25) mg/dL Assessment and Plan Assessment: 88-year-old male with congestive heart failure coming in for evaluation of bradycardia hypotension he was recently discharged from the hospital after being treated for acute CHF exacerbation I discussed case with ED doctor and accepted the admission for bradycardia for cardiology evaluation with anticipated length of stay less than 2 midnights Symptomatic bradycardia with increased dizziness Fall precautions Cardiac monitoring EKG showing bigeminy Tropes negative BNP elevated 14 500 Check chest x-ray Continue with diuretics Lasix and spironolactone Cardiology consult Electrolytes unremarkable CKD stage III Sodium 135 potassium 3.9 BUN 43 creatinine 1.5 Avoid nephrotoxic meds Monitor urine output White count 7.6 hemoglobin 13.2 unremarkable COPD currently compensated Continue with inhalers Full code DVT prophylaxis heparin subcu 3 times daily
[2024-03-20 07:43] LABS: ALT 17 U/L (4-49); AST 25 U/L (17-59); African American GFR (CKD) 54 (>60 ml/min/1.73 sqM); Albumin 3.5 g/dL (3.5-5.0); Albumin/Globulin Ratio 1.2; Alkaline Phosphatase 60 U/L (38-126); Anion Gap 9 mmol/L; Blood Urea Nitrogen 37 mg/dL (9-20); Calcium 8.9 mg/dL (8.4-10.2); Carbon Dioxide 20 mmol/L (22-30); Chloride 108 mmol/L (98-107); Globulin 2.9 g/dL; Glucose 78 mg/dL (74-99); Magnesium 2.3 mg/dL (1.6-2.3); Non-African American GFR(CKD) 46 (>60 ml/min/1.73 sqM); Phosphorus 3.6 mg/dL (2.5-4.5); Potassium 4.2 mmol/L (3.5-5.1); Sodium 137 mmol/L (137-145); Total Bilirubin 1.2 mg/dL (0.2-1.3); Total Protein 6.4 g/dL (6.3-8.2)
--- NOTE | 2024-03-20 07:52 | XR ---
EXAMINATION TYPE: XR chest 2V DATE OF EXAM: 03/20/2024 COMPARISON: 03/16/2024 TECHNIQUE: PA and lateral views submitted. HISTORY: Shortness of breath FINDINGS: Underlying emphysematous changes. Diffuse interstitial pattern with tiny right pleural effusion. No s izable pneumothorax. Diffuse osteopenia and arthropathy of the shoulders. Vague nodular density in th e right upper lobe measuring 1.5 cm.. Heart size normal and no overt failure. Osseous structures dem onstrate hypertrophic and degenerative changes of the spine. IMPRESSION: 1. COPD correlate for pulmonary fibrosis. Mild superimposed venous congestion or interstitial pneumon itis. 2. Vague right upper lobe nodular density measuring 2 cm. Following resolution otherwise consider CT scan chest..
[2024-03-20 08:01] LABS: Basophils # (A) 0.1 k/uL (0-0.2); Basophils % (A) 1 %; Eosinophils # (A) 0.2 k/uL (0-0.7); Eosinophils % (A) 3 %; HCT 40.2 % (39.0-53.0); HGB 13.6 gm/dL (13.0-17.5); Lymphocytes # (A) 1.7 k/uL (1.0-4.8); Lymphocytes % (A) 20 %; MCH 28.9 pg (25.0-35.0); MCHC 33.9 g/dL (31.0-37.0); MCV 85.2 fL (80.0-100.0); Mean Platelet Volume 9.7; Monocytes # (A) 0.8 k/uL (0-1.0); Monocytes % (A) 9 %; Neutrophils # (A) 5.7 k/uL (1.3-7.7); Neutrophils % (A) 66 %; Platelet Count 212 k/uL (150-450); RBC 4.72 m/uL (4.30-5.90); RDW 14.8 % (11.5-15.5); WBC 8.6 k/uL (3.8-10.6)
[2024-03-20] MEDS: HEPARIN SODIUM,PORCINE 5,000 UNIT/ML 1 ML VIAL SQ SCH (08:32)
[2024-03-20] MEDS: AMIODARONE 200 MG TAB PO SCH (08:33)
[2024-03-20] MEDS: EZETIMIBE 10 MG TAB PO SCH (08:33)
[2024-03-20] MEDS: ASPIRIN 81 MG PO SCH (08:33)
[2024-03-20] MEDS: SPIRONOLACTONE 25 MG TAB PO SCH (08:33)
[2024-03-20] MEDS: CLOPIDOGREL 75 MG TAB PO SCH (08:33)
[2024-03-20] MEDS: FUROSEMIDE 20 MG TAB PO SCH (08:33)
--- NOTE | 2024-03-20 11:25 | P.CRDCN ---
History of Present Illness Consult date: 03/20/24 Reason for Consult (text): Bradycardia History of present illness: This is an 88-year-old male patient of Dr. Cuevas with past medical history of non-Q wave [place] with multiple stents, ischemic cardiomyopathy, hypertension, dyslipidemia, frequent PVCs with runs of bigeminy a. We have been asked to evaluate the patient for bradycardia. Patient is residing at [facility] home and apparently his blood pressure and or his heart rate were low and he was sent into the hospital. Patient denies have any palpitations. He states he has had problems ongoing with constipation and having discomfort across his abdomen but after he took a laxative he had a large bowel movement after he was here and abdominal discomfort has improved. He does state he has had some lightheadedness and dizziness. No syncopal episodes. He also complains of a cough. No chest pain. Patient is seen today in the emergency center waiting for bed on the observation unit. EKG: Sinus rhythm with frequent PVCs, bigeminy, right bundle branch block, left anterior fascicular block. Chest x-ray: COPD, correlate for pulmonary fibrosis. Mild superimposed venous congestion or interstitial pneumonitis. Vague right upper lobe nodular density 2 cm. Laboratory studies: CBC unremarkable. Potassium 4.2, BUN initially 43 and repeat 37. Initial creatinine 1.53 and now 1.36. Troponin negative x 3. proBNP 14,500. Home cardiac medications: Amiodarone 200 mg daily, aspirin 81 mg daily, Plavix 75 mg daily, Jardiance 10 mg daily, Zetia 10 mg daily, Lasix 20 mg twice daily, Toprol-XL 50 mg twice daily, Nitrostat as needed, spironolactone 12.5 mg daily. Event monitor 02/08 - 02/14/2024 revealed sinus rhythm with average heart rate of 79. Minimal heart rate 59, maximal heart rate 173. PVC burden was 37.5% ventricular arrhythmia identified at 29 beats on day 5. Echocardiogram performed in the office on 10/27/2023 revealed EF of 35%. Mild left ventricular hypertrophy. Review Of Systems: At the time of my exam: CONSTITUTIONAL: Denies fever or chills. HEENT: Denies blurred vision, vision changes, or eye pain. Denies hemoptysis CARDIOVASCULAR: Denies chest pain. Denies orthopnea. Denies PND. Denies palpitations RESPIRATORY: Denies shortness of breath. GASTROINTESTINAL: Denies abdominal pain. Denies nausea or vomiting. HEMATOLOGIC: Denies bleeding disorders. GENITOURINARY: Denies any blood in urine. SKIN: Denies puritis. Denies rash. Physical examination: Gen: This is an 88-year-old male in no acute distress VS: reviewed, blood pressure 94/62, heart rate 64, pulse ox 99% on 3 L nasal cannula. HEENT: Head is atraumatic, normocephalic. Pupils equal, round. Sclerae is anicteric. NECK: Supple. No JVD. LUNGS: Clear to auscultation. No wheezes or rhonchi. No intercostal retractions. HEART: Irregular rate and rhythm. No murmur. ABDOMEN: Soft No tenderness. EXTREMITIES: No pedal edema. No calf tenderness. NEUROLOGICAL: Patient is awake, alert and oriented x3. Assessment: Bradycardia due to high PVC burden of 37% History of coronary artery disease Ischemic cardiomyopathy with EF of 35% Hypertension Dyslipidemia Plan: Resume patient's home cardiac medications with the following changes Decrease dose of Toprol-XL to 25 mg twice daily Obtain TSH Further recommendations to follow based upon clinical course Thank you kindly for this consultation. Nurse practitioner note has been reviewed, I agree with documented findings and plan of care. Patient was seen and examined. Past Medical History Past Medical History: Coronary Artery Disease (CAD), Cancer, Chest Pain / Angina, Heart Failure, COPD, GI Bleed, Hyperlipidemia, Hypertension, Osteoarthritis (OA) Additional Past Medical History / Comment(s): cataract rt eye, past hx nosebleeds., states sob with activity, skin cancer., See Cardiology H & P. History of Any Multi-Drug Resistant Organisms: None Reported Past Surgical History: Back Surgery, Heart Catheterization With Stent, Joint Replacement Additional Past Surgical History / Comment(s): rt knee replacement, neck fusion,lt cataract, back surgery x3 Past Anesthesia/Blood Transfusion Reactions: No Reported Reaction Date of Last Stent Placement:: 09/22/21 Past Psychological History: No Psychological Hx Reported Smoking Status: Former smoker Past Alcohol Use History: None Reported Past Drug Use History: None Reported - Past Family History Mother Family Medical History: No Reported History Additional Family Medical History / Comment(s): heart conditions Son(s) Family Medical History: Cancer Additional Family Medical History / Comment(s): brain stem cancer Father Family Medical History: Myocardial Infarction ([place]) Medications and Allergies Home Medications Medication Instructions Recorded Confirmed Type Ezetimibe [Zetia] 10 mg PO DAILY@79907/03/23 03/19/24 History Nitroglycerin Sl Tabs [Nitrostat] 0.4 mg SL Q5M PRN 07/03/23 03/19/24 History Alirocumab [Praluent Pen] 150 mg SQ Q14D 08/03/23 03/19/24 History Aspirin [Adult Low Dose Aspirin EC] 81 mg PO DAILY@79908/03/23 03/19/24 History Metoprolol Succinate (ER) [Toprol 50 mg PO BID@799,199902/13/24 03/19/24 History XL] polyethylene glycoL 3350 [Miralax] 17 gm PO DAILY PRN packet 02/22/24 03/19/24 Rx Amiodarone [Cordarone] 200 mg PO DAILY@79903/16/24 03/19/24 History Clopidogrel [Plavix] 75 mg PO DAILY@79903/16/24 03/19/24 History Empagliflozin [Jardiance] 10 mg PO DAILY@79903/16/24 03/19/24 History Spironolactone [Aldactone] 12.5 mg PO DAILY@79903/16/24 03/19/24 History Furosemide [Lasix] 20 mg PO BID@799,199903/19/24 03/19/24 History Allergies Allergy/AdvReac Type Severity Reaction Status Date / Time atorvastatin Allergy Rash/Hives/"gets Verified 03/19/24 16:14 sick" Physical Exam Vitals: Vital Signs Temp Pulse Pulse Resp BP BP BP 03/20/24 07:49 03/20/24 05:41 96.8 F L 64 20 94/62 03/20/24 01:26 61 18 03/20/24 01:25 98.1 F 61 18 118/68 03/19/24 22:55 64 23 114/69 03/19/24 21:38 57 L 18 105/53 03/19/24 20:30 66 20 121/75 03/19/24 19:44 68 16 114/60 03/19/24 18:56 03/19/24 18:55 110/56 03/19/24 18:53 107/59 03/19/24 18:50 03/19/24 16:59 58 L 16 110/76 03/19/24 15:42 97.5 F L 58 L 20 99/67 03/19/24 15:26 34 L 22 96/55 BP Pulse Ox 03/20/24 07:49 98 03/20/24 05:41 99 03/20/24 01:26 03/20/24 01:25 99 03/19/24 22:55 100 03/19/24 21:38 95 03/19/24 20:30 95 03/19/24 19:44 99 03/19/24 18:56 118/60 03/19/24 18:55 03/19/24 18:53 03/19/24 18:50 118/60 03/19/24 16:59 100 03/19/24 15:42 100 03/19/24 15:26 95 Intake and Output 03/19/24 03/20/24 03/20/24 22:59 06:59 14:59 Other: # Voids 2 # Bowel Movements 0 Weight 69.853 kg Results 03/20/24 06:52 03/20/24 06:52 Cardiac Enzymes 03/19/24 03/19/24 03/19/24 Range/Units 15:43 15:43 20:38 AST 24 (17-59) U/L Troponin I <0.012 <0.012 (0.000-0.034) ng/mL 03/19/24 03/20/24 Range/Units 23:58 06:52 AST 25 (17-59) U/L Troponin I <0.012 (0.000-0.034) ng/mL Coagulation 03/19/24 Range/Units 15:43 PT 12.8 H (10.0-12.5) sec APTT 28.1 (22.0-30.0) sec CBC 03/19/24 03/20/24 Range/Units 15:43 06:52 WBC 7.6 8.6 (3.8-10.6) k/uL RBC 4.71 4.72 (4.30-5.90) m/uL Hgb 13.2 13.6 (13.0-17.5) gm/dL Hct 40.7 40.2 (39.0-53.0) % Plt Count 257 212 (150-450) k/uL Comprehensive Metabolic Panel 03/19/24 03/20/24 Range/Units 15:43 06:52 Sodium 135 L 137 (137-145) mmol/L Potassium 3.9 4.2 (3.5-5.1) mmol/L Chloride 101 108 H (98-107) mmol/L Carbon Dioxide 28 20 L (22-30) mmol/L BUN 43 H 37 H (9-20) mg/dL Creatinine 1.53 H 1.36 H (0.66-1.25) mg/dL Glucose 94 78 (74-99) mg/dL Calcium 8.6 8.9 (8.4-10.2) mg/dL AST 24 25 (17-59) U/L ALT 15 17 (4-49) U/L Alkaline Phosphatase 49 60 (38-126) U/L Total Protein 6.6 6.4 (6.3-8.2) g/dL Albumin 3.7 3.5 (3.5-5.0) g/dL Current Medications Generic Name Dose Route Start Last Admin Trade Name Freq PRN Reason Stop Dose Admin Amiodarone HCl 200 mg 03/20/24 08:00 Amiodarone 200 Mg Tab PO DAILY@0800 [facility] Aspirin 81 mg 03/20/24 08:00 Aspirin 81 Mg PO DAILY@0800 [facility] Clopidogrel Bisulfate 75 mg 03/20/24 08:00 Clopidogrel 75 Mg Tab PO DAILY@0800 [facility] Ezetimibe 10 mg 03/20/24 08:00 Ezetimibe 10 Mg Tab PO DAILY@0800 [facility] Furosemide 20 mg 03/20/24 08:00 Furosemide 20 Mg Tab PO BID@799,1999 [facility] Heparin Sodium (Porcine) 5,000 unit 03/20/24 08:00 Heparin Sodium,Porcine 5,000 Unit/Ml 1 Ml Vial SQ Q8HR [facility] Sodium Chloride 1,000 mls @ 20 mls/hr 03/19/24 18:15 03/19/24 19:19 Saline 0.9% IV 20 mls/hr .Q24H [facility] Administration Metoprolol Succinate 50 mg 03/20/24 08:00 Metoprolol Succinate (Er) 50 Mg Tab.Er.24h PO BID@ [facility] Morphine Sulfate 4 mg 03/19/24 18:04 Morphine Sulfate 4 Mg/Ml Syringe IV Q4HR PRN Severe Pain (Scale 7 to 10) Naloxone HCl 0.2 mg 03/19/24 18:04 Naloxone 0.4 Mg/Ml 1 Ml Vial IV Q2M PRN Opioid Reversal Ondansetron HCl 4 mg 03/19/24 18:04 Ondansetron 4 Mg/2 Ml Vial IVP Q8HR PRN Nausea And Vomiting Spironolactone 12.5 mg 03/20/24 08:00 Spironolactone 25 Mg Tab PO DAILY@0800 [facility] Intake and Output 03/19/24 03/20/24 03/20/24 22:59 06:59 14:59 Other: # Voids 2 # Bowel Movements 0 Weight 69.853 kg 03/20/24 06:52 03/20/24 06:52
[2024-03-20] MEDS ORDERED: IPRATROPIUM-ALBUTEROL 3 ML NEB INHALATION PRN (15:38)
--- NOTE | 2024-03-20 15:50 | P.PN ---
Subjective Progress Note Date: 03/20/24 Hospital course: Patient is a pleasant 88-year-old male with a past medical history of CAD with multiple stents, ischemic cardiomyopathy with previously known EF of 25%, hypertension, hyperlipidemia, CKD stage IIIb and COPD. Presented to the emergency department on 03/19/2024 secondary to return dizziness and bradycardia. Upon arrival to our facility, patient underwent evaluation in the emergency department. Vital signs upon arrival show blood pressure 96/55, heart rate 34, respiratory rate 22, temp 97.5 F, SpO2 of 95% on 3 L. EKG was completed showing normal sinus rhythm with a first-degree AV block with [place] interval of 230 ms and right bundle branch block with QRS duration of 162 ms and frequent PVCs. Chest x-ray completed showing underlying edematous changes consistent with COPD/pulmonary fibrosis and mild superimposed venous congestion with vague right upper lobe nodular density measuring 2 cm. Labs were completed and reviewed. CBC was unremarkable. Coagulation profile showing elevated PT of 12.8 and INR of 1.2. BMP showing sodium 135, BUN 43, and creatinine of 1.53 with GFR 40 with baseline creatinine around 1.4. Magnesium normal findings at 2.1. Liver profile unremarkable. Troponin was negative at less than 0.012 and proBNP was 14,500. Patient was admitted under our services with consultation to cardiology. Troponins trended overnight all negative at less than 0.012 x 3 draws. Physical exam: Patient seen and fully evaluated at bedside in the emergency department this morning. He reports currently dizziness/lightheadedness is controlled. He reports mild episode of nausea this morning otherwise denies any complaints at this time headache, chest pain, palpitations, shortness of breath, or experiencing any numbness/tingling/weakness/swelling in his extremities. Vital signs reviewed and stable. General: Nontoxic, no distress and appears stated age. Derm: Skin warm and dry, normal coloration for ethnicity. Head: Atraumatic, normocephalic and symmetric. Eyes: EOMs intact, no lid lag, and anicteric sclera Mouth: no lip lesions, mucus membranes moist Cardiovascular: regular rate and rhythm with normal S1S2, systolic murmur, po sitive posterior tibial pulses bilaterally, and cap refill < 2 seconds. Lungs: Respirations even, regular, and unlabored on room air. Lungs CTA bilaterally, no rhonchi, no rales, no wheezing, and no accessory muscle usage. Abdominal: soft, nontender to palpation, no guarding, no appreciable organ omegaly Ext: ROM intact. No gross muscle atrophy, no edema, no contractures Neuro: Speech clear, face symmetrical and CN II-XII grossly intact with no noted focal neuro deficits Psych: Alert and oriented to person, place, time, and situation. Appropriate and pleasant affect. 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 -Telemetry monitoring -Follow-up on TSH with free T4 results -Cardiac diet -In addition to changes to metoprolol made by cardiology team as stated above, patient to continue cardiac medication regimen with amiodarone 200 mg daily, aspirin 81 mg daily, Plavix 75 mg daily, Farxiga 5 mg daily, Zetia 10 mg daily, Lasix 20 mg twice daily, Aldactone 12.5 mg daily. -Echocardiogram completed 02/13/2024 was reviewed showing a severely reduced EF of 25 to 30% mild to moderate mitral regurgitation, mild aortic regurgitation, and moderate pulmonary hypertension. COPD, not in acute exacerbation Pulmonary nodular density noted on imaging of right upper lobe Provide supplemental oxygen as indicated to maintain SpO2 equal to or greater than 90%. DuoNebs every 2 hours as needed for wheezing/shortness of breath. Patient to follow-up outpatient for recommended CT for continued monitoring for resolution or follow-up on right upper lobe nodular density. CKD stage IIIb -Renal function stable and at baseline with BUN of 37, creatinine of 1.36, and GFR 46. Data and imaging reviewed -Chest x-ray completed showing underlying edematous changes consistent with COPD/pulmonary fibrosis and mild superimposed venous congestion with vague right upper lobe nodular density measuring 2 cm. -Echocardiogram completed 02/13/2024 was reviewed showing a severely reduced EF of 25 to 30% mild to moderate mitral regurgitation, mild aortic regurgitation, and moderate pulmonary hypertension. -Labs completed and reviewed. CBC unremarkable. BMP showing hyperchloremia with chloride of 108 and hypocarbia with bicarb of 20 with elevated BUN of 37, creatinine 1.36, GFR 46. 2.3. Liver profile unremarkable. CODE STATUS: Full code DVT prophylaxis: Heparin Anticipated discharge date: 24 to [address]: Return home Patient was seen independently by Nurse Pracitioner. This document was prepared using [employer] dictation software. Please allow for errors in channel cementer, while rare they do occur. I reviewed the documentation as provided by the EVANGELINA above, who is the original author of this note. I agree with the documented assessment and plan, with the following changes: none Objective - Vital Signs Vital signs: Vital Signs Temp 96.8 F L 03/20/24 05:41 Pulse 64 03/20/24 05:41 Resp 20 03/20/24 05:41 BP 94/62 03/20/24 05:41 Pulse Ox 98 03/20/24 07:49 FiO2 Intake & Output 03/19/24 03/20/24 03/20/24 18:59 06:59 18:59 Weight 69.853 kg Other: # Voids 2 # Bowel Movements 0 - Labs CBC & Chem 7: 03/21/24 06:13 03/21/24 06:13 Labs: Abnormal Lab Results - Last 24 Hours (Table) 03/19/24 03/19/24 03/20/24 Range/Units 15:43 15:43 06:52 PT 12.8 H (10.0-12.5) sec INR 1.2 H (<1.2) Sodium 135 L (137-145) mmol/L Chloride 108 H (98-107) mmol/L Carbon Dioxide 20 L (22-30) mmol/L BUN 43 H 37 H (9-20) mg/dL Creatinine 1.53 H 1.36 H (0.66-1.25) mg/dL
[2024-03-20] MEDS: METOPROLOL SUCCINATE (ER) 50 MG TAB.ER.24H PO SCH (17:08)
[2024-03-20] MEDS: METOPROLOL SUCCINATE (ER) 25 MG TAB.ER.24H PO SCH (20:08)
[2024-03-21 02:44] VITALS: TEMP 97.8
[2024-03-21 07:25] VITALS: BP 106/71; RESP 16
[2024-03-21] MEDS: DAPAGLIFLOZIN PROPANEDIOL 5 MG TABLET PO SCH (08:41)
[2024-03-21 08:51] LABS: HGB 14.1 g/dL (13.0-17.0); MCH 27.2 pg (27.0-32.0); MCHC 31.3 g/dL (32.0-37.0); MCV 86.9 FL (80.0-97.0); Mean Platelet Volume 11.1 FL (9.5-12.2); NRBC Per 100 WBC 0 X 10*3/uL (0.00-0.01); Platelet Count 319 X 10*3/uL (140-440); RBC 5.18 X 10*6/uL (4.40-5.60); RDW 15.2 % (11.5-14.5); WBC 9.56 X 10*3/uL (4.50-10.00)
[2024-03-21 09:01] LABS: BUN/Creat Ratio 18.67 Ratio (12.00-20.00); Calcium 9.4 mg/dL (8.7-10.3); Carbon Dioxide 21.5 mmol/L (21.6-31.8); Chloride 101 mmol/L (96-109); Glucose 88 mg/dL (70-110); Magnesium 2.3 mg/dL (1.5-2.4); Potassium 4.2 mmol/L (3.5-5.5); Sodium 137 mmol/L (135-145)
[2024-03-21 09:30] VITALS: PULSE 67
--- NOTE | 2024-03-21 11:29 | P.DS ---
Providers Date of admission: 03/19/24 18:05 Expected date of discharge: 03/21/24 Attending physician: Manju Galvez MD Consults: 03/19/24 18:04 Consult Physician Routine Consulting Provider: Yasmani Alberto Consult Reason/Comments: arin Do you want consulting provider notified?: Yes Primary care physician: [facility] Course: Discharge Diagnosis: Symptomatic bradycardia. Patient was evaluated by cardiology and metoprolol dosing was adjusted. Patient tolerated well with no further episodes of bradycardia. Patient cleared from cardiology perspective for discharge recommending outpatient follow-up in their office in 1 to 2 weeks. Medically, patient stable for discharge at this time and to follow-up outpatient with PCP in 1 to 2 days and with cardiology in 1 to 2 weeks. Patient being discharged home on metoprolol succinate ER 50 mg daily. Ischemic cardiomyopathy with previously known EF of 25%, Pt to continue cardiac medication regimen with Toprol-XL 50 mg daily, amiodarone 200 mg daily, aspirin 81 mg daily, Plavix 75 mg daily, Farxiga 5 mg daily, Zetia 10 mg daily, Lasix 20 mg twice daily, Aldactone 12.5 mg daily. CAD with multiple stents Hypertension Hyperlipidemia COPD, not in acute exacerbation Pulmonary nodular density noted on imaging of right upper lobe. Patient to follow-up outpatient for recommended follow-up CT for continued monitoring for resolution or follow-up on right upper lobe nodular density. CKD stage IIIb. Renal function stable and at baseline with BUN of 37, creatinine of 1.36, and GFR 46. Hospital Course: Patient is a pleasant 88-year-old male with a past medical history of CAD with multiple stents, ischemic cardiomyopathy with previously known EF of 25%, hypertension, hyperlipidemia, CKD stage IIIb and COPD. Presented to the emergency department on 03/19/2024 secondary to return dizziness and bradycardia. Upon arrival to our facility, patient underwent evaluation in the emergency department. Vital signs upon arrival show blood pressure 96/55, heart rate 34, respiratory rate 22, temp 97.5 F, SpO2 of 95% on 3 L. EKG was completed showing normal sinus rhythm with a first-degree AV block with ND interval of 230 ms and right bundle branch block with QRS duration of 162 ms and frequent PVCs. Chest x-ray completed showing underlying edematous changes consistent with COPD/pulmonary fibrosis and mild superimposed venous congestion with vague right upper lobe nodular density measuring 2 cm. Labs were completed and reviewed. CBC was unremarkable. Coagulation profile showing elevated PT of 12.8 and INR of 1.2. BMP showing sodium 135, BUN 43, and creatinine of 1.53 with GFR 40 with baseline creatinine around 1.4. Magnesium normal findings at 2.1. Liver profile unremarkable. Troponin was negative at less than 0.012 and proBNP was 14,500. Patient was admitted under our services with consultation to cardiology. Troponins trended overnight all negative at less than 0.012 x 3 draws. Patient was evaluated by cardiology and metoprolol dosing was adjusted. Patient tolerated well with no further episodes of bradycardia. Patient cleared from cardiology perspective for discharge recommending outpatient follow-up in their office in 1 to 2 weeks. Medically, patient stable for discharge at this time and to follow-up outpatient with PCP in 1 to 2 days and with cardiology in 1 to 2 weeks. Patient being discharged home on metoprolol succinate ER 50 mg daily. Physical exam: Vital signs reviewed and stable. General: Nontoxic, no distress and appears stated age. Derm: Skin warm and dry, normal coloration for ethnicity. Head: Atraumatic, normocephalic and symmetric. Eyes: EOMs intact, no lid lag, and anicteric sclera Mouth: no lip lesions, mucus membranes moist Cardiovascular: regular rate and rhythm with normal S1S2, systolic murmur, positive posterior tibial pulses bilaterally, and cap refill < 2 seconds. Lungs: Respirations even, regular, and unlabored on room air. Lungs CTA bilaterally, no rhonchi, no rales, no wheezing, and no accessory muscle usage. Abdominal: soft, nontender to palpation, no guarding, no appreciable organomegaly Ext: ROM intact. No gross muscle atrophy, no edema, no contractures Neuro: Speech clear, face symmetrical and CN II-XII grossly intact with no noted focal neuro deficits Psych: Alert and oriented to person, place, time, and situation. Appropriate and pleasant affect. A total of 32 minutes of time were spent preparing this complex discharge summary. Pt was discharged on 03/21/2024 at 11:18 AM. Patient was seen independently by Nurse Practitioner. This document was prepared using [employer] dictation software. 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 I reviewed the documentation as provided by the EVANGELINA above, who is the original author of this note. I agree with the documented assessment and plan, with the following changes: none Patient Condition at Discharge: Stable Plan - Discharge Summary New Discharge Prescriptions: New Metoprolol Succinate [Toprol XL] 50 mg PO DAILY #90 tab Continue Ezetimibe [Zetia] 10 mg PO DAILY@0800 Nitroglycerin Sl Tabs [Nitrostat] 0.4 mg SL Q5M PRN PRN Reason: Chest Pain Aspirin [Adult Low Dose Aspirin EC] 81 mg PO DAILY@0800 Alirocumab [Praluent Pen] 150 mg SQ Q14D polyethylene glycoL 3350 [Miralax] 17 gm PO DAILY PRN packet PRN Reason: Constipation Amiodarone [Cordarone] 200 mg PO DAILY@0800 Clopidogrel [Plavix] 75 mg PO DAILY@08 Empagliflozin [Jardiance] 10 mg PO DAILY@799 Spironolactone [Aldactone] 12.5 mg PO DAILY@799 Furosemide [Lasix] 20 mg PO BID@ Discontinued Metoprolol Succinate (ER) [Toprol XL] 50 mg PO BID@ Discharge Medication List Ezetimibe [Zetia] 10 mg PO DAILY@0800 07/03/23 [History] Nitroglycerin Sl Tabs [Nitrostat] 0.4 mg SL Q5M PRN 07/03/23 [History] Alirocumab [Praluent Pen] 150 mg SQ Q14D 08/03/23 [History] Aspirin [Adult Low Dose Aspirin EC] 81 mg PO DAILY@0800 08/03/23 [History] polyethylene glycoL 3350 [Miralax] 17 gm PO DAILY PRN packet 02/22/24 [Rx] Amiodarone [Cordarone] 200 mg PO DAILY@0803/16/24 [History] Clopidogrel [Plavix] 75 mg PO DAILY@79903/16/24 [History] Empagliflozin [Jardiance] 10 mg PO DAILY@79903/16/24 [History] Spironolactone [Aldactone] 12.5 mg PO DAILY@79903/16/24 [History] Furosemide [Lasix] 20 mg PO BID@03/19/24 [History] Metoprolol Succinate [Toprol XL] 50 mg PO DAILY #90 tab 03/21/24 [Rx] Follow up Appointment(s)/Referral(s): Brant Cuevas MD [STAFF PHYSICIAN] - 03/28/24 9:30 am [facility],Clinic [Primary Care Provider] - 1-2 days Patient Instructions/Handouts: Bradycardia (DC) Activity/Diet/Wound Care/Special Instructions: Activity: As tolerated. Take breaks as needed. Diet: Heart healthy and carb consistent diet. Avoid salts, or foods with hidden salts such as canned or boxed foods and frozen dinners. Extra salt makes your heart work harder and traps the fluid in your body for longer. Special Instructions: Take all of your medications as directed and remember to keep all of your doctor's appointments and follow-up as needed. Nodular density noted in right upper lobe was noted on chest x-ray, recommend outpatient follow-up with CT to monitor for resolution. Thank you for allowing us to participate in your care, it was truly a pleasure having you for our patient!!! . Discharge Disposition: HOME SELF-CARE
[2024-03-21 12:56] VITALS: BMI 22.7
--- NOTE | 2024-03-22 10:58 | P.PN ---
Subjective Patient is doing well. Resting comfortably in bed. His heart rates have improved and are in the 70s. His blood pressure is better after reducing the dose of metoprolol On examination heart sounds are normal rhythm is regular breath sounds are clear no orthopnea TSH level was sent yesterday and is at the upper limits of normal around 5.2 which needs to be followed since the patient is on amiodarone Plan Patient will go home today On reduced dose of metoprolol 50 mg once daily only Continue amiodarone low-dose Watch TSH on amiodarone Objective - Vital Signs Vital signs: Vital Signs Temp 97.8 F 03/21/24 07:00 Pulse 77 03/21/24 07:00 Resp 16 03/21/24 07:00 BP 106/71 03/21/24 07:00 Pulse Ox 96 03/21/24 07:00 FiO2 Intake & Output 03/20/24 03/21/24 03/21/24 18:59 06:59 18:59 Intake Total 400 Balance 400 Weight 69.853 kg Intake: Oral 400 Other: Voiding Method Toilet Toilet Urinal Urinal # Voids 2 2 # Bowel Movements 1 - Labs CBC & Chem 7: 03/20/24 06:52 03/20/24 06:52
== END 2024-03-21 13:35 | disposition home or self-care (01) ==
LOC: EC 15:21 → 6NMEDSUR 18:05
PROVIDERS: ADMIT Internal Medicine; ATTEND Internal Medicine
DX: R00.1 Bradycardia, unspecified (principal); R42 Dizziness and giddiness; I25.10 Atherosclerotic heart disease of native coronary artery without angina pectoris; I13.0 Hypertensive heart and chronic kidney disease with heart failure and stage 1 through stage 4 chronic kidney disease, or unspecified chronic kidney disease; I50.22 Chronic systolic (congestive) heart failure; N18.32 Chronic kidney disease, stage 3b; J44.9 Chronic obstructive pulmonary disease, unspecified; E78.5 Hyperlipidemia, unspecified; I25.5 Ischemic cardiomyopathy; I25.2 Old myocardial infarction; Z85.828 Personal history of other malignant neoplasm of skin; Z87.891 Personal history of nicotine dependence; Z95.5 Presence of coronary angioplasty implant and graft; Z79.02 Long term (current) use of antithrombotics/antiplatelets; Z79.82 Long term (current) use of aspirin; Z79.84 Long term (current) use of oral hypoglycemic drugs; Z79.899 Other long term (current) drug therapy
CPT/HCPCS: 96372 ×3; 96360; 96361; 99285; 36415; 94760; 93005; 83880; 80053 ×2; 80048; 84443; 83605; 83735 ×3; 84100 ×2; 84484; 85025 ×2; 85027; 85610; 85730; 81003; 71046; G0378 ×3; J1644 ×2

== ENCOUNTER 2024-04-01 13:01 | Observation (INO) | payer OTHER ==
--- NOTE | 2024-04-01 13:28 | ED ---
General Adult HPI - General Chief complaint: Recheck/Abnormal Lab/Rx Stated complaint: Abdominal ecchymosis Time Seen by Provider: 04/01/24 13:15 Source: patient, family, RN notes reviewed Mode of arrival: ambulatory Limitations: no limitations - History of Present Illness Initial comments: Patient is an 88-year-old male present to the emergency department with abdominal ecchymosis. Patient noticed this when he looked in the mirror this morning. Patient does have discomfort in the area however that has been present for the past 3 years since he had heart catheterization. No change in chronic discomfort. Patient did have procedure done again through the right inguinal region 6 weeks ago secondary to gastrointestinal hemorrhage. This was done at [facility]. Patient believes he is on some sort of blood thinner secondary to heart problems. - Related Data Home Medications Medication Instructions Recorded Confirmed Ezetimibe [Zetia] 10 mg PO DAILY@0800 07/03/23 04/01/24 Nitroglycerin Sl Tabs [Nitrostat] 0.4 mg SL Q5M PRN 07/03/23 04/01/24 Alirocumab [Praluent Pen] 150 mg SQ Q14D 08/03/23 04/01/24 Aspirin [Adult Low Dose Aspirin EC] 81 mg PO DAILY@00 08/03/23 04/01/24 Amiodarone [Cordarone] 200 mg PO DAILY@79903/16/24 04/01/24 Clopidogrel [Plavix] 75 mg PO DAILY@79903/16/24 04/01/24 Empagliflozin [Jardiance] 10 mg PO DAILY@79903/16/24 04/01/24 Spironolactone [Aldactone] 12.5 mg PO DAILY@79903/16/24 04/01/24 Furosemide [Lasix] 20 mg PO BID@08,199903/19/24 04/01/24 Metoprolol Succinate [Toprol XL] 50 mg PO DAILY@79904/01/24 04/01/24 Previous Rx's Medication Instructions Recorded polyethylene glycoL 3350 [Miralax] 17 gm PO DAILY PRN packet 02/22/24 Allergies Allergy/AdvReac Type Severity Reaction Status Date / Time atorvastatin Allergy Rash/Hives/"gets Verified 04/01/24 18:08 sick" Review of Systems ROS Statement: Those systems with pertinent positive or pertinent negative responses have been documented in the HPI. ROS Other: All systems not noted in ROS Statement are negative. Constitutional: Denies: fever Eyes: Denies: eye pain ENT: Denies: ear pain Gastrointestinal: Reports: as per HPI Skin: Reports: as per HPI Neurological: Denies: weakness Past Medical History Past Medical History: Coronary Artery Disease (CAD), Cancer, Chest Pain / Angina, Heart Failure, COPD, GI Bleed, Hyperlipidemia, Hypertension, Osteoar thritis (OA) Additional Past Medical History / Comment(s): cataract rt eye, past hx nosebleeds., states sob with activity, skin cancer., See Cardiology H & P. History of Any Multi-Drug Resistant Organisms: None Reported Past Surgical History: Back Surgery, Heart Catheterization With Stent, Joint Replacement Additional Past Surgical History / Comment(s): rt knee replacement, neck fusion,lt cataract, back surgery x3 Past Anesthesia/Blood Transfusion Reactions: No Reported Reaction Date of Last Stent Placement:: 09/22/21 Past Psychological History: No Psychological Hx Reported Smoking Status: Former smoker Past Alcohol Use History: None Reported Past Drug Use History: None Reported - Past Family History Mother Family Medical History: No Reported History Additional Family Medical History / Comment(s): heart conditions Son(s) Family Medical History: Cancer Additional Family Medical History / Comment(s): brain stem cancer Father Family Medical History: Myocardial Infarction (MA) General Exam Limitations: no limitations General appearance: alert, in no apparent distress Head exam: Present: normocephalic Eye exam: Present: normal appearance Neck exam: Present: normal inspection Respiratory exam: Present: normal lung sounds bilaterally Cardiovascular Exam: Present: regular rate, normal rhythm GI/Abdominal exam: Present: soft, tenderness (Right lower abdomen with moderate ecchymosis. There is mild tenderness in the lower portion.), normal bowel sounds. Absent: distended, guarding, rebound, rigid Extremities exam: Present: normal inspection, other (Right inguinal region without swelling or tenderness or erythema or ecchymosis) Neurological exam: Present: alert Psychiatric exam: Present: normal affect, normal mood Skin exam: Present: other (Abdominal ecchymosis) Course Vital Signs 04/01/24 04/01/24 13:07 18:04 Temperature 97.3 F L Pulse Rate 74 67 Respiratory 18 18 Rate Blood Pressure 103/64 108/66 O2 Sat by Pulse 96 100 Oximetry EKG Findings - EKG Results: EKG: interpreted by ERMD (First-degree AV block. Superior axis. Right bundle branch block.), sinus rhythm, normal ST/T Medical Decision Making - Medical Decision Making Discussion had with patient and family regarding concerns for renal function. Patient does have abdominal hematoma and CT scan will show better images with IV contrast. They are both made aware that this could worsen her renal function. Patient and family are both aware of this and would like to have contrast done. Was pt. sent in by a medical professional or institution (, PA, OUTCOMES SPECIALIST, urgent care, hospital, or snf...) When possible be specific @ -No Did you speak to anyone other than the patient for history (EMS, parent, family, police, friend...)? What history was obtained from this source @ -Daughter is present and helps provide history including previous procedures Did you review nursing and triage notes (agree or disagree)? Why? @ -I reviewed and agree with nursing and triage notes Were old charts reviewed (outside hosp., previous admission, EMS record, old EKG, old radiological studies, urgent care reports/EKG's, snf records)? Report findings @ -No old charts were reviewed Differential Diagnosis (chest pain, altered mental status, abdominal pain women, abdominal pain men, vaginal bleeding, weakness, fever, dyspnea, syncope, headache, dizziness, GI bleed, back pain, seizure, CVA, palpatations, mental health, musculoskeletal)? @ -Differential Abdominal Pain Men: Appendicitis, cholecystitis, diverticulosis, ischemic bowel, pancreatitis, hepatitis, UTI, gastroenteritis, AAA, incarcerated hernia, bowel obstruction, constipation, inflammatory bowel, hepatitis, peptic ulcer disease, splenic infarction, perforated viscus, testicular torsion, this is not meant to be an all-inclusive list EKG interpreted by me (3pts min.). @ -As above X-rays interpreted by me (1pt min.). @ -None done CT interpreted by me (1pt min.). @ -CT scan shows enlarged prostate, stool retention, no intra-abdominal bleeding U/S interpreted by me (1pt. min.). @ -None done What testing was considered but not performed or refused? (CT, X-rays, U/S, labs)? Why? @ -None What meds were considered but not given or refused? Why? @ -None Did you discuss the management of the patient with other professionals (professionals i.e. DrDaniel, PA, OUTCOMES SPECIALIST, lab, RT, psych nurse, social group worker, tele marketing executive, teacher, labor relations officer, case specialist)? Give summary @ -Case discussed with radiologist who does want patient to be admitted with IV fluids. Case also discussed with Dr. Foote who will admit covering the ID Was smoking cessation discussed for >3mins.? @ -No Was critical care preformed (if so, how long)? @ -No Were there social determinants of health that impacted care today? How? (Homelessness, low income, unemployed, alcoholism, drug addiction, transportation, low edu. Level, literacy, decrease access to med. care, residential, rehab)? @ -No Was there de-escalation of care discussed even if they declined (Discuss DNR or withdrawal of care, Hospice)? DNR status @ -No What co-morbidities impacted this encounter? (DM, HTN, Smoking, COPD, CAD, Cancer, CVA, ARF, Chemo, Hep., AIDS, mental health diagnosis, sleep apnea, morbid obesity)? @ -CKD Was patient admitted / discharged? Hospital course, mention meds given and route, prescriptions, significant lab abnormalities, going to OR and other p ertinent info. @ -Patient presents with concern for abdominal ecchymosis. CT scan without intra-abdominal bleeding. Patient did receive IV contrast and therefore will be held with continued IV fluids and repeat renal testing tomorrow Undiagnosed new problem with uncertain prognosis? @ -No Drug Therapy requiring intensive monitoring for toxicity (Heparin, Nitro, Insulin, Cardizem)? @ -No Were any procedures done? @ -No Diagnosis/symptom? @ -Acute on chronic renal disease, abdominal ecchymosis Acute, or Chronic, or Acute on Chronic? @ -Acute on chronic Uncomplicated (without systemic symptoms) or Complicated (systemic symptoms)? @ -Default Side effects of treatment? @ -No Exacerbation, Progression, or Severe Exacerbation? @ -No Poses a threat to life or bodily function? How? (Chest pain, USA, MA, pneumonia, PE, COPD, DKA, ARF, appy, cholecystitis, CVA, Diverticulitis, Homicidal, Suicidal, threat to staff... and all critical care pts) @ -No - Lab Data Result diagrams: 04/01/24 14:06 04/01/24 14:40 Lab Results 04/01/24 04/01/24 04/01/24 Range/Units 14:06 14:06 14:40 WBC 8.1 (3.8-10.6) k/uL RBC 5.10 (4.30-5.90) m/uL Hgb 14.1 (13.0-17.5) gm/dL Hct 44.7 (39.0-53.0) % MCV 87.7 (80.0-100.0) fL MCH 27.6 (25.0-35.0) pg MCHC 31.5 (31.0-37.0) g/dL RDW 14.9 (11.5-15.5) % Plt Count 324 (150-450) k/uL MPV 8.3 Neutrophils % 67 % Lymphocytes % 20 % Monocytes % 8 % Eosinophils % 3 % Basophils % 1 % Neutrophils # 5.4 (1.3-7.7) k/uL Lymphocytes # 1.6 (1.0-4.8) k/uL Monocytes # 0.6 (0-1.0) k/uL Eosinophils # 0.2 (0-0.7) k/uL Basophils # 0.1 (0-0.2) k/uL PT 11.9 (10.0-12.5) sec INR 1.1 (<1.2) APTT 23.2 (22.0-30.0) sec Sodium 132 L (137-145) mmol/L Potassium 4.9 (3.5-5.1) mmol/L Chloride 99 (98-107) mmol/L Carbon Dioxide 25 (22-30) mmol/L Anion Gap 8 mmol/L BUN 40 H (9-20) mg/dL Creatinine 2.04 H (0.66-1.25) mg/dL Est GFR (CKD-EPI)AfAm 33 (>60 ml/min/1.73 sqM) Est GFR (CKD-EPI)NonAf 29 (>60 ml/min/1.73 sqM) Glucose 100 H (74-99) mg/dL Calcium 9.5 (8.4-10.2) mg/dL Total Bilirubin 1.0 (0.2-1.3) mg/dL AST 21 (17-59) U/L ALT 15 (4-49) U/L Alkaline Phosphatase 58 (38-126) U/L Total Protein 7.4 (6.3-8.2) g/dL Albumin 4.2 (3.5-5.0) g/dL Amylase 60 (30-110) U/L Lipase 156 (23-300) U/L Disposition Clinical Impression: Superficial bruising of abdominal wall, Acute kidney injury superimposed on CKD Disposition: ADMITTED IP TO THIS HOSP Is patient prescribed a controlled substance at d/c from ED?: No Referrals: [facility],Clinic [Primary Care Provider] - 1-2 days Time of Disposition: 19:21
[2024-04-01 14:24] LABS: Basophils # (A) 0.1 k/uL (0-0.2); Basophils % (A) 1 %; Eosinophils # (A) 0.2 k/uL (0-0.7); Eosinophils % (A) 3 %; HCT 44.7 % (39.0-53.0); HGB 14.1 gm/dL (13.0-17.5); Lymphocytes # (A) 1.6 k/uL (1.0-4.8); Lymphocytes % (A) 20 %; MCH 27.6 pg (25.0-35.0); MCHC 31.5 g/dL (31.0-37.0); MCV 87.7 fL (80.0-100.0); Mean Platelet Volume 8.3; Monocytes # (A) 0.6 k/uL (0-1.0); Monocytes % (A) 8 %; Neutrophils # (A) 5.4 k/uL (1.3-7.7); Neutrophils % (A) 67 %; Platelet Count 324 k/uL (150-450); RDW 14.9 % (11.5-15.5); WBC 8.1 k/uL (3.8-10.6)
[2024-04-01 14:51] LABS: INR 1.1 (<1.2); Partial Thromboplastin Time 23.2 sec (22.0-30.0); Prothrombin Time 11.9 sec (10.0-12.5)
[2024-04-01 15:15] LABS: ALT 15 U/L (4-49); AST 21 U/L (17-59); African American GFR (CKD) 33 (>60 ml/min/1.73 sqM); Albumin 4.2 g/dL (3.5-5.0); Alkaline Phosphatase 58 U/L (38-126); Amylase 60 U/L (30-110); Anion Gap 8 mmol/L; Blood Urea Nitrogen 40 mg/dL (9-20); Calcium 9.5 mg/dL (8.4-10.2); Carbon Dioxide 25 mmol/L (22-30); Chloride 99 mmol/L (98-107); Glucose 100 mg/dL (74-99); Lipase 156 U/L (23-300); Non-African American GFR(CKD) 29 (>60 ml/min/1.73 sqM); Potassium 4.9 mmol/L (3.5-5.1); Sodium 132 mmol/L (137-145); Total Protein 7.4 g/dL (6.3-8.2)
[2024-04-01] MEDS: SODIUM CHLORIDE 0.9% 1,000 ML IV STA (15:57)
--- NOTE | 2024-04-01 18:26 | CT ---
EXAMINATION TYPE: CT abdomen pelvis w con CT DLP: 645 mGycm, Automated exposure control for dose reduction was used. DATE OF EXAM: 04/01/2024 5:26 PM COMPARISON: CT abdomen pelvis most recent from 10/12/2023 CLINICAL INDICATION:Male, 88 years old with history of abdominal pain, right lower ecchymosis; abdomi nal pain post sx TECHNIQUE: Axial CT abdomen pelvis w con;Sagittal and coronal reformats were created on a separate w orkstation. Contrast used:80 mL of Isovue 300 with IV Contrast, (none if empty) Oral contrast used: without Oral Contrast (none if empty) FINDINGS: LOWER CHEST: There is mildly enlarged for size. ABDOMEN LIVER: Unremarkable GALLBLADDER AND BILE DUCTS: Unremarkable. PANCREAS: Unremarkable. SPLEEN: Unremarkable. ADRENAL GLANDS: Unremarkable. KIDNEYS AND URETERS: No evidence of hydronephrosis or renal calculus. The ureters are unremarkable. 7 0 Hounsfield unit lesion in the right kidney compatible with hemorrhagic/proteinaceous cyst. PELVIS BLADDER: Unremarkable REPRODUCTIVE: Prostate is enlarged in size measuring 6.2 cm in transverse dimension. Bilateral hydroc eles. ABDOMEN & PELVIS STOMACH AND BOWEL: No evidence of bowel obstruction. Scattered colonic diverticula. Large amount stoo l in the rectum. The appendix appears surgically absent. PERITONEUM/RETROPERITONEUM: No evidence of pneumoperitoneum or free fluid. VASCULATURE: Severe atherosclerotic calcifications are present throughout the abdominal aorta and its branches. No evidence of aortic aneurysm. MUSCULOSKELETAL: No acute osseous abnormalities. Severe disc degeneration changes are present through out the thoracolumbar spine. Osteoarthrosis of the spinous processes. Multilevel degeneration changes spine with straightening spine osteophytes facet joint arthropathy and disc space narrowing. LYMPH NODES: No gross evidence for lymphadenopathy. SOFT TISSUE/ABDOMINAL WALL: No evidence for right lower quadrant fluid collection or abnormality to c orrelate IMPRESSION: 1. No evidence for acute abdominal process. No finding to correlate with right lower quadrant ecchym osis. 2. Large amount stool in the rectum with gas and feces throughout the small bowel correlate for feca l stasis. 3. Prostatomegaly correlate serum PSA. 4. Colonic diverticulosis.. 5. Severe atherosclerosis of the arterial vasculature. 6. 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 7. Bilateral hydroceles.
[2024-04-01] MEDS ORDERED: polyethylene glycoL 3350 17 GM POWD.PACK PO PRN (19:22)
[2024-04-01] MEDS ORDERED: ACETAMINOPHEN TAB 325 MG TAB PO PRN (19:24)
[2024-04-01] MEDS ORDERED: NALOXONE 0.4 MG/ML 1 ML VIAL IV PRN (19:24)
[2024-04-01] MEDS: SODIUM CHLORIDE 0.9% 1,000 ML IV SCH (21:03)
--- NOTE | 2024-04-01 23:10 | P.HPIM ---
History of Present Illness H&P Date: 04/01/24 Chief Complaint: Abdominal ecchymosis and bruising 88-year-old male with CKD Patient coming in for evaluation of right sided abdominal bruising and ecchymosis that he just noticed today patient recalls that 3 years ago he had a coronary catheterization and he claims that the ballast regulator operator left the port in the right groin area and then about 2 months ago he had some testing done at [facility] for GI bleeding he claims that they accessed the same catheter in his right groin to stop the bleeding then the catheter was removed. He has been doing well except for some nagging pain in the right lower quadrant of his abdomen that is acute on chronic in nature and was not until today when he noticed that there is some ecchymosis over the right lower abdominal wall for which she came in seeking help he denies any recent falls or injuries he is on Plavix and aspirin but no other blood thinners denies any GI bleeding changes in bowel or urinary habits denies any chest pain trouble breathing fevers or chills Imaging done in the ED showed evidence of constipation no other abnormalities related to the abdominal wall review of systems Pertinent positives as noted in HPI. All other systems were reviewed and are negative on exam Constitutional: No acute distress, conversant, pleasant, hard of hearing Eyes: Anicteric sclerae, moist conjunctiva, Pupils equal round reactive to light ENMT: NC/AT Oropharynx clear, no erythema, or exudates Lungs: Clear to auscultation Clear to percussion Normal respiratory effort, no accessory muscle use Cardiovascular: Heart regular in rate and rhythm, No murmurs, gallops, or rubs No peripheral edema Abdominal: Soft Nontender, no guarding, rebound or rigidity Abdomen moving with respiration Normoactive bowel sounds No hepatomegaly, No splenomegaly No palpable mass No abdominal wall hernia noted Skin: Ecchymosis and bruising right lower abdominal wall of different stages looks subacute of at least 5 days old with colors ranging from yellow- green bluish and purple Extremities: No digital cyanosis No clubbing Pedal pulses intact and symmetrical Radial pulses intact and symmetrical No calf tenderness Psychiatric: Alert and oriented to person, place and time Neuro Muscles Strength 5/5 in all 4 extremities Sensation to light touch grossly present throughout Cranial nerves II-XII grossly intact Past Medical History Past Medical History: Coronary Artery Disease (CAD), Cancer, Chest Pain / Angina, Heart Failure, COPD, GI Bleed, Hyperlipidemia, Hypertension, Osteoarthritis (OA) Additional Past Medical History / Comment(s): cataract rt eye, past hx noseble eds., states sob with activity, skin cancer., See Cardiology H & P. History of Any Multi-Drug Resistant Organisms: None Reported Past Surgical History: Back Surgery, Heart Catheterization With Stent, Joint Replacement Additional Past Surgical History / Comment(s): rt knee replacement, neck fusion,lt cataract, back surgery x3 Past Anesthesia/Blood Transfusion Reactions: No Reported Reaction Date of Last Stent Placement:: 09/22/21 Past Psychological History: No Psychological Hx Reported Smoking Status: Former smoker Past Alcohol Use History: None Reported Past Drug Use History: None Reported - Past Family History Mother Family Medical History: No Reported History Additional Family Medical History / Comment(s): heart conditions Son(s) Family Medical History: Cancer Additional Family Medical History / Comment(s): brain stem cancer Father Family Medical History: Myocardial Infarction (CO) Medications and Allergies Home Medications Medication Instructions Recorded Confirmed Type Ezetimibe [Zetia] 10 mg PO DAILY@79907/03/23 04/01/24 History Nitroglycerin Sl Tabs [Nitrostat] 0.4 mg SL Q5M PRN 07/03/23 04/01/24 History Alirocumab [Praluent Pen] 150 mg SQ Q14D 08/03/23 04/01/24 History Aspirin [Adult Low Dose Aspirin EC] 81 mg PO DAILY@79908/03/23 04/01/24 History polyethylene glycoL 3350 [Miralax] 17 gm PO DAILY PRN packet 02/22/24 04/01/24 Rx Amiodarone [Cordarone] 200 mg PO DAILY@79903/16/24 04/01/24 History Clopidogrel [Plavix] 75 mg PO DAILY@79903/16/24 04/01/24 History Empagliflozin [Jardiance] 10 mg PO DAILY@79903/16/24 04/01/24 History Spironolactone [Aldactone] 12.5 mg PO DAILY@79903/16/24 04/01/24 History Furosemide [Lasix] 20 mg PO BID@799,199903/19/24 04/01/24 History Metoprolol Succinate [Toprol XL] 50 mg PO DAILY@00 04/01/24 04/01/24 History Allergies Allergy/AdvReac Type Severity Reaction Status Date / Time atorvastatin Allergy Rash/Hives/"gets Verified 04/01/24 18:08 sick" Physical Exam Vitals: Vital Signs Temp Pulse Resp BP Pulse Ox 04/01/24 18:04 67 18 108/66 100 04/01/24 13:07 97.3 F L 74 18 103/64 96 Intake and Output 04/01/24 04/01/24 04/01/24 06:59 14:59 22:59 Other: Weight 65.771 kg Results CBC & Chem 7: 04/01/24 14:06 04/01/24 14:40 Labs: Abnormal Lab Results - Last 24 Hours (Table) 04/01/24 Range/Units 14:40 Sodium 132 L (137-145) mmol/L BUN 40 H (9-20) mg/dL Creatinine 2.04 H (0.66-1.25) mg/dL Glucose 100 H (74-99) mg/dL Assessment and Plan Assessment: 88-year-old male with coronary artery disease, CKD, diabetes mellitus, hypertension coming in for evaluation of right abdominal wall bruising and ecchymosis I discussed the case with ED doctor and accepted the admission for acute kidney injury on CKD status post CT of the abdomen with contrast for close monitoring and hydration with anticipated length of stay less than 2 midnights Acute kidney injury on CKD Avoid nephrotoxic meds Gentle IV fluid hydration normal saline 75 cc/h Sodium 132 potassium 4.9 BUN 40 creatinine 2.04 baseline is 1.5 Monitor urine output Right abdominal wall ecchymosis subacute CT of the abdomen did not show any significant pathology related to the abdominal wall Hemoglobin unremarkable 14.1 continue to monitor Platelets unremarkable 324 INR unremarkable 1.1 PT 11.9 PTT unremarkable 23.2 Continue supportive care monitoring Diabetes mellitus Insulin sliding scale Coronary artery disease Continue with Plavix aspirin metoprolol and amiodarone Full code DVT prophylaxis mechanical secondary to large ecchymosis
[2024-04-01] MEDS ORDERED: DEXTROSE 50% SYRINGE 50 ML IVP PRN ×2 (23:12)
[2024-04-02 02:41] LABS: Glucose,Whole Blood 92 mg/dL (70-110)
[2024-04-02] MEDS ORDERED: DAPAGLIFLOZIN PROPANEDIOL 5 MG TABLET PO SCH (08:00)
[2024-04-02 08:16] LABS: Glucose,Whole Blood 88 mg/dL (70-110)
[2024-04-02] MEDS: INSULIN ASPART (NovoLOG) 100 UNIT/ML VIAL SQ SCH (08:16)
[2024-04-02] MEDS: ASPIRIN 81 MG PO SCH (08:33)
[2024-04-02] MEDS: AMIODARONE 200 MG TAB PO SCH (08:34)
[2024-04-02] MEDS: EZETIMIBE 10 MG TAB PO SCH (08:34)
[2024-04-02] MEDS: METOPROLOL SUCCINATE (ER) 50 MG TAB.ER.24H PO SCH (08:34)
[2024-04-02] MEDS: CLOPIDOGREL 75 MG TAB PO SCH (08:34)
[2024-04-02 10:26] LABS: HCT 41.6 % (39.6-50.0); HGB 12.9 g/dL (13.0-17.0); MCH 27.1 pg (27.0-32.0); MCV 87.4 FL (80.0-97.0); Mean Platelet Volume 10.7 FL (9.5-12.2); NRBC Per 100 WBC 0 X 10*3/uL (0.00-0.01); Platelet Count 311 X 10*3/uL (140-440); RBC 4.76 X 10*6/uL (4.40-5.60); RDW 15.6 % (11.5-14.5)
[2024-04-02 10:37] LABS: BUN/Creat Ratio 20.67 Ratio (12.00-20.00); Blood Urea Nitrogen 37.2 mg/dL (9.0-27.0); Calcium 9.1 mg/dL (8.7-10.3); Carbon Dioxide 23.8 mmol/L (21.6-31.8); Chloride 99 mmol/L (96-109); Glucose 83 mg/dL (70-110); Potassium 5.2 mmol/L (3.5-5.5); Sodium 133 mmol/L (135-145)
--- NOTE | 2024-04-02 10:56 | P.PN ---
Subjective Progress Note Date: 04/02/24 Hospital course: Patient is a very pleasant 88-year-old male with a past medical history of CAD with multiple stents, ischemic cardiomyopathy with previously known EF of 25%, hypertension, hyperlipidemia, CKD stage IIIb and COPD. He presented to the emergency department on 04/01/2024 for abdominal bruising right lower flank accompanied by mild "nagging pain" his right lower quadrant of his abdomen. Upon arrival to our facility, patient underwent evaluation in the emergency department. Vital signs upon arrival show blood pressure 103/64, heart rate 74, respiratory rate 18, temp 97.3 F, and SpO2 of 96% on room air. Labs completed and reviewed. CBC and coagulation profile were unremarkable. BMP showing hyponatremia with sodium of 132 and acute kidney injury on stage III chronic kidney disease with BUN of 40, creatinine of 2.04, GFR of 29 with baseline creatinine of 1.5. Liver profile was unremarkable. Amylase and lipase normal findings. CT abdomen and pelvis was completed showing no acute intra-abdominal process to correlate with findings of right lower quadrant ecchymosis, large amount of stool in rectum, prostamegaly, degenerative changes of the spine, severe atherosclerosis of the arterial vasculature, and bilateral hydroceles. Physical exam: Vital signs reviewed and stable. General: Nontoxic, no distress and appears stated age. Derm: Skin warm and dry, normal coloration for ethnicity. Moderate bruising right lower quadrant abdomen, bruising appears older and ranging in color from yellow to purple. Head: Atraumatic, normocephalic and symmetric. Eyes: EOMs intact, no lid lag, and anicteric sclera Mouth: no lip lesions, mucus membranes moist Cardiovascular: regular rate and rhythm with normal S1S2, systolic murmur, positive posterior tibial pulses bilaterally, and cap refill < 2 seconds. Lungs: Respirations even, regular, and unlabored on room air. Lungs CTA bilaterally, no rhonchi, no rales, no wheezing, and no accessory muscle usage. Abdominal: soft, nontender to palpation, no guarding, no appreciable organomegaly Ext: ROM intact. No gross muscle atrophy, no edema, no contractures Neuro: Speech clear, face symmetrical and CN II-XII grossly intact with no noted focal neuro deficits Psych: Alert and oriented to person, place, time, and situation. Appropriate and pleasant affect. Assessment and Plan of Care: Acute kidney injury on stage IIIb chronic kidney disease Avoid nephrotoxic medications, currently holding Aldactone and Lasix. Recommend resumption once renal function is stable. Continue with gentle IV fluid hydration at 50 cc/h for an additional 24 hours secondary to known EF of 25%, monitor closely for signs of fluid overload. Monitor I's and O's. Right lower flank/abdominal wall ecchymosis, subacute CT abdomen and pelvis negative for acute intra-abdominal process to correlate with findings. Continue monitoring hemoglobin and platelet counts, currently stable. Coagulation profile unremarkable. Constipation -CT showing large amount of stool in rectum. -Order placed for lactulose 30 g x 1 dose and patient placed on MiraLAX 17 g daily. Monitor for resolution. CAD status post stenting Ischemic cardiomyopathy with previously known EF of 25% Hypertension Hyperlipidemia Lasix and Aldactone held secondary to acute kidney injury. Patient to continue cardiac medication regimen with amiodarone 200 mg daily, aspirin 81 mg daily, Plavix 75 mg daily, Zetia 10 mg daily, metoprolol 50 mg da carmen. COPD, not in acute exacerbation Provide supplemental oxygen as indicated to maintain SpO2 equal to or greater than 90%. DuoNebs every 2 hours as needed for wheezing/shortness of breath. Data and imaging reviewed: Vital signs reviewed. Blood pressure 108/61, heart rate 75, respiratory rate 18, and SpO2 of 95% on room air. Morning labs reviewed. CBC showing hemoglobin of 12.9. BMP showing slight improvement of hyponatremia and acute kidney injury with sodium of 133, BUN of 37.2, creatinine 1.8, and GFR increasing from 33-36. Will continue gentle IV fluid hydration with 0.9% normal saline for an additional 24 hours. CODE STATUS: Full code DVT prophylaxis: SCDs Anticipated discharge date: Pending clinical course, likely 24 to [address]: Home Patient was seen independently by Nurse Pracitioner. This document was prepared using [email or web address] dictation software. Please allow for errors in transmission technician, while rare they do occur. I reviewed the documentation as provided by the EVANGELINA above, who is the original author of this note. I agree with the documented assessment and plan, with the following changes: none Objective - Vital Signs Vital signs: Vital Signs Temp 97.8 F 04/01/24 21:33 Pulse 75 04/02/24 08:12 Resp 18 04/02/24 08:12 BP 108/61 04/02/24 08:12 Pulse Ox 95 04/02/24 08:12 FiO2 Intake & Output 04/01/24 04/02/24 04/02/24 18:59 06:59 18:59 Weight 65.771 kg - Labs CBC & Chem 7: 04/02/24 06:28 04/02/24 06:28 Labs: Abnormal Lab Results - Last 24 Hours (Table) 04/01/24 Range/Units 14:40 Sodium 132 L (137-145) mmol/L BUN 40 H (9-20) mg/dL Creatinine 2.04 H (0.66-1.25) mg/dL Glucose 100 H (74-99) mg/dL
[2024-04-02 12:01] LABS: Glucose,Whole Blood 146 mg/dL (70-110)
[2024-04-02] MEDS: LACTULOSE 20 GM/30 ML CUP PO ONE (14:45)
[2024-04-02] MEDS: polyethylene glycoL 3350 17 GM POWD.PACK PO SCH (14:45)
[2024-04-02] MEDS ORDERED: MAGNESIUM HYDROXIDE 2,400 MG/30 ML CUP PO PRN (17:53)
[2024-04-02] MEDS: DOCUSATE 100 MG CAP PO PRN (18:38)
[2024-04-02] MEDS ORDERED: ONDANSETRON 4 MG/2 ML VIAL IVP PRN (20:01)
[2024-04-02 20:34] LABS: Glucose,Whole Blood 158 mg/dL (70-110)
[2024-04-02] MEDS: IPRATROPIUM-ALBUTEROL 3 ML NEB INHALATION PRN (20:35)
[2024-04-03 06:21] LABS: Glucose,Whole Blood 118 mg/dL (70-110)
[2024-04-03 12:19] LABS: Glucose,Whole Blood 139 mg/dL (70-110)
[2024-04-03 13:27] LABS: Basophils # (A) 0.1 k/uL (0-0.2); Basophils % (A) 1 %; Eosinophils # (A) 0.1 k/uL (0-0.7); Eosinophils % (A) 1 %; HCT 43.7 % (39.0-53.0); HGB 13.3 gm/dL (13.0-17.5); Lymphocytes # (A) 1.1 k/uL (1.0-4.8); Lymphocytes % (A) 9 %; MCH 27.4 pg (25.0-35.0); MCHC 30.4 g/dL (31.0-37.0); Monocytes # (A) 0.6 k/uL (0-1.0); Monocytes % (A) 5 %; Neutrophils # (A) 9.8 k/uL (1.3-7.7); Neutrophils % (A) 84 %; Platelet Count 312 k/uL (150-450); RBC 4.85 m/uL (4.30-5.90); RDW 15.1 % (11.5-15.5); WBC 11.7 k/uL (3.8-10.6)
[2024-04-03 14:36] LABS: African American GFR (CKD) 60 (>60 ml/min/1.73 sqM); Anion Gap 8 mmol/L; Blood Urea Nitrogen 36 mg/dL (9-20); Calcium 8.9 mg/dL (8.4-10.2); Carbon Dioxide 18 mmol/L (22-30); Chloride 107 mmol/L (98-107); Glucose 132 mg/dL (74-99); Non-African American GFR(CKD) 52 (>60 ml/min/1.73 sqM); Sodium 133 mmol/L (137-145)
[2024-04-03 15:16] LABS: Potassium 4.8 mmol/L (3.5-5.1)
--- NOTE | 2024-04-03 16:10 | P.DS ---
Providers Date of admission: 04/01/24 19:25 Attending physician: Erasmo Jones MD Primary care physician: [facility] Hospital Course: Discharge diagnosis Acute kidney injury on CKD stage III type abdominal pain secondary to constipation constipation Ecchymosis lower abdomen: Hemoglobin stable Coronary disease status post stenting Ischemic cardiomyopathy with an EF of 25% Hypertension Hyperlipidemia COPD Hospital course Patient is a very pleasant 88-year-old male with a past medical history of CAD with multiple stents, ischemic cardiomyopathy with previously known EF of 25%, hypertension, hyperlipidemia, CKD stage IIIb and COPD. He presented to the emergency department on 04/01/2024 for abdominal bruising right lower flank accompanied by mild "nagging pain" his right lower quadrant of his abdomen. Upon arrival to our facility, patient underwent evaluation in the emergency department. Vital signs upon arrival show blood pressure 103/64, heart rate 74, respiratory rate 18, temp 97.3 F, and SpO2 of 96% on room air. Labs completed and reviewed. CBC and coagulation profile were unremarkable. BMP showing hyponatremia with sodium of 132 and acute kidney injury on stage III chronic kidney disease with BUN of 40, creatinine of 2.04, GFR of 29 with baseline creatinine of 1.5. Liver profile was unremarkable. Amylase and lipase normal findings. CT abdomen and pelvis was completed showing no acute intra-abdominal process to correlate with findings of right lower quadrant ecchymosis, large amount of stool in rectum, prostamegaly, degenerative changes of the spine, severe atherosclerosis of the arterial vasculature, and bilateral hydroceles. During this admission patient was given stool softeners. He had a large bowel movement on the morning of 04/03/2024 after which she felt much better. Patient's diuretics were also held and his creatinine normalized. Patient will be restarted on his spironolactone 12.5 mg daily. I will continue to hold his Lasix 20 mg p.o. twice daily. As far as patient's ecchymosis that was seen on the CT abdomen this was stable. Hemoglobin was stable. Patient deemed stable for discharge and is looking forward to going home. 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 Psych - Calm and cooperative I spent a total of 33 minutes with this discharge Patient Condition at Discharge: Stable Plan - Discharge Summary New Discharge Prescriptions: Continue Ezetimibe [Zetia] 10 mg PO DAILY@0800 Nitroglycerin Sl Tabs [Nitrostat] 0.4 mg SL Q5M PRN PRN Reason: Chest Pain Aspirin [Adult Low Dose Aspirin EC] 81 mg PO DAILY@0800 Alirocumab [Praluent Pen] 150 mg SQ Q14D polyethylene glycoL 3350 [Miralax] 17 gm PO DAILY PRN packet PRN Reason: Constipation Amiodarone [Cordarone] 200 mg PO DAILY@0800 Clopidogrel [Plavix] 75 mg PO DAILY@08 Empagliflozin [Jardiance] 10 mg PO DAILY@08 Spironolactone [Aldactone] 12.5 mg PO DAILY@08 Metoprolol Succinate [Toprol XL] 50 mg PO DAILY@0800 Discontinued Furosemide [Lasix] 20 mg PO BID@799,1999 Discharge Medication List Ezetimibe [Zetia] 10 mg PO DAILY@0800 07/03/23 [History] Nitroglycerin Sl Tabs [Nitrostat] 0.4 mg SL Q5M PRN 07/03/23 [History] Alirocumab [Praluent Pen] 150 mg SQ Q14D 08/03/23 [History] Aspirin [Adult Low Dose Aspirin EC] 81 mg PO DAILY@0800 08/03/23 [History] polyethylene glycoL 3350 [Miralax] 17 gm PO DAILY PRN packet 02/22/24 [Rx] Amiodarone [Cordarone] 200 mg PO DAILY@0803/16/24 [History] Clopidogrel [Plavix] 75 mg PO DAILY@0803/16/24 [History] Empagliflozin [Jardiance] 10 mg PO DAILY@79903/16/24 [History] Spironolactone [Aldactone] 12.5 mg PO DAILY@79903/16/24 [History] Metoprolol Succinate [Toprol XL] 50 mg PO DAILY@79904/01/24 [History] Follow up Appointment(s)/Referral(s): [facility],Clinic [Primary Care Provider] - 1-2 days Discharge Disposition: HOME SELF-CARE
--- NOTE | 2024-04-03 17:39 | P.PN ---
Subjective Progress Note Date: 04/03/24 Hospital course: Patient is a very pleasant 88-year-old male with a past medical history of CAD with multiple stents, ischemic cardiomyopathy with previously known EF of 25%, hypertension, hyperlipidemia, CKD stage IIIb and COPD. He presented to the emergency department on 04/01/2024 for abdominal bruising right lower flank accompanied by mild "nagging pain" his right lower quadrant of his abdomen. Up on arrival to our facility, patient underwent evaluation in the emergency department. Vital signs upon arrival show blood pressure 103/64, heart rate 74, respiratory rate 18, temp 97.3 F, and SpO2 of 96% on room air. Labs completed and reviewed. CBC and coagulation profile were unremarkable. BMP showing hyponatremia with sodium of 132 and acute kidney injury on stage III chronic kidney disease with BUN of 40, creatinine of 2.04, GFR of 29 with baseline creatinine of 1.5. Liver profile was unremarkable. Amylase and lipase normal findings. CT abdomen and pelvis was completed showing no acute intra-abdominal process to correlate with findings of right lower quadrant ecchymosis, large am ount of stool in rectum, prostamegaly, degenerative changes of the spine, severe atherosclerosis of the arterial vasculature, and bilateral hydroceles. 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 Will restart his Aldactone Patient to continue cardiac medication regimen with amiodarone 200 mg daily, aspirin 81 mg daily, Plavix 75 mg daily, Zetia 10 mg daily, metoprolol 50 mg daily. COPD, not in acute exacerbation -Patient passed home O2 eval earlier today. Prior to discharge patient then failed home O2 eval. Will keep patient for home O2. Anticipated discharge: Tomorrow Anticipated place of discharge home with oxygen Objective - Vital Signs Vital signs: Vital Signs Temp 98.7 F 04/03/24 07:00 Pulse 78 04/03/24 14:37 Resp 16 04/03/24 07:00 BP 97/59 04/03/24 07:00 Pulse Ox 99 04/03/24 14:37 FiO2 Intake & Output 04/02/24 04/03/24 04/03/24 18:59 06:59 18:59 Weight 65.771 kg Other: Voiding Method Toilet Toilet # Voids 3 2 2 # Bowel Movements 1 2 1 - Labs CBC & Chem 7: 04/03/24 12:49 04/03/24 14:02 Labs: Abnormal Lab Results - Last 24 Hours (Table) 04/02/24 04/03/24 04/03/24 Range/Units 20:33 06:19 12:17 WBC (3.8-10.6) k/uL MCHC (31.0-37.0) g/dL Neutrophils # (1.3-7.7) k/uL Sodium (137-145) mmol/L Carbon Dioxide (22-30) mmol/L BUN (9-20) mg/dL Glucose (74-99) mg/dL POC Glucose (mg/dL) 158 H 118 H 139 H (70-110) mg/dL 04/03/24 04/03/24 Range/Units 12:49 14:02 WBC 11.7 H (3.8-10.6) k/uL MCHC 30.4 L (31.0-37.0) g/dL Neutrophils # 9.8 H (1.3-7.7) k/uL Sodium 133 L (137-145) mmol/L Carbon Dioxide 18 L (22-30) mmol/L BUN 36 H (9-20) mg/dL Glucose 132 H (74-99) mg/dL POC Glucose (mg/dL) (70-110) mg/dL
[2024-04-03 18:35] LABS: Glucose,Whole Blood 147 mg/dL (70-110)
[2024-04-03] MEDS: SPIRONOLACTONE 25 MG TAB PO SCH (18:41)
--- NOTE | 2024-04-03 19:14 | XR ---
EXAMINATION TYPE: XR chest 1V DATE OF EXAM: 04/03/2024 COMPARISON: 03/20/2024 HISTORY: Hypoxia TECHNIQUE: Single frontal view of the chest is obtained. FINDINGS: There is diffuse interstitial opacity unchanged compared to prior study. Possibly reflects chronic in terstitial changes versus acute interstitial process likely pulmonary edema or interstitial pneumonia . There is a tiny right pleural effusion. The heart size is prominent. There is remote trauma to the left clavicle. There is bilateral chronic rotator cuff tears. There is moderate degenerative change of the right AC joint. IMPRESSION: 1. Mild cardiomegaly. 2. Diffuse interstitial opacity reflecting chronic interstitial changes versus acute process such as pulmonary edema or an interstitial pneumonia. 3. Tiny right pleural effusion. 4. Abnormal shoulders as described above 5. No significant interval change compared to previous.
[2024-04-03 21:03] LABS: Glucose,Whole Blood 128 mg/dL (70-110)
[2024-04-03] MEDS: MELATONIN 5 MG TABLET PO SCH (23:03)
[2024-04-04 04:12] VITALS: RESP 16
[2024-04-04 06:13] LABS: Glucose,Whole Blood 115 mg/dL (70-110)
[2024-04-04 08:27] VITALS: BP 126/64; TEMP 96
[2024-04-04 09:51] VITALS: PULSE 88
[2024-04-04 12:08] LABS: Glucose,Whole Blood 129 mg/dL (70-110)
--- NOTE | 2024-04-04 12:18 | P.DS ---
Providers Date of admission: 04/01/24 19:25 Attending physician: Erasmo Jones MD Primary care physician: [facility] Hospital Course: Discharge diagnosis Acute kidney injury on CKD stage III type abdominal pain secondary to constipation constipation Ecchymosis lower abdomen: Hemoglobin stable Coronary disease status post stenting Ischemic cardiomyopathy with an EF of 25% Hypertension Hyperlipidemia COPD Hospital course Patient is a very pleasant 88-year-old male with a past medical history of CAD with multiple stents, ischemic cardiomyopathy with previously known EF of 25%, hypertension, hyperlipidemia, CKD stage IIIb and COPD. He presented to the emergency department on 04/01/2024 for abdominal bruising right lower flank accompanied by mild "nagging pain" his right lower quadrant of his abdomen. Upon arrival to our facility, patient underwent evaluation in the emergency department. Vital signs upon arrival show blood pressure 103/64, heart rate 74, respiratory rate 18, temp 97.3 F, and SpO2 of 96% on room air. Labs completed and reviewed. CBC and coagulation profile were unremarkable. BMP showing hyponatremia with sodium of 132 and acute kidney injury on stage III chronic kidney disease with BUN of 40, creatinine of 2.04, GFR of 29 with baseline creatinine of 1.5. Liver profile was unremarkable. Amylase and lipase normal findings. CT abdomen and pelvis was completed showing no acute intra-abdominal process to correlate with findings of right lower quadrant ecchymosis, large amount of stool in rectum, prostamegaly, degenerative changes of the spine, severe atherosclerosis of the arterial vasculature, and bilateral hydroceles. During this admission patient was given stool softeners. He had a large bowel movement on the morning of 04/03/2024 after which she felt much better. Patient's diuretics were also held and his creatinine normalized. Patient will be restarted on his spironolactone 12.5 mg daily. I will continue to hold his Lasix 20 mg p.o. twice daily. As far as patient's ecchymosis that was seen on t he CT abdomen this was stable. Hemoglobin was stable. Patient deemed stable for discharge and is looking forward to going home. Patient wanted to go home with hospice. Patient will be discharged to his living facility with hospice. Hospice to arrange for oxygen as patient failed home O2 eval. 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 Psych - Calm and cooperative I spent a total of 33 minutes with this discharge Patient Condition at Discharge: Poor Plan - Discharge Summary New Discharge Prescriptions: Continue Ezetimibe [Zetia] 10 mg PO DAILY@0800 Nitroglycerin Sl Tabs [Nitrostat] 0.4 mg SL Q5M PRN PRN Reason: Chest Pain Aspirin [Adult Low Dose Aspirin EC] 81 mg PO DAILY@0800 Alirocumab [Praluent Pen] 150 mg SQ Q14D polyethylene glycoL 3350 [Miralax] 17 gm PO DAILY PRN packet PRN Reason: Constipation Amiodarone [Cordarone] 200 mg PO DAILY@0800 Clopidogrel [Plavix] 75 mg PO DAILY@0800 Empagliflozin [Jardiance] 10 mg PO DAILY@0800 Spironolactone [Aldactone] 12.5 mg PO DAILY@0800 Metoprolol Succinate [Toprol XL] 50 mg PO DAILY@0800 Discontinued Furosemide [Lasix] 20 mg PO BID@ Discharge Medication List Ezetimibe [Zetia] 10 mg PO DAILY@0800 07/03/23 [History] Nitroglycerin Sl Tabs [Nitrostat] 0.4 mg SL Q5M PRN 07/03/23 [History] Alirocumab [Praluent Pen] 150 mg SQ Q14D 08/03/23 [History] Aspirin [Adult Low Dose Aspirin EC] 81 mg PO DAILY@0800 08/03/23 [History] polyethylene glycoL 3350 [Miralax] 17 gm PO DAILY PRN packet 02/22/24 [Rx] Amiodarone [Cordarone] 200 mg PO DAILY@0803/16/24 [History] Clopidogrel [Plavix] 75 mg PO DAILY@0803/16/24 [History] Empagliflozin [Jardiance] 10 mg PO DAILY@0803/16/24 [History] Spironolactone [Aldactone] 12.5 mg PO DAILY@0803/16/24 [History] Metoprolol Succinate [Toprol XL] 50 mg PO DAILY@0804/01/24 [History] Follow up Appointment(s)/Referral(s): [facility],Clinic [Primary Care Provider] - 1-2 days Patient Instructions/Handouts: Acute Kidney Injury (DC), Contusion in Adults (GEN) Discharge Disposition: HOME SELF-CARE
== END 2024-04-04 15:57 | disposition hospice, home (50) ==
LOC: EC 13:01 → 6NMEDSUR 19:25 → 1SOBS 04-02 12:48 → 6NMEDSUR 04-03 15:54
PROVIDERS: ADMIT Student in an Organized Health Care Education/Training Program; ATTEND Student in an Organized Health Care Education/Training Program
DX: N17.9 Acute kidney failure, unspecified (principal); S30.1XXA Contusion of abdominal wall, initial encounter; I13.0 Hypertensive heart and chronic kidney disease with heart failure and stage 1 through stage 4 chronic kidney disease, or unspecified chronic kidney disease; N18.32 Chronic kidney disease, stage 3b; E87.1 Hypo-osmolality and hyponatremia; E11.22 Type 2 diabetes mellitus with diabetic chronic kidney disease; K59.00 Constipation, unspecified; I44.0 Atrioventricular block, first degree; I45.10 Unspecified right bundle-branch block; N40.0 Benign prostatic hyperplasia without lower urinary tract symptoms; I25.10 Atherosclerotic heart disease of native coronary artery without angina pectoris; I25.5 Ischemic cardiomyopathy; E78.5 Hyperlipidemia, unspecified; J44.9 Chronic obstructive pulmonary disease, unspecified; N43.3 Hydrocele, unspecified; Z79.82 Long term (current) use of aspirin; Z79.02 Long term (current) use of antithrombotics/antiplatelets; Z79.84 Long term (current) use of oral hypoglycemic drugs; Z79.899 Other long term (current) drug therapy; Z88.8 Allergy status to other drugs, medicaments and biological substances; Z87.891 Personal history of nicotine dependence; Z95.5 Presence of coronary angioplasty implant and graft
CPT/HCPCS: 96361 ×3; 96360; 99285; 36415; 94640 ×2; 94760 ×2; 93005; 80053; 80048 ×2; 82150; 83690; 85025 ×2; 85027; 85610; 85730; 83036; 71045; 74177; G0378 ×6; Q9967